=== PATIENT | female | born 1955 | race Caucasian/White ===

== ENCOUNTER 2020-11-24 08:33 | Outpatient (REF) | payer OTHER, SELFPAY ==
[2020-11-24 10:14] LABS: Hematocrit 37.9 % (37-47); Hemoglobin 12.4 g/dl (12.0-16.0); Mean Corpuscular HGB Conc 32.7 g/dl (31.0-35.0); Mean Corpuscular Hemoglobin 32.5 pg (27.0-33.0); Mean Corpuscular Volume 99.5 fL (80-98); Mean Platelet Volume 10.8 fL (9.4-12.3); Platelet Count 215 X10*3/uL (160-400); Red Blood Count 3.81 X10*6/uL (4.20-5.50); Red Cell Distribution Width 11.4 % (11.0-16.0); White Blood Count 8.4 X10*3/uL (4.8-10.8)
[2020-11-24 10:51] LABS: Alanine Aminotransferase 26 U/L (0-31); Albumin Level 4.2 g/dL (3.5-5.0); Alkaline Phosphatase 76 U/L (39-117); Anion Gap 13 (12-20); Aspartate Amino Transferase 40 U/L (5-31); Bilirubin Direct 0.3 mg/dL (0.0-0.5); Bilirubin Total 0.5 mg/dL (0.0-1.0); Blood Urea Nitrogen 14 mg/dL (9-16); Carbon Dioxide 30 mmol/L (22-29); Chloride 102 mmol/L (96-108); Cholesterol 145 mg/dL; Estimated Glomerular Filt Rate > 60; Glucose Fasting 96 mg/dL (60-99); HDL Cholesterol 59 mg/dL; LDL Cholesterol Calculated 66 mg/dl; Potassium 3.9 mmol/L (3.3-5.1); Sodium 141 mmol/L (135-145); Total Protein 6.6 g/dL (6.5-8.0); Triglycerides 100 mg/dL
[2020-11-24 11:16] LABS: TSH reflex Free T4 3.27 uIU/mL (0.32-4.0)
== END 2020-11-24 08:34 | disposition home or self-care (01) ==
LOC: HO.10HDL 08:33
PROVIDERS: Visit Provider Hospitalist
DX: Z00.01 Encounter for general adult medical examination with abnormal findings (principal)
CPT/HCPCS: 36415; 80048; 80061; 80076; 84443; 85027

== ENCOUNTER 2021-04-06 15:58 | Outpatient (REF) | payer OTHER, SELFPAY ==
--- NOTE | ~2021-04-06 | MM_ITS ---
EXAMINATION: MM SCREENING DIGITAL BREAST TOMOSYNTHESIS, BILATERAL CLINICAL INFORMATION: Screening. Asymptomatic. Prior mammography over 20 years ago and purged. Family history breast cancer, maternal aunt. The lifetime risk of breast cancer based on the Tyrer-Cuzick Model is 4%. COMPARISON: None (current study represents new baseline exam). TECHNIQUE: Digital breast tomosynthesis is performed in both the craniocaudal and mediolateral oblique views along with computer-aided detection (CAD). Synthesized 2D images are generated from the tomosynthesis. Additional exaggerated right CC view is provided. FINDINGS: There are scattered areas of fibroglandular density (ACR BI-RADS breast composition Category b). There are no significant masses, abnormal calcifications, or other abnormalities. The skin contours are smooth. MM/MM tomosynthesis screening BI IMPRESSION: No mammographic evidence of malignancy. ASSESSMENT: BI-RADS 1: Negative RECOMMENDATION: Routine annual mammography screening. This patient's information was entered into a reminder system with a target due date for their next mammogram.
== END 2021-04-06 15:59 | disposition home or self-care (01) ==
LOC: HO.MAMMO 15:58
PROVIDERS: PCP Internal Medicine; Visit Provider Internal Medicine
DX: Z12.31 Encounter for screening mammogram for malignant neoplasm of breast (principal)
CPT/HCPCS: 77063; 77067

== ENCOUNTER 2021-07-02 13:11 | Inpatient (IN) | payer OTHER, SELFPAY ==
[2021-07-02] VITALS (12 sets, daily range): BP systolic 162–216; BP diastolic 78–113; PULSE 80–91; RESP 14–18; TEMP 36.4–37.1; O2SAT 97–99; BMI 16.5; BMI 20.1
--- NOTE | ~2021-07-02 | CT_ITS ---
EXAMINATION: CT HEAD WITHOUT CONTRAST CLINICAL INFORMATION: Fall, trauma COMPARISON: None TECHNIQUE: Contiguous axial imaging was performed from the skull base to vertex without intravenous administration of contrast. Additional 2-D coronal and sagittal reformatted images are generated on the CT workstation and uploaded to PACS. This CT examination was performed using dose optimization techniques as appropriate, variously including the following: *Automated exposure control *Adjustment of mA and/or kV according to patient size (this includes techniques or standardized protocols for targeted exams where dose is matched to indication/reason for exam; i.e. extremities or head) *Use of iterative reconstruction technique DLP: 760 mGy-cm FINDINGS: There is no intracranial hemorrhage, hematoma, or extra-axial fluid collection. The ventricles are normal in size. There is no hydrocephalus, edema, or mass effect. There is moderate periventricular white matter gliosis consistent with small vessel ischemic changes. Punctate lacunar infarct is seen right anterior basal ganglia and caudate head. There is no mass effect or edema. Visualized orbits are unremarkable. There is no visible acute territorial infarct or mass lesion. The calvarium appears intact. There is no pneumocephalus or orbital emphysema. The visualized sinuses and middle ears and mastoid air cells show no significant mucosal thickening. There are no air-fluid levels. CT/CT head/brain wo con IMPRESSION: 1. No intracranial hemorrhage, hydrocephalus, or edema. 2. Bilateral moderate periventricular white matter gliosis consistent with chronic small vessel ischemic changes. Punctate lacunar infarct right inferior basal ganglia and caudate head.
--- NOTE | ~2021-07-02 | XR_ITS ---
EXAMINATION: XR HIP, LEFT CLINICAL INFORMATION: Fall with pain COMPARISON: 12/05/2017 TECHNIQUE: Two views of the left hip. Frontal view of the pelvis. FINDINGS: There is a left femoral neck transcervical fracture. Varus angulation at the fracture site. The femoral head remains seated within its acetabulum. Partially visualized fixation hardware of the right femur. Appropriate alignment of the right hip. The pelvic rim is intact. Sacroiliac joints and pubic symphysis are intact. XR/XR hip LT w PEL1V IMPRESSION: Transcervical left femoral neck fracture with varus angulation.
--- NOTE | ~2021-07-02 | XR_ITS ---
EXAMINATION: XR KNEE, LEFT CLINICAL INFORMATION: Fall with pain COMPARISON: None TECHNIQUE: Three views of the left knee. FINDINGS: Osteopenia. No fracture or subluxation. Mild medial compartment joint space narrowing. No joint effusion. The soft tissues are unremarkable. XR/XR knee LT 3V IMPRESSION: No fracture or malalignment. Mild medial compartment joint space narrowing.
--- NOTE | ~2021-07-02 | XR_ITS ---
EXAMINATION: XR CHEST CLINICAL INFORMATION: Syncope COMPARISON: 07/20/2017 TECHNIQUE: Frontal view of the chest was obtained. FINDINGS: Hyperexpanded lungs. No consolidation, edema, or effusion. No pneumothorax. The cardiomediastinal silhouette is within normal limits. No acute osseous abnormality. XR/XR chest 1V IMPRESSION: Hyperexpanded, clear lungs. No displaced fractures are seen.
--- NOTE | ~2021-07-02 | CT_ITS ---
EXAMINATION: CT CERVICAL SPINE WITHOUT CONTRAST CLINICAL INFORMATION: Fall, trauma, neck pain. COMPARISON: CT head 07/02/2021, CT chest 07/20/2017. TECHNIQUE: Multidetector volumetric CT imaging of the cervical spine is performed without contrast in the axial plane. Additional 2D reformatted coronal and sagittal images are generated on the CT workstation and uploaded to PACS. This CT examination was performed using dose optimization techniques as appropriate, variously including the following: *Automated exposure control *Adjustment of mA and/or kV according to patient size (this includes techniques or standardized protocols for targeted exams where dose is matched to indication/reason for exam; i.e. extremities or head) *Use of iterative reconstruction technique DLP: 286 mGy-cm FINDINGS: There is no vertebral compression fracture, fracture line, spondylolisthesis, or prevertebral soft tissue swelling. The craniocervical junction appears normal. The odontoid appears intact. There is normal cervical lordosis. There are mild degenerative changes with disc narrowing C4-C5 and C5-C6. No perched facet. No apical pneumothorax. There is some mild pleural-parenchymal scarring right apex again seen. No paraspinal soft tissue swelling. CT/CT cervical spine wo con IMPRESSION: No acute bony abnormality or prevertebral soft tissue swelling.
--- NOTE | 2021-07-02 13:45 | ECG_ITS ---
Test Reason : FALL Blood Pressure : / mmHG Vent. Rate : 080 BPM Atrial Rate : 080 BPM P-R Int : 096 ms QRS Dur : 082 ms QT Int : 416 ms P-R-T Axes : 067 055 066 degrees QTc Int : 479 ms Sinus rhythm with short MT Nonspecific T wave abnormality Possible Left ventricular hypertrophy Abnormal ECG T wave amplitude has increased in Lateral leads Referred By: Laure Tony Electronically Signed By:KRAIG ESPINO MD
--- NOTE | 2021-07-02 13:47 | ED.FALL ---
HPI - Fall General Chief Complaint: Fall Stated Complaint: Knee pain/fall Time Seen by Provider: 07/02/21 13:43 Source: patient and EMS Mode of arrival: EMS Limitations: no limitations History of Present Illness HPI Narrative: 65-year-old female came in by ambulance for evaluation for syncopal episode. Patient walked to the bathroom at 03:00 and felt dizzy and fainted on the floor, patient been complaining of headache, neck pain, left knee pain, left hip pain, patient was not able to bear weight since she fell. Related Data Home Medications Medication Instructions Recorded Confirmed aspirin 81 mg tablet,delayed 81 mg PO DAILY 11/02/20 07/02/21 release (Adult Aspirin Regimen) latanoprost 0.005 % eye drops 1 drp OPHTHALMIC (EYE) DAILY 11/02/20 07/02/21 timolol maleate 0.5 % eye drops 1 drp OPHTHALMIC (EYE) QAM 07/02/21 07/02/21 tramadol 50 mg tablet 25 mg PO BEDTIME PRN 07/02/21 07/02/21 tramadol 50 mg tablet 50 mg PO DAILY PRN 07/02/21 07/02/21 Previous Rx's Medication Instructions Recorded lisinopril 40 mg tablet 40 mg PO DAILY #90 tab 12/27/20 metoprolol succinate 50 mg 50 mg PO DAILY #90 tab 05/03/21 tablet,extended release 24 hr rosuvastatin 10 mg tablet 10 mg PO DAILY #90 tab 05/10/21 gabapentin 300 mg capsule 300 mg PO TID #90 cap 06/05/21 Allergies Allergy/AdvReac Type Severity Reaction Status Date / Time Sulfa (Sulfonamide Allergy Intermediate RASH/HIVES Verified 06/28/21 08:54 Antibiotics) [SULFA(SULFONAMIDE ANTIBIOTICS)] Review of Systems Review of Systems: All other systems are reviewed and are negative Constitutional: Reports as per HPI and Reports no additional constitutional complaints Eyes: Reports as per HPI and Reports no additional eye complaints Reports system reviewed and no additional complaints, except as documented Cardiovascular: Reports as per HPI and Reports no additional cardiovascular complaints Respiratory: Reports as per HPI and Reports no additional respiratory complaints Gastrointestinal: Reports as per HPI and Reports no additional gastrointestinal complaints Genitourinary: Reports no additional female genitourinary complaints Musculoskeletal: Reports no additional musculoskeletal complaints Skin/Breast: Reports system reviewed and no additional complaints, except as docu Psychiatric: Reports no additional psychiatric complaints Endocrine: Reports no additional endocrine complaints Hematologic/Lymphatic: Reports no additional hematologic/lymphatic complaints Allergic/Immunologic: Reports no additional allergic/immunologic complaints Reports system reviewed and no additional complaints, except as documented and Reports Abnormal speech present [facility] Past Medical History Medical History Cataract fragments in both eyes following surgery Essential hypertension Femur fracture High blood pressure High cholesterol Hip fracture Hypercholesterolemia Neuropathy Surgical History History of ankle surgery History of cataract surgery History of endoscopy History of surgery Family History Family History Mother No problems noted. Father No problems noted. Social History Social History Housing: House Alcohol intake: current Alcohol intake frequency: holidays/special occasions only Alcohol type: beer Patient Tobacco Use Status: Current everyday Tobacco user Tobacco use type: Cigarette Cigarettes Per Day: 6 Years Smoked: 42 on and off e-Cigarette/Vaping Use: Never Used Second Hand Smoke Exposure: Yes Advance Directives: No Advance Directives Information Provided: No service: No Current occupational status: employed Physical Exam Vital Signs: Vital Signs: Last Vital Signs Temp 97.6 F 07/02/21 15:11 Pulse 84 07/02/21 15:50 Resp 16 07/02/21 15:50 BP 192/83 H 07/02/21 15:50 Pulse Ox 99 07/02/21 15:11 Body Mass Index 16.5 vital signs have been reviewed as appeared to be correct. Blood pressure Elevated. Heart rate normal. Respiration rate normal. Temperature normal. Oxygen saturation normal. Appearance: Alert. Oriented X3. No acute distress. Head: Normal external exam. Normocephalic. Atraumatic. No Judd signs noted. No raccoon eyes noted Eyes: PERRLA. EOMI. Conjunctiva and sclera normal. Eyelids normal. ENT: TM's Normal. Pharynx normal. Uvula midline. Moist mucous membranes. No trismus noted. No drooling noted. No muffled voice noted. Neck: Normal inspection. Neck supple. FROM. No adenopathy. Thyroid Normal. No meningeal signs. No neck mass noted. CVS: Normal heart rate and rhythm. Heart sound normal. No murmurs noted. Pulses normal throughout. Respiratory: No respiratory distress. Painless inspiration. Breath sounds normal. No wheezes/rales/rhonchi noted. Chest nontender. No accessory muscle usage noted or decreased air movement noted. Abdomen: Soft and nontender. Bowel sounds normal in all 4 quadrants. No distention noted. No organomegaly noted. No visible injury noted. Back: No CVA tenderness. Full range of motion noted. Skin: Skin warm and dry. Normal skin color. Normal skin turgor. No rashes/lesions/lacerations noted. Extremities: left knee tenderness, no deformity, no step-off, no hematoma, limited range of motion due to pain. Left hip tenderness, there is slight shortening and internal rotation to the left lower extremities deformity unable to mobilize the hip. Neuro: Oriented X 3. Cranial nerve exam: II-XII are grossly intact No motor deficit. No sensory deficit. Reflexes normal. Course Course Course Narrative: assessment and plan. 65-year-old female after syncopal episode sustained left hip fracture. Admit, p.o. blood pressure medication, orthopedic consultation. MDM - Fall Medical Records Attestation: I reviewed the patient's medical records. Lab Data Attestation: I reviewed the patient's lab results. Result diagrams: 07/02/21 14:44 07/02/21 14:44 Labs: Lab Results 07/02/21 07/02/21 07/02/21 Range/Units 14:44 14:44 14:44 WBC 12.7 H (4.8-10.8) X10*3/uL RBC 4.21 (4.20-5.50) X10*6/uL Hgb 14.2 (12.0-16.0) g/dl Hct 38.5 (37.0-47.0) % MCV 91.4 (80.0-98.0) fL MCH 33.7 H (27.0-33.0) pg MCHC 36.9 H (31.0-35.0) g/dl RDW 11.1 (11.0-16.0) % Plt Count 224 (160-400) X10*3/uL MPV 9.3 L (9.4-12.3) fL Immature Gran % (Auto) 0.3 (0.0-0.4) % Neut % (Auto) 80.7 H (45-73) % Lymph % (Auto) 9.9 L (20-40) % [place] % (Auto) 9.0 (2-11) % Eos % (Auto) 0.0 (0-4) % Baso % (Auto) 0.1 (0-2) % Lymph # (Auto) 1.3 (1.2-4.9) X10*3/uL [place] # (Auto) 1.1 (0.1-1.2) X10*3/uL Eos # (Auto) 0.0 (0.0-0.4) X10*3/uL Baso # (Auto) 0.0 (0.0-0.2) X10*3/uL Abs Immat Gran (auto) 0.04 H (0.00-0.03) X10*3/uL Absolute Neuts (auto) 10.22 H (2.0-8.3) x10*3/uL Absolute Nucleated RBC 0.000 (0.0-0.012) X10*3/uL Nucleated RBC % (auto) 0.0 (0.0-0.2) /100WBC Sodium 134 L (135-145) mmol/L Potassium 4.4 (3.3-5.1) mmol/L Chloride 94 L (96-108) mmol/L Carbon Dioxide 26 (22-29) mmol/L Anion Gap 18 (12-20) BUN 6 L D (9-16) mg/dL Creatinine 0.65 (0.5-1.4) mg/dL Estim Creat Clear Calc 56.3 Estimated GFR > 60 Random Glucose 103 (60-115) mg/dL Calcium 9.3 (8.4-10.2) mg/dL Total Bilirubin 1.2 H (0.0-1.0) mg/dL Direct Bilirubin 0.5 (0.0-0.5) mg/dL AST 48 H (5-31) U/L ALT 32 H (0-31) U/L Alkaline Phosphatase 111 D (39-117) U/L Total Creatine Kinase 274 H (26-140) U/L Troponin I High Sens 3.9 (<3.5-17.0) ng/L B-Natriuretic Peptide (<100) pg/mL Total Protein 7.9 (6.5-8.0) g/dL Albumin 4.8 (3.5-5.0) g/dL Lipase 21 (8-78) U/L Urine Color Urine Appearance Urine pH (5.0-8.0) Ur Specific [place] (1.005-1.025) Urine Protein (NEG-TRACE) MG/DL Urine Glucose (UA) (NEG) MG/DL Urine Ketones (NEG) MG/DL Urine Blood (NEG) Urine Nitrite (NEG) Ur Leukocyte Esterase (NEG) Urine RBC (0) /HPF Urine WBC (0-4) /HPF Ur Squamous Epith Cells /LPF Urine Bacteria /LPF COVID-19 (VEE) (Negative) COVID-19 Clin Com 07/02/21 07/02/21 07/02/21 Range/Units 14:44 14:45 15:07 WBC (4.8-10.8) X10*3/uL RBC (4.20-5.50) X10*6/uL Hgb (12.0-16.0) g/dl Hct (37.0-47.0) % MCV (80.0-98.0) fL MCH (27.0-33.0) pg MCHC (31.0-35.0) g/dl RDW (11.0-16.0) % Plt Count (160-400) X10*3/uL MPV (9.4-12.3) fL Immature Gran % (Auto) (0.0-0.4) % Neut % (Auto) (45-73) % Lymph % (Auto) (20-40) % [place] % (Auto) (2-11) % Eos % (Auto) (0-4) % Baso % (Auto) (0-2) % Lymph # (Auto) (1.2-4.9) X10*3/uL [place] # (Auto) (0.1-1.2) X10*3/uL Eos # (Auto) (0.0-0.4) X10*3/uL Baso # (Auto) (0.0-0.2) X10*3/uL Abs Immat Gran (auto) (0.00-0.03) X10*3/uL Absolute Neuts (auto) (2.0-8.3) x10*3/uL Absolute Nucleated RBC (0.0-0.012) X10*3/uL Nucleated RBC % (auto) (0.0-0.2) /100WBC Sodium (135-145) mmol/L Potassium (3.3-5.1) mmol/L Chloride (96-108) mmol/L Carbon Dioxide (22-29) mmol/L Anion Gap (12-20) BUN (9-16) mg/dL Creatinine (0.5-1.4) mg/dL Estim Creat Clear Calc Estimated GFR Random Glucose (60-115) mg/dL Calcium (8.4-10.2) mg/dL Total Bilirubin (0.0-1.0) mg/dL Direct Bilirubin (0.0-0.5) mg/dL AST (5-31) U/L ALT (0-31) U/L Alkaline Phosphatase (39-117) U/L Total Creatine Kinase (26-140) U/L Troponin I High Sens (<3.5-17.0) ng/L B-Natriuretic Peptide 286 H (<100) pg/mL Total Protein (6.5-8.0) g/dL Albumin (3.5-5.0) g/dL Lipase (8-78) U/L Urine Color YELLOW Urine Appearance CLEAR Urine pH 6.5 (5.0-8.0) Ur Specific [place] 1.010 (1.005-1.025) Urine Protein 2+ H (NEG-TRACE) MG/DL Urine Glucose (UA) NEG (NEG) MG/DL Urine Ketones 15 (NEG) MG/DL Urine Blood 3+ H (NEG) Urine Nitrite NEG (NEG) Ur Leukocyte Esterase NEG (NEG) Urine RBC 76-150 H (0) /HPF Urine WBC 0-2 (0-4) /HPF Ur Squamous Epith Cells 1+ /LPF Urine Bacteria NONE /LPF COVID-19 (VEE) Negative (Negative) COVID-19 Clin Com See Note Imaging Data Chest x-ray: Radiologist's impression: Hyper extended Hyperexpanded, clear lungs no displaced fracture are seen. Left knee x-ray: Radiologist's impression: No fracture or malalignment. Mild medial compartment joint space narrowing. ? left hip x-ray: Radiologist's impression: Transcervical left femoral neck fracture with varus angulation. ? head/cervical spine CT: Radiologist's impression: Transcervical left femoral neck fracture with varus angulation. ? ECG Data Attestation: I personally reviewed and interpreted this ECG as follows: Interpretation: normal sinus rhythm at 80 beats per minute, normal axis deviation, normal intervals, no ST-T changes. Discharge Plan Discharge Clinical Impression: Left displaced femoral neck fracture, Syncope Patient Disposition: Admitted As Inpatient Prescriptions: No Action lisinopril 40 mg tablet 40 mg PO DAILY Qty: 90 RF: 0 metoprolol succinate 50 mg tablet extended release 24 hr 50 mg PO DAILY Qty: 90 RF: 0 rosuvastatin 10 mg tablet 10 mg PO DAILY Qty: 90 RF: 1 gabapentin 300 mg capsule 300 mg PO TID Qty: 90 RF: 2 timolol maleate 0.5 % drops 1 drp ophthalmic (eye) QAM RF: 0 tramadol 50 mg tablet 25 mg PO BEDTIME PRN (Reason: Pain, Severe) RF: 0 tramadol 50 mg tablet 50 mg PO DAILY PRN (Reason: Pain, Moderate) RF: 0 aspirin [Adult Aspirin Regimen] 81 mg tablet,delayed release (DR/EC) 81 mg PO DAILY RF: 0 latanoprost 0.005 % drops 1 drp ophthalmic (eye) DAILY RF: 0
--- NOTE | 2021-07-02 14:42 | PHA.MEDREC ---
Pharmacy Consult ? Medication Reconciliation Pharmacy has completed the medication reconciliation.
[2021-07-02] MEDS: Morphine Sulfate 2 MG/ML CARTRIDGE IVPUSH ×2 (14:46→18:18)
[2021-07-02 14:53] LABS: MANUAL DIFF FLAG NO
[2021-07-02 14:54] LABS: Basophils Percent Auto 0.1 % (0-2); Hematocrit 38.5 % (37.0-47.0); Hemoglobin 14.2 g/dl (12.0-16.0); Imm Gran Abs Auto 0.04 X10*3/uL (0.00-0.03); Imm Gran Pct Auto 0.3 % (0.0-0.4); Lymphocytes Absolute Auto 1.3 X10*3/uL (1.2-4.9); Lymphocytes Percent Auto 9.9 % (20-40); Mean Corpuscular HGB Conc 36.9 g/dl (31.0-35.0); Mean Corpuscular Hemoglobin 33.7 pg (27.0-33.0); Mean Corpuscular Volume 91.4 fL (80.0-98.0); Mean Platelet Volume 9.3 fL (9.4-12.3); Monocytes Absolute Auto 1.1 X10*3/uL (0.1-1.2); Neutrophils Absolute Auto 10.22 x10*3/uL (2.0-8.3); Neutrophils Percent Auto 80.7 % (45-73); Platelet Count 224 X10*3/uL (160-400); Red Blood Count 4.21 X10*6/uL (4.20-5.50); Red Cell Distribution Width 11.1 % (11.0-16.0); White Blood Count 12.7 X10*3/uL (4.8-10.8)
[2021-07-02] MEDS: 0.9 % Sodium Chloride 1,000 ML 999 ML IVCONT (14:54)
[2021-07-02 15:10] LABS: Alanine Aminotransferase 32 U/L (0-31); Albumin Level 4.8 g/dL (3.5-5.0); Alkaline Phosphatase 111 U/L (39-117); Anion Gap 18 (12-20); Aspartate Amino Transferase 48 U/L (5-31); Bilirubin Direct 0.5 mg/dL (0.0-0.5); Bilirubin Total 1.2 mg/dL (0.0-1.0); Blood Urea Nitrogen 6 mg/dL (9-16); Calcium 9.3 mg/dL (8.4-10.2); Carbon Dioxide 26 mmol/L (22-29); Chloride 94 mmol/L (96-108); Creatinine Clr Calc Pharmacy 56.3; Estimated Glomerular Filt Rate > 60; Glucose Random 103 mg/dL (60-115); Lipase 21 U/L (8-78); Potassium 4.4 mmol/L (3.3-5.1); Sodium 134 mmol/L (135-145); Total Protein 7.9 g/dL (6.5-8.0)
[2021-07-02 15:16] LABS: B Type Natriuretic Peptide 286 pg/mL (<100); Troponin-I High Sensitivity 3.9 ng/L (<3.5-17.0)
[2021-07-02 15:17] LABS: COVID-19 Test Negative (Negative); IDNOW Serial# 9DD0AD1C
[2021-07-02 15:19] LABS: Appearance Urine CLEAR; Color Urine YELLOW; Glucose Urine UA NEG (NEG); Leukocyte Esterase Urine NEG (NEG); Nitrite Urine NEG (NEG); PH 6.5 (5.0-8.0); UACC Culture Trigger NO; Urine Blood 3+ (NEG); Urine Ketones 15 MG/DL (NEG); Urine Protein 2+ MG/DL (NEG-TRACE)
[2021-07-02] MEDS: lisinopriL 40 MG TABLET PO (15:26)
[2021-07-02] MEDS: Metoprolol Succinate ER 50 MG TAB.ER.24H PO (15:27)
[2021-07-02 15:33] LABS: Squamous Epithelial Cell Urine 1+ /LPF; WBC Urine 0-2 /HPF (0-4)
--- NOTE | 2021-07-02 16:12 | P.CONOP_ITS ---
History of Present Illness HPI Consult date: 07/02/21 Chief complaint: Knee pain/fall Narrative: Ms. Andino is a 65 yo female who presented to the ED earlier this morning after sustaining a fall at home and injuring her left hip . She states at about 3am this morning she got up to use the bathroom when she felt dizzy and fell. She denies hitting her head. She states she was unable to get up and ambulate. EMS was called and she was transported to the ED. On exam and xrays showed a femoral neck fracture of the left femur. She was admitted to the medicine service for further workup and orthopedics was consulted for further recommendations. She is known to our practice for a Right hip IMN with Dr March. Review of Systems Review of Systems: Yes all other systems are reviewed and are negative PMFSH Past Medical History Medical History Cataract fragments in both eyes following surgery Essential hypertension Femur fracture High blood pressure High cholesterol Hip fracture Hypercholesterolemia Neuropathy Family History Family History Mother No problems noted. Father No problems noted. Surgical History Surgical History History of ankle surgery History of cataract surgery History of endoscopy History of surgery Social History Social History Housing: House Alcohol intake: current Alcohol intake frequency: holidays/special occasions only Alcohol type: beer Patient Tobacco Use Status: Current everyday Tobacco user Tobacco use type: Cigarette Cigarettes Per Day: 6 Years Smoked: 42 on and off e-Cigarette/Vaping Use: Never Used Second Hand Smoke Exposure: Yes Advance Directives: No Advance Directives Information Provided: No service: No Current occupational status: employed Meds Allergies Allergy/AdvReac Type Severity Reaction Status Date / Time Sulfa (Sulfonamide Allergy Intermediate RASH/HIVES Verified 06/28/21 08:54 Antibiotics) [SULFA(SULFONAMIDE ANTIBIOTICS)] Active Medications: Current Medications Pharmacy Consult (Consult Rx Perform Med Rec) 1 each MISCELLANE ONCE PRN PRN Reason: Consult order Home Medications Medication Instructions Recorded Confirmed Last Taken Type aspirin 81 mg tablet,delayed 81 mg PO DAILY 11/02/20 07/02/21 1 Day Ago History release (Adult Aspirin Regimen) ~07/01/21 latanoprost 0.005 % eye drops 1 drp OPHTHALMIC (EYE) DAILY 11/02/20 07/02/21 1 Day Ago History ~07/01/21 timolol maleate 0.5 % eye drops 1 drp OPHTHALMIC (EYE) QAM 07/02/21 07/02/21 1 Day Ago History ~07/01/21 tramadol 50 mg tablet 25 mg PO BEDTIME PRN 07/02/21 07/02/21 07/02/21 History tramadol 50 mg tablet 50 mg PO DAILY PRN 07/02/21 07/02/21 1 Day Ago History ~07/01/21 Physical Exam Vital Signs: Vital Signs: Last Vital Signs Temp 97.6 F 07/02/21 15:11 Pulse 84 07/02/21 15:50 Resp 16 07/02/21 15:50 BP 192/83 H 07/02/21 15:50 Pulse Ox 99 07/02/21 15:11 Body Mass Index 16.5 Const: General: cooperative and no acute distress Orientation/con sciousness: patient oriented x3 Resp: Effort & Inspection: normal respiratory effort and able to speak in complete sentences Cardio: Peripheral pulses: Peripheral pulses 2+ throughout Neuro: General: patient oriented x3 Extrem: Other: Left hip skin intact, pain with log roll,unable to SLR. Peripheral pulses present. Results Labs Result Diagrams: 07/02/21 14:44 07/02/21 14:44 Labs: Abnormal lab results 07/02/21 07/02/21 07/02/21 Range/Units 14:44 14:44 14:44 WBC 12.7 H (4.8-10.8) X10*3/uL MCH 33.7 H (27.0-33.0) pg MCHC 36.9 H (31.0-35.0) g/dl MPV 9.3 L (9.4-12.3) fL Neut % (Auto) 80.7 H (45-73) % Lymph % (Auto) 9.9 L (20-40) % Abs Immat Gran (auto) 0.04 H (0.00-0.03) X10*3/uL Absolute Neuts (auto) 10.22 H (2.0-8.3) x10*3/uL Sodium 134 L (135-145) mmol/L Chloride 94 L (96-108) mmol/L BUN 6 L D (9-16) mg/dL Total Bilirubin 1.2 H (0.0-1.0) mg/dL AST 48 H (5-31) U/L ALT 32 H (0-31) U/L Total Creatine Kinase 274 H (26-140) U/L B-Natriuretic Peptide 286 H (<100) pg/mL Urine Protein (NEG-TRACE) MG/DL Urine Blood (NEG) Urine RBC (0) /HPF 07/02/21 Range/Units 15:07 WBC (4.8-10.8) X10*3/uL MCH (27.0-33.0) pg MCHC (31.0-35.0) g/dl MPV (9.4-12.3) fL Neut % (Auto) (45-73) % Lymph % (Auto) (20-40) % Abs Immat Gran (auto) (0.00-0.03) X10*3/uL Absolute Neuts (auto) (2.0-8.3) x10*3/uL Sodium (135-145) mmol/L Chloride (96-108) mmol/L BUN (9-16) mg/dL Total Bilirubin (0.0-1.0) mg/dL AST (5-31) U/L ALT (0-31) U/L Total Creatine Kinase (26-140) U/L B-Natriuretic Peptide (<100) pg/mL Urine Protein 2+ H (NEG-TRACE) MG/DL Urine Blood 3+ H (NEG) Urine RBC 76-150 H (0) /HPF H & H 07/02/21 Range/Units 14:44 Hgb 14.2 (12.0-16.0) g/dl Hct 38.5 (37.0-47.0) % All other labs normal. Diagnostic results Hip x-ray: image reviewed (left hip femoral neck fracture) Assessment and Plan (1) Left displaced femoral neck fracture: Status: Acute I discussed the case with Dr Katz and explained the extent of the injury to the patient and options available which include surgical intervention. I explained the procedure in detail along with the length of recovery and rehab course. I explained the risk, benefits and alternatives. Risk including, but not limited to infection, blood clots, bleeding, non union or malunion and nerve/tissue damage to surrounding areas. I answered all their questions and with their understanding they have consented to move forward with Operative Fixation of the left hip . The patient will be T&S, med clearance obtained and NPO after midnight. Procedures Date of Service Date of Service: 07/02/21
--- NOTE | 2021-07-02 16:43 | PM.IMHP ---
History of Present Illness Date of Service: 07/02/21 Chief Complaint: Fall 65 year old women presenting after a fall. Apparently she got up at 0300 and became dizzy and fell to the floor on to her knees. She denied LOC or trauma to her head. She was able to crawl to the bed and ghet herself up and she couldnt sleep all night. Her sister lives downstairs and noted in the morning that her car was there she she checked on the patient and noted she was in pain and unable to move and she called the patients son. Her son ended up calling EMS. Hip ct showed Transcervical left femoral fracture. CXR and UA negative for acute infection. She was noted to have an elevated blood pressure otherwise no fever, mild leukocytosis. She was given pain medication and she will be admitted for further management and treatment of hip fracture. Review of Systems Review of Systems: Denies any recent fever chills or decrease in appetite respiratory denies any shortness of breath coverage production cardiovascular denies chest pain gastrointestinal denies any dysphagia abdominal pain nausea vomiting or diarrhea genitourinary denies any dysuria frequency or hematuria musculoskeletal see HPI neuropsych denies any weakness or seizures all other systems reviewed are negative [facility] Medical History Cataract fragments in both eyes following surgery Essential hypertension Femur fracture High blood pressure High cholesterol Hip fracture Hypercholesterolemia Neuropathy Family History Mother No problems noted. Father No problems noted. Pertinent family history: heart disease breast cancer Surgical History History of ankle surgery History of cataract surgery History of endoscopy History of surgery Social History Housing: House Alcohol intake: current Alcohol intake frequency: holidays/special occasions only Alcohol type: beer Patient Tobacco Use Status: Current everyday Tobacco user Tobacco use type: Cigarette Cigarettes Per Day: 6 Years Smoked: 42 on and off e-Cigarette/Vaping Use: Never Used Second Hand Smoke Exposure: Yes Advance Directives: No Advance Directives Information Provided: No service: No Current occupational status: employed Meds Allergies Allergy/AdvReac Type Severity Reaction Status Date / Time Sulfa (Sulfonamide Allergy Intermediate RASH/HIVES Verified 06/28/21 08:54 Antibiotics) [SULFA(SULFONAMIDE ANTIBIOTICS)] Active Medications: Current Medications Aspirin (Aspirin Enteric Coated 81 Mg Tablet.Dr) 81 mg PO DAILY [facility] Atorvastatin Calcium (Atorvastatin Calcium 40 Mg Tablet) 40 mg PO DAILY [facility] Gabapentin (Gabapentin 300 Mg Capsule) 300 mg PO TID [facility] Cefazolin Sodium/Dextrose (Ancef) 2 gm in 50 mls @ 100 mls/hr IV PREOP ONE Stop: 07/03/21 10:46 Latanoprost (Latanoprost 0.005 % Ophth [place]th 2.5 Ml Drops) 1 drop EYE-BOTH DAILY [facility] Lisinopril (Lisinopril 40 Mg Tablet) 40 mg PO DAILY [facility]; Protocol Metoprolol Succinate (Metoprolol Succinate Er 50 Mg Tab.Er.24h) 50 mg PO DAILY [facility]; Protocol Pharmacy Consult (Consult Rx Perform Med Rec) 1 each MISCELLANE ONCE PRN PRN Reason: Consult order Timolol Maleate (Timolol Maleate 0.5 % Oph Yamileth 5 Ml Drbtl) 1 drop EYE-BOTH DAILY [facility] Tramadol HCl (Tramadol Hcl 50 Mg Tablet) 25 mg PO BEDTIME PRN PRN Reason: Pain, Severe Tramadol HCl (Tramadol Hcl 50 Mg Tablet) 50 mg PO DAILY PRN PRN Reason: Pain, Moderate Home Medications Medication Instructions Recorded Confirmed Last Taken Type aspirin 81 mg tablet,delayed 81 mg PO DAILY 11/02/20 07/02/21 1 Day Ago History release (Adult Aspirin Regimen) ~07/01/21 latanoprost 0.005 % eye drops 1 drp OPHTHALMIC (EYE) DAILY 11/02/20 07/02/21 1 Day Ago History ~07/01/21 timolol maleate 0.5 % eye drops 1 drp OPHTHALMIC (EYE) QAM 07/02/21 07/02/21 1 Day Ago History ~07/01/21 tramadol 50 mg tablet 25 mg PO BEDTIME PRN 07/02/21 07/02/21 07/02/21 History tramadol 50 mg tablet 50 mg PO DAILY PRN 07/02/21 07/02/21 1 Day Ago History ~07/01/21 Physical Exam Vital Signs and Narrative: Vital Signs: Last Vital Signs Temp 98.6 F 07/02/21 16:40 Pulse 80 11/01/21 16:40 Resp 14 07/02/21 16:40 BP 169/91 H 07/02/21 16:40 Pulse Ox 97 07/02/21 16:40 Body Mass Index 16.5 Appearing in no acute distress head is normocephalic atraumatic eyes pupils are PERRLA sclera is anicteric mouth throat mucous membranes are intact and moist neck is supple no lymphadenopathy, no JVD noted lung sounds are clear to auscultation heart regular rate rhythm, clear S1, S2 positive bowel sounds, abdomen is soft, nontender neuro patient is alert x3, no focal deficits Results Labs CBC and Chem 7: 07/02/21 14:44 07/02/21 14:44 Labs: Laboratory Results - last 24 hr 07/02/21 07/02/21 07/02/21 14:44 14:44 14:44 MCV 91.4 MCH 33.7 H MCHC 36.9 H RDW 11.1 Plt Count 224 MPV 9.3 L Immature Gran % (Auto) 0.3 Neut % (Auto) 80.7 H Lymph % (Auto) 9.9 L [place] % (Auto) 9.0 Eos % (Auto) 0.0 Baso % (Auto) 0.1 Lymph # (Auto) 1.3 [place] # (Auto) 1.1 Eos # (Auto) 0.0 Baso # (Auto) 0.0 Abs Immat Gran (auto) 0.04 H Absolute Neuts (auto) 10.22 H Absolute Nucleated RBC 0.000 Nucleated RBC % (auto) 0.0 Anion Gap 18 Estim Creat Clear Calc 56.3 Estimated GFR > 60 Random Glucose 103 Calcium 9.3 Total Bilirubin 1.2 H Direct Bilirubin 0.5 AST 48 H ALT 32 H Alkaline Phosphatase 111 D Total Creatine Kinase 274 H Troponin I High Sens 3.9 B-Natriuretic Peptide Total Protein 7.9 Albumin 4.8 Lipase 21 Urine Color Urine Appearance Urine pH Ur Specific [place] Urine Protein Urine Glucose (UA) Urine Ketones Urine Blood Urine Nitrite Ur Leukocyte Esterase Urine RBC Urine WBC Ur Squamous Epith Cells Urine Bacteria COVID-19 (VEE) COVID-19 Clin Com 07/02/21 07/02/21 07/02/21 14:44 14:45 15:07 MCV MCH MCHC RDW Plt Count MPV Immature Gran % (Auto) Neut % (Auto) Lymph % (Auto) [place] % (Auto) Eos % (Auto) Baso % (Auto) Lymph # (Auto) [place] # (Auto) Eos # (Auto) Baso # (Auto) Abs Immat Gran (auto) Absolute Neuts (auto) Absolute Nucleated RBC Nucleated RBC % (auto) Anion Gap Estim Creat Clear Calc Estimated GFR Random Glucose Calcium Total Bilirubin Direct Bilirubin AST ALT Alkaline Phosphatase Total Creatine Kinase Troponin I High Sens B-Natriuretic Peptide 286 H Total Protein Albumin Lipase Urine Color YELLOW Urine Appearance CLEAR Urine pH 6.5 Ur Specific [place] 1.010 Urine Protein 2+ H Urine Glucose (UA) NEG Urine Ketones 15 Urine Blood 3+ H Urine Nitrite NEG Ur Leukocyte Esterase NEG Urine RBC 76-150 H Urine WBC 0-2 Ur Squamous Epith Cells 1+ Urine Bacteria NONE COVID-19 (VEE) Negative COVID-19 Clin Com See Note Imaging Radiologist's Impressions: Impressions Cervical Spine CT 07/02/21 13:43 IMPRESSION: No acute bony abnormality or prevertebral soft tissue swelling. Head CT 07/02/21 13:43 IMPRESSION: 1. No intracranial hemorrhage, hydrocephalus, or edema. 2. Bilateral moderate periventricular white matter gliosis consistent with chronic small vessel ischemic changes. Punctate lacunar infarct right inferior basal ganglia and caudate head. Hip/Pelvis X-Ray 07/02/21 13:43 IMPRESSION: Transcervical left femoral neck fracture with varus angulation. Knee X-Ray 07/02/21 13:43 IMPRESSION: No fracture or malalignment. Mild medial compartment joint space narrowing. Chest X-Ray 07/02/21 13:45 IMPRESSION: Hyperexpanded, clear lungs. No displaced fractures are seen. Assessment and Plan (1) Left displaced femoral neck fracture: Status: Acute (2) Essential hypertension: Status: Acute (3) Protein calorie malnutrition: Status: Acute 65 year old women admitted after experiencing a syncopal episode and subsequently sustaining a hip fracture Transcervical left femoral fracture Orthopedic surgery following NPO after midnight pain management Syncope Orthostatic BP OOB with assist HTN continue lisinopril Transaminitis. chronic Mildly elevated trend protein calorie malnutrition. BMI 16.5 nutrition consult after surgery DVT prophylaxis with SCD boots Attending Dr. Barber Full code Quality Stroke Does the patient have a stroke diagnosis?: No VTE Prior VTE?: No VTE Risk Level:: Medical - moderate - high VTE Device Contraindication: N/A - Device Ordered VTE Drug Contraindication: Treatment Not Indicated
[2021-07-02] MEDS: Gabapentin 300 MG CAPSULE PO (20:42)
[2021-07-02] MEDS: Acetaminophen 325 MG TABLET 650 MG PO (22:30)
[2021-07-02] MEDS: 0.9 % Sodium Chloride Flush 3 ML SYRINGE IVFLUSH (22:30)
[2021-07-02] MEDS: traMADoL HCL 50 MG TABLET PO (22:30)
[2021-07-03] VITALS (16 sets, daily range): BP systolic 119–196; BP diastolic 58–94; PULSE 63–88; RESP 12–19; TEMP 36.1–37; O2SAT 95–100
[2021-07-03 05:55] LABS: MANUAL DIFF FLAG NO
[2021-07-03 06:15] LABS: Basophils Percent Auto 0.3 % (0-2); Eosinophils Percent Auto 0.3 % (0-4); Hematocrit 35.4 % (37.0-47.0); Hemoglobin 12.4 g/dl (12.0-16.0); Imm Gran Abs Auto 0.04 X10*3/uL (0.00-0.03); Imm Gran Pct Auto 0.5 % (0.0-0.4); Lymphocytes Absolute Auto 1.7 X10*3/uL (1.2-4.9); Lymphocytes Percent Auto 19.4 % (20-40); Mean Corpuscular Hemoglobin 32.5 pg (27.0-33.0); Mean Corpuscular Volume 92.9 fL (80.0-98.0); Mean Platelet Volume 9.9 fL (9.4-12.3); Monocytes Absolute Auto 1.1 X10*3/uL (0.1-1.2); Neutrophils Absolute Auto 5.83 x10*3/uL (2.0-8.3); Neutrophils Percent Auto 66.5 % (45-73); Platelet Count 182 X10*3/uL (160-400); Red Blood Count 3.81 X10*6/uL (4.20-5.50); Red Cell Distribution Width 11.2 % (11.0-16.0); White Blood Count 8.8 X10*3/uL (4.8-10.8)
[2021-07-03 06:24] LABS: Anion Gap 15 (12-20); Blood Urea Nitrogen 10 mg/dL (9-16); Calcium 8.4 mg/dL (8.4-10.2); Carbon Dioxide 24 mmol/L (22-29); Chloride 102 mmol/L (96-108); Creatinine Clr Calc Pharmacy 72.3; Estimated Glomerular Filt Rate > 60; Glucose Random 83 mg/dL (60-115); Potassium 3.4 mmol/L (3.3-5.1); Sodium 138 mmol/L (135-145)
[2021-07-03] MEDS: Metoprolol Succinate ER 50 MG TAB.ER.24H PO (07:48)
[2021-07-03] MEDS: lisinopriL 40 MG TABLET PO (07:49)
--- NOTE | 2021-07-03 09:06 | PC.NURSE ---
Skin Assessment completed. Patient has Stage 1 pressure injury to left heel, skin prep applied to heel and floated on pillow. Bruising to right hip from fall. No other skin issues noted at this time.
--- NOTE | 2021-07-03 09:28 | PM.IMPN ---
Progress Note: A&P (1) Protein calorie malnutrition: Status: Acute (2) Syncope: Status: Acute (3) Left displaced femoral neck fracture: Status: Acute (4) Essential hypertension: Status: Acute Assessment and Plan: 65 year old women admitted after experiencing a syncopal episode and subsequently sustaining a hip fracture Transcervical left femoral fracture Orthopedic surgery following OR today pain management Syncope Orthostatic BP OOB with assist HTN. Elevated continue lisinopril and metoprolol Hydralazine prn Transaminitis. chronic Mildly elevated trend protein calorie malnutrition. BMI 16.5 nutrition consult after surgery DVT prophylaxis with SCD boots Attending Dr. Barber Full code Subjective Subjective Date of Service: 07/03/21 Review of Systems Follow up fall, hip fx pain is better managed denies chest pain, sob Physical Exam Vital Signs: Vital Signs: Last Vital Signs Temp 98.1 F 07/03/21 07:34 Pulse 88 07/03/21 07:49 Resp 17 07/03/21 07:34 BP 196/91 H 07/03/21 07:49 Pulse Ox 97 07/03/21 07:34 Body Mass Index 20.1 Appearing in no acute distress lung sounds are clear to auscultation heart regular rate rhythm, clear S1, S2 positive bowel sounds, abdomen is soft, nontender neuro patient is alert x3, no focal deficits MSK right hip pain Objective Data Current Medications Acetaminophen (Acetaminophen 325 Mg Tablet) 650 mg PO Q6H PRN PRN Reason: Pain, Mild (Pain Scale 1-3) Last Admin: 07/02/21 22:30 Dose: 650 mg Documented by: Aspirin (Aspirin Enteric Coated 81 Mg Tablet.) 81 mg PO DAILY [facility] Atorvastatin Calcium (Atorvastatin Calcium 40 Mg Tablet) 40 mg PO DAILY [facility] Gabapentin (Gabapentin 300 Mg Capsule) 300 mg PO TID [facility] Last Admin: 07/02/21 20:42 Dose: 300 mg Documented by: Hydralazine HCl (Hydralazine Hcl 20 Mg/Ml Vial) 5 mg IVPUSH Q6H PRN; Protocol PRN Reason: SBP >190 Cefazolin Sodium/Dextrose (Ancef) 2 gm in 50 mls @ 100 mls/hr IV PREOP ONE Stop: 07/03/21 10:46 Latanoprost (Latanoprost 0.005 % Ophth Yamileth 2.5 Ml Drops) 1 drop EYE-BOTH DAILY [facility] Lisinopril (Lisinopril 40 Mg Tablet) 40 mg PO DAILY [facility]; Protocol Last Admin: 07/03/21 07:49 Dose: 40 mg Documented by: Metoprolol Succinate (Metoprolol Succinate Er 50 Mg Tab.Er.24h) 50 mg PO DAILY [facility]; Protocol Last Admin: 07/03/21 07:48 Dose: 50 mg Documented by: Morphine Sulfate (Morphine Sulfate 2 Mg/Ml Cartridge) 2 mg IVPUSH Q4H PRN; Protocol PRN Reason: pain Ondansetron HCl (Ondansetron Hcl 4 Mg/2 Ml Vial) 4 mg IVPUSH Q8H PRN PRN Reason: Nausea and Vomiting Oxycodone HCl (Oxycodone Hcl Immed Release 5 Mg Tablet) 5 mg PO Q4H PRN PRN Reason: pain Pharmacy Consult (Consult Rx Perform Med Rec) 1 each MISCELLANE ONCE PRN PRN Reason: Consult order Sodium Chloride (0.9 % Sodium Chloride Flush 3 Ml Syringe) [facility] Last Admin: 07/02/21 22:30 Dose: 3 ml Documented by: Timolol Maleate (Timolol Maleate 0.5 % Oph Yamileth 5 Ml Drbtl) 1 drop EYE-BOTH DAILY [facility] Tramadol HCl (Tramadol Hcl 50 Mg Tablet) 25 mg PO BEDTIME PRN PRN Reason: Pain, Severe Tramadol HCl (Tramadol Hcl 50 Mg Tablet) 50 mg PO DAILY PRN PRN Reason: Pain, Moderate Last Admin: 07/02/21 22:30 Dose: 50 mg Documented by: Labs CBC & Chem 7: 07/03/21 05:40 07/03/21 05:40 Labs: Laboratory Results - last 24 hr 07/02/21 07/02/21 07/02/21 14:44 14:44 14:44 MCV 91.4 MCH 33.7 H MCHC 36.9 H RDW 11.1 Plt Count 224 MPV 9.3 L Immature Gran % (Auto) 0.3 Neut % (Auto) 80.7 H Lymph % (Auto) 9.9 L [place] % (Auto) 9.0 Eos % (Auto) 0.0 Baso % (Auto) 0.1 Lymph # (Auto) 1.3 [place] # (Auto) 1.1 Eos # (Auto) 0.0 Baso # (Auto) 0.0 Abs Immat Gran (auto) 0.04 H Absolute Neuts (auto) 10.22 H Absolute Nucleated RBC 0.000 Nucleated RBC % (auto) 0.0 Anion Gap 18 Estim Creat Clear Calc 56.3 Estimated GFR > 60 Random Glucose 103 Calcium 9.3 Total Bilirubin 1.2 H Direct Bilirubin 0.5 AST 48 H ALT 32 H Alkaline Phosphatase 111 D Total Creatine Kinase 274 H Troponin I High Sens 3.9 B-Natriuretic Peptide Total Protein 7.9 Albumin 4.8 Lipase 21 Urine Color Urine Appearance Urine pH Ur Specific [place] Urine Protein Urine Glucose (UA) Urine Ketones Urine Blood Urine Nitrite Ur Leukocyte Esterase Urine RBC Urine WBC Ur Squamous Epith Cells Urine Bacteria COVID-19 (VEE) COVID-19 Clin Com Blood Type Antibody Screen 07/02/21 07/02/21 07/02/21 14:44 14:45 15:07 MCV MCH MCHC RDW Plt Count MPV Immature Gran % (Auto) Neut % (Auto) Lymph % (Auto) [place] % (Auto) Eos % (Auto) Baso % (Auto) Lymph # (Auto) [place] # (Auto) Eos # (Auto) Baso # (Auto) Abs Immat Gran (auto) Absolute Neuts (auto) Absolute Nucleated RBC Nucleated RBC % (auto) Anion Gap Estim Creat Clear Calc Estimated GFR Random Glucose Calcium Total Bilirubin Direct Bilirubin AST ALT Alkaline Phosphatase Total Creatine Kinase Troponin I High Sens B-Natriuretic Peptide 286 H Total Protein Albumin Lipase Urine Color YELLOW Urine Appearance CLEAR Urine pH 6.5 Ur Specific [place] 1.010 Urine Protein 2+ H Urine Glucose (UA) NEG Urine Ketones 15 Urine Blood 3+ H Urine Nitrite NEG Ur Leukocyte Esterase NEG Urine RBC 76-150 H Urine WBC 0-2 Ur Squamous Epith Cells 1+ Urine Bacteria NONE COVID-19 (VEE) Negative COVID-19 Clin Com See Note Blood Type Antibody Screen 07/02/21 07/03/21 07/03/21 16:38 05:40 05:40 MCV 92.9 MCH 32.5 MCHC 35.0 RDW 11.2 Plt Count 182 MPV 9.9 Immature Gran % (Auto) 0.5 H Neut % (Auto) 66.5 Lymph % (Auto) 19.4 L [place] % (Auto) 13.0 H Eos % (Auto) 0.3 Baso % (Auto) 0.3 Lymph # (Auto) 1.7 [place] # (Auto) 1.1 Eos # (Auto) 0.0 Baso # (Auto) 0.0 Abs Immat Gran (auto) 0.04 H Absolute Neuts (auto) 5.83 Absolute Nucleated RBC 0.000 Nucleated RBC % (auto) 0.0 Anion Gap 15 Estim Creat Clear Calc 72.3 Estimated GFR > 60 Random Glucose 83 Calcium 8.4 D Total Bilirubin Direct Bilirubin AST ALT Alkaline Phosphatase Total Creatine Kinase Troponin I High Sens B-Natriuretic Peptide Total Protein Albumin Lipase Urine Color Urine Appearance Urine pH Ur Specific [place] Urine Protein Urine Glucose (UA) Urine Ketones Urine Blood Urine Nitrite Ur Leukocyte Esterase Urine RBC Urine WBC Ur Squamous Epith Cells Urine Bacteria COVID-19 (VEE) COVID-19 Clin Com Blood Type A Positive Antibody Screen NEGATIVE Quality Stroke Does the patient have a stroke diagnosis?: No VTE Prior VTE?: No VTE Risk Level:: Medical - moderate - high VTE Device Contraindication: N/A - Device Ordered VTE Drug Contraindication: Treatment Not Indicated
[2021-07-03] MEDS: Acetaminophen 325 MG TABLET 650 MG PO (09:43)
[2021-07-03] MEDS: traMADoL HCL 50 MG TABLET 25 MG PO (09:44)
[2021-07-03] MEDS: 0.9 % Sodium Chloride Flush 3 ML SYRINGE IVFLUSH ×3 (10:25→20:25)
[2021-07-03] MEDS: hydrALAZINE HCl 20 MG/ML VIAL 5 MG IVPUSH (12:18)
[2021-07-03] MEDS: Latanoprost 0.005 % Ophth Sol 2.5 ML DROPS 1 DROP EYE-BOTH (12:29)
[2021-07-03] MEDS: timoloL maleate 0.5 % Oph Sol 5 ML DRBTL 1 DROP EYE-BOTH (12:29)
--- NOTE | 2021-07-03 15:16 | P.OP_ITS ---
Operative Note Operative Note Date of Service: 07/03/21 Narrative: Pre-op diagnosis: left femoral neck fracture Post-op diagnosis: same Procedure: Left hip THUAN Implants: Gayathri accolade 2 #3 127 deg with + 4/41 bipolar Surgeon: Tono Katz MD Anesthesia: GETA and local Was an Crystal Machining Coordinator used for this Procedure?: Yes Crystal Machining Coordinator: Flower Mckinney Estimated blood loss (mL): 150 IV fluids (mL): 800 Pathology: other Condition: stable Disposition: PACU Procedure in detail: Patient was brought to the operative room placed in the right lateral decubitus position. All bony prominences were well padded she was prepped and draped in standard sterile fashion. IV antibiotics per weight were administered and a time-out was called to identify proper site, proper procedure, proper surgeon. Radiographs were available and confirmed. I began by making a curvilinear incision over the posterolateral aspect of the greater trochanter. Dissection was taken down to the tensor fascia which was incised in line with the incision and a Charnley retractor was placed. The hip was internally rotated and the external rotators were identified. All vessels in the area were cauterized and a full-thickness capsular/external rotator layer was developed in a hockey-stick fashion starting just proximal to the piriformis. This layer was tagged and the displaced femoral neck fracture was identified. Clean-up cut was performed and the head was removed and measured as a 41/42 on the back table. I then copiously irrigated the acetabulum and removed all bony fragments. Once this was done I used a cookie cutter to lateralize and a Charnley awl to identify the canal and then sequentially broached up to a #3. I then trialed with a standard head and a bipolar component matching the femoral head size. I was satisfied with the range of motion and stability and length. Therefore I removed all instrumentation and copiously irrigated. I then placed my final femoral implant and re-trialed. The + 4/41 was the most stable implant. The final head and bipolar componenets were imponated. Once this was done I irrigated copiously and did a 3 minute iodine soak with local TXA. I closed the capsular layer with FiberWire and then performed a layered closure with ameena on skin. Patient was placed in sterile dressing extubated brought to recovery room in stable condition there were no known complications.
[2021-07-03] MEDS: Gabapentin 300 MG CAPSULE PO ×2 (17:21→20:25)
[2021-07-03] MEDS: ceFAZolin Sodium/Dextrose,Iso 2 GM/50 ML PIGGYBACK IV (20:25)
[2021-07-04] VITALS (8 sets, daily range): BP systolic 117–175; BP diastolic 67–97; PULSE 80–95; RESP 15–18; TEMP 36.3–37.1; O2SAT 97–99
[2021-07-04] MEDS: Acetaminophen 325 MG TABLET 650 MG PO ×2 (07:07→21:51)
[2021-07-04] MEDS: traMADoL HCL 50 MG TABLET 25 MG PO (07:07)
[2021-07-04] MEDS: Gabapentin 300 MG CAPSULE PO ×3 (07:56→21:48)
[2021-07-04] MEDS: Atorvastatin Calcium 40 MG TABLET PO (07:56)
[2021-07-04] MEDS: lisinopriL 40 MG TABLET PO (07:57)
[2021-07-04] MEDS: Metoprolol Succinate ER 50 MG TAB.ER.24H PO (07:57)
[2021-07-04] MEDS: timoloL maleate 0.5 % Oph Sol 5 ML DRBTL 1 DROP EYE-BOTH (07:57)
[2021-07-04] MEDS: 0.9 % Sodium Chloride Flush 3 ML SYRINGE IVFLUSH ×3 (07:58→23:57)
--- NOTE | 2021-07-04 08:10 | PM.PNORT ---
Subjective Subjective Date of Service: 07/04/21 Interval history: POD1 s/p LT hip malina. Resting in bed. No overnight events. Physical Exam Vital Signs: Vital Signs: Last Vital Signs Temp 98.7 F 07/04/21 07:47 Pulse 95 07/04/21 07:57 Resp 15 07/04/21 07:47 BP 175/97 H 07/04/21 07:57 Pulse Ox 97 07/04/21 07:47 Body Mass Index 20.1 Const: General: cooperative, healthy appearing and no acute distress Resp: Effort & Inspection: normal respiratory effort and able to speak in complete sentences Cardio: Rate: regular rate Peripheral pulses: Peripheral pulses 2+ throughout GI: Palpation (GI): Soft to palpation Skin: Lesions: no lesions Rashes: no rashes Extrem: Other: Left hip aquacel is clean, dry, and intact. NVI. Procedures Date of Service Date of Service: 07/04/21 Progress Note: A&P Assessment and plan (1) Left displaced femoral neck fracture: Status: Acute Assessment and Plan: Continue pain mgmnt Begin Lovenox for dvt ppx begin PT for LT hip malina Dispo planning-Pending PT eval, pain mgmnt Fall Risk Details Current Medications: Current Medications Acetaminophen (Acetaminophen 325 Mg Tablet) 650 mg PO Q6H PRN PRN Reason: Pain, Mild (Pain Scale 1-3) Last Admin: 07/04/21 07:07 Dose: 650 mg Documented by: Aspirin (Aspirin Enteric Coated 81 Mg Tablet.) 81 mg PO DAILY [facility] Last Admin: 07/03/21 12:22 Dose: Not Given Documented by: Atorvastatin Calcium (Atorvastatin Calcium 40 Mg Tablet) 40 mg PO DAILY [facility] Last Admin: 07/04/21 07:56 Dose: 40 mg Documented by: Enoxaparin Sodium (Enoxaparin Sodium 40 Mg/0.4 Ml Syringe) 40 mg SUBCUT Q24H [facility] Gabapentin (Gabapentin 300 Mg Capsule) 300 mg PO TID [facility] Last Admin: 07/04/21 07:56 Dose: 300 mg Documented by: Hydralazine HCl (Hydralazine Hcl 20 Mg/Ml Vial) 5 mg IVPUSH Q6H PRN; Protocol PRN Reason: SBP >190 Last Admin: 07/03/21 12:18 Dose: 5 mg Documented by: Latanoprost (Latanoprost 0.005 % Oph Yamileth 2.5 Ml Drops) 1 drop EYE-BOTH DAILY [facility] Last Admin: 07/04/21 08:01 Dose: Not Given Documented by: Lisinopril (Lisinopril 40 Mg Tablet) 40 mg PO DAILY [facility]; Protocol Last Admin: 07/04/21 07:57 Dose: 40 mg Documented by: Metoprolol Succinate (Metoprolol Succinate Er 50 Mg Tab.Er.24h) 50 mg PO DAILY [facility]; Protocol Last Admin: 07/04/21 07:57 Dose: 50 mg Documented by: Morphine Sulfate (Morphine Sulfate 2 Mg/Ml Cartridge) 2 mg IVPUSH Q4H PRN; Protocol PRN Reason: pain Ondansetron HCl (Ondansetron Hcl 4 Mg/2 Ml Vial) 4 mg IVPUSH Q8H PRN PRN Reason: Nausea and Vomiting Oxycodone HCl (Oxycodone Hcl Immed Release 5 Mg Tablet) 5 mg PO Q4H PRN PRN Reason: pain Pharmacy Consult (Consult Rx Perform Med Rec) 1 each MISCELLANE ONCE PRN PRN Reason: Consult order Sodium Chloride (0.9 % Sodium Chloride Flush 3 Ml Syringe) 3 ml IVFLUSH QSHIFT [facility] Last Admin: 07/04/21 07:58 Dose: 3 ml Documented by: Timolol Maleate (Timolol Maleate 0.5 % Oph Yamileth 5 Ml Drbtl) 1 drop EYE-BOTH DAILY [facility] Last Admin: 07/04/21 07:57 Dose: 1 drop Documented by: Tramadol HCl (Tramadol Hcl 50 Mg Tablet) 25 mg PO BEDTIME PRN PRN Reason: Pain, Severe Last Admin: 07/04/21 07:07 Dose: 25 mg Documented by: Tramadol HCl (Tramadol Hcl 50 Mg Tablet) 50 mg PO DAILY PRN PRN Reason: Pain, Moderate Last Admin: 07/02/21 22:30 Dose: 50 mg Documented by: Time Spent With Patient Time: Total time spent is greater than 50% in coordination of care (as documented) at patient's floor/unit and/or counseling patient: Time with patient: less than 15 minutes Quality Stroke Does the patient have a stroke diagnosis?: No VTE Prior VTE?: No VTE Risk Level:: Medical - moderate - high VTE Device Contraindication: N/A - Device Ordered VTE Drug Contraindication: Treatment Not Indicated
--- NOTE | 2021-07-04 12:59 | HO.POSTANES ---
Post Anesthesia Evaluation Post Anesthesia Evaluation Vital Signs: Vital Signs Temp Pulse Resp BP Pulse Ox 07/04/21 12:00 97.9 F 85 18 121/84 97 07/04/21 09:37 95 175/97 H 07/04/21 07:57 95 175/97 H 07/04/21 07:47 98.7 F 95 15 175/97 H 97 07/04/21 03:42 97.3 F 92 18 143/83 H 99 Anesthesia: General Mental Status: Awake Pain Control: Satisfactory Nausea/Vomiting: None Hydration: Adequate Anesthesia-Related Issues: No Anes. Related Issues
[2021-07-04] MEDS: Enoxaparin Sodium 40 MG/0.4 ML SYRINGE SUBCUT (14:33)
--- NOTE | 2021-07-04 15:13 | MHC.CM.PN ---
Addendum entered by Edith Ortega RN 07/04/21 15:24: [facility] NOT CONTRACTED W/PT'S INSURANCE, BLANKET REFERRAL SENT PT HAS UNCOMMON COMMERCIAL PLAN. Original Note: EMR REVIEWED, PER PHYSICAL THERAPY PT IS BEING RECOMMENDED HOME W/SISTER VS STR, PT DOES NOT FEEL PT SHOULD GO HOME ALONE. CM ATTEMPTED TO MEET W/PT HOWEVER PT IS CURRENTLY ON BUSINESS CALL AND REQUESTED CM RETURN, CM TO REVIST IN AM.
--- NOTE | 2021-07-04 15:33 | MHC.CM.PN ---
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 PT VERIFIES PCP ON FILE AND DECLINES TO COMPLETE A HCP AT THIS TIME. D/C PLAN; HOME W/SISTER AND HOME PT, ACTION FOR BLS LILIAM
[2021-07-04] MEDS: oxyCODONE HCl Immed Release 5 MG TABLET PO (21:48)
--- NOTE | 2021-07-04 23:54 | PC.NURSE ---
Rosenbaum catheter removed at 2144, rosenbaum was emptied for 400ml yellow urine. Educated patient on ringing for assistance for urinating, first void due at 0345.
[2021-07-05] VITALS (7 sets, daily range): BP systolic 103–160; BP diastolic 57–78; PULSE 71–88; RESP 16–17; TEMP 36.1–36.7; O2SAT 96–99
[2021-07-05] MEDS: Acetaminophen 325 MG TABLET 650 MG PO ×2 (05:42→20:11)
[2021-07-05] MEDS: oxyCODONE HCl Immed Release 5 MG TABLET PO ×2 (05:54→20:12)
[2021-07-05 08:47] LABS: Hematocrit 30.1 % (37.0-47.0); Hemoglobin 10.6 g/dl (12.0-16.0)
[2021-07-05] MEDS: Metoprolol Succinate ER 50 MG TAB.ER.24H PO (08:58)
[2021-07-05] MEDS: Gabapentin 300 MG CAPSULE PO ×3 (08:58→20:12)
[2021-07-05] MEDS: 0.9 % Sodium Chloride Flush 3 ML SYRINGE IVFLUSH ×3 (08:58→20:15)
[2021-07-05] MEDS: Atorvastatin Calcium 40 MG TABLET PO (08:58)
[2021-07-05] MEDS: lisinopriL 40 MG TABLET PO (08:59)
[2021-07-05] MEDS: timoloL maleate 0.5 % Oph Sol 5 ML DRBTL 1 DROP EYE-BOTH (09:49)
--- NOTE | 2021-07-05 10:14 | HO.PM.IMPN ---
Subjective Subjective Date of Service: 07/05/21 Interval History: f/u on hip surgery, doing well, pain is controlled. Review of Systems no fever no pain Physical Exam Vital Signs: Vital Signs: Last Vital Signs Temp 98.0 F 07/05/21 07:50 Pulse 77 07/05/21 10:00 Resp 17 07/05/21 07:50 BP 127/78 07/05/21 10:00 Pulse Ox 99 07/05/21 10:00 Body Mass Index 20.1 Const: Other: General: AO X 3, no acute distress Resp: CTA bilateral CVS: S1,S2,RRR GI: +BS, NT, no distention Skin: No rash, surgery site d/c/i Neuro: motor grossly intact Psych: appropriate affect Objective Data Active Medications Acetaminophen (Acetaminophen 325 Mg Tablet) 650 mg PO Q6H PRN PRN Reason: Pain, Mild (Pain Scale 1-3) Last Admin: 07/05/21 05:42 Dose: 650 mg Documented by: OLIVIA Aspirin (Aspirin Enteric Coated 81 Mg Tablet.) 81 mg PO DAILY [facility] Last Admin: 07/03/21 12:22 Dose: Not Given Documented by: EVANGELINA Non-Admin Reason: NPO Atorvastatin Calcium (Atorvastatin Calcium 40 Mg Tablet) 40 mg PO DAILY [facility] Last Admin: 07/05/21 08:58 Dose: 40 mg Documented by: EMANI Enoxaparin Sodium (Enoxaparin Sodium 40 Mg/0.4 Ml Syringe) 40 mg SUBCUT Q24H [facility] Last Admin: 07/04/21 14:33 Dose: 40 mg Documented by: EVANGELINA Gabapentin (Gabapentin 300 Mg Capsule) 300 mg PO TID [facility] Last Admin: 07/05/21 08:58 Dose: 300 mg Documented by: EMANI Hydralazine HCl (Hydralazine Hcl 20 Mg/Ml Vial) 5 mg IVPUSH Q6H PRN; Protocol PRN Reason: SBP >190 Last Admin: 07/03/21 12:18 Dose: 5 mg Documented by: EVANGELINA Latanoprost (Latanoprost 0.005 % Ophth Yamileth 2.5 Ml Drops) 1 drop EYE-BOTH BEDTIME [facility] Lisinopril (Lisinopril 40 Mg Tablet) 40 mg PO DAILY [facility]; Protocol Last Admin: 07/05/21 08:59 Dose: 40 mg Documented by: EMANI Metoprolol Succinate (Metoprolol Succinate Er 50 Mg Tab.Er.24h) 50 mg PO DAILY [facility]; Protocol Last Admin: 07/05/21 08:58 Dose: 50 mg Documented by: EMANI Morphine Sulfate (Morphine Sulfate 2 Mg/Ml Cartridge) 2 mg IVPUSH Q4H PRN; Protocol PRN Reason: pain Ondansetron HCl (Ondansetron Hcl 4 Mg/2 Ml Vial) 4 mg IVPUSH Q8H PRN PRN Reason: Nausea and Vomiting Oxycodone HCl (Oxycodone Hcl Immed Release 5 Mg Tablet) 5 mg PO Q4H PRN PRN Reason: pain Last Admin: 07/05/21 05:54 Dose: 5 mg Documented by: OLIVIA Pharmacy Consult (Consult Rx Perform Med Rec) 1 each MISCELLANE ONCE PRN PRN Reason: Consult order Sodium Chloride (0.9 % Sodium Chloride Flush 3 Ml Syringe) 3 ml IVFLUSH QSHIFT [facility] Last Admin: 07/05/21 08:58 Dose: 3 ml Documented by: EMANI Timolol Maleate (Timolol Maleate 0.5 % Oph Yamileth 5 Ml Drbtl) 1 drop EYE-BOTH DAILY [facility] Last Admin: 07/05/21 09:49 Dose: 1 drop Documented by: EMANI Tramadol HCl (Tramadol Hcl 50 Mg Tablet) 25 mg PO BEDTIME PRN PRN Reason: Pain, Severe Last Admin: 07/04/21 07:07 Dose: 25 mg Documented by: TANK Tramadol HCl (Tramadol Hcl 50 Mg Tablet) 50 mg PO DAILY PRN PRN Reason: Pain, Moderate Last Admin: 07/02/21 22:30 Dose: 50 mg Documented by: TANK Labs CBC & Chem 7: 07/05/21 08:37 07/03/21 05:40 Assessment and Plan (1) Left displaced femoral neck fracture: Status: Acute Assessment and Plan: 65 year old women admitted after experiencing a syncopal episode and subsequently sustaining a hip fracture Transcervical left femoral fracture, s/p operative fixed, doing well post op, well with PT and desires to go home with sister, no rehab pain managment Syncope possibly orthostatic, upon standing, no furthe epidose and no arrtythmia noted HTN. Elevated continue lisinopril and metoprolol BPs were very high initially but better now, Transaminitis. chronic Mildly elevated trend protein calorie malnutrition. BMI 20 nutrition consult after surgery medically seems ready for discharge, continue prior meds Quality Stroke Does the patient have a stroke diagnosis?: No VTE Prior VTE?: No VTE Risk Level:: Medical - moderate - high VTE Device Contraindication: N/A - Device Ordered VTE Drug Contraindication: Treatment Not Indicated
--- NOTE | 2021-07-05 11:18 | MHC.CM.PN ---
CM CONTACTED PT'S INSURANCE TO DETERMINE VNA/PT BENEFIT AND PER LIAISON [facility] PT HAS INSURANCE ADVOCATES THAT CAN SET PT UP W/HOME PT, CM REQUESTED ADVOCATES CALL CM TO VERIFY SERVICES ONCE ARRANGED, LIACAROLINA ALSO REPORTED PT IS 100% COVERED FOR SERVICES AFTER HER $2000 DEDUCTABLE. CM WILL UPDATE PT.
[2021-07-05] MEDS: Enoxaparin Sodium 40 MG/0.4 ML SYRINGE SUBCUT (13:39)
[2021-07-05] MEDS: Latanoprost 0.005 % Ophth Sol 2.5 ML DROPS 1 DROP EYE-BOTH (20:12)
[2021-07-06] VITALS: BP 145/69; BP 154/74; PULSE 64; PULSE 83; RESP 18; TEMP 36.5; O2SAT 98
[2021-07-06] MEDS: Acetaminophen 325 MG TABLET 650 MG PO ×3 (02:59→14:09)
[2021-07-06] MEDS: oxyCODONE HCl Immed Release 5 MG TABLET PO ×3 (03:05→14:09)
[2021-07-06 03:18] VITALS: BP 140/76; PULSE 81; RESP 18; TEMP 36.6; O2SAT 98
[2021-07-06 08:00] VITALS: BP 130/74; BP 132/76; PULSE 83; PULSE 91; RESP 18; TEMP 37; O2SAT 97
[2021-07-06 08:16] VITALS: BP 124/77; PULSE 89; RESP 18; O2SAT 93
[2021-07-06] MEDS: Gabapentin 300 MG CAPSULE PO ×2 (08:32→13:36)
[2021-07-06] MEDS: lisinopriL 40 MG TABLET PO (08:32)
[2021-07-06] MEDS: timoloL maleate 0.5 % Oph Sol 5 ML DRBTL 1 DROP EYE-BOTH (08:32)
[2021-07-06] MEDS: Atorvastatin Calcium 40 MG TABLET PO (08:32)
[2021-07-06] MEDS: 0.9 % Sodium Chloride Flush 3 ML SYRINGE IVFLUSH (08:32)
[2021-07-06] MEDS: Metoprolol Succinate ER 50 MG TAB.ER.24H PO (08:32)
--- NOTE | 2021-07-06 08:47 | MHC.CM.PN ---
CM CONTACTED PT INSURANCE ADVOCATE KASSI TO FOLLOW-UP W/YESTERDAYS REQUEST TO SECURE HOME SERVICES FOR PT AT 8:35AM [phone], KASSI REPORTED THERE WAS NO NOTATION FROM YESTERDAY AND SHE WILL GIVE INFORMATION TO ANOTHER ADVOCATE FOR PROVIDER OUTREACHE, KASSI REPORTS AN ADVOCATE SHOULD CALL CM BACK ONCE SERVICES ARE SECURED FOR PT, CM WILL FOLLOW-UP W/ADVOCATE IF CM DOES NOT HERE BACK W/IN A FEW HRS.
--- NOTE | 2021-07-06 09:29 | MHC.CM.PN ---
Addendum entered by Edith Ortega RN 07/06/21 10:16: IF [facility] IS ABLE TO PROVIDE SERVICES START OF CARE WOULD BE Friday07/08/21, THIS IS OKAY W/ORTHO. Addendum entered by Edith Ortega RN 07/06/21 10:10: CM RECEIVED MESSAGE FROM [facility] WHO REPORTED THEY CAN NOT SERVICE [place], CM CONTACTED NA LIAISON AND REQUESTED THEY CONTACT PT'S INSURANCE ADVOCATE WHO REPORTED THEY WOULD COVER ANY VNA. Original Note: CM RECEIVED CALL FROM [facility] [employer] [phone] [id number] REGARDING PT'S HOME SERVICES, JIM REPORTED [facility] CAN SEE PT AND THERE NUMBER IS [phone] AND FAX [phone] HOWEVER THEY ARE ALSO IN [employer] AND REFERRAL WILL BE PLACED.
[2021-07-06 09:46] VITALS: BP 124/77; PULSE 89; O2SAT 93
--- NOTE | 2021-07-06 09:55 | PM.DS ---
DS: Providers Provider Date of Service: 07/06/21 Date of admission: 07/02/21 16:30 Primary care physician: Mohinder Solis MD DS: Diagnosis Discharge Diagnosis (1) Left displaced femoral neck fracture: Status: Acute DS: Summary Hospital Course Hospital Course: Chief Complaint: Fall 65 year old women presenting after a fall. Apparently she got up at 0300 and became dizzy and fell to the floor on to her knees. She denied LOC or trauma to her head. She was able to crawl to the bed and ghet herself up and she couldnt sleep all night. Her sister lives downstairs and noted in the morning that her car was there she she checked on the patient and noted she was in pain and unable to move and she called the patients son. Her son ended up calling EMS. Hip ct showed Transcervical left femoral fracture. CXR and UA negative for acute infection. She was noted to have an elevated blood pressure otherwise no fever, mild leukocytosis. She was given pain medication and she will be admitted for further management and treatment of hip fracture. Hospital course: Patient had an episode of dizziness in the middle of the night and fell without LOC yet injured left hip and susptained a fracture. She underwent operative repair by Dr. Katz and is doing well post operatively with good pain control and good movment and prefer going home rather than rehab. As episode of dizziness, etiology was not clear, no evidence of arrythmia, I suspect probable orthostatic episodes, Blood pressure has been well controlled here. She will go home with home PT and VNS. Oxycodone for pain control and Lovenox for DVT prophylaxis for 4 weeks and follow up with ortho Time Spent with Patient Time attestation: Total time spent providing and/or coordinating discharge services: Discharge coordination time: Greater than 30 minutes Quality: Stroke Does the patient have a stroke diagnosis?: No Physical Exam Vital Signs: Vital Signs: Last Vital Signs Temp 98.6 F 07/06/21 08:00 Pulse 89 07/06/21 09:46 Resp 18 07/06/21 08:16 BP 124/77 07/06/21 09:46 Pulse Ox 93 07/06/21 09:46 Body Mass Index 20.1 DS: Data Data Completed and Pending Pending studies at discharge: Pending at discharge 07/03/21 15:16 Surgical [PTH] Routine Discharge Plan Discharge Anticipated Discharge Date/Time: 07/06/21 09:51 Patient Disposition: Home Health Service Discharge Diagnosis: s/p RT hip hemiarthroplasty Referrals: [facility] [Outside] - 3-5 Days (HOME PHYSICAL THERAPY WILL START SUNDAY 07/08, PLEASE CALL IF YOU DO NOT HEAR FROM PT/NURSE BY NOON ON 01/05. ) Heavenly Kathleen PA-C [Physician Senior Marketing Specialist] - 2 Weeks (07/16/21 at 2:30) Mohinder Solis MD [Primary Care Provider] - 1 Week Discharge Medications: New enoxaparin 40 mg/0.4 mL Syringe 40 mg subcut Q24H Qty: 28 RF: 0 Continued lisinopril 40 mg tablet 40 mg PO DAILY Qty: 90 RF: 0 metoprolol succinate 50 mg tablet extended release 24 hr 50 mg PO DAILY Qty: 90 RF: 0 rosuvastatin 10 mg tablet 10 mg PO DAILY Qty: 90 RF: 1 gabapentin 300 mg capsule 300 mg PO TID Qty: 90 RF: 2 timolol maleate 0.5 % drops 1 drp ophthalmic (eye) QAM RF: 0 tramadol 50 mg tablet 25 mg PO BEDTIME PRN (Reason: Pain, Severe) RF: 0 tramadol 50 mg tablet 50 mg PO DAILY PRN (Reason: Pain, Moderate) RF: 0 aspirin [Adult Aspirin Regimen] 81 mg tablet,delayed release (DR/EC) 81 mg PO DAILY RF: 0 latanoprost 0.005 % drops 1 drp ophthalmic (eye) DAILY RF: 0 No Action oxycodone 5 mg tablet 5 mg PO Q12H PRN (Reason: pain (scale score 4-6)) 7 Days Qty: 14 RF: 0 Discharge Orders: Discharge Order (Routine); Ordered 07/06/21 Ordered By: Bert Mlapah Diet: advance to usual diet and regular diet Activity on Discharge: Use cane or walker Stand Alone Forms: Patient Portal Discharge page Care Plan Goals: Restore function of joint Health Concerns: None Plan of Treatment: Physical Therapy Pain management DVT prophylaxis Assessment: Gait training, strengthening, ADLs Continue Lovenox for dvt ppx x4 weeks Keep dressing clean,dry and intact-no showering or tub baths Follow up with Orthopedics in 2 weeks Patient Instructions: Enoxaparin (By injection), How to Give a Subcutaneous Injection (DC) Discharge Date/Time: 07/06/21 15:16
--- NOTE | 2021-07-06 09:59 | W.MHC.F2F ---
Service Date Service Date: 07/06/21 Reasons for Services Reason for fdc: CV/CP assess and/or care Reason for physical therapy: home safety and mobility, therapeutic exercises and gait/transfer training Reason for occupational therapy: home safety and mobility, therapeutic exercises, gait/transfer training and ADL training Homebound: Leaving the home is medically contraindicated at this time without the asist of a device and/or another person due th the listed conditions above and below. Homebound supporting statement: homebound due to hip fracture that required surgery with pain and limitted mobility and therefore needs the assitance of another person Certification: Based on the above findings, I certify that this patient is confined to the home and needs intermittent fdc care, physical therapy and/or speech therapy, or continues to need occupational therapy. The patient is under my care, and I have initiated the establishment of the plan of care. The patient will be followed by a physician who will periodically review the plan of care.
[2021-07-06 11:50] VITALS: BP 139/77; PULSE 101; RESP 18; TEMP 36.3; O2SAT 98
[2021-07-06] MEDS: Enoxaparin Sodium 40 MG/0.4 ML SYRINGE SUBCUT (14:46)
== END 2021-07-06 15:16 | disposition home health service (06) | DRG 522 ==
LOC: HO.ED 16:26 → HO.EDOVER 16:34 → HO.S3 19:35
PROVIDERS: Orthopaedic Surgery; Physician Assistant; Admitting Provider Nurse Practitioner Acute Care; Emergency Provider Emergency Medicine; PCP Internal Medicine; Visit Provider Internal Medicine
PROC: 0SRS0J9 Replacement of Left Hip Joint, Femoral Surface with Synthetic Substitute, Cemented, Open Approach (ICD-10-PCS; CPT 27125; principal; 2021-07-03 15:00)
DX: S72.032A Displaced midcervical fracture of left femur, initial encounter for closed fracture (principal); W18.30XA Fall on same level, unspecified, initial encounter; Y92.009 Unspecified place in unspecified non-institutional (private) residence as the place of occurrence of the external cause; I10 Essential (primary) hypertension; R74.01 Elevation of levels of liver transaminase levels; Z20.822 Contact with and (suspected) exposure to COVID-19; I95.1 Orthostatic hypotension; F17.210 Nicotine dependence, cigarettes, uncomplicated; E46 Unspecified protein-calorie malnutrition; Z68.20 Body mass index [BMI] 20.0-20.9, adult; Z71.6 Tobacco abuse counseling; Z88.2 Allergy status to sulfonamides; Z79.82 Long term (current) use of aspirin; Z79.891 Long term (current) use of opiate analgesic; Z79.899 Other long term (current) drug therapy
CPT/HCPCS: 36415; 70450; 71045; 72125; 73502; 73562; 80048; 80076; 81001; 82550; 83690; 83880; 84484; 85014; 85018; 85025; 86850; 86900; 86901; 87635; 88305; 88311; 93005; 96361; 96374; 97110; 97116; 97161; 97166; 97530; 97535; 99285; C1776; J0690; J1100; J1170; J1650; J2270; J2370; J2405; J3010

== ENCOUNTER → 2021-07-16 14:21 | Outpatient (BNVA) | payer OTHER, SELFPAY | PROVIDERS: Visit Provider Physician Assistant ==

== ENCOUNTER 2021-08-13 07:18 | Outpatient (REF) | payer OTHER, SELFPAY ==
--- NOTE | ~2021-08-13 | XR_ITS ---
EXAMINATION: XR HIP, RIGHT CLINICAL INFORMATION: Pain in the right hip. COMPARISON: 10/17/2017 TECHNIQUE: AP view of the pelvis and AP and frog-leg lateral views of the right hip. FINDINGS: Femoral neck screw and a short intramedullary nail are again seen at the right intertrochanteric femoral fracture with a single distal interlocking screw. Hardware remains intact. There is osseous bridging at the femoral neck medially, though a portion of the fracture line remains apparent. Additionally, there is increased periosteal bone formation around the distal portion of the stem adjacent to the interlocking screw. Lucency around the intramedullary nail measures up to 3 mm proximally. No significant surrounding distal lucency. Imaged portion of the right innominate bone is normal. Mild osteoarthritis is noted at the right hip with small marginal osteophytes. Calcific atherosclerosis is present in the iliac and femoral arteries. No acute soft tissue findings. XR/XR hip RT w PEL1V IMPRESSION: Partially healed right proximal femoral intertrochanteric fracture status post fixation with a femoral neck screw and short intramedullary piper. Of note, there is osseous lucency surrounding the proximal portion of the piper measuring up to 4 mm in thickness. Although not specific, this does raise the possibility of persistent motion in this region. Consider correlation with CT. Mild osteoarthritis in the right hip.
== END 2021-08-13 07:19 | disposition home or self-care (01) ==
LOC: HO.HOSX 07:18
PROVIDERS: Visit Provider Physician Assistant
DX: Z47.1 Aftercare following joint replacement surgery (principal); Z96.641 Presence of right artificial hip joint
CPT/HCPCS: 73502

== ENCOUNTER 2021-09-04 11:22 | Outpatient (REF) | payer OTHER, SELFPAY ==
[2021-09-04 13:23] LABS: Hematocrit 39.4 % (37.0-47.0); Hemoglobin 13.1 g/dl (12.0-16.0); Mean Corpuscular HGB Conc 33.2 g/dl (31.0-35.0); Mean Corpuscular Hemoglobin 33.1 pg (27.0-33.0); Mean Corpuscular Volume 99.5 fL (80.0-98.0); Mean Platelet Volume 9.5 fL (9.4-12.3); Platelet Count 336 X10*3/uL (160-400); Red Blood Count 3.96 X10*6/uL (4.20-5.50); Red Cell Distribution Width 12.1 % (11.0-16.0); White Blood Count 8.6 X10*3/uL (4.8-10.8)
[2021-09-04 13:43] LABS: Appearance Urine HAZY; Color Urine YELLOW; Glucose Urine UA NEG (NEG); Leukocyte Esterase Urine NEG (NEG); Nitrite Urine NEG (NEG); Urine Blood 2+ (NEG); Urine Ketones NEG (NEG); Urine Protein NEG (NEG-TRACE)
[2021-09-04 13:51] LABS: Alanine Aminotransferase 17 U/L (0-31); Alkaline Phosphatase 87 U/L (39-117); Anion Gap 14 (12-20); Aspartate Amino Transferase 37 U/L (5-31); Bilirubin Direct 0.2 mg/dL (0.0-0.5); Bilirubin Total 0.5 mg/dL (0.0-1.0); Blood Urea Nitrogen 7 mg/dL (9-16); Calcium 9.3 mg/dL (8.4-10.2); Carbon Dioxide 27 mmol/L (22-29); Chloride 102 mmol/L (96-108); Cholesterol 164 mg/dL; Estimated Glomerular Filt Rate > 60; Glucose Random 108 mg/dL (60-115); HDL Cholesterol 74 mg/dL; LDL Cholesterol Calculated 71 mg/dl; Potassium 4.8 mmol/L (3.3-5.1); Sodium 138 mmol/L (135-145); Total Protein 6.8 g/dL (6.5-8.0); Triglycerides 99 mg/dL
[2021-09-04 13:59] LABS: Bacteria Urine TRACE /LPF; Squamous Epithelial Cell Urine 2+ /LPF
[2021-09-04 14:12] LABS: Thyroid Stimulating Hormone 2.71 uIU/mL (0.32-4.0)
== END 2021-09-04 11:23 | disposition home or self-care (01) ==
LOC: HO.10HDL 11:22
PROVIDERS: Visit Provider Internal Medicine
DX: E78.00 Pure hypercholesterolemia, unspecified (principal); I10 Essential (primary) hypertension
CPT/HCPCS: 36415; 80048; 80061; 80076; 81001; 84443; 85027

== ENCOUNTER 2022-06-21 10:59 | Day surgery (SDC) | payer OTHER, SELFPAY ==
[2022-06-21 11:19] VITALS: BMI 14.7
[2022-06-21 11:25] VITALS: BP 165/82; PULSE 77; RESP 16; TEMP 36.6; O2SAT 100
--- NOTE | 2022-06-21 12:01 | HO.ANESPROP2 ---
Documented by User: Vanessa Atkins MD 06/21/22 12:14 [facility] Past Medical History Medical History Cataract fragments in both eyes following surgery Essential hypertension Femur fracture High blood pressure High cholesterol Hip fracture Hypercholesterolemia Neuropathy Protein calorie malnutrition Syncope Family History Family History Mother No problems noted. Father No problems noted. Surgical History Surgical History History of ankle surgery History of cataract surgery History of endoscopy History of hip surgery History of surgery History of Problems with Anesthesia: No Social History Social History Household Members: Family Housing: House Do you presently have visiting nurse or other home services: No Alcohol intake: current Alcohol intake frequency: holidays/special occasions only Alcohol type: beer Patient Tobacco Use Status: Current everyday Tobacco user Tobacco use type: Cigarette Cigarettes Per Day: 6 Years Smoked: 42 on and off e-Cigarette/Vaping Use: Never Used Second Hand Smoke Exposure: Yes Use of substances other than those prescribed or required for medical reasons: No Advance Directives: No Advance Directives Information Provided: Yes service: No Current occupational status: employed Current occupation: rt handed Cognitive needs: Yes (cane/walker) Hearing needs: No Vision needs: Yes (glasses) Meds Allergies Allergy/AdvReac Type Severity Reaction Status Date / Time Sulfa (Sulfonamide Allergy Intermediate RASH/HIVES Verified 03/07/22 09:11 Antibiotics) [SULFA(SULFONAMIDE ANTIBIOTICS)] Home Medications Medication Instructions Recorded Confirmed Last Taken Type aspirin 81 mg tablet,delayed 81 mg PO DAILY 11/02/20 07/02/21 1 Day Ago History release (Adult Aspirin Regimen) ~07/01/21 latanoprost 0.005 % eye drops 1 drp ophthalmic (eye) DAILY 11/02/20 07/02/21 1 Day Ago History ~07/01/21 timolol maleate 0.5 % eye drops 1 drp ophthalmic (eye) QAM 07/02/21 07/02/21 1 Day Ago History ~07/01/21 Exam Airway Mallampati Class: II TM Dist: >3cm Neck ROM: Full Partial: Upper Loose/Missing/Broken Teeth: Yes and Upper Heart: RRR Lungs: CTA Assessment and Plan Assessment Anesthesia Assessment: Anesthesia Plan Discussed and Chart Reviewed Final Anesthetic Review History of Problems with Anesthesia: No NPO: Yes ASA Class: II Final Preanesthetic Review: Meds/Allgs Chart Reviewed, Consent Obtained/Reviewed and Anes Risks/Benef Reviewed Patient Risk: Low Procedure Risk: Low Anesthetic Plan Anesthetic Plan: MAC: Disposition: Standard PACU Documented by User: Olivia Allen MD [facility] Active Problems Active Problems: All Active Problems (Updated 07/06/21 @ 00:03 by Lien Gonzalez) Status post hip hemiarthroplasty (Acute) Left displaced femoral neck fracture (Acute) Hip fracture (Acute) Femur fracture (Acute) Neuropathy (Acute) Hypercholesterolemia (Acute) Screening for colon cancer (Acute) Chronic pain after traumatic injury (Acute) Underweight (Acute) Encounter for well adult exam with abnormal findings (Acute) Past Medical History Medical History Cataract fragments in both eyes following surgery Essential hypertension Femur fracture High blood pressure High cholesterol Hip fracture Hypercholesterolemia Neuropathy Protein calorie malnutrition Syncope Family History Family History Mother No problems noted. Father No problems noted. Surgical History Surgical History History of ankle surgery History of cataract surgery History of endoscopy History of hip surgery History of surgery Social History Social History Household Members: Family Housing: House Do you presently have visiting nurse or other home services: No Alcohol intake: current Alcohol intake frequency: holidays/special occasions only Alcohol type: beer Patient Tobacco Use Status: Current everyday Tobacco user Tobacco use type: Cigarette Cigarettes Per Day: 6 Years Smoked: 42 on and off e-Cigarette/Vaping Use: Never Used Second Hand Smoke Exposure: Yes Use of substances other than those prescribed or required for medical reasons: No Advance Directives: No Advance Directives Information Provided: Yes service: No Current occupational status: employed Current occupation: rt handed Cognitive needs: Yes (cane/walker) Hearing needs: No Vision needs: Yes (glasses) Meds Allergies Allergy/AdvReac Type Severity Reaction Status Date / Time Sulfa (Sulfonamide Allergy Intermediate RASH/HIVES Verified 03/07/22 09:11 Antibiotics) [SULFA(SULFONAMIDE ANTIBIOTICS)] Active Medications: Current Medications Albuterol Sulfate (Albuterol Sulfate (0.083%) 2.5 Mg/3 Ml Vial.Neb) 2.5 mg INHALE ONCE PRN PRN Reason: Shortness of Breath/Wheezing Lactated Ringer's (Lr) 1,000 mls @ 100 mls/hr IVCONT .Q10H CAILIN Sodium Biphosphate/Sodium Phosphate (Sodium Phosphate,Evangeline-Dibasic 133 Ml Enema) 133 ml [place] ONCE PRN PRN Reason: Poor Colonoscopy Prep Results Home Medications Medication Instructions Recorded Confirmed Last Taken Type aspirin 81 mg tablet,delayed 81 mg PO DAILY 11/02/20 07/02/21 1 Day Ago History release (Adult Aspirin Regimen) ~07/01/21 latanoprost 0.005 % eye drops 1 drp ophthalmic (eye) DAILY 11/02/20 07/02/21 1 Day Ago History ~07/01/21 timolol maleate 0.5 % eye drops 1 drp ophthalmic (eye) QAM 07/02/21 07/02/21 1 Day Ago History ~07/01/21 Exam Exam Date and Time: June 21, 2022 1201 Height,Weight and Vital Signs: Height 5 ft 1 in Weight 35.38 kg Last Vital Signs Temp 97.9 F 06/21/22 11:25 Pulse 77 06/21/22 11:25 Resp 16 06/21/22 11:25 BP 165/82 H 06/21/22 11:25 Pulse Ox 100 06/21/22 11:25 O2 Del Method 06/21/22 11:25
[2022-06-21 13:05] VITALS: BP 160/76; PULSE 72; RESP 20; TEMP 36.9; O2SAT 100
--- NOTE | 2022-06-21 13:06 | P.BOP_ITS ---
Brief Operative Note Date of Service: 06/21/22 Pre-op diagnosis: Screening Post-op diagnosis: other (Colon polyp) Procedure: Colonoscopy to the cecum with hot snare polypectomy x 1 Surgeon: Rojas Plata Anesthesia: MAC Was an [employer] Fusion Middleware Developer used for this Procedure?: No Estimated blood loss (mL): 0 Pathology: other (A. Ascending colon polyp) Condition: stable Disposition: PACU
[2022-06-21 13:20] VITALS: BP 169/80; PULSE 74; RESP 16; O2SAT 99
[2022-06-21 13:35] VITALS: BP 157/81; PULSE 72; RESP 16; TEMP 36.9; O2SAT 99
--- NOTE | 2022-06-22 00:45 | OP_ITS ---
SURGEON: Rojas Plata MD INDICATIONS: The patient presents for followup of colorectal cancer screening and personal history of tubular adenoma of the colon. Full consent obtained from her for this, including risks of bleeding and perforation. PREOPERATIVE DIAGNOSIS: POSTOPERATIVE DIAGNOSIS: PROCEDURE PERFORMED: ESTIMATED BLOOD LOSS: COMPLICATIONS: ANESTHESIA: Monitored anesthesia care. ASSISTANTS: SPECIMENS: PROCEDURE: Colonoscopy to cecum with hot snare polypectomy. PREOPERATIVE DIAGNOSES: Colorectal cancer screening and personal history of tubular adenoma of the colon. POSTOPERATIVE DIAGNOSES: Colorectal cancer screening and personal history of tubular adenoma of the colon, colon polyp, diverticulosis and internal hemorrhoids. DESCRIPTION OF PROCEDURE: The patient was placed in left decubitus position. The digital rectal exam revealed no abnormalities. The Olympus video pediatric colonoscope was entered into the rectum and advanced easily to the cecum. Once in the cecum, I did identify normal-appearing cecal pouch with appendiceal orifice and a normal-appearing ileocecal valve. The entire cecum and ileocecal valve appeared normal. There was transillumination of light deep in the right lower quadrant. The scope was slowly withdrawn assessing all mucosal surfaces carefully. Preparation was excellent. In the ascending colon was an approximately 10-12 mm adenomatous appearing polyp which was removed by hot snare polypectomy and recovered by suction. The polypectomy site appeared clean, without any sign of residual polyp nor bleeding. I did not visualize any other polyps, colitis, nor angiodysplasia. There was a mild amount of sigmoid diverticulosis. In the rectum, scope was retroflexed visualizing internal hemorrhoids, but no other pathology. The rectal mucosa appeared normal. Scope was straightened and withdrawn the from the patient. She tolerated the procedure well and was returned to recovery area in stable condition. IMPRESSION: 1. Colon polyp. 2. Diverticulosis. 3. Internal hemorrhoids. PLAN: The results of the pathology will be checked. I would recommend a repeat colonoscopy in 5 years for further surveillance. She was advised not to use any aspirin and NSAIDs for 1 week. She will otherwise see me on a p.r.n. basis. MD DAINA Arzola/AILYN / [id number] MTD[place]land[place]
== END 2022-06-21 13:52 | disposition home or self-care (01) ==
PROVIDERS: PCP Internal Medicine; Visit Provider Internal Medicine
PROC: 0DJD8ZZ Inspection of Lower Intestinal Tract, Via Natural or Artificial Opening Endoscopic (ICD-10-PCS; CPT 45378; principal; 2022-06-21 12:20)
DX: Z12.11 Encounter for screening for malignant neoplasm of colon (principal); Z86.010 Personal history of colon polyps; D12.2 Benign neoplasm of ascending colon; K57.30 Diverticulosis of large intestine without perforation or abscess without bleeding; K64.8 Other hemorrhoids; I10 Essential (primary) hypertension; M79.7 Fibromyalgia; M81.0 Age-related osteoporosis without current pathological fracture; G62.9 Polyneuropathy, unspecified; E78.5 Hyperlipidemia, unspecified; H40.9 Unspecified glaucoma; Z79.82 Long term (current) use of aspirin; Z79.899 Other long term (current) drug therapy; F17.210 Nicotine dependence, cigarettes, uncomplicated
CPT/HCPCS: 45385; 88305

== ENCOUNTER 2022-06-26 12:31 | Outpatient (REF) | payer OTHER, SELFPAY ==
[2022-06-26 14:04] LABS: Hematocrit 38.8 % (37.0-47.0); Hemoglobin 13.1 g/dl (12.0-16.0); Mean Corpuscular HGB Conc 33.8 g/dl (31.0-35.0); Mean Corpuscular Hemoglobin 33.6 pg (27.0-33.0); Mean Corpuscular Volume 99.5 fL (80.0-98.0); Mean Platelet Volume 9.9 fL (9.4-12.3); Platelet Count 263 X10*3/uL (160-400); Red Cell Distribution Width 10.9 % (11.0-16.0); White Blood Count 8.4 X10*3/uL (4.8-10.8)
[2022-06-26 14:19] LABS: Appearance Urine Clear; Color Urine Yellow; Glucose Urine UA Negative (Negative); Leukocyte Esterase Urine Negative (Negative); Nitrite Urine Negative (Negative); UMIC TRIGGER UA YES; Urine Blood Small (1+) (Negative); Urine Ketones Negative (Negative); Urine Protein Negative (Neg-Trace)
[2022-06-26 14:20] LABS: Alanine Aminotransferase 26 U/L (0-31); Albumin Level 4.3 g/dL (3.5-5.0); Alkaline Phosphatase 108 U/L (39-117); Anion Gap 15 (12-20); Aspartate Amino Transferase 41 U/L (5-31); Bilirubin Direct 0.3 mg/dL (0.0-0.5); Bilirubin Total 0.4 mg/dL (0.0-1.0); Blood Urea Nitrogen 6 mg/dL (9-16); Calcium 9.6 mg/dL (8.4-10.2); Carbon Dioxide 29 mmol/L (22-29); Chloride 101 mmol/L (96-108); Cholesterol 157 mg/dL; Estimated Glomerular Filt Rate > 60; Glucose Random 90 mg/dL (60-115); HDL Cholesterol 61 mg/dL; LDL Cholesterol Calculated 77 mg/dl; Sodium 140 mmol/L (135-145); Total Protein 7.1 g/dL (6.5-8.0); Triglycerides 98 mg/dL
[2022-06-26 14:47] LABS: Bacteria Urine None Seen (None Seen); Hyaline Casts Urine 0-2 /LPF (0-2); RBC Urine 0-2 /HPF (0-2); Squamous Epithelial Cell Urine 0-2 /HPF (0-2); WBC Urine 0-5 /HPF (0-5)
== END 2022-06-26 12:32 | disposition home or self-care (01) ==
LOC: HO.10HDL 12:31
PROVIDERS: Visit Provider Internal Medicine
DX: E78.00 Pure hypercholesterolemia, unspecified (principal)
CPT/HCPCS: 36415; 80048; 80061; 80076; 81001; 81003; 84443; 85027

== ENCOUNTER 2022-08-01 15:19 | Outpatient (REF) | payer OTHER, SELFPAY ==
--- NOTE | ~2022-08-01 | MM_ITS ---
EXAMINATION: MM SCREENING DIGITAL BREAST TOMOSYNTHESIS, BILATERAL CLINICAL INFORMATION: Screening. Asymptomatic. The lifetime risk of breast cancer based on the Tyrer-Cuzick Model is 6.0%. COMPARISON: Mammography: April 06, 2021 TECHNIQUE: Digital breast tomosynthesis is performed in both the craniocaudal and mediolateral oblique views along with computer-aided detection (CAD). Synthesized 2D images are generated from the tomosynthesis. FINDINGS: The breasts are heterogeneously dense, which may obscure small masses (ACR BI-RADS breast composition Category c). There are no significant masses, abnormal calcifications, or other abnormalities. MM/MM tomosynthesis screening BI IMPRESSION: No significant changes from prior exam. ASSESSMENT: BI-RADS 1: Negative RECOMMENDATION: Routine annual mammography screening. This patient's information was entered into a reminder system with a target due date for their next mammogram.
== END 2022-08-01 15:20 | disposition home or self-care (01) ==
LOC: HO.MAMMO 15:19
PROVIDERS: PCP Internal Medicine; Visit Provider Internal Medicine
DX: Z12.31 Encounter for screening mammogram for malignant neoplasm of breast (principal)
CPT/HCPCS: 77063; 77067

== ENCOUNTER 2022-09-26 10:16 | Outpatient (REF) | payer OTHER, SELFPAY ==
--- NOTE | ~2022-09-26 | XR_ITS ---
EXAMINATION: XR chest 2V CLINICAL INFORMATION: Reason for Exam R06.02 - Shortness of breath COMPARISON: Chest radiograph 07/02/2021 TECHNIQUE: 2 views of the chest FINDINGS: Hyperinflated lungs with flattening of the hemidiaphragms which can be seen in the setting of COPD. No focal consolidation. No pneumothorax or pleural effusion. Normal cardiomediastinal silhouette. XR/XR chest 2V IMPRESSION: Hyperinflated lungs with flattening of the hemidiaphragms which can be seen in the setting of COPD.
[2022-09-26 10:59] LABS: Hematocrit 39.1 % (37.0-47.0); Hemoglobin 13.5 g/dl (12.0-16.0); Mean Corpuscular HGB Conc 34.5 g/dl (31.0-35.0); Mean Corpuscular Hemoglobin 33.6 pg (27.0-33.0); Mean Corpuscular Volume 97.3 fL (80.0-98.0); Mean Platelet Volume 9.6 fL (9.4-12.3); Platelet Count 267 X10*3/uL (160-400); Red Blood Count 4.02 X10*6/uL (4.20-5.50); Red Cell Distribution Width 11.3 % (11.0-16.0); White Blood Count 8.6 X10*3/uL (4.8-10.8)
[2022-09-26 11:44] LABS: Alanine Aminotransferase 44 U/L (0-31); Albumin Level 4.5 g/dL (3.5-5.0); Alkaline Phosphatase 109 U/L (39-117); Anion Gap 12 (12-20); Aspartate Amino Transferase 81 U/L (5-31); Bilirubin Direct 0.2 mg/dL (0.0-0.5); Bilirubin Total 0.6 mg/dL (0.0-1.0); Blood Urea Nitrogen 7 mg/dL (9-16); Calcium 9.8 mg/dL (8.4-10.2); Carbon Dioxide 30 mmol/L (22-29); Chloride 101 mmol/L (96-108); Cholesterol 177 mg/dL; Estimated Glomerular Filt Rate > 60; Glucose Random 76 mg/dL (60-115); HDL Cholesterol 63 mg/dL; LDL Cholesterol Calculated 80 mg/dl; Potassium 4.5 mmol/L (3.3-5.1); Sodium 138 mmol/L (135-145); Total Protein 7.5 g/dL (6.5-8.0); Triglycerides 173 mg/dL
[2022-09-26 11:50] LABS: Appearance Urine Clear; Color Urine Yellow; Glucose Urine UA Negative (Negative); Leukocyte Esterase Urine Negative (Negative); Nitrite Urine Negative (Negative); Specific Gravity - Urine <= 1.005 (1.005-1.025); UMIC TRIGGER UA YES; Urine Blood Trace (Negative); Urine Ketones Negative (Negative); Urine Protein Negative (Neg-Trace)
[2022-09-26 11:53] LABS: Bacteria Urine None Seen (None Seen); Hyaline Casts Urine 0-2 /LPF (0-2); RBC Urine 0-2 /HPF (0-2); Squamous Epithelial Cell Urine 0-2 /HPF (0-2); WBC Urine 0-5 /HPF (0-5)
[2022-09-26 11:58] LABS: Thyroid Stimulating Hormone 3.29 uIU/mL (0.32-4.0)
[2022-09-26 12:13] LABS: Folate 11.1 ng/mL (> or = 4.0); Vitamin B12 243 pg/mL (200-900)
== END 2022-09-26 10:17 | disposition home or self-care (01) ==
LOC: HO.XRAY 10:16
PROVIDERS: PCP Internal Medicine; Visit Provider Internal Medicine
DX: R06.02 Shortness of breath (principal); E78.00 Pure hypercholesterolemia, unspecified
CPT/HCPCS: 36415; 71046; 80048; 80061; 80076; 81001; 82607; 82746; 84443; 85027

== ENCOUNTER → 2022-10-03 09:19 | Outpatient (REF) | payer OTHER, SELFPAY ==
--- NOTE | ~2022-10-03 | NM_ITS ---
EXERCISE MYOCARDIAL PERFUSION STUDY INDICATION: Chest pain, assess for coronary disease and ischemia TECHNIQUE: The patient was brought in for an exercise perfusion study on 10/03/2022. Patient performed exercise as per Ilir protocol and was injected 20 mCi of sestamibi once target heart rate was achieved. Images were obtained using the SPECT gamma camera interlaced with the gating device. Images were obtained in supine position. Resting perfusion study was performed on 10/07/2022. Patient was administered 20 mCi of sestamibi intravenously at rest. Images were then obtained in supine position. Total DLP 68mGy-cm. Images were processed with the software and compared side to side in short axis, horizontal long axis and vertical long axis views. FINDINGS: Raw images were reviewed. The stress perfusion study showed diminished tracer uptake along the lateral wall. This persists even after CT attenuation correction suggestive of true defect. The gated study shows normal LV systolic function with calculated LVEF of 53%. LV cavity is normal in size. The gated study shows diminished lateral contractility. Resting study shows minimal perfusion defect in the mid lateral wall. Much improved from stress acquisition. Gating at rest reveals normal wall motion with ejection fraction at > 70%. The findings are consistent with reversible lateral perfusion defect. NM/NM cardiolite stress test IMPRESSION: 1. Myocardial perfusion imaging study shows severe ischemia of the lateral wall. 2. Gated LVEF is 53% during stress; > 70% during rest. 3. Transient ischemic dilatation ratio 1.3. EKG component of the test reported separately. EKG positive for ischemia.
--- NOTE | 2022-10-03 09:50 | CA_ITS ---
Acquisition Time: 2022-10-03 09:57:24 Total Exercise Time: 00:05:00 Test Indications: Dyspnea CHEST PAIN Medications: ASA GABAPENTIN LISINOPRIL METOPROLOL ROSUVASTATIN TRAMADOL Protocol: LEA Max HR: 134 BPM 87% of Pred: 154 BPM Max BP: 180/088 mmHG Max Work Load: 7.0 METS Exercise stress test with exercise 5 min of Lea protocol, achieving 87% MPHR, with moderate sob, no chest discomfort, without arrythmia, with normotensive response to exercise, with EKG changes meeting crtieria for ischemia: up to [address] depression inferiorly and V3-V6 with 1mm ST elevation in leads aVR, aVL and slight in V1-V2 with slow gradual improvement in recovery. She was recovered for 14 min and denied any chest discomfort. Nuclear images pending. Test reviewed with Dr Veras Referred By: Mohinder Solis Overread By: KIM BYNUM
== END ==
LOC: HO.CARD 09:19
PROVIDERS: PCP Internal Medicine; Visit Provider Internal Medicine
DX: R07.9 Chest pain, unspecified (principal); I10 Essential (primary) hypertension
CPT/HCPCS: 78452; 93017; A9500; J0280; J2785

== ENCOUNTER 2022-10-08 10:38 | Outpatient (REF) | payer OTHER, SELFPAY ==
[2022-10-08 12:17] LABS: INTERNATIONAL NORM RATIO 0.9 (0.9-1.1); Prothrombin Time 10.6 SEC (10.0-13.1)
== END 2022-10-08 10:39 | disposition home or self-care (01) ==
LOC: HO.LAB 10:38
PROVIDERS: PCP Internal Medicine; Visit Provider Internal Medicine
DX: I25.10 Atherosclerotic heart disease of native coronary artery without angina pectoris (principal); I10 Essential (primary) hypertension; F17.200 Nicotine dependence, unspecified, uncomplicated
CPT/HCPCS: 36415; 85610; 93005

== ENCOUNTER → 2022-10-09 08:07 | Outpatient (REF) | payer OTHER, SELFPAY ==
--- NOTE | 2022-10-09 08:11 | CA_ITS ---
Transthoracic Echocardiogram Patient (Last, First, Middle): Ana Rosa Andino J Gender: Female Date of : 1955 Age: 67 Procedure Date: 10/09/2022 Procedure Type: Transthoracic Echocardiogram Location: OP Height: 154.94 cm Weight: 35.83 kg BSA: 1.27 m2 Heart Rate: 76 bpm BP: 145 / 55 mmHg Smoking Pipe Mounter: BENITA Molina MD: Lizandro Feldman MD Ssis Etl Developer: Jorge Luis Delacruz MD Symptoms: I25.10 - Atherosclerotic heart disease of [place] coronary artery without... Study Quality: Adequate/Contrast ECG Rhythm: Sinus Conclusions: - 1. Normal LV systolic function with impaired relaxation filling pattern 2. Normal cardiac valvular Doppler 3. Normal RV systolic pressure 4. No gross pericardial effusion Findings Procedure Information Contrast agent, definity, is being given per protocol without apparent complications. Left Ventricle Normal left ventricular size, thickness, and systolic function. The visually estimated ejection fraction is between 65-70%. Spectral Doppler is indicative of an impaired relaxation filling pattern. E/E prime ratio is between 8 and 15 consistent with indeterminate filling pressures. Right Ventricle The right ventricle was not well visualized. There is normal right ventricular systolic function. Atria The left atrium was not well visualized. Interatrial shunt cannot be excluded. The right atrium was not well visualized. Aortic Valve There is no aortic valve stenosis. There is no aortic valve regurgitation. Mitral Valve There is mild anterior and posterior mitral leaflet thickening. There is trace mitral valve regurgitation. There is no mitral valve stenosis. Pulmonic Valve The pulmonic valve was not well visualized. There is trace to mild pulmonic valve regurgitation. Tricuspid Valve The tricuspid valve was not well visualized. The right ventricular systolic pressure is normal. Normal right atrial pressure. There is no evidence of pulmonary hypertension. Great Vessels All visible segments of the aorta are normal in size. The pulmonary artery was not well visualized. Venous The inferior vena cava is normal in size and collapses greater than 50% with inspiration. Pericardium/Pleural There is no evidence of pericardial effusion. Prior Study Comparison No significant change compared to prior study dated: 09/27/2015. Measurements 2D Linear Measurements IVSd: 1.15 0.6-0.9/0.6-1.0 cm LVIDd: 3.24 3.9-5.3/4.2-5.9 cm LVIDd Index: 2.55 2.4-3.2/2.2-3.1 cm/m2 LVIDs: 2.31 2.0-3.6 cm LVPWd: 1.12 0.7-1.1 cm LA Diam: 2.20 2.7-3.8/3.0-4.0 cm LAIDs Index: 1.73 1.5-2.3 cm/m2 LV Mass: 138.60 67-162/88-224 g LV Mass Index: 109.14 43-95/49-115 g/m2 LVOT Diam: 1.70 3.0+(-)1.3 cm 2D Systolic Function EF 4C: 61.80 >55% EF 2C: 75.70 >55% EF BiP: 69.50 >55% Mitral Valve MV Pk E: 0.57 MV PK A: 0.69 MV Decel Time: 294.00 E/A: 0.80 E'Lateral: 5.77 E'Medial: 4.35 E/E' Med: 13.10 E/E' Lat: 9.90 PHT: 86.00 MVA PHT: 2.56 Decel [place]: 1.94 Aortic Valve AoV Pk Karson: 1.02 AoV Mn Karson: 0.64 AoV VTI: 0.19 AoV Pk Grad: 4.00 Aov Mn Grad: 2.00 ANDRY Cont.VTI: 2.00 LVOT LVOT Pk Karson: 0.80 LVOT Mn Karson: 0.53 LVOT VTI: 0.17 LVOT Pk Grad: 3.00 LVOT Mn Grad: 1.00 LVOT Diam: 1.70 LVOT Area: 2.27 Diastolic Function MV Pk E: 0.57 MV Pk A: 0.69 E/A: 0.80 E'Medial: 4.35 E/E' Med: 13.10 E' Laterial: 5.77 E/E' Lat: 9.90 Right Ventricle TAPSE (mm): 18.30 TVS' Karson: 8.16 Tricuspid Valve TR Pk Karson: 1.91 TR Pk Grad: 15.00 RA Press: 3.00 RVSP: 18.00 Great Vessels Aorta Sinus of Valsalva: 2.40 2.0-3.5 cm Ao Asc: 2.20 2.1-3.4 cm Pulmonary Valve PV Pk Karson: 0.79 Peak PV Grad: 3.00 Updated in Other Vendor System with Status of Final Jorge Luis Delacruz MD electronically signed on 10/11/2022 3:07:53 PM with status of Final
== END ==
LOC: HO.CARD 08:07
PROVIDERS: Absent Provider Thoracic Surgery (Cardiothoracic Vascular Surgery); PCP Internal Medicine; Visit Provider Internal Medicine
DX: I25.10 Atherosclerotic heart disease of native coronary artery without angina pectoris (principal)
CPT/HCPCS: 93306; Q9957

== ENCOUNTER 2022-10-18 09:57 | Outpatient (REF) | payer OTHER, SELFPAY ==
--- NOTE | ~2022-10-18 | US_ITS ---
EXAMINATION: US ABDOMEN COMPLETE CLINICAL INFORMATION: Abnormal levels of other serum enzymes. COMPARISON: No similar priors. TECHNIQUE: Real-time imaging of the abdominal viscera. FINDINGS: PANCREAS: Normal. ABDOMINAL AORTA: Atherosclerotic disease measuring 2.6 cm in diameter. INFERIOR VENA CAVA: Visualized portions are normal. LIVER: Normal. The liver is normal in size. The liver contour is normal. Parenchymal echogenicity is normal. No focal hepatic lesion. There is no intrahepatic biliary duct dilatation seen. GALLBLADDER: Normal. The gallbladder is physiologically distended without evidence of stones, sludge, polyps, wall thickening or pericholecystic fluid. COMMON BILE DUCT: Normal in caliber measuring 0.3 cm in diameter. RIGHT KIDNEY: Nonobstructive 0.5 cm calculus in the lateral interpolar region. No hydronephrosis or focal parenchymal lesions. The kidney measures 9.2 cm in maximum dimension. LEFT KIDNEY: Normal. No hydronephrosis. No renal calculi or focal parenchymal lesions. The kidney measures 9.0 cm in maximum dimension. SPLEEN: Normal. The spleen measures 8.5 cm in maximum dimension. FREE FLUID: None. US/US abdomen complete IMPRESSION: 1. Nonobstructive 0.5 cm calculus in the lateral interpolar region of the right kidney. 2. Atherosclerotic disease of the abdominal aorta which measures 2.6 m in diameter. A 5 year interval follow-up AAA ultrasound is recommended in an asymptomatic patient.
== END 2022-10-18 09:58 | disposition home or self-care (01) ==
LOC: HO.US 09:57
PROVIDERS: Visit Provider Internal Medicine
DX: R74.8 Abnormal levels of other serum enzymes (principal)
CPT/HCPCS: 76700

== ENCOUNTER → 2022-10-24 12:33 | Outpatient (BNVA) | payer OTHER, SELFPAY | PROVIDERS: PCP Internal Medicine; Visit Provider Internal Medicine | DX: Z13.89 Encounter for screening for other disorder (principal) ==

== ENCOUNTER 2022-10-28 08:56 | Outpatient (REF) | payer OTHER, SELFPAY ==
--- NOTE | ~2022-10-28 | US_ITS ---
EXAMINATION: US EXTRACRANIAL CAROTID DUPLEX, BILATERAL CLINICAL INFORMATION: Carotid bruit. COMPARISON: None TECHNIQUE: Real-time ultrasound and Doppler techniques (integrating B-mode 2-D vascular images, Doppler spectral analysis and color-flow Doppler imaging) were utilized to interrogate the extracranial carotid arteries, the vertebral arteries and proximal subclavian arteries bilaterally. The degree of stenosis is determined by criteria similar to NASCET. FINDINGS: RIGHT SIDE: 1. There is minimal atherosclerotic plaque seen in the bifurcation/proximal ICA region. 2. The common carotid artery PSV proximally is 89 cm/s and distally 70 cm/s. 3. The proximal internal carotid artery velocities are 71 cm/s systolic and 20 cm/s diastolic. 4. The proximal external carotid artery PSV is 83 cm/s. 5. The vertebral artery shows antegrade flow. 6. The subclavian artery waveforms are normal. LEFT SIDE: 1. There is minimal atherosclerotic plaque seen in the bifurcation/proximal ICA region. 2. The common carotid artery PSV proximally is 79 cm/s and distally 68 cm/s. 3. The proximal internal carotid artery velocities are 103 cm/s systolic and 25 cm/s diastolic. 4. The proximal external carotid artery PSV is 113 cm/s. 5. The vertebral artery shows antegrade flow. 6. The subclavian artery waveforms are normal. US/US carotid duplex BI IMPRESSION: 1. RIGHT: Minimal, non-hemodynamically significant stenosis of the proximal right internal carotid artery corresponding to a 0-49% stenosis by velocity criteria. 2. LEFT: Minimal, non-hemodynamically significant stenosis of the proximal left internal carotid artery corresponding to a 0-49% stenosis by velocity criteria.
--- NOTE | ~2022-10-28 | US_ITS ---
EXAMINATION: US VENOUS REFLUX/INSUFFICIENCY CLINICAL INFORMATION: The patient is a 67 year-old woman with venous insufficiency. COMPARISON: None. TECHNIQUE: Bilateral lower extremity and venous insufficiency ultrasound was performed with velocity measurements. Color flow Doppler imaging was performed. FINDINGS: RIGHT SIDE: GREATER SAPHENOUS VEIN: The right saphenofemoral junction diameter is 0.4 cm. There is no reflux. The right proximal thigh diameter is 0.3 cm. There is no reflux. The right mid thigh diameter is 0.2 cm. There is no reflux. The right above-knee diameter is 0.2 cm. There is no reflux. The right at-knee diameter is 0.2 cm. There is no reflux. The right below-knee diameter is 0.2 cm. There is no reflux. The right mid calf diameter is 0.2 cm. There is no reflux. The right ankle diameter is 0.2 cm. There is no reflux. LESSER SAPHENOUS VEIN: The right saphenofemoral junction is not visualized. The right mid thigh segment is not visualized. The right distal calf segment is not visualized. LEFT SIDE: GREATER SAPHENOUS VEIN: The left saphenofemoral junction diameter is 0.5 cm. There is no reflux. The left proximal thigh diameter is 0.3 cm. There is no reflux. The left mid thigh diameter is 0.1 cm. There is no reflux. The left above-knee diameter is 0.1 cm. There is no reflux. The left at-knee diameter is 0.1 cm. There is no reflux. The left below-knee diameter is 0.1 cm. There is no reflux. The left mid calf diameter is 0.1 cm. There is no reflux. The left ankle diameter is 0.1 cm. There is no reflux. LATERAL ACCESSORY GREATER SAPHENOUS VEIN: The left saphenofemoral junction diameter is 0.2 cm. There is no reflux The left mid thigh segment is not visualized. LESSER SAPHENOUS VEIN: The left saphenopopliteal junction segment is not visualized. The left mid calf diameter is 0.2 cm. There is no reflux. The left distal calf diameter is 0.2 cm. There is no reflux. BILATERAL DEEP VENOUS SYSTEMS: There is no deep venous thrombosis or reflux on the right. There is no deep venous thrombosis or reflux on the left. OTHER: A 1.7 x 2.0 x 0.5 cm right popliteal fossa Rodriguez's cyst is seen. US/US venous duplex LE BI IMPRESSION: No hemodynamically significant reflux is seen of the bilateral greater or lesser saphenous veins.
--- NOTE | ~2022-10-28 | CT_ITS ---
EXAMINATION: CT CHEST WITHOUT CONTRAST CLINICAL INFORMATION: Carotid bruit aortic atherosclerosis COMPARISON: None TECHNIQUE: Multidetector volumetric CT imaging of the chest was done. Axial MIP volume rendering provided. Sagittal and coronal reformatted images were obtained. This CT examination was performed using dose optimization techniques as appropriate, variously including the following: *Automated exposure control *Adjustment of mA and/or kV according to patient size (this includes techniques or standardized protocols for targeted exams where dose is matched to indication/reason for exam; i.e. extremities or head) *Use of iterative reconstruction technique DLP: 63 mGy-cm FINDINGS: LUNGS/PLEURA: Emphysematous changes. Biapical pleural parenchymal scarring. Peripheral reticular nodular opacities. Calcified granuloma in the right lung apex (series 4, image 106). 2 mm nodule in the midportion of the right lower lobe (series 4, image 272). Additional calcified granuloma in the anterior aspect of the left upper lobe (series 4, image 244). Central airways are patent. No pneumothorax. No large pleural effusion. MEDIASTINUM: Heart is not enlarged. No pericardial effusion. Coronary artery calcifications and stents are noted aorta is nonaneurysmal with slight atherosclerotic calcifications. Main pulmonary artery is not enlarged. No enlarged lymph nodes per size criteria. Atherosclerotic calcifications at the takeoff of the right brachiocephalic artery. AXILLA: No lymphadenopathy. UPPER ABDOMEN: Nonobstructive calculi in the right kidney the largest measuring up to 4 mm. OSSEOUS STRUCTURES: Multilevel degenerative changes of the thoracolumbar spine. CT/CT chest wo IV con IMPRESSION: 1. No acute process of the chest identified. 2. Atherosclerotic calcifications at the takeoff of the right brachiocephalic artery. 3. Emphysematous changes. 4. 2 mm nodule in the midportion of the right lower lobe. Follow-up as per Fleischner criteria. 5. Nonobstructive calculi in the right kidney the largest measuring up to 4 mm. Various management parameters for solitary pulmonary nodules are in the literature. According to the Fleischner Society, recommendations for pulmonary nodules are as follows: According to the UPDATED 2017 Fleischner Society recommendations, the advised follow-up imaging for solid nodules < 6 mm is: LOW RISK PATIENT: No routine follow-up. HIGH RISK PATIENT: Optional CT at 12 months.
== END 2022-10-28 08:57 | disposition home or self-care (01) ==
LOC: HO.CT 08:56
PROVIDERS: PCP Internal Medicine; Visit Provider Thoracic Surgery (Cardiothoracic Vascular Surgery)
DX: I87.2 Venous insufficiency (chronic) (peripheral) (principal); I33.9 Acute and subacute endocarditis, unspecified; I70.0 Atherosclerosis of aorta; R09.89 Other specified symptoms and signs involving the circulatory and respiratory systems
CPT/HCPCS: 71250; 93880; 93970

== ENCOUNTER 2023-04-02 12:37 | Outpatient (AMB) | payer OTHER, SELFPAY ==
--- NOTE | 2023-04-02 13:12 | MHC.OFFVIS ---
Intake Vital Signs 04/02/23 13:13 Height 5 ft 1 in Weight 81 lb 9.137 oz BMI 15.4 BP 118/80 Blood Pressure Location Lt brachial Position Sitting Pulse 91 Intake Visit Reasons: follow up Intake Note: follow up Bilingual Trainer Required: No Accompanied by: Sister Allergies Sulfa (Sulfonamide Antibiotics) [SULFA(SULFONAMIDE ANTIBIOTICS)] Allergy (Intermediate, Verified 04/02/23 13:16) RASH/HIVES Medication List - Last Reconciled 04/02/23 by Lizandro Feldman MD aspirin (Adult Aspirin Regimen) 81 mg PO DAILY folic acid 1 mg PO DAILY gabapentin 400 mg PO TID latanoprost 0.005% 1 drp ophthalmic (eye) DAILY lisinopril 40 mg PO DAILY megestrol 400 mg (10 mL) PO DAILY metoprolol succinate ER 75 mg PO BID nitroglycerin 0.4 mg sublingual Q5M PRN rosuvastatin 20 mg PO DAILY ticagrelor (Brilinta) 90 mg PO BID timolol maleate 0.5% 1 drp ophthalmic (eye) QAM tramadol 50 mg PO BID HPI HPI Comments History of Present Illness Details Ana Rosa returns for follow-up. She was initially seen for chest pain of exertion nature. That led to a stress test. Eventually, had cardiac catheterization showing complex multivessel disease. Then underwent coronary artery bypass surgery. This is our 1st appointment after the surgery. It seems that she had a complicated course as there were several issues postoperatively. After the CABG, she apparently had inferolateral STEMI and went for a successful PCI of the anastomosis of MORELOS to LAD with drug-eluting stent. Following that, she had her vascular surgery her lower extremities including bilateral femoral thromboendarterectomy with angioplasty and IV extending. Following that, partial colectomy for colonic ischemia, bubble anastomosis, abdominal closure among others. It seems that she was in hospital for several weeks and then went to rehab for several more weeks. Now she is back home with her sister. No clear-cut angina but apparently generally weak and tired. Lots of deconditioning. No clear-cut angina. Shortness of breath with activity. She is also having some memory issues and not clear if that is from any cerebral ischemia. Sister is also here for the appointment. [facility] Medical History (Updated 02/27/23 @ 10:37 by Mohinder Solis MD) Cataract fragments in both eyes following surgery Essential hypertension Femur fracture High blood pressure High cholesterol Hip fracture Hypercholesterolemia Neuropathy Protein calorie malnutrition Syncope Surgical History History of ankle surgery History of cataract surgery History of colonoscopy History of endoscopy History of hip surgery History of quadruple bypass History of surgery Family History Mother Heart attack Father Heart attack Social History Household Members: Family Housing: House Do you presently have visiting nurse or other home services: No Alcohol intake: current Alcohol intake frequency: holidays/special occasions only Alcohol type: beer Patient Tobacco Use Status: Former Tobacco user Tobacco use type: Cigarette Cigarettes Per Day: 3 Years Smoked: 42 on and off e-Cigarette/Vaping Use: Never Used Second Hand Smoke Exposure: Yes service: No Current occupational status: employed Current occupation: rt handed Cognitive needs: Yes (cane/walker) Hearing needs: No Vision needs: Yes (glasses) Review of Systems Const Denies weakness ENT Denies dizziness Card Denies chest pain, Denies chest pain with activity, Denies syncope, Denies rapid heart rate, Denies pedal edema, Denies edema, Denies leg edema, Denies lightheadedness, Denies palpitations, Denies dyspnea, Denies dyspnea on exertion and Denies orthopnea Resp Denies cough, Denies dyspnea and Denies dyspnea on exertion GI Denies hematochezia and Denies change in stool character Musc Denies abnormal gait, Denies muscle cramps, Denies muscle weakness, Denies numbness, Denies radiating pain into limb and Denies tingling Neuro Denies abnormal gait, Denies dizziness, Denies syncope, Denies numbness, Denies tingling and Denies weakness Endo Denies palpitations Physical Exam Vital Signs: Last Vital Signs Pulse 91 04/02/23 13:13 BP 118/80 04/02/23 13:13 BMI result Body Mass Index 15.4 Const General: comfortable and no acute distress Orientation/consciousness: patient oriented x3 HEENT Other: Unremarkable Head: Yes normal to inspection Neck Neck: Yes normal visual inspection Chest Chest palpation & inspection: normal inspection of the chest Resp Auscultation: clear to auscultation bilaterally Cardio Palpation: normal PMI Heart sounds: S1 normal heart sound present, S2 normal heart sound present, no gallops, no murmurs and no rubs GI Palpation (GI): Soft to palpation Back/Spine/Pelvis Other: unremarkable Skin General skin exam: no rashes or lesions noted Neuro General: patient oriented x3 Extrem General: Yes normal to inspection Psych Mental Status: mental status grossly normal Office Procedures EKG Details: EKG with sinus rhythm at 80/Min; biatrial enlargement; incomplete right bundle-branch block; cannot exclude old anterior infarct; [place] [id number], Complete Assessment & Plan Assessment & Plan (1) Atherosclerotic cardiovascular disease: Code(s): I25.10 - Atherosclerotic heart disease of [place] coronary artery without angina pectoris (2) Status post aorto-coronary artery bypass graft: Code(s): Z95.1 - Presence of aortocoronary bypass graft (3) Stented coronary artery: Code(s): Z95.5 - Presence of coronary angioplasty implant and graft (4) Essential hypertension: Code(s): I10 - Essential (primary) hypertension (5) Smoker: Code(s): F17.200 - Nicotine dependence, unspecified, uncomplicated Plan [facility] records reviewed. Complicated postoperative course including inferolateral STEMI status post PCI of MORELOS to LAD anastomosis; lower extremity vascular surgery; partial colectomy, bowel anastomosis and abdominal closure. Postop echocardiogram with LVEF of 30-40% as per discharge summary. Overall, extremely weak and deconditioned, underweight. Continue medical therapy for vascular disease. As she also had recent STEMI perioperatively, she will need the dual antiplatelet therapy for an year. Aspirin indefinitely. Continue her statins. Will need to check lipids in due course. Otherwise, remains on blood pressure medications including beta-blockers as well as lisinopril. That may be continued. We will check an echocardiogram for cardiac function. As she is mention some palpitations as well, we will get a Holter for atrial arrhythmias. Smoking cessation. Follow-up in a few weeks time. Discussed with sister who came for appointment. They are asking about FMLA and if they bring the forms, we can look at it. She does not appear to be suitable for any form of work at this time. Total time spent including review of [facility] records of long hospitalization, counseling, discussion with family, documentation, coordination of care-50 minutes. Orders: Orders CA echo transthoracic complete Today I25.10 - Atherosclerotic heart disease of [place] coronary artery without angina pectoris, Z95.1 - Presence of aortocoronary bypass graft ECG 7 day holter monitor Today R00.2 - Palpitations, Z95.1 - Presence of aortocoronary bypass graft Coding Level of Care Code Est Pt Level 5 (92442) Diagnoses Atherosclerotic cardiovascular disease I25.10 Status post aorto-coronary artery bypass graft Z95.1 Stented coronary artery Z95.5 Essential hypertension I10 Smoker F17.200 CPT Codes EKG - CPT: 43482-[id number], Complete ([id number])
[2023-04-02 13:13] VITALS: BP 118/80; PULSE 91; BMI 15.4
== END 2023-04-02 13:54 | disposition home or self-care (01) ==
PROVIDERS: PCP Internal Medicine; Referring Provider Internal Medicine; Visit Provider Internal Medicine
DX: I25.10 Atherosclerotic heart disease of native coronary artery without angina pectoris (principal); Z95.1 Presence of aortocoronary bypass graft; Z95.5 Presence of coronary angioplasty implant and graft; I10 Essential (primary) hypertension; F17.210 Nicotine dependence, cigarettes, uncomplicated
CPT/HCPCS: 93010; 99215

== ENCOUNTER → 2023-04-02 12:37 | Outpatient (BNVA) | payer OTHER, SELFPAY | PROVIDERS: PCP Internal Medicine; Referring Provider Internal Medicine; Visit Provider Internal Medicine | DX: I45.19 Other right bundle-branch block (principal); I25.10 Atherosclerotic heart disease of native coronary artery without angina pectoris; I21.19 ST elevation (STEMI) myocardial infarction involving other coronary artery of inferior wall; I10 Essential (primary) hypertension; R00.2 Palpitations; Z87.891 Personal history of nicotine dependence; Z95.1 Presence of aortocoronary bypass graft; Z95.5 Presence of coronary angioplasty implant and graft; Z79.82 Long term (current) use of aspirin; Z79.899 Other long term (current) drug therapy | CPT/HCPCS: 93005 ==

== ENCOUNTER 2023-04-10 16:28 | Inpatient (IN) | payer OTHER, MEDICARE, SELFPAY ==
--- NOTE | ~2023-04-10 | CT_ITS ---
EXAMINATION: CT ABDOMEN AND PELVIS WITHOUT CONTRAST CLINICAL INFORMATION: Abdominal pain. Diarrhea. COMPARISON: None available. TECHNIQUE: Multidetector volumetric imaging was performed from the superior aspect of the liver through the pubic symphysis. No intravenous contrast. Oral contrast was given. Sagittal and coronal reformatted images were obtained on the technologist's workstation. This CT examination was performed using dose optimization techniques as appropriate, variously including the following: *Automated exposure control *Adjustment of mA and/or kV according to patient size (this includes techniques or standardized protocols for targeted exams where dose is matched to indication/reason for exam; i.e. extremities or head) *Use of iterative reconstruction technique DLP: 249 mGy-cm FINDINGS: LUNG BASES: The visualized lung bases are unremarkable. LIVER, GALLBLADDER, AND BILIARY TREE: The liver is normal in size, shape, and attenuation. No focal hepatic lesion or biliary ductal dilatation is present. The gallbladder is unremarkable with no evidence of radiopaque gallstones, gallbladder wall thickening, or obvious pericholecystic inflammatory changes. PANCREAS: Unremarkable. SPLEEN: Unremarkable. ADRENAL GLANDS: Unremarkable. KIDNEYS AND URETERS: Bilateral nonobstructive renal calculi. Right kidney: The right kidney there is at least 3-4 stones measuring between 1 and 3 mm. There is a 4 mm stone at the midpole. There is also a 3 mm calcification involving the anterior midpole cortex. There is no ureteral stone. There is no hydronephrosis. Left kidney: There is a 3 mm nonobstructive stone mid pole. There is no ureteral calculus and no hydronephrosis. BLADDER: Unremarkable. GASTROINTESTINAL TRACT: No acute abnormality. There is no bowel wall thickening /edema. There is no bowel obstruction. There is a small to moderate volume of stool in the colon. The appendix is nonvisualized . The small bowel loops are unremarkable. The stomach is normal. There is no hiatal hernia. ABDOMINAL WALL: No significant hernia is appreciated. LYMPH NODES: Normal. VASCULAR: Vascular stents partially visualized in the right and left groin. Vascular calcifications throughout the abdomen and pelvis. There is no aneurysm. PELVIC VISCERA: Uterus is absent or atrophic. No pelvic mass. OSSEOUS STRUCTURES: Status post left hip replacement. Compression screw in right hip. This causes streak artifact through the pelvis. CT/CT abdomen pelvis wo IV con IMPRESSION: 1. No acute abnormality CT scan abdomen pelvis. 2. Bilateral nonobstructive renal calculi. No ureteral calculi or hydronephrosis. Fleischner guidelines were followed.
--- NOTE | ~2023-04-10 | XR_ITS ---
EXAMINATION: XR CHEST CLINICAL INFORMATION: Chest pain. COMPARISON: CT chest 10/28/2022. Chest radiograph 09/26/2022. TECHNIQUE: 2 views of the chest were obtained. FINDINGS: Midline sternotomy wires, atrial appendage clip and mediastinal surgical clips are noted. No significant cardiomediastinal contour abnormality. Similar degree of central pulmonary vasculature engorgement. Extensive coronary artery vascular calcifications with coronary stents. Emphysematous changes. No new focal airspace opacity. No pleural effusion or pneumothorax. Thoracic spondylosis. No acute osseous abnormalities. The visualized upper abdomen is within normal limits. XR/XR chest 2V IMPRESSION: No acute cardiopulmonary findings.
--- NOTE | 2023-04-10 16:44 | ED_ITS ---
HPI - General Adult General Chief complaint: General Medical Stated complaint: dehydration,diarrhea x5 days Time Seen by Provider: 04/10/23 17:01 History of Present Illness HPI narrative: Patient is a 67-year-old female with a history coronary artery disease. History of peripheral vascular disease. Status post bypass status post stents status stents in the lower extremity presented today with having diarrhea that has been ongoing decreasing p.o. intake symptom has been ongoing for months. Getting worse in last week to 2 weeks. Patient extremely cachectic. Positive history of being a smoker. Chronically underweight normally weighs about 80 lb. Patient from home. Related Data Home Medications Medication Instructions Recorded Confirmed aspirin 81 mg tablet,delayed 81 mg PO DAILY 11/02/20 04/02/23 release (Adult Aspirin Regimen) latanoprost 0.005 % eye drops 1 drp ophthalmic (eye) DAILY 11/02/20 04/02/23 timolol maleate 0.5 % eye drops 1 drp ophthalmic (eye) QAM 07/02/21 04/02/23 folic acid 1 mg tablet 1 mg PO DAILY 01/30/23 04/02/23 gabapentin 400 mg capsule 400 mg PO TID 01/30/23 04/02/23 metoprolol succinate 50 mg 75 mg PO BID 01/30/23 04/02/23 tablet,extended release 24 hr rosuvastatin 10 mg tablet 20 mg PO DAILY 01/30/23 04/02/23 Previous Rx's Medication Instructions Recorded nitroglycerin 0.4 mg sublingual 0.4 mg sublingual Q5M PRN chest 10/08/22 tablet pain #30 tabs tramadol 50 mg tablet 50 mg PO BID Pain, Moderate #60 02/03/23 tabs ticagrelor 90 mg tablet (Brilinta) 90 mg PO BID #180 tabs 02/04/23 lisinopril 40 mg tablet 40 mg PO DAILY #90 tabs 03/17/23 megestrol 400 mg/10 mL (10 mL) 400 mg (10 mL) PO DAILY #500 mL 03/17/23 oral suspension Allergies Allergy/AdvReac Type Severity Reaction Status Date / Time Sulfa (Sulfonamide Allergy Intermediate RASH/HIVES Verified 04/02/23 13:16 Antibiotics) [SULFA(SULFONAMIDE ANTIBIOTICS)] Review of Systems Review of Systems: No fever no chills no chest pain Yes all other systems are reviewed and are negative PMFSH Past Medical History Attestation statement: The following information was validated with the patient. Medical History Cataract fragments in both eyes following surgery Essential hypertension Femur fracture High blood pressure High cholesterol Hip fracture Hypercholesterolemia Neuropathy Protein calorie malnutrition Syncope Surgical History History of ankle surgery History of cataract surgery History of colonoscopy History of endoscopy History of hip surgery History of quadruple bypass History of surgery Family History Family History Mother Heart attack Father Heart attack Social History Social History Household Members: Family Housing: House Do you presently have visiting nurse or other home services: No Alcohol intake: current Alcohol intake frequency: holidays/special occasions only Alcohol type: beer Patient Tobacco Use Status: Former Tobacco user Tobacco use type: Cigarette Cigarettes Per Day: 3 Years Smoked: 42 on and off Smoked in Last 30 Days: No e-Cigarette/Vaping Use: Never Used Second Hand Smoke Exposure: Yes Use of substances other than those prescribed or required for medical reasons: No Advance Directives: No Advance Directives Information Provided: No service: No Current occupational status: employed Current occupation: rt handed Cognitive needs: Yes (cane/walker) Hearing needs: No Vision needs: Yes (glasses) Physical Exam ED Vital Signs: Vital Signs - 24 hr 04/10/23 16:45 04/10/23 18:27 04/10/23 20:16 Temperature 97.7 F 93.0 F L 97.1 F Pulse Rate 77 68 Respiratory Rate 20 16 Blood Pressure 88/41 L 124/68 Pulse Oximetry 100 Oxygen Delivery Method Room Air Room Air BMI result Body Mass Index 15.1 Appearance: Alert. Oriented X3. No acute distress. Eyes: Pupils equal, round and reactive to light. ENT: Pharynx normal. Neck: Normal inspection. Neck supple. No lymph nodes noted. No crepitus CVS: Normal heart rate and rhythm. Pulses normal. Normal S1 and S2 Respiratory: No respiratory distress. Breath sounds normal. No Wheezing. No rales Abdomen: Soft and nontender. No rigidity. No distention. good BS x4 Skin: Skin warm and dry. Normal skin color. Normal skin turgor. Extremities: No lower extremity edema. Neurovascular intact to all extremities. No Lacerations. No Rash Neuro: Oriented X 3. No motor deficit. No sensory deficit. Moving all extermities. No slurred speech Course Course Course Narrative: This is an RME: Additional HPI, ROS, PE not included below will be deferred to primary provider. This is a [id number]-female, hx of quadruple bypass on Brillinta, HTN, HLD presenting to the Er complaints of chest pain, abdominal pain diarrhea ascites patient extremely cachectic and has not been eating. Unable to get oral temperature, blood pressure 88/41. Patient appears to be extremely weak. Plan labs, EKG, chest x-ray, patient was brought back to the emergency department for further evaluation. Medications Administered Discontinued Medications Generic Name Dose Route Start Last Admin Trade Name Freq PRN Reason Stop Dose Admin Dextrose 25 gm 04/10/23 20:19 04/10/23 20:41 Dextrose 50 % 25 Gm/50 Ml Syringe IVPUSH 04/10/23 20:20 25 gm ONCE ONE Administration Sodium Chloride 1,000 mls @ 999 mls/hr 04/10/23 17:45 04/10/23 19:41 Ns IV 04/10/23 18:45 999 mls/hr .Q1H1M CAILIN Administration Insulin Human Regular 4 unit 04/10/23 20:19 04/10/23 20:41 Insulin Regular, Human 100 Unit/Ml 3 Ml Vial 0.1 unit/kg (4 unit) 04/10/23 20:20 4 unit IVPUSH Administration ONCE ONE Sodium Bicarbonate 50 meq 04/10/23 20:17 04/10/23 20:41 Sodium Bicarbonate 8.4% 50 Meq/50 Ml Syringe IVPUSH 04/10/23 20:18 50 meq ONCE ONE Administration Sodium Polystyrene Sulfonate 30 gm 04/10/23 20:19 04/10/23 20:41 Sodium Polystyrene Sulfon/Sorb 15 Gm/60 Ml Oral.Susp PO 04/10/23 20:20 30 gm ONCE ONE Administration Procedures Central Line Placement Right Femoral: Time Out Performed: Yes Patient Placed on Monitor/Pulse Ox: Yes MD Prep: mask, gown and gloves Central Line Prep: Chlorhexidine scrub Local Anesthetic: lidocaine 1% Amount of anesthesia used (mL): 3 Ultrasound Used for Placement: No Central Line Lumen Inserted: triple Post Procedure: sutured in place Patient Tolerated Procedure: well Complications: none Medical Decision Making Medical Decision Making [facility] Narrative: Patient's electrolytes came back BUN was 76 creatinine was 5.81. Patient's bladder scan was 0. No evidence for post renal obstruction. CT scan of the abdomen pelvis was done. It showed no gross evidence of obstruction. Most likely this is related to prerenal renal failure. Patient given IV fluids. A central line was placed. Patient's electrolytes also showed a potassium of 6.0. My interpretation of patient's EKG showed a sinus pattern heart rate is 70 PA QRS QTC within normal limits there is no acute ST segment elevation noted. Patient baseline creatinine is normal. Patient was started on a dose of insulin, glucose, bicarb. Kayexalate was given. Patient's case will be discussed with the hospitalist team for admission. Differential Diagnosis Differential Diagnoses: The differential diagnosis associated with the presentation includes Dehydration, acute renal insufficiency, electrolyte disturbance, Admission/Observation Consideration of admission/observation: Escalation of care including admission/observation considered Consult Healthcare Provider Management of the patient was discussed with: Hospitalist Lab Data [facility] Lab Attestation statement: I reviewed the patient's lab results. 04/10/23 19:27 04/10/23 19:27 Labs: Lab Results 04/10/23 04/10/23 04/10/23 Range/Units 19:27 19:27 19:27 WBC 10.4 (4.8-10.8) X10*3/uL RBC 4.12 L (4.20-5.50) X10*6/uL Hgb 11.9 L (12.0-16.0) g/dl Hct 36.1 L (37.0-47.0) % MCV 87.6 (80.0-98.0) fL MCH 28.9 (27.0-33.0) pg MCHC 33.0 (31.0-35.0) g/dl RDW 16.0 (11.0-16.0) % Plt Count 372 D (160-400) X10*3/uL MPV 9.1 L (9.4-12.3) fL Immature Gran % (Auto) 1.2 H (0.0-0.4) % Neut % (Auto) 69.9 (45-73) % Lymph % (Auto) 18.6 L (20-40) % [place] % (Auto) 9.1 (2-11) % Eos % (Auto) 0.8 (0-4) % Baso % (Auto) 0.4 (0-2) % Lymph # (Auto) 1.9 (1.2-4.9) X10*3/uL [place] # (Auto) 0.9 (0.1-1.2) X10*3/uL Eos # (Auto) 0.1 (0.0-0.4) X10*3/uL Baso # (Auto) 0.0 (0.0-0.2) X10*3/uL Abs Immat Gran (auto) 0.12 H (0.00-0.03) X10*3/uL Absolute Neuts (auto) 7.3 (2.0-8.3) x10*3/uL Absolute Nucleated RBC 0.000 (0.0-0.012) X10*3/uL Nucleated RBC % (auto) 0.0 (0.0-0.2) /100WBC Sodium 129 L (135-145) mmol/L Potassium 6.0 H* D (3.3-5.1) mmol/L Chloride 106 (96-108) mmol/L Carbon Dioxide 7 L* D (22-29) mmol/L Anion Gap 22 H (12-20) BUN 76 H (9-16) mg/dL Creatinine 5.81 H* (0.5-1.4) mg/dL Estim Creat Clear Calc 5.4 Estimated GFR 7 Random Glucose 80 (60-115) mg/dL Lactic Acid (0.5-2.0) mmol/L Calcium 10.1 (8.4-10.2) mg/dL Magnesium 2.4 (1.6-2.6) mg/dL Total Bilirubin 0.5 (0.0-1.0) mg/dL Direct Bilirubin 0.2 (0.0-0.5) mg/dL AST 42 H (5-31) U/L ALT 61 H (0-31) U/L Alkaline Phosphatase 106 (39-117) U/L Troponin I High Sens 42.2 H (<3.5-17.0) ng/L B-Natriuretic Peptide (<100) pg/mL Total Protein 8.2 H (6.5-8.0) g/dL Albumin 4.0 (3.5-5.0) g/dL Lipase 380 H (8-78) U/L 04/10/23 04/10/23 Range/Units 19:27 19:27 WBC (4.8-10.8) X10*3/uL RBC (4.20-5.50) X10*6/uL Hgb (12.0-16.0) g/dl Hct (37.0-47.0) % MCV (80.0-98.0) fL MCH (27.0-33.0) pg MCHC (31.0-35.0) g/dl RDW (11.0-16.0) % Plt Count (160-400) X10*3/uL MPV (9.4-12.3) fL Immature Gran % (Auto) (0.0-0.4) % Neut % (Auto) (45-73) % Lymph % (Auto) (20-40) % [place] % (Auto) (2-11) % Eos % (Auto) (0-4) % Baso % (Auto) (0-2) % Lymph # (Auto) (1.2-4.9) X10*3/uL [place] # (Auto) (0.1-1.2) X10*3/uL Eos # (Auto) (0.0-0.4) X10*3/uL Baso # (Auto) (0.0-0.2) X10*3/uL Abs Immat Gran (auto) (0.00-0.03) X10*3/uL Absolute Neuts (auto) (2.0-8.3) x10*3/uL Absolute Nucleated RBC (0.0-0.012) X10*3/uL Nucleated RBC % (auto) (0.0-0.2) /100WBC Sodium (135-145) mmol/L Potassium (3.3-5.1) mmol/L Chloride (96-108) mmol/L Carbon Dioxide (22-29) mmol/L Anion Gap (12-20) BUN (9-16) mg/dL Creatinine (0.5-1.4) mg/dL Estim Creat Clear Calc Estimated GFR Random Glucose (60-115) mg/dL Lactic Acid 1.6 (0.5-2.0) mmol/L Calcium (8.4-10.2) mg/dL Magnesium (1.6-2.6) mg/dL Total Bilirubin (0.0-1.0) mg/dL Direct Bilirubin (0.0-0.5) mg/dL AST (5-31) U/L ALT (0-31) U/L Alkaline Phosphatase (39-117) U/L Troponin I High Sens (<3.5-17.0) ng/L B-Natriuretic Peptide 72 (<100) pg/mL Total Protein (6.5-8.0) g/dL Albumin (3.5-5.0) g/dL Lipase (8-78) U/L Independent Interpretation I performed an independent interpretation of an: EKG (My interpretation of patient's EKG showed a sinus rhythm heart rate is 70 PA QRS QTC within normal limits there is no acute ST segment elevation. There is a partial right bundle branch block noted.), Plain X-Ray (My interpretation of patient's chest x-ray was grossly negative for any acute evidence of pneumonia pneumothorax) and CT Scan Interpretation: No gross obstruction no hydro no perforation Radiology Impression Discussion of test interpretation with radiology: I have reviewed the radiologist's reading. Independent Historian Patient's son External Record Review External record reviewed: Inpatient record Limited inpatient record as patient normally goes to [facility] records were from 2 years ago Chronic Conditions History of coronary artery disease status post bypass status post stent Critical Care Time Critical Care Time Critical Care Time: Yes Total Critical Care Time: 40 Attestation: I have personally provided 40 minutes of critical care time exclusive of time spent on separately billable procedures. Time includes review of lab data, radiology results, discussion with consultants, and monitoring for potential decompensation. Interventions were performed as documented above Discharge Plan Discharge Clinical Impression: Acute renal failure, Acute hyperkalemia Patient Disposition: Admitted As Inpatient
[2023-04-10 16:45] VITALS: BP 88/41; PULSE 77; RESP 20; TEMP 36.5; BMI 15.1
--- NOTE | 2023-04-10 16:49 | ECG_ITS ---
Test Reason : CHEST PAIN Blood Pressure : / mmHG Vent. Rate : 073 BPM Atrial Rate : 073 BPM P-R Int : 152 ms QRS Dur : 082 ms QT Int : 406 ms P-R-T Axes : 085 014 043 degrees QTc Int : 447 ms Normal sinus rhythm Biatrial enlargement Anterior infarct , age undetermined Abnormal ECG When compared with ECG of 02-JUL-2021 14:39, ID interval has increased QRS voltage has decreased Anterior infarct is now Present T wave amplitude has decreased in Inferior leads T wave amplitude has decreased in Anterior leads Referred By: Sia Peña Electronically Signed By:Juan David Veras
[2023-04-10 18:27] VITALS: BP 124/68; PULSE 68; RESP 16; TEMP 33.9; O2SAT 100
[2023-04-10] MEDS: 0.9 % Sodium Chloride 1,000 ML 999 ML IV ×3 (19:41→21:51)
[2023-04-10 19:42] LABS: MANUAL DIFF FLAG NO
[2023-04-10 19:54] LABS: Lactic Acid 1.6 mmol/L (0.5-2.0)
[2023-04-10 20:06] LABS: Alanine Aminotransferase 61 U/L (0-31); Alkaline Phosphatase 106 U/L (39-117); Anion Gap 22 (12-20); Aspartate Amino Transferase 42 U/L (5-31); Bilirubin Direct 0.2 mg/dL (0.0-0.5); Bilirubin Total 0.5 mg/dL (0.0-1.0); Blood Urea Nitrogen 76 mg/dL (9-16); Calcium 10.1 mg/dL (8.4-10.2); Carbon Dioxide 7 mmol/L (22-29); Chloride 106 mmol/L (96-108); Creatinine Clr Calc Pharmacy 5.4; Estimated Glomerular Filt Rate 7; Glucose Random 80 mg/dL (60-115); Magnesium 2.4 mg/dL (1.6-2.6); Sodium 129 mmol/L (135-145); Total Protein 8.2 g/dL (6.5-8.0)
[2023-04-10 20:07] LABS: Troponin-I High Sensitivity 42.2 ng/L (<3.5-17.0)
[2023-04-10 20:10] LABS: Basophils Percent Auto 0.4 % (0-2); Eosinophils Absolute Auto 0.1 X10*3/uL (0.0-0.4); Eosinophils Percent Auto 0.8 % (0-4); Hematocrit 36.1 % (37.0-47.0); Hemoglobin 11.9 g/dl (12.0-16.0); Imm Gran Abs Auto 0.12 X10*3/uL (0.00-0.03); Imm Gran Pct Auto 1.2 % (0.0-0.4); Lipase 380 U/L (8-78); Lymphocytes Absolute Auto 1.9 X10*3/uL (1.2-4.9); Lymphocytes Percent Auto 18.6 % (20-40); Mean Corpuscular Hemoglobin 28.9 pg (27.0-33.0); Mean Corpuscular Volume 87.6 fL (80.0-98.0); Mean Platelet Volume 9.1 fL (9.4-12.3); Monocytes Absolute Auto 0.9 X10*3/uL (0.1-1.2); Monocytes Percent Auto 9.1 % (2-11); Neutrophils Absolute Auto 7.3 x10*3/uL (2.0-8.3); Neutrophils Percent Auto 69.9 % (45-73); Platelet Count 372 X10*3/uL (160-400); Red Blood Count 4.12 X10*6/uL (4.20-5.50); White Blood Count 10.4 X10*3/uL (4.8-10.8)
[2023-04-10 20:16] VITALS: TEMP 36.2
[2023-04-10] MEDS: Sodium Polystyrene Sulfon/Sorb 15 GM/60 ML ORAL.SUSP 30 GM PO (20:41)
[2023-04-10] MEDS: Dextrose 50 % 25 GM/50 ML SYRINGE IVPUSH (20:41)
[2023-04-10] MEDS: Sodium Bicarbonate 8.4% 50 MEQ/50 ML SYRINGE IVPUSH ×2 (20:41→22:55)
[2023-04-10] MEDS: Insulin Regular, Human 100 UNIT/ML 3 ML VIAL IVPUSH (20:41)
[2023-04-10 20:59] LABS: B Type Natriuretic Peptide 72 pg/mL (<100)
--- NOTE | 2023-04-10 21:36 | P.HPHOSP_ITS ---
I agree with BHARATH note assessment and plan. Patient comes in with diarrhea likely secondary to viral gastritis, found to have AMIE secondary to above. Will treat with IV fluids, supportive measures. For full H&P please see below History of Present Illness Date of Service: 04/10/23 Attending physician on admission: Krys Gibson Chief Complaint: Dirreah, weakness Pt is a 67-year-old female with a PMH significant for?HTN, HLD, CAD s/p CABG, STEMI s/p stenting, PAD s/p bilateral femoral thromboendarterectomy with stenting, partial colectomy, and neuropathy who presents to the ED with?diarrhea and generalized weakness for the past 5 days. Patient states her symptoms began last Friday when she started experiencing nonbloody diarrhea and moderate diffuse abdominal pain. She reports abdominal pain was located in her ?whole stomach , nonradiating, rated a 6 to 7/10 in severity. Diarrhea was almost constant, patient reports having ?35-40? episodes of diarrhea a day. Patient thought the best way to treat her diarrhea was to stop eating and drinking and us restricted her diet considerably throughout the week. Patient's sons are at bedside who state they visited their mother and attempted to get her to eat and drink during this time. Since noticed patient was unsteady on her feet and occasionally seemed confused. They said she seemed lethargic and at times had labored breathing and difficulty speaking. Patient states she has been lightheaded and dizzy. Reports producing very little urine in the past 3-4 days. Patient denies chest pain/pressure, palpitations. No shortness of breath. Denies nausea, vomiting. Of note, patient had a prolonged and compl icated hospital course at [facility] in October of this year. Patient had a CABG on 11/08/2022 that was almost immediatly followed by thrombosis of the MORELOS to LAD requiring stenting. Patient then developed bilateral leg ischemia requiring thromboendarterectomy and stenting which was then followed by colonic ischemia requiring colectomy In the ED labs were significant for H&H of 11.9/36.1, sodium of 129, potassium 6.0, bicarb of 7, anion gap of 22, BUN 76, creatinine 5.81, AST 42, ALT 61, initial troponin 42.2, lipase 380. Lactic acid WNL at 1.6. UA pending. CXR showed no acute cardiopulmonary findings. CT?of abdomen and pelvis showed no acute abnormality but did reveal bilateral nonobstructive renal calculi with no ureteral calculi or hydronephrosis. EKG demonstrated normal sinus rhythm with no evidence of ST elevations or depressions. Pt was treated with Kayexalate, sodium bicarb, insulin 4 units, dextrose, and IVF. Pt will be admitted to the hospital for treatment further evaluation of acute kidney failure and electrolyte imbalances. Review of Systems Review of Systems: Nonbloody diarrhea Diffuse abdominal pain Reduced p.o. intake of solids and liquids Generalized weakness Lightheadedness, dizziness Unsteadiness on feet Anuria Denies nausea, vomiting No chest pain/pressure, palpitations Denies shortness of breath Yes all other systems are reviewed and are negative [facility] Medical History Cataract fragments in both eyes following surgery Essential hypertension Femur fracture High blood pressure High cholesterol Hip fracture Hypercholesterolemia Neuropathy Protein calorie malnutrition Syncope Family History Mother Heart attack Father Heart attack Surgical History History of ankle surgery History of cataract surgery History of colonoscopy History of endoscopy History of hip surgery History of quadruple bypass History of surgery Social History Household Members: Family Housing: House Do you presently have visiting nurse or other home services: No Alcohol intake: current Alcohol intake frequency: holidays/special occasions only Alcohol type: beer Patient Tobacco Use Status: Former Tobacco user Tobacco use type: Cigarette Cigarettes Per Day: 3 Years Smoked: 42 on and off Smoked in Last 30 Days: No e-Cigarette/Vaping Use: Never Used Second Hand Smoke Exposure: Yes Use of substances other than those prescribed or required for medical reasons: No Advance Directives: No Advance Directives Information Provided: No service: No Current occupational status: employed Current occupation: rt handed Cognitive needs: Yes (cane/walker) Hearing needs: No Vision needs: Yes (glasses) Meds Allergies Allergy/AdvReac Type Severity Reaction Status Date / Time Sulfa (Sulfonamide Allergy Intermediate RASH/HIVES Verified 04/02/23 13:16 Antibiotics) [SULFA(SULFONAMIDE ANTIBIOTICS)] Active Medications: Current Medications Pharmacy Consult (Consult Rx Perform Med Rec) 1 each MISCELLANE ONCE PRN PRN Reason: Consult order Home Medications Medication Instructions Recorded Confirmed Last Taken Type aspirin 81 mg tablet,delayed 81 mg PO DAILY 11/02/20 04/10/23 1 Day Ago History release (Adult Aspirin Regimen) ~07/01/21 folic acid 1 mg tablet 1 mg PO DAILY 01/30/23 04/10/23 Unknown History metoprolol succinate 50 mg 75 mg PO BID 01/30/23 04/10/23 Unknown History tablet,extended release 24 hr rosuvastatin 10 mg tablet 10 mg PO DAILY 01/30/23 04/10/23 Unknown History Alpha Brain 2 cap PO DAILY 04/10/23 04/10/23 Unknown History gabapentin 300 mg capsule 300 mg PO TID 04/10/23 04/10/23 Unknown History tramadol 50 mg tablet 50 mg PO BID PRN Pain 04/10/23 04/10/23 Unknown History Physical Exam Vital Signs and Narrative: Vital Signs: Last Vital Signs Temp 97.1 F 04/10/23 20:16 Pulse 68 04/10/23 18:27 Resp 16 04/10/23 18:27 BP 124/68 04/10/23 18:27 Pulse Ox 100 04/10/23 18:27 O2 Del Method Room Air 04/10/23 18:27 BMI result Body Mass Index 15.1 Constitutional: Alert, cachectic, frail looking, in no acute distress. Mental Status: Oriented to person, place and time. Eyes: Pupils are equal, round, and reactive to light. Ear, Nose, and Throat: Oropharynx clear, mucous membranes dry. Ears and nose without deformities. Trachea midline. Respiratory: Clear to auscultation bilaterally. No wheezing, rales, or rhonchi. Cardiovascular: S1, S2 regular. No murmurs, rubs, or gallops. Gastrointestinal: Abdomen soft, non-tender, non-distended. Normal bowel sounds. Neurologic: Cranial nerves II-XII are grossly intact bilaterally. No focal neurological deficits. Moves all extremities spontaneously. Skin: No rashes or lesions noted. Musculoskeletal: No cyanosis or clubbing. Extremities: No edema. Psychiatric: Normal mood and affect. Results Labs 04/10/23 19:27 04/10/23 19:27 Labs: Laboratory Results - last 24 hr 04/10/23 04/10/23 04/10/23 19:27 19:27 19:27 MCV 87.6 MCH 28.9 MCHC 33.0 RDW 16.0 Plt Count 372 D MPV 9.1 L Immature Gran % (Auto) 1.2 H Neut % (Auto) 69.9 Lymph % (Auto) 18.6 L [place] % (Auto) 9.1 Eos % (Auto) 0.8 Baso % (Auto) 0.4 Lymph # (Auto) 1.9 [place] # (Auto) 0.9 Eos # (Auto) 0.1 Baso # (Auto) 0.0 Abs Immat Gran (auto) 0.12 H Absolute Neuts (auto) 7.3 Absolute Nucleated RBC 0.000 Nucleated RBC % (auto) 0.0 Anion Gap 22 H Estim Creat Clear Calc 5.4 Estimated GFR 7 Random Glucose 80 Lactic Acid Calcium 10.1 Magnesium 2.4 Total Bilirubin 0.5 Direct Bilirubin 0.2 AST 42 H ALT 61 H Alkaline Phosphatase 106 B-Natriuretic Peptide 72 Total Protein 8.2 H Albumin 4.0 Lipase 380 H 04/10/23 19:27 MCV MCH MCHC RDW Plt Count MPV Immature Gran % (Auto) Neut % (Auto) Lymph % (Auto) [place] % (Auto) Eos % (Auto) Baso % (Auto) Lymph # (Auto) [place] # (Auto) Eos # (Auto) Baso # (Auto) Abs Immat Gran (auto) Absolute Neuts (auto) Absolute Nucleated RBC Nucleated RBC % (auto) Anion Gap Estim Creat Clear Calc Estimated GFR Random Glucose Lactic Acid 1.6 Calcium Magnesium Total Bilirubin Direct Bilirubin AST ALT Alkaline Phosphatase B-Natriuretic Peptide Total Protein Albumin Lipase Imaging Radiologist's Impressions: Impressions Chest X-Ray 04/10/23 17:22 IMPRESSION: No acute cardiopulmonary findings. Abdomen/Pelvis CT 04/10/23 20:25 IMPRESSION: 1. No acute abnormality CT scan abdomen pelvis. 2. Bilateral nonobstructive renal calculi. No ureteral calculi or hydronephrosis. Fleischner guidelines were followed. Assessment and Plan (1) Acute renal failure: Status: Acute (2) Acute hyperkalemia: Status: Acute Plan Pt is a 67-year-old female with a PMH significant for?HTN, HLD, CAD s/p CABG, STEMI s/p stenting, PAD s/p bilateral femoral thromboendarterectomy with stenting, partial colectomy, and neuropathy who presents to the ED with?diarrhea and generalized weakness for the past 5 days. Pt will be admitted to the hospital for treatment further evaluation of acute kidney failure and electrolyte imbalances. Diarrhea Patient has been experiencing ?constant? nonbloody diarrhea for the past 5 days Etiology unclear: CT negative for inflammation, viral gastritis more likely Will check C diff, GI panel, lactate dehydrogenase Will be hydrating with IV fluids Clear liquid diet, advance as tolerated Acute renal failure Creatinine 5.81, elevated from 0.74 on 09/26/2022 Likely secondary to GI losses and reduced p.o. intake IVF: Normal saline Nephrology consult Follow BMP Hyperkalemia Potassium 6.0 at time of presentation Patient given Kayexalate in the ED Follow BMP Hyponatremia Sodium 129 at time of presentation Patient receiving IVF: Normal saline Follow BMP Metabolic acidosis Bicarb 7 at time of presentation Likely secondary to AMIE Patient received bicarb in ED, will give additional dosage Follow BMP closely Elevated troponin Initial troponin 42.2 at time of presentation Patient asymptomatic: Denies chest pain/pressure, palpitations, EKG negative for acute ischemia Will repeat troponin Elevated lipase Lipase 380 Unclear etiology: Abdominal exam benign, with diffuse abdominal pain not typical of acute pancreatitis presentation, CT of abdomen pelvis without evidence of pancreatitis Monitor for abdominal pain CAD Continue statin, aspirin, ticagrelor Hold nitroglycerin due to soft BP, resume as warranted HTN Hold lisinopril, metoprolol for now due to soft BP Resume as warranted Neuropathy Continue gabapentin Full Code Attending:?Dr. Claros DVT Prophylaxis: Heparin Pt will require a hospitalization of at least two nights for treatment of?acute kidney failure and electrolyte imbalances with IVF and close laboratory norm cook. Time Spent With Patient Time: Total time managing care of this patient today ____ minutes. Quality Stroke Does the patient have a stroke diagnosis?: No VTE Prior VTE?: No VTE Risk Level:: Medical - moderate - high VTE Device Contraindication: Treatment Not Indicated VTE Drug Contraindication: N/A - Med Ordered
--- NOTE | 2023-04-10 21:54 | PHA.MEDREC ---
Pharmacy Consult ? Medication Reconciliation Pharmacy has completed the medication reconciliation. Patient's family has list of the medications. Patient was recently prescribed megestrol. Patient has not been taking it but according to patient's sons but should be taking it therefore i left on medication list. Candace Navarro, PharmD
--- NOTE | 2023-04-10 21:58 | PC.NURSE ---
Assumed care of patient at 1850. Patient alert and oriented. sons at beside. PT reporting diarrhea, weakness, and anorexia. Pt jhad triple bypass in October 2022. Per day shift Rn report PT was a difficult stick and unable to get line or labs drawn. Charge nurse assisted in placement at 1940. Labs drawn, IVF administered as per oct. rectal temp 97.1, vss.
--- NOTE | 2023-04-10 22:00 | PC.NURSE ---
insert femoral central line. Administered IV fluids as per OCT. Lauren cath inserted at 2145.
[2023-04-10 23:02] VITALS: BP 123/58; PULSE 90; RESP 23; TEMP 36.4; O2SAT 99
[2023-04-10 23:14] LABS: Appearance Urine Cloudy; Color Urine Yellow; Glucose Urine UA 100 mg/dL (Negative); Leukocyte Esterase Urine Large (3+) (Negative); Nitrite Urine Negative (Negative); PH 5.5 (5.0-9.0); UMIC TRIGGER UACC YES; Urine Blood Large (3+) (Negative); Urine Ketones Negative (Negative); Urine Protein 100 (2+) mg/dL (Neg-Trace)
[2023-04-10] MEDS: Heparin Sodium,Porcine 5,000 UNIT/ML VIAL 5000 UNIT SUBCUT (23:28)
[2023-04-10] MEDS: 0.9 % Sodium Chloride 1,000 ML 100 ML IVCONT (23:29)
[2023-04-10 23:43] VITALS: BP 109/67; PULSE 91; RESP 16; TEMP 37.2; O2SAT 95
[2023-04-10 23:43] LABS: Bacteria Urine 4+ (None Seen); Squamous Epithelial Cell Urine 0-2 /HPF (0-2); UACC Culture Trigger YES; WBC Urine >50 /HPF (0-5)
[2023-04-10 23:55] LABS: Venous Blood Gas Refer to POC result
--- NOTE | 2023-04-10 23:55 | MHC.EDTECH ---
0000 rounding done ,vitals sign taken ,stool sample collected and sent to lab ,fresh ice water given and warm blanket ,pt is trying to rest .
[2023-04-10 23:56] LABS: VBG Base Excess -14.6 mmol/L; VBG HCO3 8 mmol/L (22-26); VBG pCO2 16 mmHg; VBG pH 7.33 (7.32-7.43); VBG pO2 56 mmHg
[2023-04-11] VITALS (9 sets, daily range): BP systolic 96–142; BP diastolic 52–68; PULSE 78–103; RESP 16–20; TEMP 36.4–37.9; O2SAT 97–99; BMI 15.1
[2023-04-11 00:07] LABS: Alanine Aminotransferase 47 U/L (0-31); Albumin Level 3.2 g/dL (3.5-5.0); Alkaline Phosphatase 88 U/L (39-117); Anion Gap 19 (12-20); Aspartate Amino Transferase 37 U/L (5-31); Bilirubin Total 0.4 mg/dL (0.0-1.0); Blood Urea Nitrogen 64 mg/dL (9-16); Calcium 8.1 mg/dL (8.4-10.2); Carbon Dioxide 11 mmol/L (22-29); Chloride 117 mmol/L (96-108); Creatinine Clr Calc Pharmacy 6.7; Estimated Glomerular Filt Rate 9; Glucose Random 112 mg/dL (60-115); Lactate Dehydrogenase 277 U/L (122-220); Potassium 4.2 mmol/L (3.3-5.1); Sodium 143 mmol/L (135-145); Total Protein 6.6 g/dL (6.5-8.0)
[2023-04-11 00:11] LABS: Troponin-I High Sensitivity 43.7 ng/L (<3.5-17.0)
[2023-04-11] MEDS: cefTRIAXone sodium 1 GM in 0.9 % Sodium Chloride 50 ML IV (00:18)
[2023-04-11 00:45] LABS: CDiff Gene PCR POSITIVE (Negative)
[2023-04-11] MEDS: 0.9 % Sodium Chloride Flush 3 ML SYRINGE IVFLUSH ×4 (01:08→21:59)
[2023-04-11 01:32] LABS: CDIFF Internal ctrl Dots and bkg OK (V); CDiff Toxin Negative (Negative)
[2023-04-11 06:23] LABS: Anion Gap 19 (12-20); Blood Urea Nitrogen 61 mg/dL (9-16); Carbon Dioxide 10 mmol/L (22-29); Chloride 118 mmol/L (96-108); Creatinine Clr Calc Pharmacy 7.3; Estimated Glomerular Filt Rate 10; Glucose Random 81 mg/dL (60-115); Potassium 3.8 mmol/L (3.3-5.1); Sodium 143 mmol/L (135-145)
--- NOTE | 2023-04-11 06:23 | PC.NURSE ---
This Rn received critical labs results- bicarb is 10. made aware. Orders to change fluids to add bicarb
[2023-04-11 06:25] LABS: Hematocrit 30.7 % (37.0-47.0); Hemoglobin 10.3 g/dl (12.0-16.0); Mean Corpuscular HGB Conc 33.6 g/dl (31.0-35.0); Mean Corpuscular Hemoglobin 29.3 pg (27.0-33.0); Mean Corpuscular Volume 87.5 fL (80.0-98.0); Mean Platelet Volume 9.3 fL (9.4-12.3); Platelet Count 283 X10*3/uL (160-400); Red Blood Count 3.51 X10*6/uL (4.20-5.50); Red Cell Distribution Width 15.9 % (11.0-16.0); White Blood Count 5.8 X10*3/uL (4.8-10.8)
--- NOTE | 2023-04-11 06:58 | PC.NURSE ---
This RN contacted pharmacy regarding recent med order. Pharmacy to mix and bring sodium bicarb in 5% dextrose. Pharmacy reported it to be delivered around 7:30
[2023-04-11] MEDS: Acetaminophen 325 MG TABLET 650 MG PO (07:53)
--- NOTE | 2023-04-11 08:03 | PC.NURSE ---
Addendum entered by Brittany Pierce 04/11/23 08:03: continuation of note: lungs - cta. heart sounds- regular. abd soft and non-tender. bx + x 4 quads. no edema noted. skin pink warm dry with multiple bruising to brittany arms. rosenbaum is patent and draining clear yellow urine. femoral cath in place and patent. pt ate 100% of breakfast (clear liquids) . c-diff precaution maintained. pt aware of plan of care. Original Note: pt is a/o x 4 no sob/jimmie noted speaks in full sentences. lungs -
--- NOTE | 2023-04-11 08:07 | MHC.EDTECH ---
pt had a bowel movement, soiling the bed. pt transferred to hospital bed, cleaned and bed linens changed. pt did not wish to be repositioned to her side, pt sat up in bed on her back. warm blankets given and call light placed within reach.
--- NOTE | 2023-04-11 08:15 | PC.NURSE ---
rn to rn report given to ramiro. pt's son letty was notified of pt's transfer to room 446.
[2023-04-11] MEDS: Sodium Bicarbonate 8.4% 50 MEQ in Dextrose 5 % 950 ML 125 MEQ IV ×3 (09:29→17:53)
[2023-04-11 09:32] LABS: Adenovirus F 40/41 Not Detected (Not Detect.); Astrovirus Not Detected (Not Detect.); Campylobacter Not Detected (Not Detect.); Cryptosporidium Not Detected (Not Detect.); Cyclospora cayetanensis Not Detected (Not Detect.); E. coli EAEC Not Detected (Not Detect.); E. coli EPEC Not Detected (Not Detect.); E. coli ETEC Not Detected (Not Detect.); E. coli STEC Not Detected (Not Detect.); Entamoeba histolytica Not Detected (Not Detect.); Giardia lamblia Not Detected (Not Detect.); Norovirus GI/GII Not Detected (Not Detect.); Plesiomonas shigelloides Not Detected (Not Detect.); Rotavirus A Not Detected (Not Detect.); Salmonella Not Detected (Not Detect.); Sapovirus Not Detected (Not Detect.); Shigella sp./EIEC Not Detected (Not Detect.); Vibrio Not Detected (Not Detect.); Vibrio Cholerae Not Detected (Not Detect.); Yersinia enterocolitica Not Detected (Not Detect.)
[2023-04-11] MEDS: vancomycin HCL 125 MG CAPSULE PO ×3 (10:54→21:58)
[2023-04-11] MEDS: Heparin Sodium,Porcine 5,000 UNIT/ML VIAL 5000 UNIT SUBCUT ×2 (10:54→21:58)
--- NOTE | 2023-04-11 13:18 | MHC.CLN ---
RE: CONSULT PT IS MODERATELY MALNOURISHED PT WITH CHRONIC POOR PO INTAKE X 7 DAYS WITH CHRONIC SEVERE DIARRHEA AND INCREASED NUTRITION NEEDS WITH PREVIOUS MULTIPLE SURGERIES AND PROLONGED HOSPITALIZATIONS PT IS CURRENTLY ON A C/L DIET PT WITH 2 VERY INVOLVED SONS WHO REPORT PT HAS PREVIOUSLY DX WITH MALNUTRITION AT [facility]. SONS REPORTS PT WITH CHRONIC POOR PO INTAKE BUT RECENTLY RESTRICTING INTAKE R/T DIARRHEA. SONS RECEPTIVE TO ALL NUTRITION SUPPLEMENTS AVAILABLE AND REQUESTING APPETITE STIMULANT TO RE-START. RECOMMEND ADDING ENSURE CLEAR TID AND GELATEIN WHEN DIET TO ADVANCE WILL SWITCH TO HIGH KCAL/HIGH PO PROTEIN SUPPS MONITOR PO INTAKE AND WEIGHT CLOSELY SEE ALSO FULL CLINICAL NUTRITION ASSESSMENT
--- NOTE | 2023-04-11 15:40 | P.CONNP_ITS ---
History of Present Illness Reason for Consult Consult date: 04/11/23 Reason for consult: Acute kidney injury and acidosis Chief Complaint Chief complaint: Acute renal failure History of Present Illness Narrative: Ana Rosa is a 67 yo woman whom we are asked to see for AMIE. 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 Her renal function was normal with only transient AMIE from which she recovered. She went to rehab until sometime in January and has been at home since. She has had chronic loose stools but developed more severe diarrhea on Friday associated with weakness, dizziness and fatigue. She denies significant abdominal or flank pain. She also denies dysuria. On admission she is found positive for Cdiff and had severe metabolic acidosis with hyperkalemia and AMIE. She has been nonoliguric. She tells me she developed new onset KITCHEN 2 weeks ago; she saw cardiology who did an ECG and was planning echocardiogram. Her K was 6 and has now normsalized; her sodium was 129 and has normalized with isotonic fluids and her creat has improved to 4.2 or so. She has pyuria and hematuria on UA. Culture is pending. Review of Systems Review of Systems Nonbloody diarrhea No abdominal pain, nausea or vomiting Reduced p.o. intake of solids and liquids Generalized weakness Lightheadedness, dizziness Unsteadiness on feet Reduced urine output but not anuric Denies nausea, vomiting No chest pain/pressure, palpitations Dyspnea with minimal exertion without chest pain Yes all other systems are reviewed and are negative FOR[facility]LY [facility], [facility] Past Medical History Medical History Cataract fragments in both eyes following surgery Essential hypertension Femur fracture High blood pressure High cholesterol Hip fracture Hypercholesterolemia Neuropathy Protein calorie malnutrition Syncope Family History Family History Mother Heart attack Father Heart attack Surgical History Surgical History History of ankle surgery History of cataract surgery History of colonoscopy History of endoscopy History of hip surgery History of quadruple bypass History of surgery Social History Social History Household Members: None Housing: House Do you presently have visiting nurse or other home services: No Alcohol intake: current Alcohol intake frequency: holidays/special occasions only Alcohol type: beer Patient Tobacco Use Status: Former Tobacco user Tobacco use type: Cigarette Cigarettes Per Day: 3 Years Smoked: 42 on and off Smoked in Last 30 Days: No e-Cigarette/Vaping Use: Never Used Second Hand Smoke Exposure: Yes Use of substances other than those prescribed or required for medical reasons: No Currently Displaying Signs/Symptoms of Drug Intoxication Withdrawal: No Have you been hit, kicked, punched, or otherwise hurt by someone within the past year? If so, by whom?: No Do you feel safe in your current relationship?: No Current Relationship Is there a partner from a previous relationship who is making you feel unsafe now?: No Are you made to feel afraid or neglected: No Advance Directives: No Advance Directives Information Provided: No Do you have thoughts of harming others: None Do you have a plan to hurt others: No Plan Recently lost weight without trying: No Eating poorly because of decreased appetite: Yes Nutrition Risks: No Nutritional Risk Patient : No service: No Current occupational status: employed Current occupation: rt handed Cognitive needs: Yes (cane/walker) Hearing needs: No Vision needs: Yes (glasses) Meds Allergies Allergy/AdvReac Type Severity Reaction Status Date / Time Sulfa (Sulfonamide Allergy Intermediate RASH/HIVES Verified 04/02/23 13:16 Antibiotics) [SULFA(SULFONAMIDE ANTIBIOTICS)] Active Medications: Current Medications Acetaminophen (Acetaminophen 325 Mg Tablet) 650 mg PO Q6H PRN PRN Reason: Pain, Mild (Pain Scale 1-3) Last Admin: 04/11/23 07:53 Dose: 650 mg Aspirin (Aspirin Enteric Coated 81 Mg Tablet.Dr) 81 mg PO DAILY [facility] Atorvastatin Calcium (Atorvastatin Calcium 40 Mg Tablet) 40 mg PO DAILY [facility] Folic Acid (Folic Acid 1 Mg Tablet) 1 mg PO DAILY [facility] Gabapentin (Gabapentin 300 Mg Capsule) 300 mg PO TID [facility] Heparin Sodium (Porcine) (Heparin Sodium,Porcine 5,000 Unit/Ml Vial) 5,000 unit SUBCUT Q12H [facility] Last Admin: 04/11/23 10:54 Dose: 5,000 unit Sodium Bicarbonate 50 meq/ (Dextrose) 1,000 mls @ 125 mls/hr IV .Q8H [facility] Last Admin: 04/11/23 10:18 Dose: 125 mls/hr Megestrol Acetate (Megestrol Acetate 400 Mg/10 Ml Oral.Susp) 400 mg PO DAILY [facility] Nitroglycerin (Nitroglycerin 0.4 Mg Tab.Subl) 0.4 mg SUBLINGUAL Q5M PRN PRN Reason: chest pain Ondansetron HCl (Ondansetron Hcl 4 Mg/2 Ml Vial) 4 mg IVPUSH Q8H PRN PRN Reason: Nausea and Vomiting Pharmacy Consult (Consult Rx Perform Med Rec) 1 each MISCELLANE ONCE PRN PRN Reason: Consult order Sodium Chloride (0.9 % Sodium Chloride Flush 3 Ml Syringe) 3 ml IVFLUSH QSHIFT [facility] Last Admin: 04/11/23 11:07 Dose: 3 ml Ticagrelor (Ticagrelor 90 Mg Tablet) 90 mg PO BID [facility] Vancomycin HCl (Vancomycin Hcl 125 Mg Capsule) 125 mg PO Q6H [facility] Last Admin: 04/11/23 10:54 Dose: 125 mg Home Medications Medication Instructions Recorded Confirmed Last Taken Type aspirin 81 mg tablet,delayed 81 mg PO DAILY 11/02/20 04/10/23 1 Day Ago History release (Adult Aspirin Regimen) ~07/01/21 folic acid 1 mg tablet 1 mg PO DAILY 01/30/23 04/10/23 Unknown History metoprolol succinate 50 mg 75 mg PO BID 01/30/23 04/10/23 Unknown History tablet,extended release 24 hr rosuvastatin 10 mg tablet 10 mg PO DAILY 01/30/23 04/10/23 Unknown History Alpha Brain 2 cap PO DAILY 04/10/23 04/10/23 Unknown History gabapentin 300 mg capsule 300 mg PO TID 04/10/23 04/10/23 Unknown History tramadol 50 mg tablet 50 mg PO BID PRN Pain 04/10/23 04/10/23 Unknown History Physical Exam Vital Signs: Last Vital Signs Temp 97.6 F 04/11/23 11:19 Pulse 79 04/11/23 13:44 Resp 20 04/11/23 11:19 BP 96/54 L 04/11/23 13:44 Pulse Ox 99 04/11/23 13:44 O2 Del Method Room Air 04/11/23 11:19 BMI result Body Mass Index 15.1 Const Other: Pale weak HEENT Other: dry mm Neck Other: no jvd Chest Other: clear without rales Cardio Other: RRR, no S3, no JVD and no edema Results Lab Results 04/11/23 05:25 04/11/23 05:25 Lab results: Chemistry 04/10/23 04/10/23 04/11/23 19:27 23:46 05:25 Sodium 129 L 143 143 Potassium 6.0 H* D 4.2 D 3.8 Carbon Dioxide 7 L* D 11 L 10 L* BUN 76 H 64 H 61 H Creatinine 5.81 H* 4.68 H* 4.31 H* Calcium 10.1 8.1 L D 8.0 L Hematology 04/10/23 04/11/23 19:27 05:25 WBC 10.4 5.8 Hgb 11.9 L 10.3 L Plt Count 372 D 283 Urinalysis 04/10/23 Unknown Urine Color Yellow Urine Appearance Cloudy Urine pH 5.5 Ur Specific [place] 1.010 Urine Protein 100 (2+) H Urine Glucose (UA) 100 H Urine Ketones Negative Urine Blood Large (3+) H Urine Nitrite Negative Ur Leukocyte Esterase Large (3+) H Urine RBC 11-20 H Urine WBC >50 H Ur Squamous Epith Cells 0-2 Hyaline Casts 6-10 Assessment and Plan (1) Acute renal failure: Status: Acute AMIE is most likely prerenal due to diarrhea, poor intake; however in her case, I would be worried about atheroembolism given extensive cardiovascular and PAD history and recent interventions in October and November. Doubt RA occlusion but also in ddx. Seems to be making urine and agree with increase in rate of bicarb drip to 125/hr. (2) Acute hyperkalemia: Status: Acute due to acidosis and now resolved. (3) Stented coronary artery: Status: Acute (4) Atherosclerotic cardiovascular disease: Status: Acute (5) Metabolic acidosis: Status: Acute Due to GI losses and AMIE-agree with bicarb drip (6) Peripheral vascular disease: Status: Acute Iliac stent in place, hx of recent le arterial thrombosis following cardiac surgery Plan Increase bicarb drip to 125 /hr Imperative that she get her brulinta today given recent coronary and iliac stents along with aspirin Hold all antihypertensives Echocardiogram given recent new KITCHEN and low BP Serial lytes and creat Time Spent With Patient Time: Total time managing care of this patient today ____ minutes. Procedures Date of Service Date of Service: 04/11/23
--- NOTE | 2023-04-11 16:47 | MHC.CM.PN ---
IMM 04/11/23, CM MET W/PT AND PT'S SISTER WHO WAS AT BEDSIDE, PT REPORTS SHE LIVES ALONE IN APT ABOVE HER SISTER/JOVAN'S APT IN A 2 FAMILY, PT IS MOSTLY INDEP W/CARE AT BASELINE HOWEVER USES A CANE/WALKER, PT' SISTER BHAVIN AND HER DO ASSIST PT W/NEEDS THAT COME UP AND PT REPORTS SHE PREFERS [facility] SHE JUST FINISHED SERVICE W/THEM AFTER BEING DISCHARGED FROM [facility] WHICH SHE WOULD NOT WANT TO RETURN TO. PT VERIFIES PCP IS DR COREAS, COVID VACC X3 AND HCP IS LORENA SANTOS [phone] AND COPY REQUESTED.
--- NOTE | 2023-04-11 16:58 | P.PNIM_ITS ---
Subjective Subjective Date of Service: 04/11/23 Interval History: Ill-appearing: No acute distress Review of Systems Admits exertional shortness of breath Denies chest pain Denies nausea vomiting; admits to copious diarrhea Denies fever chills Physical Exam Vital Signs: Vital Signs: Last Vital Signs Temp 98.1 F 04/11/23 15:53 Pulse 78 04/11/23 15:53 Resp 16 04/11/23 15:53 BP 107/59 L 04/11/23 15:53 Pulse Ox 98 04/11/23 15:53 O2 Del Method Room Air 04/11/23 15:53 BMI result Body Mass Index 15.1 Const: Other: Ill-appearing lying quietly in bed HEENT: Other: Membranes dry Resp: Other: Clear to auscultation bilaterally no rales rhonchi or wheezes Cardio: Other: No S4; positive S1-S2; no S3 murmurs rubs or gallops GI: Other: Soft positive bowel sounds (slightly increased). No peritoneal signs Extrem: Other: No edema bilaterally Objective Data Active Medications Acetaminophen (Acetaminophen 325 Mg Tablet) 650 mg PO Q6H PRN PRN Reason: Pain, Mild (Pain Scale 1-3) Last Admin: 04/11/23 07:53 Dose: 650 mg Documented By: KALEN Aspirin (Aspirin Enteric Coated 81 Mg Tablet.Dr) 81 mg PO DAILY [facility] Atorvastatin Calcium (Atorvastatin Calcium 40 Mg Tablet) 40 mg PO DAILY [facility] Folic Acid (Folic Acid 1 Mg Tablet) 1 mg PO DAILY [facility] Gabapentin (Gabapentin 300 Mg Capsule) 300 mg PO TID [facility] Heparin Sodium (Porcine) (Heparin Sodium,Porcine 5,000 Unit/Ml Vial) 5,000 unit SUBCUT Q12H [facility] Last Admin: 04/11/23 10:54 Dose: 5,000 unit Documented By: LORRAINE-RIVLA Sodium Bicarbonate 50 meq/ (Dextrose) 1,000 mls @ 125 mls/hr IV .Q8H [facility] Last Admin: 04/11/23 10:18 Dose: 125 mls/hr Documented By: SUMIT Megestrol Acetate (Megestrol Acetate 400 Mg/10 Ml Oral.Susp) 400 mg PO DAILY [facility] Nitroglycerin (Nitroglycerin 0.4 Mg Tab.Subl) 0.4 mg SUBLINGUAL Q5M PRN PRN Reason: chest pain Ondansetron HCl (Ondansetron Hcl 4 Mg/2 Ml Vial) 4 mg IVPUSH Q8H PRN PRN Reason: Nausea and Vomiting Pharmacy Consult (Consult Rx Perform Med Rec) 1 each MISCELLANE ONCE PRN PRN Reason: Consult order Sodium Chloride (0.9 % Sodium Chloride Flush 3 Ml Syringe) 3 ml IVFLUSH QSHIFT [facility] Last Admin: 04/11/23 11:07 Dose: 3 ml Documented By: KAREN Ticagrelor (Ticagrelor 90 Mg Tablet) 90 mg PO BID [facility] Ticagrelor (Ticagrelor 90 Mg Tablet) 90 mg PO ONCE ONE Stop: 04/11/23 22:01 Vancomycin HCl (Vancomycin Hcl 125 Mg Capsule) 125 mg PO Q6H [facility] Last Admin: 04/11/23 10:54 Dose: 125 mg Documented By: KAREN Labs 04/11/23 05:25 04/11/23 05:25 Labs: Laboratory Results - last 24 hr 04/10/23 04/10/23 04/10/23 19:27 19:27 19:27 MCV 87.6 MCH 28.9 MCHC 33.0 RDW 16.0 Plt Count 372 D MPV 9.1 L Immature Gran % (Auto) 1.2 H Neut % (Auto) 69.9 Lymph % (Auto) 18.6 L [place] % (Auto) 9.1 Eos % (Auto) 0.8 Baso % (Auto) 0.4 Lymph # (Auto) 1.9 [place] # (Auto) 0.9 Eos # (Auto) 0.1 Baso # (Auto) 0.0 Abs Immat Gran (auto) 0.12 H Absolute Neuts (auto) 7.3 Absolute Nucleated RBC 0.000 Nucleated RBC % (auto) 0.0 VBG pH VBG pCO2 VBG pO2 VBG HCO3 VBG O2 Saturation VBG Base Excess Anion Gap 22 H Estim Creat Clear Calc 5.4 Estimated GFR 7 Random Glucose 80 Lactic Acid Calcium 10.1 Magnesium 2.4 Total Bilirubin 0.5 Direct Bilirubin 0.2 AST 42 H ALT 61 H Alkaline Phosphatase 106 Lactate Dehydrogenase B-Natriuretic Peptide 72 Total Protein 8.2 H Albumin 4.0 Lipase 380 H Urine Color Urine Appearance Urine pH Ur Specific [place] Urine Protein Urine Glucose (UA) Urine Ketones Urine Blood Urine Nitrite Ur Leukocyte Esterase Urine RBC Urine WBC Ur Squamous Epith Cells Urine Bacteria Hyaline Casts Stl C. cayetanensis PCR Stool Rotavirus A PCR Stl Adenov F PCR Stool Astrovirus (PCR) Stool Campylobacter PCR Stool Cryptosporidium PCR Stl Sh Tox Pr E STEC PCR Stool E coli O157 PCR Stl Enterotoxigenic E PCR Stool EPEC (PCR) Stool EAEC (PCR) Stl E. histolytica PCR Stool Giardia Lamblia PCR Stl P. shigelloides PCR Stool Salmonella PCR Stool Sapovirus (PCR) Stl Shigella/EIEC PCR St Y.enterocolitica PCR Stool Vibrio (PCR) Stl Vibrio cholerae PCR Stl Norovirus GI/GII PCR C. difficile Tox B Gene C. difficile Toxin A&B C. difficile Interpret 04/10/23 04/10/23 04/10/23 19:27 23:46 23:46 MCV MCH MCHC RDW Plt Count MPV Immature Gran % (Auto) Neut % (Auto) Lymph % (Auto) [place] % (Auto) Eos % (Auto) Baso % (Auto) Lymph # (Auto) [place] # (Auto) Eos # (Auto) Baso # (Auto) Abs Immat Gran (auto) Absolute Neuts (auto) Absolute Nucleated RBC Nucleated RBC % (auto) VBG pH 7.33 VBG pCO2 16 VBG pO2 56 VBG HCO3 8 L VBG O2 Saturation 83.0 VBG Base Excess -14.6 Anion Gap 19 Estim Creat Clear Calc 6.7 Estimated GFR 9 Random Glucose 112 Lactic Acid 1.6 Calcium 8.1 L D Magnesium Total Bilirubin 0.4 Direct Bilirubin AST 37 H ALT 47 H Alkaline Phosphatase 88 Lactate Dehydrogenase 277 H B-Natriuretic Peptide Total Protein 6.6 Albumin 3.2 L Lipase Urine Color Urine Appearance Urine pH Ur Specific [place] Urine Protein Urine Glucose (UA) Urine Ketones Urine Blood Urine Nitrite Ur Leukocyte Esterase Urine RBC Urine WBC Ur Squamous Epith Cells Urine Bacteria Hyaline Casts Stl C. cayetanensis PCR Stool Rotavirus A PCR Stl Adenov PCR Stool Astrovirus (PCR) Stool Campylobacter PCR Stool Cryptosporidium PCR Stl Sh Tox Pr E STEC PCR Stool E coli O157 PCR Stl Enterotoxigenic E PCR Stool EPEC (PCR) Stool EAEC (PCR) Stl E. histolytica PCR Stool Giardia Lamblia PCR Stl P. shigelloides PCR Stool Salmonella PCR Stool Sapovirus (PCR) Stl Shigella/EIEC PCR St Y.enterocolitica PCR Stool Vibrio (PCR) Stl Vibrio cholerae PCR Stl Norovirus GI/GII PCR C. difficile Tox B Gene C. difficile Toxin A&B C. difficile Interpret 04/10/23 04/10/23 04/10/23 23:54 23:54 Unknown MCV MCH MCHC RDW Plt Count MPV Immature Gran % (Auto) Neut % (Auto) Lymph % (Auto) [place] % (Auto) Eos % (Auto) Baso % (Auto) Lymph # (Auto) [place] # (Auto) Eos # (Auto) Baso # (Auto) Abs Immat Gran (auto) Absolute Neuts (auto) Absolute Nucleated RBC Nucleated RBC % (auto) VBG pH VBG pCO2 VBG pO2 VBG HCO3 VBG O2 Saturation VBG Base Excess Anion Gap Estim Creat Clear Calc Estimated GFR Random Glucose Lactic Acid Calcium Magnesium Total Bilirubin Direct Bilirubin AST ALT Alkaline Phosphatase Lactate Dehydrogenase B-Natriuretic Peptide Total Protein Albumin Lipase Urine Color Yellow Urine Appearance Cloudy Urine pH 5.5 Ur Specific [place] 1.010 Urine Protein 100 (2+) H Urine Glucose (UA) 100 H Urine Ketones Negative Urine Blood Large (3+) H Urine Nitrite Negative Ur Leukocyte Esterase Large (3+) H Urine RBC 11-20 H Urine WBC >50 H Ur Squamous Epith Cells 0-2 Urine Bacteria 4+ Hyaline Casts 6-10 Stl C. cayetanensis PCR Not Detected Stool Rotavirus A PCR Not Detected Stl Adenov F 40/41 PCR Not Detected Stool Astrovirus (PCR) Not Detected Stool Campylobacter PCR Not Detected Stool Cryptosporidium PCR Not Detected Stl Sh Tox Pr E STEC PCR Not Detected Stool E coli O157 PCR Not applicable Stl Enterotoxigenic E PCR Not Detected Stool EPEC (PCR) Not Detected Stool EAEC (PCR) Not Detected Stl E. histolytica PCR Not Detected Stool Giardia Lamblia PCR Not Detected Stl P. shigelloides PCR Not Detected Stool Salmonella PCR Not Detected Stool Sapovirus (PCR) Not Detected Stl Shigella/EIEC PCR Not Detected St Y.enterocolitica PCR Not Detected Stool Vibrio (PCR) Not Detected Stl Vibrio cholerae PCR Not Detected Stl Norovirus GI/GII PCR Not Detected C. difficile Tox B Gene POSITIVE A* C. difficile Toxin A&B Negative C. difficile Interpret SEE NOTE 04/11/23 04/11/23 05:25 05:25 MCV 87.5 MCH 29.3 MCHC 33.6 RDW 15.9 Plt Count 283 MPV 9.3 L Immature Gran % (Auto) Neut % (Auto) Lymph % (Auto) [place] % (Auto) Eos % (Auto) Baso % (Auto) Lymph # (Auto) [place] # (Auto) Eos # (Auto) Baso # (Auto) Abs Immat Gran (auto) Absolute Neuts (auto) Absolute Nucleated RBC 0.000 Nucleated RBC % (auto) 0.0 VBG pH VBG pCO2 VBG pO2 VBG HCO3 VBG O2 Saturation VBG Base Excess Anion Gap 19 Estim Creat Clear Calc 7.3 Estimated GFR 10 Random Glucose 81 Lactic Acid Calcium 8.0 L Magnesium Total Bilirubin Direct Bilirubin AST ALT Alkaline Phosphatase Lactate Dehydrogenase B-Natriuretic Peptide Total Protein Albumin Lipase Urine Color Urine Appearance Urine pH Ur Specific [place] Urine Protein Urine Glucose (UA) Urine Ketones Urine Blood Urine Nitrite Ur Leukocyte Esterase Urine RBC Urine WBC Ur Squamous Epith Cells Urine Bacteria Hyaline Casts Stl C. cayetanensis PCR Stool Rotavirus A PCR Stl Adenov F 40/41 PCR Stool Astrovirus (PCR) Stool Campylobacter PCR Stool Cryptosporidium PCR Stl Sh Tox Pr E STEC PCR Stool E coli O157 PCR Stl Enterotoxigenic E PCR Stool EPEC (PCR) Stool EAEC (PCR) Stl E. histolytica PCR Stool Giardia Lamblia PCR Stl P. shigelloides PCR Stool Salmonella PCR Stool Sapovirus (PCR) Stl Shigella/EIEC PCR St Y.enterocolitica PCR Stool Vibrio (PCR) Stl Vibrio cholerae PCR Stl Norovirus GI/GII PCR C. difficile Tox B Gene C. difficile Toxin A&B C. difficile Interpret Assessment and Plan (1) Clostridium difficile diarrhea: Status: Acute (2) Acute renal failure: Status: Acute (3) Atherosclerotic cardiovascular disease: Status: Acute (4) Essential hypertension: Status: Acute Plan Pt is a 67-year-old female with a PMH significant for?HTN, HLD, CAD s/p CABG, S DEMI s/p stenting, PAD s/p bilateral femoral thromboendarterectomy with stenting, partial colectomy, and neuropathy who presents to the ED with?diarrhea and generalized weakness for the past 5 days. Pt will be admitted to the hospital for treatment further evaluation of acute kidney failure and elec trolyte imbalances. 1.Diarrhea (secondary to C diff) -oral vancomycin q.i.d. -continue IV fluids as ordered -clear liquid diet; advanced as tolerated 2.Acute renal failure/metabolic acidosis -bicarb 10 this a.m.; increased bicarb drip to 125 an hour -volume repletion -follow renals/divalents 3.Hyperkalemia -normalized with bicarb drip/Kayexalate -follow clinically with labs 4.Hyponatremia -normalized -follow daily while in-house 5.CAD -given exertional dyspnea will order 2D echo. . . Not urgent -given significant cardiac/thrombotic history Brilinta will be given twice this day and then ordered ongoing 6.HTN -acceptable control off lisinopril/metoprolol -add back when appropriate Full Code Heparin Patient will require ongoing hospitalization for volume repletion/bicarb drip to treat C diff colitis with subsequent acute renal failure Time Spent With Patient Time: Total time managing care of this patient today ____ minutes. Quality Stroke Does the patient have a stroke diagnosis?: No VTE Prior VTE?: No VTE Risk Level:: Medical - moderate - high VTE Device Contraindication: Treatment Not Indicated VTE Drug Contraindication: N/A - Med Ordered
[2023-04-11] MEDS: Ticagrelor 90 MG TABLET PO (21:58)
[2023-04-11] MEDS: Gabapentin 300 MG CAPSULE PO (21:58)
[2023-04-12] MEDS: Sodium Bicarbonate 8.4% 50 MEQ in Dextrose 5 % 950 ML 125 MEQ IV (01:01)
[2023-04-12 03:42] VITALS: BP 108/59; PULSE 93; RESP 18; TEMP 36.9; O2SAT 95
[2023-04-12] MEDS: vancomycin HCL 125 MG CAPSULE PO ×4 (03:47→20:59)
[2023-04-12 06:10] LABS: MANUAL DIFF FLAG NO
[2023-04-12 06:33] LABS: Basophils Percent Auto 0.2 % (0-2); Eosinophils Absolute Auto 0.1 X10*3/uL (0.0-0.4); Eosinophils Percent Auto 1.2 % (0-4); Hemoglobin 9.3 g/dl (12.0-16.0); Imm Gran Abs Auto 0.03 X10*3/uL (0.00-0.03); Imm Gran Pct Auto 0.6 % (0.0-0.4); Lymphocytes Absolute Auto 1.2 X10*3/uL (1.2-4.9); Lymphocytes Percent Auto 23.2 % (20-40); Mean Corpuscular HGB Conc 34.4 g/dl (31.0-35.0); Mean Corpuscular Hemoglobin 28.7 pg (27.0-33.0); Mean Corpuscular Volume 83.3 fL (80.0-98.0); Mean Platelet Volume 8.8 fL (9.4-12.3); Monocytes Absolute Auto 0.6 X10*3/uL (0.1-1.2); Monocytes Percent Auto 11.1 % (2-11); Neutrophils Absolute Auto 3.2 x10*3/uL (2.0-8.3); Neutrophils Percent Auto 63.7 % (45-73); Platelet Count 265 X10*3/uL (160-400); Red Blood Count 3.24 X10*6/uL (4.20-5.50); Red Cell Distribution Width 15.1 % (11.0-16.0)
[2023-04-12 06:38] LABS: Alanine Aminotransferase 32 U/L (0-31); Albumin Level 2.8 g/dL (3.5-5.0); Alkaline Phosphatase 66 U/L (39-117); Anion Gap 14 (12-20); Aspartate Amino Transferase 38 U/L (5-31); Bilirubin Total 0.4 mg/dL (0.0-1.0); Blood Urea Nitrogen 35 mg/dL (9-16); Calcium 7.4 mg/dL (8.4-10.2); Carbon Dioxide 20 mmol/L (22-29); Chloride 108 mmol/L (96-108); Creatinine Clr Calc Pharmacy 12.3; Estimated Glomerular Filt Rate 19; Glucose Fasting 108 mg/dL (60-99); Sodium 139 mmol/L (135-145); Total Protein 5.7 g/dL (6.5-8.0)
[2023-04-12 07:14] VITALS: BP 106/56; PULSE 87; RESP 18; TEMP 37.4; O2SAT 99
[2023-04-12] MEDS: Potassium Chloride Packet 20 MEQ PACKET 40 MEQ PO ×2 (09:41→21:00)
[2023-04-12] MEDS: Folic Acid 1 MG TABLET PO (09:41)
[2023-04-12] MEDS: Megestrol Acetate 400 MG/10 ML ORAL.SUSP PO (09:41)
[2023-04-12] MEDS: Atorvastatin Calcium 40 MG TABLET PO (09:41)
[2023-04-12] MEDS: Aspirin Enteric Coated 81 MG TABLET.DR PO (09:41)
[2023-04-12] MEDS: Sodium Bicarbonate 650 MG TABLET PO ×3 (09:41→21:00)
[2023-04-12] MEDS: Gabapentin 300 MG CAPSULE PO ×3 (09:41→21:00)
[2023-04-12] MEDS: Ticagrelor 90 MG TABLET PO ×2 (09:41→21:00)
[2023-04-12] MEDS: 0.9 % Sodium Chloride Flush 3 ML SYRINGE IVFLUSH ×3 (09:43→23:27)
[2023-04-12] MEDS: Lactated Ringers 1,000 ML 100 ML IVCONT ×3 (09:49→16:01)
[2023-04-12 10:48] LABS: Magnesium 1.2 mg/dL (1.6-2.6)
[2023-04-12 11:05] VITALS: BP 87/56; PULSE 96; RESP 20; TEMP 37.4; O2SAT 99
[2023-04-12] MEDS: Heparin Sodium,Porcine 5,000 UNIT/ML VIAL 5000 UNIT SUBCUT ×2 (11:18→23:26)
[2023-04-12] MEDS: Magnesium Sulfate/H2O 2 GM/50 ML PIGGYBACK IV (12:34)
[2023-04-12] MEDS: Albumin Human 25 % 100 ML IV ×3 (12:34→23:26)
--- NOTE | 2023-04-12 14:52 | HO.PM.IMPN ---
Subjective Subjective Date of Service: 04/12/23 Interval History: Slow to improve. Still with loose stools. Review of Systems Admits exertional shortness of breath Denies chest pain Denies nausea vomiting; admits to copious diarrhea Denies fever chills Physical Exam Vital Signs: Vital Signs: Last Vital Signs Temp 99.3 F 04/12/23 11:05 Pulse 96 04/12/23 11:05 Resp 20 04/12/23 11:05 BP 87/56 L 04/12/23 11:05 Pulse Ox 99 04/12/23 11:05 O2 Del Method Room Air 04/12/23 11:05 BMI result Body Mass Index 15.1 Const: Other: Ill-appearing lying quietly in bed HEENT: Other: Membranes dry Resp: Other: Clear to auscultation bilaterally no rales rhonchi or wheezes Cardio: Other: No S4; positive S1-S2; no S3 murmurs rubs or gallops GI: Other: Soft positive bowel sounds (slightly increased). No peritoneal signs Extrem: Other: No edema bilaterally Objective Data Active Medications Acetaminophen (Acetaminophen 325 Mg Tablet) 650 mg PO Q6H PRN PRN Reason: Pain, Mild (Pain Scale 1-3) Last Admin: 04/11/23 07:53 Dose: 650 mg Documented By: KALEN Aspirin (Aspirin Enteric Coated 81 Mg Tablet.) 81 mg PO DAILY [facility] Last Admin: 04/12/23 09:41 Dose: 81 mg Documented By: KARLA Atorvastatin Calcium (Atorvastatin Calcium 40 Mg Tablet) 40 mg PO DAILY [facility] Last Admin: 04/12/23 09:41 Dose: 40 mg Documented By: KARLA Folic Acid (Folic Acid 1 Mg Tablet) 1 mg PO DAILY [facility] Last Admin: 04/12/23 09:41 Dose: 1 mg Documented By: KARLA Gabapentin (Gabapentin 300 Mg Capsule) 300 mg PO TID [facility] Last Admin: 04/12/23 14:14 Dose: 300 mg Documented By: RANCHO Heparin Sodium (Porcine) (Heparin Sodium,Porcine 5,000 Unit/Ml Vial) 5,000 unit SUBCUT Q12H [facility] Last Admin: 04/12/23 11:18 Dose: 5,000 unit Documented By: KARLA Lactated Ringer's (Lr) 1,000 mls @ 100 mls/hr IVCONT .Q10H [facility] Last Infusion: 04/12/23 12:37 Dose: 0 mls/hr Documented By: KARLA Albumin Human (Kedbumin 25 %) 100 mls @ 100 mls/hr IV Q6H [facility] Stop: 04/13/23 06:14 Last Infusion: 04/12/23 13:47 Dose: 0 mls/hr Documented By: KARLA Lactated Ringer's (Lr) 1,000 mls @ 100 mls/hr IVCONT .Q10H [facility] Last Admin: 04/12/23 12:36 Dose: 100 mls/hr Documented By: KARLA Megestrol Acetate (Megestrol Acetate 400 Mg/10 Ml Oral.Susp) 400 mg PO DAILY [facility] Last Admin: 04/12/23 09:41 Dose: 400 mg Documented By: KARLA Nitroglycerin (Nitroglycerin 0.4 Mg Tab.Subl) 0.4 mg SUBLINGUAL Q5M PRN PRN Reason: chest pain Ondansetron HCl (Ondansetron Hcl 4 Mg/2 Ml Vial) 4 mg IVPUSH Q8H PRN PRN Reason: Nausea and Vomiting Pharmacy Consult (Consult Rx Perform Med Rec) 1 each MISCELLANE ONCE PRN PRN Reason: Consult order Potassium Chloride (Potassium Chloride Packet 20 Meq Packet) 40 meq PO BID [facility] Last Admin: 04/12/23 09:41 Dose: 40 meq Documented By: KARLA Sodium Bicarbonate (Sodium Bicarbonate 650 Mg Tablet) 650 mg PO TID [facility] Last Admin: 04/12/23 14:14 Dose: 650 mg Documented By: RANCHO Sodium Chloride (0.9 % Sodium Chloride Flush 3 Ml Syringe) 3 ml IVFLUSH QSHIFT [facility] Last Admin: 04/12/23 09:43 Dose: 3 ml Documented By: KARLA Ticagrelor (Ticagrelor 90 Mg Tablet) 90 mg PO BID [facility] Last Admin: 04/12/23 09:41 Dose: 90 mg Documented By: KARLA Vancomycin HCl (Vancomycin Hcl 125 Mg Capsule) 125 mg PO Q6H [facility] Last Admin: 04/12/23 09:41 Dose: 125 mg Documented By: KARLA Labs 04/12/23 05:44 04/12/23 05:44 Labs: Laboratory Results - last 24 hr 04/12/23 04/12/23 05:44 05:44 MCV 83.3 MCH 28.7 MCHC 34.4 RDW 15.1 Plt Count 265 MPV 8.8 L Immature Gran % (Auto) 0.6 H Neut % (Auto) 63.7 Lymph % (Auto) 23.2 [place] % (Auto) 11.1 H Eos % (Auto) 1.2 Baso % (Auto) 0.2 Lymph # (Auto) 1.2 [place] # (Auto) 0.6 Eos # (Auto) 0.1 Baso # (Auto) 0.0 Abs Immat Gran (auto) 0.03 Absolute Neuts (auto) 3.2 Absolute Nucleated RBC 0.000 Nucleated RBC % (auto) 0.0 Anion Gap 14 Estim Creat Clear Calc 12.3 Estimated GFR 19 Fasting Glucose 108 H Calcium 7.4 L D Magnesium 1.2 L* Total Bilirubin 0.4 AST 38 H ALT 32 H Alkaline Phosphatase 66 Total Protein 5.7 L Albumin 2.8 L Microbiology Microbiology Results: Microbiology 04/10/23 Unknown Urine Culture - Preliminary Urine Catheterized - Lauren Catheter Culture in progress. 04/10/23 19:27 Blood Culture - Preliminary Blood - Venous No growth after 24 hours. 04/10/23 19:27 Blood Culture - Preliminary Blood - Venous No growth after 24 hours. Assessment and Plan (1) Clostridium difficile diarrhea: Status: Acute (2) Acute renal failure: Status: Acute Plan Pt is a 67-year-old female with a PMH significant for?HTN, HLD, CAD s/p CABG, STEMI s/p stenting, PAD s/p bilateral femoral thromboendarterectomy with stenting, partial colectomy, and neuropathy who presents to the ED with?diarrhea and generalized weakness for the past 5 days. Pt will be admitted to the hospital for treatment further evaluation of acute kidney failure and electrolyte imbalances. 1.Diarrhea (secondary to C diff) -oral vancomycin q.i.d. (2) -continue IV fluids as ordered -clear liquid diet; advanced as tolerated 2.Acute renal failure/metabolic acidosis -bicarb 20 this a.m.; will DC bicarb drip and add oral bicarbonate -replete magnesium and potassium -volume repletion -follow renals/divalents 3.Hyperkalemia.. Now hypokalemic secondary to bicarb -replete potassium -volume repletion with lactated Ringer's -follow clinically with labs 4.Hyponatremia -normalized -follow daily while in-house 5.CAD -given exertional dyspnea will order 2D echo. . . Not urgent -given significant cardiac/thrombotic history Brilinta will be given twice this day and then ordered ongoing 6.HTN -acceptable control off lisinopril/metoprolol -add back when appropriate Full Code Heparin Patient will require ongoing hospitalization for volume repletion/bicarb drip to treat C diff colitis with subsequent acute renal failure Time Spent With Patient Time: Total time managing care of this patient today ____ minutes. Quality Stroke Does the patient have a stroke diagnosis?: No VTE Prior VTE?: No VTE Risk Level:: Medical - moderate - high VTE Device Contraindication: Treatment Not Indicated VTE Drug Contraindication: N/A - Med Ordered
--- NOTE | 2023-04-12 15:14 | PM.PNNEP ---
Subjective Subjective Date of Service: 04/12/23 Interval history: Slow to improve. Still with loose stools. Stable overnight hemodynamically Renal function improving Physical Exam Vital Signs: Vital Signs: Last Vital Signs Temp 99.3 F 04/12/23 11:05 Pulse 96 04/12/23 11:05 Resp 20 04/12/23 11:05 BP 87/56 L 04/12/23 11:05 Pulse Ox 99 04/12/23 11:05 O2 Del Method Room Air 04/12/23 11:05 BMI result Body Mass Index 15.1 Const: Other: Ill-appearing lying quietly in bed HEENT: Other: Membranes dry Neck: Other: no jvd Chest: Other: clear without rales Resp: Other: Clear to auscultation bilaterally no rales rhonchi or wheezes Cardio: Other: No S4; positive S1-S2; no S3 murmurs rubs or gallops GI: Other: Soft positive bowel sounds (slightly increased). No peritoneal signs Extrem: Other: No edema bilaterally Objective Data Labs 04/12/23 05:44 04/12/23 05:44 Labs: Laboratory Results - last 24 hr 04/12/23 04/12/23 05:44 05:44 WBC 5.0 RBC 3.24 L Hgb 9.3 L Hct 27.0 L MCV 83.3 MCH 28.7 MCHC 34.4 RDW 15.1 Plt Count 265 MPV 8.8 L Immature Gran % (Auto) 0.6 H Neut % (Auto) 63.7 Lymph % (Auto) 23.2 [place] % (Auto) 11.1 H Eos % (Auto) 1.2 Baso % (Auto) 0.2 Lymph # (Auto) 1.2 [place] # (Auto) 0.6 Eos # (Auto) 0.1 Baso # (Auto) 0.0 Abs Immat Gran (auto) 0.03 Absolute Neuts (auto) 3.2 Absolute Nucleated RBC 0.000 Nucleated RBC % (auto) 0.0 Sodium 139 Potassium 3.0 L D Chloride 108 Carbon Dioxide 20 L Anion Gap 14 BUN 35 H Creatinine 2.56 H Estim Creat Clear Calc 12.3 Estimated GFR 19 Fasting Glucose 108 H Calcium 7.4 L D Magnesium 1.2 L* Total Bilirubin 0.4 AST 38 H ALT 32 H Alkaline Phosphatase 66 Total Protein 5.7 L Albumin 2.8 L Microbiology Microbiology Results: Microbiology 04/10/23 Unknown Urine Catheterized - Lauren Catheter Urine Culture - Preliminary Culture in progress. 04/10/23 19:27 Blood - Venous Blood Culture - Preliminary No growth after 24 hours. 04/10/23 19:27 Blood - Venous Blood Culture - Preliminary No growth after 24 hours. Procedures Date of Service Date of Service: 04/12/23 Assessment & Plan Assessment and plan (1) Acute renal failure: Status: Acute Assessment and Plan: Prerenal due to cdiff colitis, diarrhea, vol depletion improving (2) Acute hyperkalemia: Status: Acute Assessment and Plan: due to transcell shift now resolved (3) Hypokalemia: Status: Acute Assessment and Plan: Due to total body K depletion due to diarrhea will need aggressive repletion now (4) Metabolic acidosis: Status: Acute Assessment and Plan: Predominantly due to GI losses of bicarb (5) Colitis due to Clostridium difficile: Status: Acute (6) Peripheral vascular disease: Status: Acute (7) Stented coronary artery: Status: Acute Plan Continue fluids now as LR rather than bicarb infusion Replete KCL aggressively continue brulinta no need for [employer] oral bicarb Time Spent With Patient Time: Total time managing care of this patient today ____ minutes. Progress Note: Quality Stroke Does the patient have a stroke diagnosis?: No
[2023-04-12 16:00] VITALS: BP 99/55; PULSE 78; RESP 16; TEMP 37.2; O2SAT 97
[2023-04-12 19:41] VITALS: BP 107/53; RESP 18; TEMP 37.2; O2SAT 100
[2023-04-13] VITALS (7 sets, daily range): BP systolic 117–156; BP diastolic 57–69; PULSE 77–102; RESP 18–20; TEMP 36.1–37.1; O2SAT 95–100
[2023-04-13] MEDS: Lactated Ringers 1,000 ML 100 ML IVCONT ×3 (02:38→21:36)
[2023-04-13] MEDS: vancomycin HCL 125 MG CAPSULE PO ×4 (04:17→21:36)
[2023-04-13] MEDS: Albumin Human 25 % 100 ML IV (04:21)
[2023-04-13 06:29] LABS: MANUAL DIFF FLAG NO
[2023-04-13 06:48] LABS: Basophils Percent Auto 0.2 % (0-2); Eosinophils Absolute Auto 0.1 X10*3/uL (0.0-0.4); Eosinophils Percent Auto 1.7 % (0-4); Hematocrit 22.2 % (37.0-47.0); Hemoglobin 7.5 g/dl (12.0-16.0); Imm Gran Abs Auto 0.02 X10*3/uL (0.00-0.03); Imm Gran Pct Auto 0.5 % (0.0-0.4); Lymphocytes Percent Auto 24.3 % (20-40); Mean Corpuscular HGB Conc 33.8 g/dl (31.0-35.0); Mean Corpuscular Volume 85.7 fL (80.0-98.0); Mean Platelet Volume 9.2 fL (9.4-12.3); Monocytes Absolute Auto 0.4 X10*3/uL (0.1-1.2); Monocytes Percent Auto 9.7 % (2-11); Neutrophils Absolute Auto 2.6 x10*3/uL (2.0-8.3); Neutrophils Percent Auto 63.6 % (45-73); Platelet Count 249 X10*3/uL (160-400); Red Blood Count 2.59 X10*6/uL (4.20-5.50); Red Cell Distribution Width 15.5 % (11.0-16.0)
[2023-04-13 07:14] LABS: Alanine Aminotransferase 22 U/L (0-31); Albumin Level 3.7 g/dL (3.5-5.0); Alkaline Phosphatase 45 U/L (39-117); Anion Gap 12 (12-20); Aspartate Amino Transferase 35 U/L (5-31); Bilirubin Total 0.6 mg/dL (0.0-1.0); Blood Urea Nitrogen 17 mg/dL (9-16); Calcium 7.9 mg/dL (8.4-10.2); Carbon Dioxide 21 mmol/L (22-29); Chloride 112 mmol/L (96-108); Creatinine Clr Calc Pharmacy 20.3; Estimated Glomerular Filt Rate 33; Glucose Fasting 91 mg/dL (60-99); Magnesium 1.4 mg/dL (1.6-2.6); Potassium 2.9 mmol/L (3.3-5.1); Sodium 142 mmol/L (135-145); Total Protein 5.8 g/dL (6.5-8.0)
[2023-04-13] MEDS: Ticagrelor 90 MG TABLET PO ×2 (07:37→21:36)
[2023-04-13] MEDS: Folic Acid 1 MG TABLET PO (07:37)
[2023-04-13] MEDS: Gabapentin 300 MG CAPSULE PO ×3 (07:37→21:36)
[2023-04-13] MEDS: Aspirin Enteric Coated 81 MG TABLET.DR PO (07:37)
[2023-04-13] MEDS: Atorvastatin Calcium 40 MG TABLET PO (07:37)
[2023-04-13] MEDS: Sodium Bicarbonate 650 MG TABLET PO (07:37)
[2023-04-13] MEDS: Megestrol Acetate 400 MG/10 ML ORAL.SUSP PO (07:38)
[2023-04-13] MEDS: 0.9 % Sodium Chloride Flush 3 ML SYRINGE IVFLUSH ×3 (07:38→21:36)
[2023-04-13] MEDS: Potassium Chloride Packet 20 MEQ PACKET 40 MEQ PO ×2 (07:38→21:36)
[2023-04-13] MEDS: Magnesium Sulfate/H2O 2 GM/50 ML PIGGYBACK IV (07:45)
[2023-04-13] MEDS: Heparin Sodium,Porcine 5,000 UNIT/ML VIAL 5000 UNIT SUBCUT ×2 (12:05→23:25)
--- NOTE | 2023-04-13 15:18 | P.PNIM_ITS ---
Subjective Subjective Date of Service: 04/13/23 Interval History: Subjectively feels better however still with loose stools. Review of Systems Admits exertional shortness of breath Denies chest pain Denies nausea vomiting; admits to copious diarrhea Denies fever chills Physical Exam Vital Signs: Vital Signs: Last Vital Signs Temp 97.7 F 04/13/23 14:56 Pulse 94 04/13/23 14:56 Resp 20 04/13/23 14:56 BP 129/62 04/13/23 14:56 Pulse Ox 100 04/13/23 14:56 O2 Del Method Room Air 04/13/23 14:56 BMI result Body Mass Index 15.1 Const: Other: Ill-appearing lying quietly in bed HEENT: Other: Membranes dry Resp: Other: Clear to auscultation bilaterally no rales rhonchi or wheezes Cardio: Other: No S4; positive S1-S2; no S3 murmurs rubs or gallops GI: Other: Soft positive bowel sounds (slightly increased). No peritoneal signs Extrem: Other: No edema bilaterally Objective Data Active Medications Acetaminophen (Acetaminophen 325 Mg Tablet) 650 mg PO Q6H PRN PRN Reason: Pain, Mild (Pain Scale 1-3) Last Admin: 04/11/23 07:53 Dose: 650 mg Documented By: KALEN Aspirin (Aspirin Enteric Coated 81 Mg Tablet.) 81 mg PO DAILY [facility] Last Admin: 04/13/23 07:37 Dose: 81 mg Documented By: RANCHO Atorvastatin Calcium (Atorvastatin Calcium 40 Mg Tablet) 40 mg PO DAILY [facility] Last Admin: 04/13/23 07:37 Dose: 40 mg Documented By: RANCHO Folic Acid (Folic Acid 1 Mg Tablet) 1 mg PO DAILY [facility] Last Admin: 04/13/23 07:37 Dose: 1 mg Documented By: RANCHO Gabapentin (Gabapentin 300 Mg Capsule) 300 mg PO TID [facility] Last Admin: 04/13/23 07:37 Dose: 300 mg Documented By: RANCHO Heparin Sodium (Porcine) (Heparin Sodium,Porcine 5,000 Unit/Ml Vial) 5,000 unit SUBCUT Q12H [facility] Last Admin: 04/13/23 12:05 Dose: 5,000 unit Documented By: RANCHO Lactated Ringer's (Lr) 1,000 mls @ 100 mls/hr IVCONT .Q10H [facility] Last Admin: 04/13/23 12:06 Dose: 100 mls/hr Documented By: RANCHO Megestrol Acetate (Megestrol Acetate 400 Mg/10 Ml Oral.Susp) 400 mg PO DAILY [facility] Last Admin: 04/13/23 07:38 Dose: 400 mg Documented By: RANCHO Nitroglycerin (Nitroglycerin 0.4 Mg Tab.Subl) 0.4 mg SUBLINGUAL Q5M PRN PRN Reason: chest pain Ondansetron HCl (Ondansetron Hcl 4 Mg/2 Ml Vial) 4 mg IVPUSH Q8H PRN PRN Reason: Nausea and Vomiting Pharmacy Consult (Consult Rx Perform Med Rec) 1 each MISCELLANE ONCE PRN PRN Reason: Consult order Potassium Chloride (Potassium Chloride Packet 20 Meq Packet) 40 meq PO BID [facility] Last Admin: 04/13/23 07:38 Dose: 40 meq Documented By: RANCHO Sodium Chloride (0.9 % Sodium Chloride Flush 3 Ml Syringe) 3 ml IVFLUSH QSHIFT [facility] Last Admin: 04/13/23 07:38 Dose: 3 ml Documented By: RANCHO Ticagrelor (Ticagrelor 90 Mg Tablet) 90 mg PO BID [facility] Last Admin: 04/13/23 07:37 Dose: 90 mg Documented By: RANCHO Vancomycin HCl (Vancomycin Hcl 125 Mg Capsule) 125 mg PO Q6H [facility] Last Admin: 04/13/23 07:45 Dose: 125 mg Documented By: RANCHO Labs 04/13/23 05:54 04/13/23 05:54 Labs: Laboratory Results - last 24 hr 04/13/23 04/13/23 05:54 05:54 MCV 85.7 MCH 29.0 MCHC 33.8 RDW 15.5 Plt Count 249 MPV 9.2 L Immature Gran % (Auto) 0.5 H Neut % (Auto) 63.6 Lymph % (Auto) 24.3 [place] % (Auto) 9.7 Eos % (Auto) 1.7 Baso % (Auto) 0.2 Lymph # (Auto) 1.0 L [place] # (Auto) 0.4 Eos # (Auto) 0.1 Baso # (Auto) 0.0 Abs Immat Gran (auto) 0.02 Absolute Neuts (auto) 2.6 Absolute Nucleated RBC 0.000 Nucleated RBC % (auto) 0.0 Anion Gap 12 Estim Creat Clear Calc 20.3 Estimated GFR 33 Fasting Glucose 91 Calcium 7.9 L D Magnesium 1.4 L* Total Bilirubin 0.6 AST 35 H ALT 22 Alkaline Phosphatase 45 Total Protein 5.8 L Albumin 3.7 Microbiology Microbiology Results: Microbiology 04/10/23 Unknown Urine Culture - Preliminary Urine Catheterized - Lauren Catheter Gram negative piper 04/10/23 19:27 Blood Culture - Preliminary Blood - Venous No growth after 48 hours. 04/10/23 19:27 Blood Culture - Preliminary Blood - Venous No growth after 48 hours. Assessment and Plan (1) Colitis due to Clostridium difficile: Status: Acute (2) Acute renal failure: Status: Acute Plan Pt is a 67-year-old female with a PMH significant for?HTN, HLD, CAD s/p CABG, STEMI s/p stenting, PAD s/p bilateral femoral thromboendarterectomy with stenting, partial colectomy, and neuropathy who presents to the ED with?diarrhea and generalized weakness for the past 5 days. Pt will be admitted to the hospital for treatment further evaluation of acute kidney failure and electrolyte imbalances. 1.Diarrhea (secondary to C diff) -oral vancomycin q.i.d. (3) -continue IV fluids as ordered (LR) -diet advanced to regular; tolerated well 2.Acute renal failure/metabolic acidosis -creatinine continues to respond to volume repletion -bicarb stable however potassium difficult to maintain -replete magnesium and potassium -will DC bicarb -follow renals/divalents 3.Hyperkalemia.. Now hypokalemic secondary to bicarb -replete potassium/magnesium. Oral bicarb DC'd -volume repletion with lactated Ringer's -follow clinically with labs 4.Hyponatremia -normalized -follow daily while in-house 5.CAD -2D echo in a.m. -continue Brilinta b.i.d. 6.HTN -acceptable control off lisinopril/metoprolol -add back when appropriate Full Code Heparin Patient will require ongoing hospitalization for volume repletion/bicarb drip to treat C diff colitis with subsequent acute renal failure Time Spent With Patient Time: Total time managing care of this patient today ____ minutes. Quality Stroke Does the patient have a stroke diagnosis?: No VTE Prior VTE?: No VTE Risk Level:: Medical - moderate - high VTE Device Contraindication: Treatment Not Indicated VTE Drug Contraindication: N/A - Med Ordered
[2023-04-14 03:54] VITALS: BP 129/61; PULSE 91; RESP 16; TEMP 36.8; O2SAT 97
[2023-04-14] MEDS: vancomycin HCL 125 MG CAPSULE PO ×4 (06:20→20:51)
[2023-04-14] MEDS: Lactated Ringers 1,000 ML 100 ML IVCONT (06:21)
[2023-04-14 07:21] LABS: MANUAL DIFF FLAG NO
[2023-04-14 07:27] LABS: Basophils Percent Auto 0.2 % (0-2); Eosinophils Absolute Auto 0.1 X10*3/uL (0.0-0.4); Eosinophils Percent Auto 2.5 % (0-4); Hematocrit 24.7 % (37.0-47.0); Hemoglobin 8.4 g/dl (12.0-16.0); Imm Gran Abs Auto 0.02 X10*3/uL (0.00-0.03); Imm Gran Pct Auto 0.5 % (0.0-0.4); Lymphocytes Absolute Auto 1.1 X10*3/uL (1.2-4.9); Lymphocytes Percent Auto 24.4 % (20-40); Mean Corpuscular Hemoglobin 29.2 pg (27.0-33.0); Mean Corpuscular Volume 85.8 fL (80.0-98.0); Mean Platelet Volume 8.8 fL (9.4-12.3); Monocytes Absolute Auto 0.4 X10*3/uL (0.1-1.2); Monocytes Percent Auto 9.7 % (2-11); Neutrophils Absolute Auto 2.8 x10*3/uL (2.0-8.3); Neutrophils Percent Auto 62.7 % (45-73); Platelet Count 254 X10*3/uL (160-400); Red Blood Count 2.88 X10*6/uL (4.20-5.50); Red Cell Distribution Width 15.7 % (11.0-16.0); White Blood Count 4.4 X10*3/uL (4.8-10.8)
[2023-04-14 07:42] VITALS: BP 147/72; PULSE 79; RESP 18; TEMP 36.7; O2SAT 97
[2023-04-14] MEDS: Atorvastatin Calcium 40 MG TABLET PO (08:48)
[2023-04-14] MEDS: Gabapentin 300 MG CAPSULE PO ×3 (08:48→20:51)
[2023-04-14] MEDS: Potassium Chloride Packet 20 MEQ PACKET 40 MEQ PO ×2 (08:48→20:45)
[2023-04-14] MEDS: Ticagrelor 90 MG TABLET PO ×2 (08:48→20:51)
[2023-04-14] MEDS: Folic Acid 1 MG TABLET PO (08:48)
[2023-04-14] MEDS: Aspirin Enteric Coated 81 MG TABLET.DR PO (08:48)
[2023-04-14] MEDS: Acetaminophen 325 MG TABLET 650 MG PO (08:48)
[2023-04-14] MEDS: Megestrol Acetate 400 MG/10 ML ORAL.SUSP PO (08:48)
[2023-04-14] MEDS: 0.9 % Sodium Chloride Flush 3 ML SYRINGE IVFLUSH ×3 (08:49→20:51)
--- NOTE | 2023-04-14 09:47 | PM.PNNEP ---
Subjective Subjective Date of Service: 04/14/23 Interval history: Events noted. All recent data reviewed. Blood work from AM pending. Physical Exam Vital Signs: Vital Signs: Last Vital Signs Temp 98.0 F 04/14/23 07:42 Pulse 79 04/14/23 07:42 Resp 18 04/14/23 07:42 BP 147/72 H 04/14/23 07:42 Pulse Ox 97 04/14/23 07:42 O2 Del Method Room Air 04/14/23 07:42 BMI result Body Mass Index 15.1 Const: General: no acute distress Eyes: EOM: EOMs intact bilaterally Neck: Neck: Yes supple Resp: Auscultation: diminished lung sounds Cardio: Rate: regular rate GI: Palpation (GI): Soft to palpation Neuro: General: moves all extremities Objective Data Labs 04/14/23 07:14 04/13/23 05:54 Labs: Laboratory Results - last 24 hr 04/14/23 07:14 WBC 4.4 L RBC 2.88 L Hgb 8.4 L Hct 24.7 L MCV 85.8 MCH 29.2 MCHC 34.0 RDW 15.7 Plt Count 254 MPV 8.8 L Immature Gran % (Auto) 0.5 H Neut % (Auto) 62.7 Lymph % (Auto) 24.4 [place] % (Auto) 9.7 Eos % (Auto) 2.5 Baso % (Auto) 0.2 Lymph # (Auto) 1.1 L [place] # (Auto) 0.4 Eos # (Auto) 0.1 Baso # (Auto) 0.0 Abs Immat Gran (auto) 0.02 Absolute Neuts (auto) 2.8 Absolute Nucleated RBC 0.000 Nucleated RBC % (auto) 0.0 Microbiology Microbiology Results: Microbiology 04/10/23 Unknown Urine Catheterized - Lauren Catheter Urine Culture - Final Klebsiella oxytoca Escherichia coli 04/10/23 19:27 Blood - Venous Blood Culture - Preliminary No growth after 48 hours. 04/10/23 19:27 Blood - Venous Blood Culture - Preliminary No growth after 48 hours. Procedures Date of Service Date of Service: 04/14/23 Assessment & Plan Assessment and plan (1) Acute renal failure: Status: Acute Assessment and Plan: AMIE due to compromise in renal perfusion Serum creatinine had been improving Blood work from AM pending- On K replacements Had been having hypokalemia due to diarrhea C/W rest of current supportive care for now Progress Note: Quality Stroke Does the patient have a stroke diagnosis?: No
[2023-04-14 09:49] LABS: Alanine Aminotransferase 22 U/L (0-31); Alkaline Phosphatase 52 U/L (39-117); Anion Gap 10 (12-20); Aspartate Amino Transferase 41 U/L (5-31); Bilirubin Total 0.7 mg/dL (0.0-1.0); Blood Urea Nitrogen 9 mg/dL (9-16); Calcium 8.1 mg/dL (8.4-10.2); Carbon Dioxide 21 mmol/L (22-29); Chloride 112 mmol/L (96-108); Creatinine Clr Calc Pharmacy 25.3; Estimated Glomerular Filt Rate 43; Glucose Fasting 93 mg/dL (60-99); Magnesium 1.3 mg/dL (1.6-2.6); Potassium 3.6 mmol/L (3.3-5.1); Sodium 139 mmol/L (135-145); Total Protein 5.4 g/dL (6.5-8.0)
[2023-04-14] MEDS: Heparin Sodium,Porcine 5,000 UNIT/ML VIAL 5000 UNIT SUBCUT ×2 (11:22→23:56)
[2023-04-14] MEDS: Magnesium Sulfate/H2O 2 GM/50 ML PIGGYBACK IV (11:22)
--- NOTE | 2023-04-14 11:24 | MHC.CLN ---
PT IS MODERATELY MALNOURISHED SEE FULL CLINICAL NUTRITION ASSESSMENT DATED 04/11/23 PO INTAKE 50-100% DIET ADVANCED TO REGULAR PT WITH 2 VERY INVOLVED SONS WHO REPORT PT HAS PREVIOUSLY DX WITH MALNUTRITION AT [facility]. SONS REPORTS PT WITH CHRONIC POOR PO INTAKE BUT RECENTLY RESTRICTING INTAKE R/T DIARRHEA. SONS RECEPTIVE TO ALL NUTRITION SUPPLEMENTS AVAILABLE AND REQUESTING APPETITE STIMULANT TO RE-START. RECOMMEND ADDING ENSURE BID AND GELATEIN TID MONITOR PO INTAKE AND WEIGHT CLOSELY
[2023-04-14 11:38] VITALS: BP 117/60; PULSE 88; RESP 18; TEMP 37.2; O2SAT 97
--- NOTE | 2023-04-14 12:30 | MHC.CM.PN ---
EMR reviewed and per MD rounds, pt is not medically cleared for D/C due to continued loose stools secondary to C.diff and the need for electrolyte monitoring. CM will continue to follow.
--- NOTE | 2023-04-14 14:09 | P.PNIM_ITS ---
Subjective Subjective Date of Service: 04/14/23 Interval History: Continues to improve however still with loose stools Review of Systems Admits exertional shortness of breath Denies chest pain Denies nausea vomiting; admits to copious diarrhea Denies fever chills Physical Exam Vital Signs: Vital Signs: Last Vital Signs Temp 98.9 F 04/14/23 11:38 Pulse 88 04/14/23 11:38 Resp 18 04/14/23 11:38 BP 117/60 04/14/23 11:38 Pulse Ox 97 04/14/23 11:38 O2 Del Method Room Air 04/14/23 11:38 BMI result Body Mass Index 15.1 Const: Other: Ill-appearing lying quietly in bed HEENT: Other: Membranes dry Resp: Other: Clear to auscultation bilaterally no rales rhonchi or wheezes Cardio: Other: No S4; positive S1-S2; no S3 murmurs rubs or gallops GI: Other: Soft positive bowel sounds (slightly increased). No peritoneal signs Extrem: Other: No edema bilaterally Objective Data Active Medications Acetaminophen (Acetaminophen 325 Mg Tablet) 650 mg PO Q6H PRN PRN Reason: Pain, Mild (Pain Scale 1-3) Last Admin: 04/14/23 08:48 Dose: 650 mg Documented By: RICKEY Aspirin (Aspirin Enteric Coated 81 Mg Tablet.) 81 mg PO DAILY [facility] Last Admin: 04/14/23 08:48 Dose: 81 mg Documented By: RICKEY Atorvastatin Calcium (Atorvastatin Calcium 40 Mg Tablet) 40 mg PO DAILY [facility] Last Admin: 04/14/23 08:48 Dose: 40 mg Documented By: RICKEY Folic Acid (Folic Acid 1 Mg Tablet) 1 mg PO DAILY [facility] Last Admin: 04/14/23 08:48 Dose: 1 mg Documented By: RICKEY Gabapentin (Gabapentin 300 Mg Capsule) 300 mg PO TID [facility] Last Admin: 04/14/23 08:48 Dose: 300 mg Documented By: RICKEY Heparin Sodium (Porcine) (Heparin Sodium,Porcine 5,000 Unit/Ml Vial) 5,000 unit SUBCUT Q12H [facility] Last Admin: 04/14/23 11:22 Dose: 5,000 unit Documented By: RICKEY Megestrol Acetate (Megestrol Acetate 400 Mg/10 Ml Oral.Susp) 400 mg PO DAILY [facility] Last Admin: 04/14/23 08:48 Dose: 400 mg Documented By: RICKEY Nitroglycerin (Nitroglycerin 0.4 Mg Tab.Subl) 0.4 mg SUBLINGUAL Q5M PRN PRN Reason: chest pain Ondansetron HCl (Ondansetron Hcl 4 Mg/2 Ml Vial) 4 mg IVPUSH Q8H PRN PRN Reason: Nausea and Vomiting Pharmacy Consult (Consult Rx Perform Med Rec) 1 each MISCELLANE ONCE PRN PRN Reason: Consult order Potassium Chloride (Potassium Chloride Packet 20 Meq Packet) 40 meq PO BID [facility] Last Admin: 04/14/23 08:48 Dose: 40 meq Documented By: RICKEY Sodium Chloride (0.9 % Sodium Chloride Flush 3 Ml Syringe) 3 ml IVFLUSH QSHIFT [facility] Last Admin: 04/14/23 08:49 Dose: 3 ml Documented By: RICKEY Ticagrelor (Ticagrelor 90 Mg Tablet) 90 mg PO BID [facility] Last Admin: 04/14/23 08:48 Dose: 90 mg Documented By: RICKEY Vancomycin HCl (Vancomycin Hcl 125 Mg Capsule) 125 mg PO Q6H [facility] Last Admin: 04/14/23 08:48 Dose: 125 mg Documented By: RICKEY Labs 04/14/23 07:14 04/14/23 07:14 Labs: Laboratory Results - last 24 hr 04/14/23 04/14/23 07:14 07:14 MCV 85.8 MCH 29.2 MCHC 34.0 RDW 15.7 Plt Count 254 MPV 8.8 L Immature Gran % (Auto) 0.5 H Neut % (Auto) 62.7 Lymph % (Auto) 24.4 [place] % (Auto) 9.7 Eos % (Auto) 2.5 Baso % (Auto) 0.2 Lymph # (Auto) 1.1 L [place] # (Auto) 0.4 Eos # (Auto) 0.1 Baso # (Auto) 0.0 Abs Immat Gran (auto) 0.02 Absolute Neuts (auto) 2.8 Absolute Nucleated RBC 0.000 Nucleated RBC % (auto) 0.0 Anion Gap 10 L Estim Creat Clear Calc 25.3 Estimated GFR 43 Fasting Glucose 93 Calcium 8.1 L Magnesium 1.3 L* Total Bilirubin 0.7 AST 41 H ALT 22 Alkaline Phosphatase 52 Total Protein 5.4 L Albumin 3.0 L Microbiology Microbiology Results: Microbiology 04/10/23 Unknown Urine Culture - Final Urine Catheterized - Lauren Catheter Klebsiella oxytoca Escherichia coli Assessment and Plan (1) Colitis due to Clostridium difficile: Status: Acute (2) Acute renal failure: Status: Acute Plan Pt is a 67-year-old female with a PMH significant for?HTN, HLD, CAD s/p CABG, STEMI s/p stenting, PAD s/p bilateral femoral thromboendarterectomy with stenting, partial colectomy, and neuropathy who presents to the ED with?diarrhea and generalized weakness for the past 5 days. Pt will be admitted to the hospital for treatment further evaluation of acute kidney failure and electrolyte imbalances. 1.Diarrhea (secondary to C diff) -oral vancomycin q.i.d. (4) -continue IV fluids as ordered (LR) -diet advanced to regular; tolerated well 2.Acute renal failure/metabolic acidosis -creatinine normalized -bicarb stable however potassium difficult to maintain -replete magnesium and potassium -follow renals/divalents 3.Hyperkalemia.. Now hypokalemic secondary to bicarb -replete potassium/magnesium. Oral bicarb DC'd -volume repletion with lactated Ringer's -follow clinically with labs 4.Hyponatremia -normalized -follow daily while in-house 5.CAD -2D echo in a.m. -continue Brilinta b.i.d. 6.HTN -acceptable control off lisinopril/metoprolol -add back when appropriate Full Code Heparin Patient will require ongoing hospitalization for volume repletion/bicarb drip to treat C diff colitis with subsequent acute renal failure Time Spent With Patient Time: Total time managing care of this patient today ____ minutes. Quality Stroke Does the patient have a stroke diagnosis?: No VTE Prior VTE?: No VTE Risk Level:: Medical - moderate - high VTE Device Contraindication: Treatment Not Indicated VTE Drug Contraindication: N/A - Med Ordered
[2023-04-14 15:12] VITALS: BP 119/57; PULSE 94; RESP 18; TEMP 36.3; O2SAT 97
[2023-04-14 19:54] VITALS: BP 142/67; PULSE 104; RESP 19; TEMP 36.9; O2SAT 99
[2023-04-14 23:59] VITALS: BP 155/80; PULSE 98; RESP 15; TEMP 36.6; O2SAT 97
[2023-04-15 04:00] VITALS: BP 120/70; PULSE 109; RESP 15; TEMP 36.3; O2SAT 95
[2023-04-15] MEDS: vancomycin HCL 125 MG CAPSULE PO ×2 (05:07→10:32)
[2023-04-15 06:20] LABS: Magnesium 1.4 mg/dL (1.6-2.6)
[2023-04-15] MEDS: Gabapentin 300 MG CAPSULE PO (06:23)
[2023-04-15 07:28] VITALS: BP 134/81; PULSE 103; RESP 20; TEMP 36.7; O2SAT 98
--- NOTE | 2023-04-15 09:59 | P.DS_ITS ---
DS: Providers Provider Date of Service: 04/15/23 Date of admission: 04/10/23 22:32 Primary care physician: Mohinder Solis MD Consults: 04/10/23 22:32 Consult to Nephrology Routine Consulting Provider: [facility] barbara Jimenez Reason for consultation: Acute kidney failure DS: Diagnosis Discharge Diagnosis (1) Colitis due to Clostridium difficile: Status: Acute (2) Acute renal failure: Status: Acute DS: Summary Hospital Course Hospital Course: Chief Complaint: Dirreah, weakness Pt is a 67-year-old female with a PMH significant for?HTN, HLD, CAD s/p CABG, STEMI s/p stenting, PAD s/p bilateral femoral thromboendarterectomy with stenting, partial colectomy, and neuropathy who presents to the ED with?diarrhea and generalized weakness for the past 5 days.? Patient states her symptoms began last Friday when she started experiencing nonbloody diarrhea and moderate diffuse abdominal pain.? She reports abdominal pain was located in her ?whole stomach , nonradiating, rated a 6 to 7/10 in severity.? Diarrhea was almost constant, patient reports having ?35-40? episodes of diarrhea a day.? Patient thought the best way to treat her diarrhea was to stop eating and drinking and us restricted her diet considerably throughout the week. ? Patient's sons are at bedside who state they visited their mother and attempted to get her to eat and drink during this time.? Since noticed patient was unsteady on her feet and occasionally seemed confused.? They said she seemed lethargic and at times had labored breathing and difficulty speaking.? Patient states she has been lightheaded and dizzy.? Reports producing very little urine in the past 3-4 days.? Patient denies chest pain/pressure, palpitations.? No shortness of breath.? Denies nausea, vomiting. Of note, patient had a prolonged and complicated hospital course at [facility] in October of this year.? Patient had a CABG on 11/08/2022 that was almost immediatly followed by thrombosis of the MORELOS to LAD requiring stenting.? Patient then developed bilateral leg ischemia requiring thromboendarterectomy and stenting which was then followed by colonic ischemia requiring colectomy In the ED labs were significant for H&H of 11.9/36.1, sodium of 129, potassium 6.0, bicarb of 7, anion gap of 22, BUN 76, creatinine 5.81, AST 42, ALT 61, initial troponin 42.2, lipase 380. Lactic acid WNL at 1.6.? UA pending.? CXR showed no acute cardiopulmonary findings. CT?of abdomen and pelvis showed no acute abnormality but did reveal bilateral nonobstructive renal calculi with no ureteral calculi or hydronephrosis. EKG demonstrated normal sinus rhythm with no evidence of ST elevations or depressions. Pt was treated with Kayexalate, sodium bicarb, insulin 4 units, dextrose, and IVF. Pt will be admitted to the hospital for treatment further evaluation of acute kidney failure and electrolyte imbalances. Hospital course: She presented with diarrhea, weakness and found to have c dif colitis, acute renal failure, metabolic acidosis, Hypomagnesemia, hyperkalemia, hyponatremia. Cdif colitis and diarrhea has been treated with Oral vancomycin and should be treated for 14 dasy, AMIE, hyponatremia, metabolic acidosis, hyperkalemia all related dehydration from diarrhea and following hydration all have corrected. She presently doesn't have diarrrhea, and tolerating regular diet without abdominal pain Time Spent with Patient Time attestation: Total time managing care of this patient today ____ minutes. Discharge coordination time: Greater than 30 minutes Quality: Safe Use of Opioids Does Pt have an Active Cancer Diagnosis on the Problem List?: No Quality: Stroke Does the patient have a stroke diagnosis?: No Physical Exam Vital Signs: Vital Signs: Last Vital Signs Temp 98.1 F 04/15/23 07:28 Pulse 103 H 04/15/23 07:28 Resp 20 04/15/23 07:28 BP 134/81 04/15/23 07:28 Pulse Ox 98 04/15/23 07:28 O2 Del Method Room Air 04/15/23 07:28 BMI result Body Mass Index 15.1 DS: Data Data Completed and Pending Completed studies during hospitalization [Text1]: Procedures Replacement of Left Hip Joint, Femoral Surface with Synthetic Substitute, Cemented, Open Approach (07/02/21) Labs on day of discharge: Laboratory Results - last 24 hr 04/15/23 05:25 Magnesium 1.4 L* Preliminary micro results at discharge 04/10/23 19:27 Blood Culture - Preliminary Blood - Venous No growth after 48 hours. 04/10/23 19:27 Blood Culture - Preliminary Blood - Venous No growth after 48 hours. Discharge Plan Discharge Anticipated Discharge Date/Time: 04/15/23 10:08 Patient Disposition: Home, Self-Care Discharge Diagnosis: C dif colitis and diarrhea, Acute kidney injury, metabolic acidosis, Referrals: Mohinder Solis MD [Primary Care Provider] - 1 Week Discharge Medications: Continued Brilinta 90 mg tablet 90 mg PO BID Qty: 180 0RF lisinopril 40 mg tablet 40 mg PO DAILY Qty: 90 2RF megestrol 400 mg/10 mL (10 mL) suspension 400 mg PO DAILY Qty: 500 0RF Alpha Brain 2 cap PO DAILY gabapentin 300 mg capsule 300 mg PO TID tramadol 50 mg tablet 50 mg PO BID PRN (Reason: Pain) Rx Instructions: MassPat verified. Partial refill upon request. Dr. Banegas refilling for Yocasta Juarez NP aspirin [Adult Aspirin Regimen] 81 mg tablet,delayed release (DR/EC) 81 mg PO DAILY metoprolol succinate 50 mg tablet extended release 24 hr 75 mg PO BID rosuvastatin 10 mg tablet 10 mg PO DAILY folic acid 1 mg tablet 1 mg PO DAILY nitroglycerin 0.4 mg tablet, sublingual 0.4 mg sublingual Q5M PRN (Reason: chest pain) Qty: 30 5RF Rx Instructions: do not exceed 3 doses per episode Diet: Advance to usual diet Activity on Discharge: As tolerated Stand Alone Forms: Patient Portal Discharge page Care Plan Goals: Full recovery from C diff colitis associated with a diarrhea and acute renal failure Health Concerns: reanal failure, diarrhea due to c diff Plan of Treatment: Take Vancomycin as directed and follow up with your Doctor in a week Assessment: see above
[2023-04-15] MEDS: Folic Acid 1 MG TABLET PO (10:32)
[2023-04-15] MEDS: 0.9 % Sodium Chloride Flush 3 ML SYRINGE IVFLUSH (10:32)
[2023-04-15] MEDS: Atorvastatin Calcium 40 MG TABLET PO (10:32)
[2023-04-15] MEDS: Aspirin Enteric Coated 81 MG TABLET.DR PO (10:32)
[2023-04-15] MEDS: Megestrol Acetate 400 MG/10 ML ORAL.SUSP PO (10:32)
[2023-04-15] MEDS: Potassium Chloride Packet 20 MEQ PACKET 40 MEQ PO (10:32)
[2023-04-15] MEDS: Heparin Sodium,Porcine 5,000 UNIT/ML VIAL 5000 UNIT SUBCUT (10:32)
[2023-04-15] MEDS: Ticagrelor 90 MG TABLET PO (10:32)
[2023-04-15] MEDS: Magnesium Sulfate/H2O 2 GM/50 ML PIGGYBACK IV (10:33)
[2023-04-15 11:00] LABS: Anion Gap 10 (12-20); Blood Urea Nitrogen 12 mg/dL (9-16); Calcium 8.1 mg/dL (8.4-10.2); Carbon Dioxide 19 mmol/L (22-29); Chloride 113 mmol/L (96-108); Creatinine Clr Calc Pharmacy 29.3; Estimated Glomerular Filt Rate 51; Glucose Random 99 mg/dL (60-115); Potassium 4.7 mmol/L (3.3-5.1); Sodium 137 mmol/L (135-145)
[2023-04-15 11:01] VITALS: BP 114/66; PULSE 109; RESP 20; TEMP 36.9; O2SAT 98
--- NOTE | 2023-04-15 12:12 | MHC.CM.PN ---
Patient has been medically cleared for dc to home self care(PT recommended STR). CM met with Patient at bedside and addressed IMM with her, providing Patient with the original and placing a copy on the chart. Patient states that she is getting up well on her own and is pleased to be going home. Patient is calling her Sister to provide transportation to home.
--- NOTE | 2023-04-24 12:07 | P.CDIM_ITS ---
PROVIDER RESPONSE TEXT: To clarify, the appropriate diagnosis supported by the clinical indicators: Acute QUERY TEXT: PHYSICIAN'S DOCUMENTATION REQUEST Date of Query: 04/11/2023 11:25 AM EDT Patient Name: Ana Rosa Andino Admit Date: 04/11/2023 Dear Darien Cortes, A review of the medical record indicates additional documentation may be needed. Please review below and update the documentation accordingly. Clinical Indicators: H&P: Metabolic acidosis Bicarb 7 at time of presentation Likely secondary to AMIE Follow BMP closely. Clarify which of the following accurately represents the acuity of the Metabolic acidosis: Possible options might include: Acute Acute on chronic Other please specify Other (explain)Clinically unable to determine (explain)Thank you, Tanja James, CCS, CDIS Use of terms such as suspected, likely, concern for, or probable (associated with a specific diagnosi s that is being evaluated, monitored, or treated as if it exists) are acceptable and can be coded in the inpatient se tting, when documented at the time of discharge. Please use your independent medical judgment in providing your response. THIS QUERY IS PART OF THE PERMANENT MEDICAL RECORD
== END 2023-04-15 14:30 | disposition home or self-care (01) | DRG 372 ==
LOC: HO.ED 21:13 → HO.EDOVER 22:52 → HO.IMC 04-11 07:42
PROVIDERS: Hospitalist; Internal Medicine; Physician Assistant Medical; Admitting Provider Student in an Organized Health Care Education/Training Program; Emergency Provider Emergency Medicine Emergency Medical Services; PCP Internal Medicine; Visit Provider Internal Medicine
DX: A04.72 Enterocolitis due to Clostridium difficile, not specified as recurrent (principal); E87.1 Hypo-osmolality and hyponatremia; N17.9 Acute kidney failure, unspecified; E87.21 Acute metabolic acidosis; E86.0 Dehydration; I10 Essential (primary) hypertension; G62.9 Polyneuropathy, unspecified; I73.9 Peripheral vascular disease, unspecified; E83.42 Hypomagnesemia; I25.10 Atherosclerotic heart disease of native coronary artery without angina pectoris; Z95.1 Presence of aortocoronary bypass graft; E87.5 Hyperkalemia; E78.00 Pure hypercholesterolemia, unspecified; Z87.891 Personal history of nicotine dependence; Z79.82 Long term (current) use of aspirin; Z79.899 Other long term (current) drug therapy
CPT/HCPCS: 36415; 71046; 74176; 80048; 80053; 80076; 81001; 82803; 83605; 83615; 83690; 83735; 83880; 84484; 85025; 85027; 87040; 87086; 87088; 87186; 87324; 87493; 87507; 93005; 97162; 99285; C1758; J0696; J1643; J3475; P9047

== ENCOUNTER → 2023-04-10 16:49 | Outpatient (BNV) | payer OTHER, SELFPAY | PROVIDERS: Admitting Provider Student in an Organized Health Care Education/Training Program; Emergency Provider Emergency Medicine Emergency Medical Services; PCP Internal Medicine; Visit Provider Internal Medicine Cardiovascular Disease | DX: R94.31 Abnormal electrocardiogram [ECG] [EKG] (principal); R07.9 Chest pain, unspecified | CPT/HCPCS: 93010 ==

== ENCOUNTER → 2023-04-10 22:32 | Outpatient (BNV) | payer OTHER, SELFPAY | PROVIDERS: Admitting Provider Student in an Organized Health Care Education/Training Program; Emergency Provider Emergency Medicine Emergency Medical Services; PCP Internal Medicine; Visit Provider Hospitalist | DX: A04.72 Enterocolitis due to Clostridium difficile, not specified as recurrent (principal); N17.9 Acute kidney failure, unspecified | CPT/HCPCS: 99223; 99233; 99239 ==

== ENCOUNTER 2023-04-25 08:56 | Outpatient (AMB) | payer OTHER, SELFPAY ==
--- NOTE | 2023-04-25 08:57 | MHC.PC.OV ---
Vital Signs 04/25/23 08:58 Height 5 ft Weight 88 lb 6 oz BMI 17.3 BP 108/56 L Blood Pressure Location Lt brachial Position Sitting Pulse 89 Pulse Source Pulse Oximeter Pulse Oximetry (%) 98 Oxygen Delivery Method Room Air Intake Visit Reasons: [facility], Diarrhea, 04/15-04/18 Intake Note: Patient is here to follow-up after a visit the emergency department at [facility] on 04/15/23 for diarrhea. Cascara Bark Cutter Required: No Accompanied by: Friend Allergies Sulfa (Sulfonamide Antibiotics) [SULFA(SULFONAMIDE ANTIBIOTICS)] Allergy (Intermediate, Verified 04/25/23 09:10) RASH/HIVES Medication List - Last Reconciled 04/25/23 by YAIR Castillo [Alpha Brain 2 caps PO DAILY] aspirin (Adult Aspirin Regimen) 81 mg PO DAILY folic acid 1 mg PO DAILY gabapentin 300 mg PO TID lisinopril 40 mg PO DAILY magnesium oxide 400 mg PO DAILY magnesium oxide 400 mg PO DAILY megestrol 400 mg (10 mL) PO DAILY metoprolol succinate ER 75 mg PO BID nitroglycerin 0.4 mg sublingual Q5M PRN rosuvastatin 10 mg PO DAILY ticagrelor (Brilinta) 90 mg PO BID tramadol 50 mg PO BID PRN vancomycin 125 mg PO Q6H Tobacco use date assessed: 09/26/22 Fall risk assessment: No Falls in past year Last assessed Fall Risk: 04/25/23 Dental Screening Dental Screen Date: 04/25/23 Did you have a dental visit in the last 12 months?: No Did you have a dental problem in the last 6 months where you did not have access to dental care?: No Was dental information given to patient?: Patient has dentist HPI [facility], Diarrhea, 04/15-04/18 HPI Details Patient is a 67-year-old female who presents today to follow-up after [facility] discharge. Admission date 04/10/2023, discharge date 04/15/2023. Patient of Dr. Solis. Discharge diagnosis acute renal failure and colitis due to C diff. Per discharge summary: Hospital Course: Chief Complaint: Dirreah, weakness Pt is a 67-year-old female with a PMH significant for?HTN, HLD, CAD s/p CABG, STEMI s/p stenting, PAD s/p bilateral femoral thromboendarterectomy with stenting, partial colectomy, and neuropathy who presents to the ED with?diarrhea and generalized weakness for the past 5 days.? Patient states her symptoms began last Friday when she started experiencing nonbloody diarrhea and moderate diffuse abdominal pain.? She reports abdominal pain was located in her ?whole stomach , nonradiating, rated a 6 to 7/10 in severity.? Diarrhea was almost constant, patient reports having ?35-40? episodes of diarrhea a day.? Patient thought the best way to treat her diarrhea was to stop eating and drinking and us restricted her diet considerably throughout the week. ? Patient's sons are at bedside who state they visited their mother and attempted to get her to eat and drink during this time.? Since noticed patient was unsteady on her feet and occasionally seemed confused.? They said she seemed lethargic and at times had labored breathing and difficulty speaking.? Patient states she has been lightheaded and dizzy.? Reports producing very little urine in the past 3-4 days.? Patient denies chest pain/pressure, palpitations.? No shortness of breath.? Denies nausea, vomiting. Of note, patient had a prolonged and complicated hospital course at [facility] in October of this year.? Patient had a CABG on 11/08/2022 that was almost immediatly followed by thrombosis of the MORELOS to LAD requiring stenting.? Patient then developed bilateral leg ischemia requiring thromboendarterectomy and stenting which was then followed by colonic ischemia requiring colectomy In the ED labs were significant for H&H of 11.9/36.1, sodium of 129, potassium 6.0, bicarb of 7, anion gap of 22, BUN 76, creatinine 5.81, AST 42, ALT 61, initial troponin 42.2, lipase 380. Lactic acid WNL at 1.6.? UA pending.? CXR showed no acute cardiopulmonary findings. CT?of abdomen and pelvis showed no acute abnormality but did reveal bilateral nonobstructive renal calculi with no ureteral calculi or hydronephrosis. EKG demonstrated normal sinus rhythm with no evidence of ST elevations or depressions. Pt was treated with Kayexalate, sodium bicarb, insulin 4 units, dextrose, and IVF. Pt will be admitted to the hospital for treatment further evaluation of acute kidney failure and electrolyte imbalances. Hospital course: She presented with diarrhea, weakness and found to have? c dif colitis, acute renal failure, metabolic acidosis, Hypomagnesemia, hyperkalemia, hyponatremia. Cdif colitis and diarrhea has been treated with Oral vancomycin and should be treated for 14 dasy, AMIE, hyponatremia, metabolic acidosis, hyperkalemia all related dehydration from diarrhea and following hydration all have corrected. She presently doesn't have diarrrhea, and tolerating regular diet without abdominal pain Today, patient reports that she has about 1-2 days left of vancomycin. She reports intermittent shortness of breath with activity. Denies diarrhea or abdominal pain, able to tolerate fluids and foods. Reports normal bowel movement yesterday. Magnesium 1.4 04/15/2023, patient has finished magnesium after being discharged from the hospital, will recheck level. In addition, patient reports being slightly depressed since multiple admissions to the hospital in the past about 6 months. Crying intermittently in the office. Denies SI. Patient is accompanied by her sister. Patient has good family support. Interested in antidepressant medication. Not interested in therapist referral. [facility] Medical History Atherosclerotic cardiovascular disease Cataract fragments in both eyes following surgery Essential hypertension Essential hypertension Femur fracture High blood pressure High cholesterol Hip fracture Hypercholesterolemia Neuropathy Peripheral vascular disease Protein calorie malnutrition Syncope Surgical History History of ankle surgery History of cataract surgery History of colonoscopy History of endoscopy History of hip surgery History of quadruple bypass History of surgery Stented coronary artery Family History Mother Heart attack Father Heart attack Social History Household Members: None Housing: House Do you presently have visiting nurse or other home services: No Alcohol intake: current Alcohol intake frequency: holidays/special occasions only Alcohol type: beer Patient Tobacco Use Status: Former Tobacco user Tobacco use type: Cigarette Cigarettes Per Day: 3 Years Smoked: 42 on and off Packs per year/per ci.00 e-Cigarette/Vaping Use: Never Used Second Hand Smoke Exposure: Yes service: No Current occupational status: employed Current occupation: rt handed Cognitive needs: Yes (cane/walker) Hearing needs: No Vision needs: Yes (glasses) Questionnaire Thrive Questionnaire Date Thrive assessed: 04/11/23 CECY-7 AMB Questionnaire CECY-7 Date CECY - 7 assessed: 09/26/22 Source: Developed by Drs. Rojas King, Marleen Morales, Travis Joyner and colleagues, with an educational kimi from [employer]. Review of Systems Const Denies body aches, Denies chills, Denies fever(s) and Denies headache(s) Eyes Denies change in vision ENT Denies dizziness, Denies otalgia, Denies headache(s), Denies nasal discharge, Denies sinus pain and Denies sore throat Card Denies chest pain, Denies edema, Denies lightheadedness, Denies dyspnea and Reports dyspnea on exertion Resp Denies dyspnea, Reports dyspnea on exertion and Denies wheezing GI Denies abdominal pain, Denies constipation, Denies diarrhea, Denies nausea and Denies vomiting Denies dysuria Musc Denies myalgias Skin/Breast Denies rash Neuro Denies dizziness and Denies headache(s) Psych Reports depression Aller/Immun Denies wheezing Physical exam (Primary Care) Vital Signs: Last Vital Signs Pulse 89 04/25/23 08:58 BP 108/56 L 04/25/23 08:58 Pulse Ox 98 04/25/23 08:58 Oxygen Delivery Method Room Air 04/25/23 08:58 BMI result Body Mass Index 17.3 Tobacco/Smoking Status: Tobacco use Status Tobacco use date assessed 09/26/22 04/25/23 08:58 Patient Tobacco Use Status Former Tobacco user 04/25/23 08:58 Tobacco use type Cigarette 04/25/23 08:58 e-Cigarette/Vaping Use Never Used 04/25/23 08:58 Thrive Assessment: Date of Thrive Assessment Date Thrive assessed 04/11/23 04/25/23 08:58 Const General: cooperative and no acute distress Orientation/consciousness: patient oriented x3 HENMT Head: Yes normocephalic and Yes atraumatic Mouth: oropharynx normal and moist mucous membranes Throat: Yes posterior oropharynx normal Eyes General: appearance normal, both eyes and all related structures Pupils: Equal, round and reactive pupils present EOM: EOMs intact bilaterally Neck Neck: Yes normal visual inspection, Yes full ROM and Yes no lymphadenopathy Resp Effort & Inspection: normal respiratory effort and able to speak in complete sentences Auscultation: clear to auscultation bilaterally, no crackles, no rales, no rhonchi and no wheezes Cardio Rate: regular rate Rhythm: regular rhythm Heart sounds: S1 normal heart sound present and S2 normal heart sound present GI Palpation (GI): Soft to palpation, not firm, nontender, no guarding, not rigid and no hepatosplenomegaly Auscultation: normal bowel sounds Skin General skin exam: no rashes or lesions noted Neuro General: patient oriented x3 Cranial nerves: Yes Equal, round and reactive pupils present Extrem General: Yes full ROM and No edema Assessment and Plan Assessment & Plan (1) Hospital discharge follow-up: Code(s): Z09 - Encounter for follow-up examination after completed treatment for conditions other than malignant neoplasm (2) Depression: Code(s): F32.A - Depression, unspecified Plan: Start sertraline 25 mg daily-reviewed adverse reactions and when to notify provider Patient denies SI Patient not interested therapist referral, she has good family supports Keep appointment with PCP next month as scheduled (3) Hypomagnesemia: Code(s): E83.42 - Hypomagnesemia Plan: Magnesium 1.4 04/15/2023 Patient has finished magnesium after being discharged from the hospital Will recheck magnesium level (4) Colitis due to Clostridium difficile: Code(s): A04.72 - Enterocolitis due to Clostridium difficile, not specified as recurrent Plan: Patient denies abdominal pain or diarrhea She is able to tolerate fluids and foods Reports normal bowel movement yesterday Finish full course of antibiotic as prescribed (5) Acute renal failure: Code(s): N17.9 - Acute kidney failure, unspecified Plan: Creatinine 1.08, GFR 51 04/15/2023 Continue to monitor Plan Keep appointment with PCP as scheduled or follow-up sooner as needed Patient and her sister agreed with the plan Orders: Orders Magnesium Today E83.42 - Hypomagnesemia Medications: New sertraline 25 mg PO DAILY 30 tabs 2RF F32.A - Depression, unspecified Discontinued tramadol [facility] verified. Partial refill upon request. Dr. Banegas refilling for Yocasta Juarez MANIPULATIVE THERAPY SPECIALIST 50 mg PO BID 60 tabs 0RF Pain, Moderate Coding Level of Care Code Est Pt Level 3 (51549) Diagnoses Hospital discharge follow-up Z09 Depression F32.A Hypomagnesemia E83.42 Colitis due to Clostridium difficile A04.72 Acute renal failure N17.9
[2023-04-25 08:58] VITALS: BP 108/56; PULSE 89; O2SAT 98; BMI 17.3
== END 2023-04-25 09:34 | disposition home or self-care (01) ==
PROVIDERS: PCP Internal Medicine; Visit Provider Nurse Practitioner Family
DX: E83.42 Hypomagnesemia (principal); N17.9 Acute kidney failure, unspecified; Z09 Encounter for follow-up examination after completed treatment for conditions other than malignant neoplasm; F32.A Depression, unspecified; A04.72 Enterocolitis due to Clostridium difficile, not specified as recurrent
CPT/HCPCS: 99213

== ENCOUNTER → 2023-04-30 14:03 | Outpatient (REF) | payer OTHER, SELFPAY ==
--- NOTE | 2023-04-30 14:07 | HM_ITS ---
* Total monitoring time 4 days and 14 hours. * Underlying rhythm is sinus. Average ventricular rate 68/Min. Range 54 to 102/Min. * Rare supraventricular ectopy. Minimal burden. * Rare ventricular ectopy. Minimal burden. One run of 7 beats, unifocal. * No significant pauses or AV blocks. * No patient markers or events in diary. MTDD
--- NOTE | 2023-04-30 14:07 | CA_ITS ---
Transthoracic Echocardiogram Patient (Last, First, Middle): Ana Rosa Andino J Gender: Female Date of : 1955 Age: 67 Procedure Date: 04/30/2023 Procedure Type: Transthoracic Echocardiogram Location: OP Height: 154.94 cm Weight: 39.92 kg BSA: 1.33 m2 Heart Rate: 69 bpm BP: 100 / 60 mmHg Fork Truck Operator: BENITA Molina MD: Lizandro Feldman MD Signal Fitter: Jorge Luis Delacruz MD Symptoms: I25.10 - Atherosclerotic heart disease of [place] coronary artery without... Study Quality: Technically Difficult ECG Rhythm: Sinus Conclusions: - 1. Technically limited study due to off axis views and somewhat limited endocardial definition 2. Normal LV systolic function with impaired relaxation filling pattern 3. Normal cardiac valvular Dopplers 4. Normal RV systolic pressure 5. No gross pericardial effusion Findings Left Ventricle Normal left ventricular size, thickness, and systolic function. The visually estimated ejection fraction is between 60-65%. Regional wall motion abnormalities can not be excluded due to suboptimal endocardial definition. Spectral Doppler is indicative of an impaired relaxation filling pattern. Right Ventricle The right ventricle was not well visualized. Atria The left atrium is normal in size. There is no evidence of interatrial shunt. The right atrium was not well visualized. Aortic Valve The aortic valve was not well visualized. There is no aortic valve stenosis. There is no aortic valve regurgitation. Mitral Valve There is mild anterior mitral leaflet thickening. There is trace mitral valve regurgitation. There is no mitral valve stenosis. Pulmonic Valve The pulmonic valve was not well visualized. Tricuspid Valve The tricuspid valve was not well visualized. There is trace tricuspid valve regurgitation. The right ventricular systolic pressure is normal. Normal right atrial pressure. There is no evidence of pulmonary hypertension. Great Vessels The pulmonary artery was not well visualized. There is no dilatation of the ascending aorta. Venous The inferior vena cava is normal in size and collapses greater than 50% with inspiration. Pericardium/Pleural The pericardium was not well visualized. Prior Study Comparison No change compared to prior study dated: 10/09/2022. Measurements 2D Linear Measurements IVSd: 0.83 0.6-0.9/0.6-1.0 cm LVIDd: 3.31 3.9-5.3/4.2-5.9 cm LVIDd Index: 2.49 2.4-3.2/2.2-3.1 cm/m2 LVIDs: 2.09 2.0-3.6 cm LVPWd: 1.01 0.7-1.1 cm LA Diam: 2.40 2.7-3.8/3.0-4.0 cm LAIDs Index: 1.80 1.5-2.3 cm/m2 LV Mass: 104.59 67-162/88-224 g LV Mass Index: 78.64 43-95/49-115 g/m2 LVOT Diam: 1.70 3.0+(-)1.3 cm 2D Systolic Function EF 4C: 69.00 >55% EF 2C: 66.40 >55% EF BiP: 67.70 >55% Mitral Valve MV Pk E: 0.71 MV PK A: 0.69 MV Decel Time: 181.00 E/A: 1.00 E'Lateral: 9.90 E'Medial: 6.31 E/E' Med: 11.20 E/E' Lat: 7.10 PHT: 53.00 MVA PHT: 4.15 Decel [place]: 3.90 Aortic Valve AoV Pk Karson: 1.28 AoV Mn Karson: 0.88 AoV VTI: 0.27 AoV Pk Grad: 7.00 Aov Mn Grad: 4.00 ANDRY Cont.VTI: 1.24 LVOT LVOT Pk Karson: 0.80 LVOT Mn Karson: 0.49 LVOT VTI: 0.15 LVOT Pk Grad: 3.00 LVOT Mn Grad: 1.00 LVOT Diam: 1.70 LVOT Area: 2.27 Diastolic Function MV Pk E: 0.71 MV Pk A: 0.69 E/A: 1.00 E'Medial: 6.31 E/E' Med: 11.20 E' Laterial: 9.90 E/E' Lat: 7.10 Tricuspid Valve TR Pk Karson: 2.17 TR Pk Grad: 19.00 RA Press: 3.00 RVSP: 22.00 Great Vessels Aorta Sinus of Valsalva: 2.90 2.0-3.5 cm Ao Asc: 2.90 2.1-3.4 cm Pulmonary Valve PV Pk Karson: 1.02 Peak PV Grad: 4.00 Updated in Other Vendor System with Status of Final Jorge Luis Delacruz MD electronically signed on 05/01/2023 12:07:12 PM with status of Final
== END ==
LOC: HO.CARD 14:03
PROVIDERS: Visit Provider Internal Medicine
DX: I25.10 Atherosclerotic heart disease of native coronary artery without angina pectoris (principal); R00.2 Palpitations; Z95.1 Presence of aortocoronary bypass graft
CPT/HCPCS: 93242; 93306

== ENCOUNTER → 2023-04-30 14:07 | Outpatient (BNV) | payer OTHER, SELFPAY | PROVIDERS: Visit Provider Internal Medicine Cardiovascular Disease | DX: I47.1 Supraventricular tachycardia (principal) | CPT/HCPCS: 93244; 93306 ==

== ENCOUNTER 2023-05-06 12:34 | Outpatient (AMB) | payer OTHER, SELFPAY ==
--- NOTE | 2023-05-06 12:35 | A.OFFVIS_ITS ---
Intake VS Expanded 05/06/23 12:40 Height 5 ft Weight 83 lb 15.938 oz BMI 16.4 Intake Visit Reasons: Cachexia Allergies Sulfa (Sulfonamide Antibiotics) [SULFA(SULFONAMIDE ANTIBIOTICS)] Allergy (Intermediate, Verified 04/25/23 09:10) RASH/HIVES HPI Nutrition Presentation Details Pt presents for MNT for Cachexia. Pt was referred by PCP, Dr. Solis Patient presents with her twin sister to this appointment. Patient reports she has a supportive family, her sister often provides meals for her and Pt's sons are often visiting and checking up on her. Patient reports having enough money for food, patient enjoys snacks, typically sweets Pt was at 77 lbs at time of initial referral in 01/2023. Pt reports she was on an appetite stimulant which worked well until she developed cdiff at the beginning of April 2023. Patient's sister is requesting a refill on appetite stimulant. The Pt was advised to discuss this further with primary care physician at the appointment coming up in May 22. Patient reports she has past med history of increased alcohol consumption and smoking, reports not drinking or smoking anymore, did not specify length time Pt reports hx of wt at 80-90 lbs typical meal 10: am B: Ensure original with donut o r cup cake or juice and cup cake or propel and cupcakes or donut 12: tuna sandwich on whole wheat, chips , propel water 6pm hamburger with spaghetti, propel russell er Snacks on chips, cookies, crackers, bread Support Current oral diet supplements Ensure (reports having one a day ) Focused findings Nutrition-focused findings muscle wasting and underweight Nutrition Needs Calculation Weight 84 lb Estimated kcal needs (kcal/day) 2,335 (35 kcal/kg bw + 1000) Estimated protein needs (gm/day) 84 (1-1.1 g /kg bw) Estimated fluid needs (mls/day) 1,140 (30 ml/kgbw) Diagnosis Nutrition problem #1 inadequate energy intake As related to (etiology) #1 diagnosis (Cachexia) As evidenced by (sign/symptom) #1 low BMI (16.4 ( Pt appearts to have gained 7 lbs since iniital referral in 01/2023 ) Monitoring/Goals Nutrition problem monitoring total PRO intake and weight Nutrition goal/outcome wt gain 5lbs in 2 months Outcome progress verbalized understanding Learning/Education Readiness to learn good Stages of change preparation Educational materials provided Yes (meal planning, increasing calories from prot and healthy fats ) Most Recent Diabetes Results: Creatinine 1.08 mg/dL (0.5-1.4) 04/15/23 Blood Urea Nitrogen 12 mg/dL (9-16) 04/15/23 Sodium 137 mmol/L (135-145) 04/15/23 Potassium 4.7 mmol/L (3.3-5.1) 04/15/23 Chloride 113 mmol/L (96-108) H 04/15/23 Carbon Dioxide 19 mmol/L (22-29) L 04/15/23 Calcium 8.1 mg/dL (8.4-10.2) L 04/15/23 AST 41 U/L (5-31) H 04/14/23 ALT 22 U/L (0-31) 04/14/23 Total Protein 5.4 g/dL (6.5-8.0) L 04/14/23 Albumin 3.0 g/dL (3.5-5.0) L 04/14/23 [facility] Medical History Atherosclerotic cardiovascular disease Cataract fragments in both eyes following surgery Essential hypertension Essential hypertension Femur fracture High blood pressure High cholesterol Hip fracture Hypercholesterolemia Neuropathy Peripheral vascular disease Protein calorie malnutrition Syncope Surgical History History of ankle surgery History of cataract surgery History of colonoscopy History of endoscopy History of hip surgery History of quadruple bypass History of surgery Stented coronary artery Family History Mother Heart attack Father Heart attack Social History Household Members: None Housing: House Do you presently have visiting nurse or other home services: No Alcohol intake: current Alcohol intake frequency: holidays/special occasions only Alcohol type: beer Patient Tobacco Use Status: Former Tobacco user Tobacco use type: Cigarette Cigarettes Per Day: 3 Years Smoked: 42 on and off e-Cigarette/Vaping Use: Never Used Second Hand Smoke Exposure: Yes service: No Current occupational status: employed Current occupation: rt handed Cognitive needs: Yes (cane/walker) Hearing needs: No Vision needs: Yes (glasses) Assessment & Plan Assessment & Plan (1) Cachexia: Comment: RECOMMEND for assessing for vitamin and mineral deficiencies: b vitamins, Zn, vitamin D, Fe Code(s): R64 - Cachexia Plan: Increase calorie from protein and fats by 500 Recommend fiber intake : 8-10 g per day and gradually increase to 25-28 g per day for women and 35-38 g for men or as tolerated Recommend sodium intake per day : less than 1500 mg less than 2000 mg Educated patient on: ( R = reviewed V = verbalizes understanding N/R = needs review N/A = not applicable * Food sources of carbohydrate, adequate serving sizes and its role in various health conditions: R * Differences between complex carbohydrates a simple carbohydrates, role of fiber in diet: R * protein sources of foods and recipes :R * Differences between types of fats and role in diet (mono on saturated fat fatty acids, saturated fatty acids, trans fats): NR * Food sources of sodium in salt and healthy modifications for heart health in kidney health: NR Patient Instructions: HAve 3 meals per day and include protein sources of foods in your meals and snacks Example: Switch to Ensure Enlive from Ensure orginal for increased calories and protein Include protein sources of foods with your snacks- see meal ideas Example have toast with cottage cheese instead of butter , have oatmeal with penaut ubtter added as snack- see list of snacks with protein choices , make jello with whey protein - see recipe Keep hydrated by having water, juice diluted with water , milk call for questions prior to next follow up Coding Level of Care Code Nutr Indiv Intake (50424) Diagnoses Cachexia R64 Time Spent (min) 30
[2023-05-06 12:40] VITALS: BMI 16.4
== END 2023-05-06 14:14 | disposition home or self-care (01) ==
PROVIDERS: PCP Internal Medicine; Visit Provider Dietitian, Registered
DX: R64 Cachexia (principal)

== ENCOUNTER → 2023-05-06 12:34 | Outpatient (BNVA) | payer OTHER, SELFPAY | PROVIDERS: PCP Internal Medicine; Visit Provider Dietitian, Registered | DX: R64 Cachexia (principal); Z71.3 Dietary counseling and surveillance | CPT/HCPCS: 97802 ==

== ENCOUNTER 2023-05-22 15:26 | Outpatient (AMB) | payer OTHER, SELFPAY ==
--- NOTE | 2023-05-22 15:28 | MHC.PC.OV ---
Vital Signs 05/22/23 15:31 Height 5 ft Weight 82 lb 6 oz BMI 16.1 BP 110/60 Blood Pressure Location Lt brachial Position Sitting Intake Visit Reasons: 3 month f/u Intake Note: Patient is here to follow up on .Cachexia, Under weight, Hypercholesterolemia. Requesting medication refill. Environmental Communications Specialist Required: No [place] Farmer: Present Accompanied by: Sister Allergies Sulfa (Sulfonamide Antibiotics) [SULFA(SULFONAMIDE ANTIBIOTICS)] Allergy (Intermediate, Verified 05/22/23 15:31) RASH/HIVES Tobacco use date assessed: 05/22/23 HPI 3 month f/u HPI Details 67-year-old female presents to the office for a sick visit. She is accompanied to the office along with her sister. Patient was admitted to [facility] with C diff colitis. She spent a few days in the hospital and was discharged home. Continues to have diarrhea and minimal abdominal discomfort. She is feeling much better than before but is afraid to eat. She stopped taking the megace and ensure. She is unsure of who her regular fundraising specialist is. Her routine colonoscopy was done at [facility] but due to insurance restrictions, she had to get care for C diff colitis at [facility] and was assigned a fundraising specialist there. [facility] Medical History Atherosclerotic cardiovascular disease Cataract fragments in both eyes following surgery Essential hypertension Essential hypertension Femur fracture High blood pressure High cholesterol Hip fracture Hypercholesterolemia Neuropathy Peripheral vascular disease Protein calorie malnutrition Syncope Surgical History Stented coronary artery History of quadruple bypass History of colonoscopy History of hip surgery History of cataract surgery History of surgery History of ankle surgery History of endoscopy Family History Mother Heart attack Father Heart attack Social History Household Members: None Housing: House Do you presently have visiting nurse or other home services: No Alcohol intake: current Alcohol intake frequency: holidays/special occasions only Alcohol type: beer Patient Tobacco Use Status: Former Tobacco user Tobacco use type: Cigarette Cigarettes Per Day: 3 Years Smoked: 42 on and off e-Cigarette/Vaping Use: Never Used Second Hand Smoke Exposure: Yes service: No Current occupational status: employed Current occupation: rt handed Cognitive needs: Yes (cane/walker) Hearing needs: No Vision needs: Yes (glasses) Questionnaire Thrive Questionnaire Date Thrive assessed: 04/11/23 CECY-7 AMB Questionnaire CECY-7 Date CECY - 7 assessed: 09/26/22 Source: Developed by Drs. Rojas King, Marleen Morales, Travis Joyner and colleagues, with an educational kimi from [employer]. Physical exam (Primary Care) Vital Signs: Last Vital Signs BP 110/60 05/22/23 15:31 BMI result Body Mass Index 16.1 Tobacco/Smoking Status: Tobacco use Status Tobacco use date assessed 05/22/23 05/22/23 15:51 Patient Tobacco Use Status Former Tobacco user 05/22/23 15:51 Tobacco use type Cigarette 05/22/23 15:51 e-Cigarette/Vaping Use Never Used 05/22/23 15:51 Thrive Assessment: Date of Thrive Assessment Date Thrive assessed 04/11/23 05/22/23 15:51 Const General: cooperative and healthy appearing Nutritional Appearance: well nourished Orientation/consciousness: patient oriented x3 Limitations: no limitations HENMT Head: Yes normal to inspection Eyes General: appearance normal, both eyes and all related structures Neck Neck: Yes normal visual inspection Chest Chest palpation & inspection: normal palpation of entire chest wall Resp Effort & Inspection: normal respiratory effort Neuro General: patient oriented x3 Assessment and Plan Assessment & Plan (1) Colitis due to Clostridium difficile: Code(s): A04.72 - Enterocolitis due to Clostridium difficile, not specified as recurrent Plan: I will get the records from [facility] regarding the admission involving C diff colitis. Appropriate referrals will then be made. Patient was encouraged to eat and restart the Megace. Medications: Refilled gabapentin 300 mg PO TID 90 caps 0RF tramadol [employer] verified. Partial refill upon request. Dr. Banegas refilling for Yocasta Juarez CABLE ASSEMBLER 50 mg PO BID PRN 60 tabs 0RF Pain Coding Level of Care Code Est Pt Level 4 (20831) Diagnoses Colitis due to Clostridium difficile A04.72
[2023-05-22 15:31] VITALS: BP 110/60; BMI 16.1
== END 2023-05-22 16:14 | disposition home or self-care (01) ==
PROVIDERS: PCP Internal Medicine; Visit Provider Internal Medicine
DX: A04.72 Enterocolitis due to Clostridium difficile, not specified as recurrent (principal)
CPT/HCPCS: 99214

== ENCOUNTER 2023-06-30 14:29 | Outpatient (AMB) | payer MEDICARE, SELFPAY ==
--- NOTE | 2023-06-30 14:34 | A.OFFVIS_ITS ---
Intake Vital Signs 06/30/23 14:37 Height 5 ft Weight 89 lb 15.178 oz BMI 17.6 BP 108/62 Blood Pressure Location Lt brachial Position Sitting Pulse 70 Intake Visit Reasons: f/up echo Intake Note: follow up Lead Qa Analyst Required: No Accompanied by: Sister Allergies Sulfa (Sulfonamide Antibiotics) [SULFA(SULFONAMIDE ANTIBIOTICS)] Allergy (Intermediate, Verified 06/30/23 14:37) RASH/HIVES Medication List - Last Reconciled 06/30/23 by Lizandro Feldman MD [Alpha Brain 2 caps PO DAILY] aspirin (Adult Aspirin Regimen) 81 mg PO DAILY folic acid 1 mg PO DAILY gabapentin 300 mg PO TID lisinopril 40 mg PO DAILY magnesium oxide 400 mg PO DAILY megestrol 400 mg (10 mL) PO DAILY metoprolol succinate ER 100 mg PO DAILY nitroglycerin 0.4 mg sublingual Q5M PRN rosuvastatin 10 mg PO DAILY sertraline 25 mg PO DAILY ticagrelor (Brilinta) 90 mg PO BID tramadol 50 mg PO BID PRN HPI HPI Comments History of Present Illness Details Ana Rosa returns for follow-up regarding coronary artery disease. She was initially seen for exertional chest pain. Eventually, had cardiac catheterization showing complex multivessel disease. Then underwent coronary artery bypass surgery. It seems that she had a complicated course as there were several issues postoperatively. After the CABG, she apparently had inferolateral STEMI and went for a successful PCI of the anastomosis of MORELOS to LAD with drug-eluting stent. Following that, she had vascular surgery in her lower extremities including bilateral femoral thromboendarterectomy with patch angioplasty. Following that, partial colectomy for colonic ischemia, bowel anastomosis, abdominal closure among others. It seems that she was in hospital for several weeks and then went to rehab for several more weeks. Overall, very frail and underweight but otherwise doing okay. No clear cardiac symptoms. [facility] Medical History Atherosclerotic cardiovascular disease Cataract fragments in both eyes following surgery Essential hypertension Essential hypertension Femur fracture High blood pressure High cholesterol Hip fracture Hypercholesterolemia Neuropathy Peripheral vascular disease Protein calorie malnutrition Syncope Surgical History Stented coronary artery History of quadruple bypass History of colonoscopy History of hip surgery History of cataract surgery History of surgery History of ankle surgery History of endoscopy Family History Mother Heart attack Father Heart attack Social History Household Members: None Housing: House Do you presently have visiting nurse or other home services: No Alcohol intake: current Alcohol intake frequency: holidays/special occasions only Alcohol type: beer Patient Tobacco Use Status: Former Tobacco user Tobacco use type: Cigarette Cigarettes Per Day: 3 Years Smoked: 42 on and off e-Cigarette/Vaping Use: Never Used Second Hand Smoke Exposure: Yes service: No Current occupational status: employed Current occupation: rt handed Cognitive needs: Yes (cane/walker) Hearing needs: No Vision needs: Yes (glasses) Review of Systems Const Denies weakness ENT Denies dizziness Card Denies chest pain, Denies chest pain with activity, Denies syncope, Denies rapid heart rate, Denies pedal edema, Denies edema, Denies leg edema, Denies ligh theadedness, Denies palpitations, Denies dyspnea, Denies dyspnea on exertion and Denies orthopnea Resp Denies cough, Denies dyspnea and Denies dyspnea on exertion GI Denies hematochezia and Denies change in stool character Musc Denies abnormal gait, Denies muscle cramps, Denies muscle weakness, Denies numbness, Denies radiating pain into limb and Denies tingling Neuro Denies abnormal gait, Denies dizziness, Denies syncope, Denies numbness, Denies tingling and Denies weakness Endo Denies palpitations Physical Exam Vital Signs: Last Vital Signs Pulse 70 06/30/23 14:37 BP 108/62 06/30/23 14:37 BMI result Body Mass Index 17.6 Const General: comfortable and no acute distress Nutritional Appearance: underweight Orientation/consciousness: patient oriented x3 HEENT Other: Unremarkable Head: Yes normal to inspection Neck Neck: Yes normal visual inspection Chest Chest palpation & inspection: normal inspection of the chest Resp Auscultation: clear to auscultation bilaterally Cardio Palpation: normal PMI Heart sounds: S1 normal heart sound present, S2 normal heart sound present, no gallops, no murmurs and no rubs GI Palpation (GI): Soft to palpation Back/Spine/Pelvis Other: unremarkable Skin General skin exam: no rashes or lesions noted Neuro General: patient oriented x3 Extrem General: Yes normal to inspection Psych Mental Status: mental status grossly normal Assessment & Plan Assessment & Plan (1) Atherosclerotic cardiovascular disease: Code(s): I25.10 - Atherosclerotic heart disease of [place] coronary artery without angina pectoris (2) Status post aorto-coronary artery bypass graft: Code(s): Z95.1 - Presence of aortocoronary bypass graft (3) Stented coronary artery: Code(s): Z95.5 - Presence of coronary angioplasty implant and graft (4) Essential hypertension: Code(s): I10 - Essential (primary) hypertension (5) Smoker: Code(s): F17.200 - Nicotine dependence, unspecified, uncomplicated Plan [facility] records reviewed. Complicated postoperative course including inferolateral STEMI status post PCI of MORELOS to LAD anastomosis; lower extremity vascular surgery; partial colectomy, bowel anastomosis and abdominal closure. Postop echocardiogram with LVEF of 30-40% as per discharge summary. In the more recent repeat echocardiogram, LVEF 60-65%. Seems improved. Overall, continue medications for stable vascular disease. As she also had STEMI perioperatively, she will need the dual antiplatelet therapy for an year. Aspirin indefinitely. Continue her statins. Request for lipids given. She is on a small dose of statins but she also has a low body weight. Otherwise, remains on blood pressure medications including beta-blockers as well as lisinopril. That may be continued. Smoking cessation, And she states that she has not done that in a while. Discussed with sister who came for appointment. Orders: Orders Liver Panel Today E78.00 - Pure hypercholesterolemia, unspecified, I25.10 - Atherosclerotic heart disease of [place] coronary artery without angina pectoris Lipid Panel Today E78.5 - Hyperlipidemia, unspecified Coding Level of Care Code Est Pt Level 4 (30247) Diagnoses Atherosclerotic cardiovascular disease I25.10 Status post aorto-coronary artery bypass graft Z95.1 Stented coronary artery Z95.5 Essential hypertension I10 Smoker F17.200
[2023-06-30 14:37] VITALS: BP 108/62; PULSE 70; BMI 17.6
== END 2023-06-30 14:54 | disposition home or self-care (01) ==
PROVIDERS: PCP Internal Medicine; Visit Provider Internal Medicine
DX: I25.10 Atherosclerotic heart disease of native coronary artery without angina pectoris (principal); Z95.1 Presence of aortocoronary bypass graft; Z95.5 Presence of coronary angioplasty implant and graft; I10 Essential (primary) hypertension; F17.200 Nicotine dependence, unspecified, uncomplicated
CPT/HCPCS: 99214

== ENCOUNTER → 2023-06-30 14:29 | Outpatient (BNVA) | payer OTHER, SELFPAY | PROVIDERS: PCP Internal Medicine; Visit Provider Internal Medicine | DX: I25.10 Atherosclerotic heart disease of native coronary artery without angina pectoris (principal); I10 Essential (primary) hypertension; F17.210 Nicotine dependence, cigarettes, uncomplicated; I25.2 Old myocardial infarction; Z95.1 Presence of aortocoronary bypass graft; Z95.5 Presence of coronary angioplasty implant and graft; Z79.82 Long term (current) use of aspirin; Z79.899 Other long term (current) drug therapy | CPT/HCPCS: 99212 ==

== ENCOUNTER 2023-08-07 15:01 | Outpatient (REF) | payer MEDICARE, SELFPAY ==
--- NOTE | ~2023-08-07 | MM_ITS ---
EXAMINATION: MM SCREENING DIGITAL BREAST TOMOSYNTHESIS, BILATERAL CLINICAL INFORMATION: Screening. Asymptomatic. COMPARISON: Mammography: 08/01/2022, 04/06/2021. TECHNIQUE: Digital breast tomosynthesis is performed in both the craniocaudal and mediolateral oblique views along with computer-aided detection (CAD). Synthesized 2D images are generated from the tomosynthesis. An extra right CC view with nipple in profile was provided. FINDINGS: The breasts are heterogeneously dense, which may obscure small masses (ACR BI-RADS breast composition Category c). There are no suspicious masses, suspicious grouped calcifications, or areas of architectural distortion in either breast. The parenchymal pattern is stable from prior exams. No skin or axillary abnormality. MM/MM tomosynthesis screening BI IMPRESSION: No mammographic evidence of malignancy. ASSESSMENT: BI-RADS BI-RADS 1 - Negative RECOMMENDATION: Routine annual mammography screening. 1 year F/U This examination should not preclude the clinical evaluation of a suspicious palpable abnormality. This patient's information was entered into a reminder system with a target due date for their next mammogram.
== END 2023-08-07 15:02 | disposition home or self-care (01) ==
LOC: HO.MAMMO 15:01
PROVIDERS: PCP Internal Medicine; Visit Provider Internal Medicine
DX: Z12.31 Encounter for screening mammogram for malignant neoplasm of breast (principal)
CPT/HCPCS: 77063; 77067

== ENCOUNTER → 2023-08-07 15:15 | Outpatient (BNV) | payer MEDICARE, SELFPAY | PROVIDERS: PCP Internal Medicine; Visit Provider Radiology Diagnostic Radiology | DX: Z12.31 Encounter for screening mammogram for malignant neoplasm of breast (principal) | CPT/HCPCS: 77063; 77067 ==

== ENCOUNTER 2023-08-18 14:55 | Outpatient (REF) | payer MEDICARE, SELFPAY ==
[2023-08-18 15:48] LABS: Magnesium 1.6 mg/dL (1.6-2.6)
== END 2023-08-18 14:56 | disposition home or self-care (01) ==
LOC: HO.LAB 14:55
PROVIDERS: PCP Internal Medicine; Referring Provider Internal Medicine; Visit Provider Nurse Practitioner Family
DX: E83.42 Hypomagnesemia (principal)
CPT/HCPCS: 36415; 83735

== ENCOUNTER 2023-08-19 15:18 | Outpatient (AMB) | payer MEDICARE, SELFPAY ==
[2023-08-19 15:21] VITALS: BP 110/68; PULSE 65; O2SAT 100; BMI 18.6
--- NOTE | 2023-08-19 15:21 | MHC.PC.OV ---
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 Required: No Allergies Sulfa (Sulfonamide Antibiotics) [SULFA(SULFONAMIDE ANTIBIOTICS)] Allergy (Intermediate, Verified 08/19/23 15:32) RASH/HIVES Medication List - Last Reconciled 08/19/23 by YAIR Castillo [Alpha Brain 2 caps PO DAILY] aspirin (Adult Aspirin Regimen) 81 mg PO DAILY folic acid 1 mg PO DAILY gabapentin 300 mg PO TID lisinopril 40 mg PO DAILY metoprolol succinate ER 100 mg PO DAILY nitroglycerin 0.4 mg sublingual Q5M PRN rosuvastatin 10 mg PO DAILY sertraline 25 mg PO DAILY ticagrelor (Brilinta) 90 mg PO BID tramadol 50 mg PO BID PRN Tobacco use date assessed: 08/19/23 Fall risk assessment: No Falls in past year Last assessed Fall Risk: 08/19/23 Dental Screening Dental Screen Date: 08/19/23 Did you have a dental visit in the last 12 months?: Yes Did you have a dental problem in the last 6 months where you did not have access to dental care?: No Was dental information given to patient?: Patient has dentist HPI 3 MONTH F/U HPI Details Patient is a 67-year-old female who presents today for a routine follow-up. Patient of Dr. Solis. Medical history significant for chronic pain after traumatic injury-right lower extremity-requesting refill on tramadol-reports taking tramadol p.r.n. usually at bedtime only, neuropathy, hypercholesterolemia, status post aorta-coronary artery bypass graft-followed by Cardiology Dr. Feldman, history of colitis due to C diff 04/2023-was treated with antibiotic-reports that she still waiting for GI referral. Patient reports intermittent diarrhea since 10/2022, reports some diarrhea yesterday, reports being on antibiotic last week for root canal, no nausea or vomiting. Patient is accompanied by her sister. Magnesium 1.6 08/18/2023. [facility] Medical History Peripheral vascular disease Atherosclerotic cardiovascular disease Essential hypertension Protein calorie malnutrition Syncope Essential hypertension Hypercholesterolemia Cataract fragments in both eyes following surgery Hip fracture Femur fracture High cholesterol Neuropathy High blood pressure Surgical History Stented coronary artery History of quadruple bypass History of colonoscopy History of hip surgery History of cataract surgery History of surgery History of ankle surgery History of endoscopy Family History Mother Heart attack Father Heart attack Social History Household Members: None Housing: House Do you presently have visiting nurse or other home services: No Alcohol intake: current Alcohol intake frequency: holidays/special occasions only Alcohol type: beer Patient Tobacco Use Status: Former Tobacco user Tobacco use type: Cigarette Cigarettes Per Day: 3 Years Smoked: 42 on and off e-Cigarette/Vaping Use: Never Used Second Hand Smoke Exposure: Yes service: No Current occupational status: employed Current occupation: rt handed Cognitive needs: Yes (cane/walker) Hearing needs: No Vision needs: Yes (glasses) Questionnaire Thrive Questionnaire Date Thrive assessed: 04/11/23 AUDIT C Alcohol Use Questionnaire (AUDIT-C) 1. How often do you have a drink containing alcohol?: Monthly or less 2. How many drinks containing alcohol do you have on a typical day when you are drinking?: 1 or 2 3. How often do you have six or more drinks on one occasion?: Never Total Score: 1 Score Reviewed/Action Taken: No CECY-7 AMB Questionnaire CECY-7 Date CECY - 7 assessed: 09/26/22 Source: Developed by Drs. Rojas King, Marleen Morales, Travis Joyner and colleagues, with an educational kimi from [employer]. Review of Systems Const Denies body aches, Denies chills, Denies fever(s) and Denies headache(s) ENT Denies dizziness, Denies otalgia, Denies headache(s), Denies nasal discharge, Denies sinus pain and Denies sore throat Card Denies chest pain, Denies edema, Denies lightheadedness, Denies dyspnea and Reports dyspnea on exertion Resp Denies dyspnea, Reports dyspnea on exertion and Denies wheezing GI Denies constipation, Reports diarrhea, Denies nausea and Denies vomiting Denies dysuria Musc Denies myalgias Skin/Breast Denies rash Neuro Denies dizziness and Denies headache(s) Aller/Immun Denies wheezing Physical exam (Primary Care) Vital Signs: Last Vital Signs Pulse 65 08/19/23 15:21 BP 110/68 08/19/23 15:21 Pulse Ox 100 08/19/23 15:21 Oxygen Delivery Method Room Air 08/19/23 15:21 BMI result Body Mass Index 18.6 Tobacco/Smoking Status: Tobacco use Status Tobacco use date assessed 08/19/23 08/19/23 15:22 Patient Tobacco Use Status Former Tobacco user 08/19/23 15:22 Tobacco use type Cigarette 08/19/23 15:22 e-Cigarette/Vaping Use Never Used 08/19/23 15:22 Thrive Assessment: Date of Thrive Assessment Date Thrive assessed 04/11/23 08/19/23 15:22 Const General: cooperative and no acute distress Orientation/consciousness: patient oriented x3 HENMT Head: Yes normocephalic and Yes atraumatic Mouth: oropharynx normal and moist mucous membranes Throat: Yes posterior oropharynx normal Eyes General: appearance normal, both eyes and all related structures Neck Neck: Yes normal visual inspection, Yes full ROM and Yes no lymphadenopathy Resp Effort & Inspection: normal respiratory effort and able to speak in complete sentences Auscultation: clear to auscultation bilaterally, no crackles, no rales, no rhonchi and no wheezes Cardio Rate: regular rate Rhythm: regular rhythm Heart sounds: S1 normal heart sound present and S2 normal heart sound present GI Palpation (GI): Soft to palpation, not firm, nontender, no guarding, not rigid and no hepatosplenomegaly Auscultation: normal bowel sounds Skin General skin exam: no rashes or lesions noted Neuro General: patient oriented x3 Extrem Other: Right lower extremity with trace edema General: Yes full ROM Assessment and Plan Assessment & Plan (1) Depression: Code(s): F32.A - Depression, unspecified Qualifiers: Depression Type: other depression Qualified Code(s): F32.89 - Other specified depressive episodes Plan: Stable with sertraline (2) Hypomagnesemia: Code(s): E83.42 - Hypomagnesemia Plan: Resolved (3) Colitis due to Clostridium difficile: Code(s): A04.72 - Enterocolitis due to Clostridium difficile, not specified as recurrent Plan: Patient reports intermittent diarrhea since 10/2022, was admitted to [facility] 04/2023 due to C diff colitis, finished antibiotics. Reports being on antibiotic last week for root canal. Blood work and C diff stool ordered. GI referral for an evaluation and treatment. (4) Chronic pain after traumatic injury: Code(s): G89.21 - Chronic pain due to trauma Plan: Continue tramadol 50 mg b.i.d. p.r.n.-educated about dependency Plan Follow-up with PCP in 3 months Orders: Orders CDiff Gene PCR Today A04.72 - Enterocolitis due to Clostridium difficile, not specified as recurrent Comprehensive Met. Panel Today A04.72 - Enterocolitis due to Clostridium difficile, not specified as recurrent Complete Blood Count Auto Diff Today A04.72 - Enterocolitis due to Clostridium difficile, not specified as recurrent Referrals Gastroenterology Referral A04.72 - Enterocolitis due to Clostridium difficile, not specified as recurrent Medications: Changed From tramadol [employer] verified. Partial refill upon request. Dr. Banegas refilling for Yocasta Juarez [employer] SOFTWARE DEVELOPER 50 mg PO BID PRN 60 tabs 0RF Pain G89.21 - Chronic pain due to trauma To tramadol 50 mg PO BID PRN 60 tabs 0RF Pain G89.21 - Chronic pain due to trauma Coding Level of Care Code Est Pt Level 4 (60604) Diagnoses Other depression F32.89 Depression Type: other depression Hypomagnesemia E83.42 Colitis due to Clostridium difficile A04.72 Chronic pain after traumatic injury G89.21
== END 2023-08-19 16:00 | disposition home or self-care (01) ==
PROVIDERS: PCP Internal Medicine; Visit Provider Nurse Practitioner Family
DX: F32.89 Other specified depressive episodes (principal); E83.42 Hypomagnesemia; A04.72 Enterocolitis due to Clostridium difficile, not specified as recurrent; G89.21 Chronic pain due to trauma
CPT/HCPCS: 99214

== ENCOUNTER 2023-10-16 13:22 | Outpatient (AMB) | payer MEDICARE, SELFPAY ==
--- NOTE | 2023-10-16 13:30 | A.OFFPC_ITS ---
Vital Signs 10/16/23 13:33 Height 5 ft Weight 100 lb 4 oz BMI 19.6 BP 112/70 Blood Pressure Location Lt brachial Position Sitting Pulse 75 Pulse Source Pulse Oximeter Pulse Oximetry (%) 98 Oxygen Delivery Method Room Air Intake Visit Reasons: [facility] 10/05/23 Intake Note: Patient is here for hospital discharge follow up. Patient was discharged from [facility] on 10/05/23. Materials Management Clerk Required: No Research Dairy Farm Supervisor: Present Accompanied by: Sister Allergies Sulfa (Sulfonamide Antibiotics) [SULFA(SULFONAMIDE ANTIBIOTICS)] Allergy (Intermediate, Verified 10/16/23 13:50) RASH/HIVES Medication List - Last Reconciled 10/16/23 by Mohinder Solis MD [Alpha Brain 2 caps PO DAILY] apixaban (Eliquis) 5 mg PO BID aspirin (Adult Aspirin Regimen) 81 mg PO DAILY folic acid 1 mg PO DAILY gabapentin 300 mg PO TID lisinopril 40 mg PO DAILY metoprolol succinate ER 100 mg PO DAILY nitroglycerin 0.4 mg sublingual Q5M PRN rosuvastatin 20 mg PO DAILY sertraline 25 mg PO DAILY tramadol 50 mg PO BID PRN Tobacco use date assessed: 10/16/23 Fall risk assessment: No Falls in past year Last assessed Fall Risk: 10/16/23 Dental Screening Dental Screen Date: 10/16/23 Did you have a dental visit in the last 12 months?: Yes Did you have a dental problem in the last 6 months where you did not have access to dental care?: No Was dental information given to patient?: Patient has dentist HPI [facility] 10/05/23 HPI Details 68-year-old female presents to the offic e to discuss her chronic medical conditions. She recently was in the hospital after a stent failed. Patient underwent embolectomy and several stents were placed. She is now on Eliquis. Patient is tolerating the medication well. Able to walk with no difficulty. Redness and swelling in the legs have reduced. Patient is requesting a handicap parking sticker. [facility] Medical History (Updated 10/16/23 @ 13:55 by Mohinder Solis MD) Peripheral vascular disease with claudication Peripheral vascular disease Atherosclerotic cardiovascular disease Essential hypertension Protein calorie malnutrition Syncope Essential hypertension Hypercholesterolemia Cataract fragments in both eyes following surgery Hip fracture Femur fracture High cholesterol Neuropathy High blood pressure Surgical History Stented coronary artery History of quadruple bypass History of colonoscopy History of hip surgery History of cataract surgery History of surgery History of ankle surgery History of endoscopy Family History Mother Heart attack Father Heart attack Social History Household Members: None Housing: House Do you presently have visiting nurse or other home services: No Alcohol intake: current Alcohol intake frequency: holidays/special occasions only Alcohol type: beer Patient Tobacco Use Status: Former Tobacco user Tobacco use type: Cigarette Cigarettes Per Day: 3 Years Smoked: 42 on and off Packs per year/per ci.00 e-Cigarette/Vaping Use: Never Used Second Hand Smoke Exposure: Yes service: No Current occupational status: employed Current occupation: rt handed Cognitive needs: Yes (cane/walker) Hearing needs: No Vision needs: Yes (glasses) Questionnaire PHQ-9 Over the last 2 weeks, how often have you been bothered by any of the following problems? 1. Little interest or pleasure in doing things: not at all 2. Feeling down, depressed, or hopeless: not at all 3. Trouble falling or staying asleep, or sleeping too much: not at all 4. Feeling tired or having little energy: not at all 5. Poor appetite or overeating: not at all 6. Feeling bad about yourself - or that you are a failure or have let yourself or your family down: not at all 7. Trouble concentrating on things, such as reading the newspaper or watching television: not at all 8. Moving or speaking so slowly that other people could have noticed. Or the opposite - being so fidgety or restless that you have been moving around a lot more than usual: not at all 9. Thoughts that you would be better off or of hurting yourself in some way: not at all Total score: 0 Depression Screening Interpretation: Negative Depression Screening Done: Yes Source: Developed by Drs. Rojas King, Marleen Morales, Travis Joyner and colleagues, with an educational kimi from [employer]. Thrive Questionnaire Date Thrive assessed: 10/16/23 I am a: Patient What is your living situation today?: I have a steady place to live Within the past 12 months, did the food you bought not last and you didn't have the money to get more?: Never true Within the past 12 months, did you worry whether your food would run out before you got money to buy more?: Never true Do you have trouble paying for medicines?: No Do you have trouble getting transportation to medical appointments?: No Do you have trouble paying your heating and electricity bill?: No Do you have trouble taking care of your child, family member or friend?: No Do you have trouble with day-to-day activities such as bathing, preparing meals, shopping, managing finances, etc.?: No Are you currently unemployed and looking for a job?: No Are you interested in more education?: No Currently or been in a relationship where the following occur: no concerns reported THRIVE Score: 0 AUDIT C Alcohol Use Questionnaire (AUDIT-C) 1. How often do you have a drink containing alcohol?: Monthly or less 2. How many drinks containing alcohol do you have on a typical day when you are drinking?: 1 or 2 Total Score: 1 CECY-7 AMB Questionnaire CECY-7 Date CECY - 7 assessed: 10/16/23 Feeling nervous, anxious, or on edge: 0 = Not at all Not being able to stop or control worryin = Not at all Worrying too much about different things: 0 = Not at all Trouble relaxin = Not at all Being so restless that it is hard to sit still: 0 = Not at all Becoming easily annoyed or irritable: 0 = Not at all Feeling afraid as if something awful might happen: 0 = Not at all Total CECY-7 score (0-4 normal; 5-9 mild; 10-14 moderate; 15-21 severe): 0 Source: Developed by Drs. Rojas King, Marleen Morales, Travis Joyner and colleagues, with an educational kimi from [employer]. Physical exam (Primary Care) Vital Signs: Last Vital Signs Pulse 75 10/16/23 13:33 BP 112/70 10/16/23 13:33 Pulse Ox 98 10/16/23 13:33 Oxygen Delivery Method Room Air 10/16/23 13:33 BMI result Body Mass Index 19.6 Tobacco/Smoking Status: Tobacco use Status Tobacco use date assessed 10/16/23 10/16/23 13:41 Patient Tobacco Use Status Former Tobacco user 10/16/23 13:41 Tobacco use type Cigarette 10/16/23 13:41 e-Cigarette/Vaping Use Never Used 10/16/23 13:41 PHQ-9: PHQ-9 Score PHQ-9: Total score 0 10/16/23 13:41 Depression Screening Interpretation: Negative Thrive Assessment: Date of Thrive Assessment Date Thrive assessed 10/16/23 10/16/23 13:41 Currently or been in a relationship where the following occur: no concerns reported Const General: cooperative and healthy appearing Nutritional Appearance: well nourished Orientation/consciousness: patient oriented x3 Limitations: no limitations HENMT Head: Yes normal to inspection Eyes General: appearance normal, both eyes and all related structures Neck Neck: Yes normal visual inspection Chest Chest palpation & inspection: normal palpation of entire chest wall Resp Effort & Inspection: normal respiratory effort Neuro General: patient oriented x3 Assessment and Plan Assessment & Plan (1) Peripheral vascular disease with claudication: Code(s): I73.9 - Peripheral vascular disease, unspecified Plan: 15 minutes spent in reviewing the discharge summary from [facility]. Patient is now on Eliquis and has enough medications. Form for the handicap sticker filled. (2) Hypercholesterolemia: Code(s): E78.00 - Pure hypercholesterolemia, unspecified Plan: Rosuvastatin prescription filled Medications: Changed From rosuvastatin 10 mg PO DAILY 90 tabs 0RF E78.00 - Pure hypercholesterolemia, unspecified To rosuvastatin 20 mg PO DAILY E78.00 - Pure hypercholesterolemia, unspecified Coding Level of Care Code Est Pt Level 4 (33954) Diagnoses Peripheral vascular disease with claudication I73.9 Hypercholesterolemia E78.00
[2023-10-16 13:33] VITALS: BP 112/70; PULSE 75; O2SAT 98; BMI 19.6
== END 2023-10-16 13:52 | disposition home or self-care (01) ==
PROVIDERS: PCP Internal Medicine; Visit Provider Internal Medicine
DX: I73.9 Peripheral vascular disease, unspecified (principal); E78.00 Pure hypercholesterolemia, unspecified
CPT/HCPCS: 99214

== ENCOUNTER 2023-12-25 14:32 | Outpatient (AMB) | payer MEDICARE, SELFPAY ==
[2023-12-25 14:40] VITALS: BP 124/60; PULSE 63; BMI 19.5
--- NOTE | 2023-12-25 14:40 | MHC.OFFVIS ---
Vital Signs 12/25/23 14:40 Height 5 ft Weight 99 lb 10.383 oz BMI 19.5 BP 124/60 Blood Pressure Location Lt brachial Position Sitting Pulse 63 Pulse Source Pulse Oximeter Intake Visit Reasons: 6 mth f/up Lunch Wagon Operator Required: No Accompanied by: Sister Allergies Sulfa (Sulfonamide Antibiotics) [SULFA(SULFONAMIDE ANTIBIOTICS)] Allergy (Intermediate, Verified 10/16/23 13:50) RASH/HIVES Medication List - Last Reconciled 12/25/23 by Lizandro Feldman MD [Alpha Brain 2 caps PO DAILY] apixaban (Eliquis) 5 mg PO BID aspirin (Adult Aspirin Regimen) 81 mg PO DAILY gabapentin 300 mg PO TID lisinopril 40 mg PO DAILY metoprolol succinate ER 100 mg PO DAILY nitroglycerin 0.4 mg sublingual Q5M PRN rosuvastatin 20 mg PO DAILY sertraline 25 mg PO DAILY tramadol 50 mg PO BID PRN HPI Comments Details: Ana Rosa returns for follow-up regarding coronary artery disease. To recall, she had chest pain leading to cardiac catheterization which showed complex multivessel disease and then leading to coronary artery bypass surgery. She had a complicated course as there were several issues postoperatively. After the CABG, she apparently had inferolateral STEMI and went for a successful PCI of the anastomosis of MORELOS to LAD with drug-eluting stent. Following that, she had vascular surgery in her lower extremities including bilateral femoral thromboendarterectomy with patch angioplasty. Following that, partial colectomy for colonic ischemia, bowel anastomosis, abdominal closure among others. More recently, she underwent some additional vascular procedures in her lower extremities. From cardiac standpoint, however, she has been mostly stable. No new concerns. No angina clearly. [facility] Medical History (Updated 10/16/23 @ 13:55 by Mohinder Solis MD) Peripheral vascular disease with claudication Peripheral vascular disease Atherosclerotic cardiovascular disease Essential hypertension Protein calorie malnutrition Syncope Essential hypertension Hypercholesterolemia Cataract fragments in both eyes following surgery Hip fracture Femur fracture High cholesterol Neuropathy High blood pressure Surgical History Stented coronary artery History of quadruple bypass History of colonoscopy History of hip surgery History of cataract surgery History of surgery History of ankle surgery History of endoscopy Family History Mother Heart attack Father Heart attack Social History Household Members: None Housing: House Do you presently have visiting nurse or other home services: No Alcohol intake: current Alcohol intake frequency: holidays/special occasions only Alcohol type: beer Patient Tobacco Use Status: Former Tobacco user Tobacco use type: Cigarette Cigarettes Per Day: 3 Years Smoked: 42 on and off e-Cigarette/Vaping Use: Never Used Second Hand Smoke Exposure: Yes service: No Current occupational status: employed Current occupation: rt handed Cognitive needs: Yes (cane/walker) Hearing needs: No Vision needs: Yes (glasses) Review of Systems Const Denies chills, Denies fatigue, Denies fever(s), Denies frequent falls, Denies weakness, Denies weight gain and Denies weight loss ENT Denies dizziness Card Denies chest pain, Denies leg edema, Denies lightheadedness, Denies palpitations, Denies dyspnea and Denies dyspnea on exertion Resp Denies cough, Denies dyspnea and Denies dyspnea on exertion GI Denies hematochezia Musc Denies abnormal gait, Denies muscle weakness, Denies numbness, Denies radiating pain into limb and Denies tingling Neuro Denies abnormal gait, Denies dizziness, Denies frequent falls, Denies numbness, Denies tingling and Denies weakness Endo Denies fatigue and Denies palpitations Physical Exam Vital Signs: Last Vital Signs Pulse 63 12/25/23 14:40 BP 124/60 12/25/23 14:40 BMI result Body Mass Index 19.5 Const General: comfortable and no acute distress Orientation/consciousness: patient oriented x3 HEENT Other: Unremarkable Head: Yes normal to inspection Neck Neck: Yes normal visual inspection Chest Chest palpation & inspection: normal inspection of the chest Resp Auscultation: clear to auscultation bilaterally Cardio Palpation: normal PMI Heart sounds: S1 normal heart sound present, S2 normal heart sound present, no gallops, no murmurs and no rubs GI Palpation (GI): Soft to palpation Back/Spine/Pelvis Other: unremarkable Skin General skin exam: no rashes or lesions noted Neuro General: patient oriented x3 Extrem General: Yes normal to inspection Psych Mental Status: mental status grossly normal Assessment & Plan Assessment & Plan (1) Atherosclerotic cardiovascular disease: Code(s): I25.10 - Atherosclerotic heart disease of [place] coronary artery without angina pectoris Category: Medical (2) Status post aorto-coronary artery bypass graft: Code(s): Z95.1 - Presence of aortocoronary bypass graft Category: Surgical (3) Stented coronary artery: Code(s): Z95.5 - Presence of coronary angioplasty implant and graft Category: Surgical (4) Essential hypertension: Code(s): I10 - Essential (primary) hypertension Category: Medical (5) Smoker: Code(s): F17.200 - Nicotine dependence, unspecified, uncomplicated Category: Social Hx Plan Overall, continue medications for stable vascular disease. Aspirin indefinitely. It seems she is on Eliquis through vascular surgery. Continue statins. LDL cholesterol levels have been in the 50s to 80 range. Also on blood pressure medications including beta-blockers as well as lisinopril. No changes with that. Smoking cessation. She states she has not smoked in a while. Discussed with sister who came for appointment. Total time spent including review of [facility] vascular records, counseling, documentation, coordination of care 30 minutes. Coding Level of Care Code Est Pt Level 4 (32582) Diagnoses Atherosclerotic cardiovascular disease I25.10 Status post aorto-coronary artery bypass graft Z95.1 Stented coronary artery Z95.5 Essential hypertension I10 Smoker F17.200
== END 2023-12-25 14:58 | disposition home or self-care (01) ==
PROVIDERS: PCP Internal Medicine; Visit Provider Internal Medicine
DX: I25.10 Atherosclerotic heart disease of native coronary artery without angina pectoris (principal); Z95.1 Presence of aortocoronary bypass graft; Z95.5 Presence of coronary angioplasty implant and graft; I10 Essential (primary) hypertension; F17.200 Nicotine dependence, unspecified, uncomplicated
CPT/HCPCS: 99214

== ENCOUNTER → 2023-12-25 14:32 | Outpatient (BNVA) | payer MEDICARE, SELFPAY | PROVIDERS: PCP Internal Medicine; Visit Provider Internal Medicine | DX: I25.10 Atherosclerotic heart disease of native coronary artery without angina pectoris (principal); I10 Essential (primary) hypertension; F17.210 Nicotine dependence, cigarettes, uncomplicated; Z95.1 Presence of aortocoronary bypass graft; Z95.5 Presence of coronary angioplasty implant and graft | CPT/HCPCS: 99212 ==

== ENCOUNTER 2024-01-15 14:58 | Outpatient (AMB) | payer MEDICARE, SELFPAY ==
--- NOTE | 2024-01-15 15:02 | MHC.PC.OV ---
Vital Signs 01/15/24 15:03 Height 5 ft Weight 97 lb 4 oz BMI 19.0 BP 130/70 Blood Pressure Location Rt brachial Position Sitting Pulse 71 Pulse Source Pulse Oximeter Pulse Oximetry (%) 99 Intake Visit Reasons: 3 month f/u Intake Note: Patient is here to follow up on Neuropathy, Cachexia, Hypercholesterolemia. Enrollment Counselor Required: No Manager Telemetry: Present Accompanied by: Sister Allergies Sulfa (Sulfonamide Antibiotics) [SULFA(SULFONAMIDE ANTIBIOTICS)] Allergy (Intermediate, Verified 01/16/24 13:43) RASH/HIVES Medication List - Last Reconciled 01/16/24 by Mohinder Solis MD [Alpha Brain 2 caps PO DAILY] apixaban (Eliquis) 5 mg PO BID aspirin (Adult Aspirin Regimen) 81 mg PO DAILY gabapentin 300 mg PO TID lisinopril 40 mg PO DAILY metoprolol succinate ER 100 mg PO DAILY nitroglycerin 0.4 mg sublingual Q5M PRN rosuvastatin 20 mg PO DAILY sertraline 25 mg PO DAILY tramadol 50 mg PO BID PRN Tobacco use date assessed: 01/15/24 Fall risk assessment: No Falls in past year Last assessed Fall Risk: 01/15/24 Dental Screening Dental Screen Date: 10/16/23 HPI 3 month f/u HPI Details 68-year-old female presents to the office to discuss her chronic medical conditions. Patient is accompanied by her sister. Patient is on newer anticoagulants for arterial blood clots. Due to the cost, she would like to switch to Coumadin. Patient is requesting that a form be signed requesting the pharmaceutical company to give the drug on a cheaper basis. Patient continues to abstain from smoking. She continues to have diarrhea which is worse after eating. Not able to gain weight. She has not crossed 100 lb body weight yet. Her appetite is also low. Able to function and do activities of daily living. [facility] Medical History Peripheral vascular disease with claudication Peripheral vascular disease Atherosclerotic cardiovascular disease Essential hypertension Protein calorie malnutrition Syncope Essential hypertension Hypercholesterolemia Cataract fragments in both eyes following surgery Hip fracture Femur fracture High cholesterol Neuropathy High blood pressure Surgical History Stented coronary artery History of quadruple bypass History of colonoscopy History of hip surgery History of cataract surgery History of surgery History of ankle surgery History of endoscopy Family History Mother Heart attack Father Heart attack Social History Household Members: None Housing: House Do you presently have visiting nurse or other home services: No Alcohol intake: current Alcohol intake frequency: holidays/special occasions only Alcohol type: beer Patient Tobacco Use Status: Former Tobacco user Tobacco use type: Cigarette Cigarettes Per Day: 3 Years Smoked: 42 on and off e-Cigarette/Vaping Use: Never Used Second Hand Smoke Exposure: Yes service: No Current occupational status: employed Current occupation: rt handed Cognitive needs: Yes (cane/walker) Hearing needs: No Vision needs: Yes (glasses) Questionnaire Thrive Questionnaire Date Thrive assessed: 10/16/23 CECY-7 AMB Questionnaire CECY-7 Date CECY - 7 assessed: 10/16/23 Source: Developed by Drs. Rojas King, Marleen Morales, Travis Joyner and colleagues, with an educational kimi from [employer]. Physical exam (Primary Care) Vital Signs: Last Vital Signs Pulse 71 01/15/24 15:03 BP 130/70 01/15/24 15:03 Pulse Ox 99 01/15/24 15:03 BMI result Body Mass Index 19.0 Tobacco/Smoking Status: Tobacco use Status Tobacco use date assessed 01/15/24 01/15/24 15:10 Patient Tobacco Use Status Former Tobacco user 01/15/24 15:10 Tobacco use type Cigarette 01/15/24 15:10 e-Cigarette/Vaping Use Never Used 01/15/24 15:10 Thrive Assessment: Date of Thrive Assessment Date Thrive assessed 10/16/23 01/15/24 15:10 Const General: cooperative and healthy appearing Nutritional Appearance: well nourished Orientation/consciousness: patient oriented x3 Limitations: no limitations HENMT Head: Yes normal to inspection Eyes General: appearance normal, both eyes and all related structures Neck Neck: Yes normal visual inspection Chest Chest palpation & inspection: normal palpation of entire chest wall Resp Effort & Inspection: normal respiratory effort Neuro General: patient oriented x3 Assessment and Plan Assessment & Plan (1) Peripheral vascular disease with claudication: Code(s): I73.9 - Peripheral vascular disease, unspecified Plan: Patient should finish the apixaban she has at home. A form for her insurance company has been filled. (2) Cachexia: Comment: RECOMMEND for assessing for vitamin and mineral deficiencies: b vitamins, Zn, vitamin D, Fe Code(s): R64 - Cachexia Plan: A GI appointment has been requested. Patient should continue taking her supplements. Orders: Referrals Gastroenterology Referral Z12.11 - Encounter for screening for malignant neoplasm of colon Coding Level of Care Code Est Pt Level 3 (03831) Diagnoses Peripheral vascular disease with claudication I73.9 Cachexia R64
[2024-01-15 15:03] VITALS: BP 130/70; PULSE 71; O2SAT 99; BMI 19.0
== END 2024-01-15 16:24 | disposition home or self-care (01) ==
PROVIDERS: PCP Internal Medicine; Visit Provider Internal Medicine
DX: I73.9 Peripheral vascular disease, unspecified (principal); R64 Cachexia
CPT/HCPCS: 99213

== ENCOUNTER 2024-04-26 15:46 | Outpatient (AMB) | payer MEDICARE, SELFPAY ==
[2024-04-26 15:47] VITALS: BP 112/78; PULSE 77; O2SAT 99; BMI 20.2
--- NOTE | 2024-04-26 15:47 | MHC.PC.OV ---
Vital Signs 04/26/24 15:47 Height 5 ft Weight 103 lb 8 oz BMI 20.2 BP 112/78 Blood Pressure Location Lt brachial Position Sitting Pulse 77 Pulse Source Pulse Oximeter Pulse Oximetry (%) 99 Oxygen Delivery Method Room Air Intake Visit Reasons: 3 month f/u Television Mechanic Required: No Accompanied by: Self / Same As Patient Allergies Sulfa (Sulfonamide Antibiotics) [SULFA(SULFONAMIDE ANTIBIOTICS)] Allergy (Intermediate, Verified 04/27/24 06:47) RASH/HIVES Medication List - Last Reconciled 04/27/24 by Mohinder Solis MD [Alpha Brain 2 caps PO DAILY] apixaban (Eliquis) 5 mg PO BID aspirin (Adult Aspirin Regimen) 81 mg PO DAILY gabapentin 300 mg PO TID lisinopril 40 mg PO DAILY metoprolol succinate ER 100 mg PO DAILY nitroglycerin 0.4 mg sublingual Q5M PRN rosuvastatin 20 mg PO DAILY sertraline 25 mg PO DAILY tramadol 50 mg PO BID PRN Tobacco use date assessed: 04/26/24 Fall risk assessment: 1 Fall in past year Last assessed Fall Risk: 04/26/24 Dental Screening Dental Screen Date: 04/26/24 Did you have a dental visit in the last 12 months?: Yes Did you have a dental problem in the last 6 months where you did not have access to dental care?: No Was dental information given to patient?: Patient has dentist HPI 3 month f/u HPI Details 68-year-old female presents to the office to discuss her chronic medical conditions. She is accompanied by her sister. Patient continues to do very well and is slowly improving in her overall health. Her weight has been increasing steadily and she is off the supplements. Continues to abstain from smoking. Her colitis symptoms have also been improving. She has a follow-up appointment with her survey research teacher in the coming month. Recently was evaluated by the vascular surgeon and an ultrasound of the legs did not show any further clots. Walking independently and able to do her activities of daily living. [facility] Medical History Peripheral vascular disease with claudication Peripheral vascular disease Atherosclerotic cardiovascular disease Essential hypertension Protein calorie malnutrition Syncope Essential hypertension Hypercholesterolemia Cataract fragments in both eyes following surgery Hip fracture Femur fracture High cholesterol Neuropathy High blood pressure Surgical History Stented coronary artery History of quadruple bypass History of colonoscopy History of hip surgery History of cataract surgery History of surgery History of ankle surgery History of endoscopy Family History Mother Heart attack Father Heart attack Social History Household Members: None Housing: House Do you presently have visiting nurse or other home services: No Alcohol intake: current Alcohol intake frequency: holidays/special occasions only Alcohol type: beer Patient Tobacco Use Status: Former Tobacco user Tobacco use type: Cigarette Cigarettes Per Day: 3 Years Smoked: 42 on and off Packs per year/per ci.00 e-Cigarette/Vaping Use: Never Used Second Hand Smoke Exposure: Yes service: No Current occupational status: employed Current occupation: rt handed Cognitive needs: Yes (cane/walker) Hearing needs: No Vision needs: Yes (glasses) Questionnaire PHQ-9 Over the last 2 weeks, how often have you been bothered by any of the following problems? 1. Little interest or pleasure in doing things: not at all 2. Feeling down, depressed, or hopeless: not at all 3. Trouble falling or staying asleep, or sleeping too much: not at all 4. Feeling tired or having little energy: not at all 5. Poor appetite or overeating: not at all 6. Feeling bad about yourself - or that you are a failure or have let yourself or your family down: not at all 7. Trouble concentrating on things, such as reading the newspaper or watching television: not at all 8. Moving or speaking so slowly that other people could have noticed. Or the opposite - being so fidgety or restless that you have been moving around a lot more than usual: not at all 9. Thoughts that you would be better off or of hurting yourself in some way: not at all Total score: 0 Depression Screening Interpretation: Negative Depression Screening Done: Yes Source: Developed by Drs. Rojas King, Marleen Morales, Travis Joyner and colleagues, with an educational kimi from [employer]. Thrive Questionnaire Date Thrive assessed: 04/26/24 I am a: Patient What is your living situation today?: I have a steady place to live Within the past 12 months, did the food you bought not last and you didn't have the money to get more?: Never true Within the past 12 months, did you worry whether your food would run out before you got money to buy more?: Never true Do you have trouble paying for medicines?: No Do you have trouble getting transportation to medical appointments?: No Do you have trouble paying your heating and electricity bill?: No Do you have trouble taking care of your child, family member or friend?: No Do you have trouble with day-to-day activities such as bathing, preparing meals, shopping, managing finances, etc.?: No Are you currently unemployed and looking for a job?: No Are you interested in more education?: No Please select the resources that you would like help with: None Currently or been in a relationship where the following occur: No concerns reported THRIVE Score: 0 AUDIT C Alcohol Use Questionnaire (AUDIT-C) 1. How often do you have a drink containing alcohol?: Monthly or less 2. How many drinks containing alcohol do you have on a typical day when you are drinking?: 1 or 2 Total Score: 1 CECY-7 AMB Questionnaire CECY-7 Date CECY - 7 assessed: 04/26/24 Feeling nervous, anxious, or on edge: 0 = Not at all Not being able to stop or control worryin = Not at all Worrying too much about different things: 0 = Not at all Trouble relaxin = Not at all Being so restless that it is hard to sit still: 0 = Not at all Becoming easily annoyed or irritable: 0 = Not at all Feeling afraid as if something awful might happen: 0 = Not at all Total CECY-7 score (0-4 normal; 5-9 mild; 10-14 moderate; 15-21 severe): 0 Source: Developed by Drs. Rojas King, Marleen Morales, Travis Joyner and colleagues, with an educational kimi from [employer]. Physical exam (Primary Care) Vital Signs: Last Vital Signs Pulse 77 04/26/24 15:47 BP 112/78 04/26/24 15:47 Pulse Ox 99 04/26/24 15:47 Oxygen Delivery Method Room Air 04/26/24 15:47 Care Plan Goal for BP management: Blood pressure is in range. BMI result Body Mass Index 20.2 Tobacco/Smoking Status: Tobacco use Status Tobacco use date assessed 04/26/24 04/26/24 15:48 Patient Tobacco Use Status Former Tobacco user 04/26/24 15:48 Tobacco use type Cigarette 04/26/24 15:48 e-Cigarette/Vaping Use Never Used 04/26/24 15:48 PHQ-9: PHQ-9 Score PHQ-9: Total score 0 04/26/24 16:02 Depression Screening Interpretation: Negative Thrive Assessment: Date of Thrive Assessment Date Thrive assessed 04/26/24 04/26/24 15:48 Currently or been in a relationship where the following occur: No concerns reported Advance Care Planning discussion: Exists, not on file Date of discussion: 04/27/24 Who was present: Patient and her sister. Forms completed: Health Care Proxy and MOLST Time spent: 1-15 minutes, not on file Actual minutes spent: 5 Const General: cooperative and healthy appearing Nutritional Appearance: well nourished Orientation/consciousness: patient oriented x3 Limitations: no limitations HENMT Head: Yes normal to inspection Eyes General: appearance normal, both eyes and all related structures Neck Neck: Yes normal visual inspection Chest Chest palpation & inspection: normal palpation of entire chest wall Resp Effort & Inspection: normal respiratory effort Neuro General: patient oriented x3 Assessment and Plan Assessment & Plan (1) Peripheral vascular disease with claudication: Code(s): I73.9 - Peripheral vascular disease, unspecified Plan: Condition is improving. Prescription for Eliquis sent. (2) Cachexia: Code(s): R64 - Cachexia Plan: She has stopped all supplementation. Patient is on a regular diet. Neurontin sent for symptomatic relief Medications: Refilled gabapentin 300 mg PO TID 90 caps 1RF apixaban (Eliquis) 5 mg PO BID 180 tabs 1RF Coding Level of Care Code Est Pt Level 4 (91860) Complex EM visit Add On G2211 Diagnoses Peripheral vascular disease with claudication I73.9 Cachexia R64 Additional Codes Vital Signs *Quality* - Advance Care Planning discussion: Exists, not on file ([id number]) Vital Signs *Quality* - Time spent: 1-15 minutes, not on file ([id number])
== END 2024-04-26 16:36 | disposition home or self-care (01) ==
PROVIDERS: PCP Internal Medicine; Visit Provider Internal Medicine
DX: I73.9 Peripheral vascular disease, unspecified (principal); R64 Cachexia; Z00.00 Encounter for general adult medical examination without abnormal findings
CPT/HCPCS: 1124F; 99214; G2211

== ENCOUNTER 2024-05-14 | Outpatient (REF) | payer MEDICARE, SELFPAY ==
[2024-05-24 17:24] LABS: Calprotectin, Fecal 17 mcg/g
== END 2024-05-14 00:01 | disposition home or self-care (01) ==
LOC: HO.LNP
PROVIDERS: Visit Provider Internal Medicine
DX: K52.9 Noninfective gastroenteritis and colitis, unspecified (principal); Z86.19 Personal history of other infectious and parasitic diseases
CPT/HCPCS: 83993

== ENCOUNTER 2024-06-01 14:27 | Outpatient (AMB) | payer MEDICARE, SELFPAY ==
[2024-06-01 14:28] VITALS: BP 130/64; PULSE 68; BMI 20.8
--- NOTE | 2024-06-01 14:28 | MHC.OFFVIS ---
Vital Signs 06/01/24 14:28 Height 5 ft Weight 106 lb 4.205 oz BMI 20.8 BP 130/64 Blood Pressure Location Lt brachial Position Sitting Pulse 68 Intake Visit Reasons: 6 mnth f/up Wool Presser Required: No Accompanied by: Self / Same As Patient Allergies Sulfa (Sulfonamide Antibiotics) [SULFA(SULFONAMIDE ANTIBIOTICS)] Allergy (Intermediate, Verified 04/27/24 06:47) RASH/HIVES Medication List - Last Reconciled 06/01/24 by Lizandro Feldman MD apixaban (Eliquis) 5 mg PO BID aspirin (Adult Aspirin Regimen) 81 mg PO DAILY gabapentin 300 mg PO TID lisinopril 40 mg PO DAILY metoprolol succinate ER 100 mg PO DAILY nitroglycerin 0.4 mg sublingual Q5M PRN rosuvastatin 20 mg PO DAILY sertraline 25 mg PO DAILY tramadol 50 mg PO BID PRN HPI Comments Details: Ana Rosa returns for follow-up regarding coronary artery disease. To recall, in the past, she had chest pain leading to cardiac catheterization which showed complex multivessel disease and then leading to coronary artery bypass surgery. She had a complicated course as there were several issues postoperatively. After the CABG, she apparently had inferolateral STEMI and went for a successful PCI of the anastomosis of MORELOS to LAD with drug-eluting stent. Following that, she had vascular surgery in her lower extremities including bilateral femoral thromboendarterectomy with patch angioplasty. Following that, partial colectomy for colonic ischemia, bowel anastomosis, abdominal closure among others. More recently, she underwent some additional vascular procedures in her lower extremities. Overall, she is frail but seems to be getting along okay. She walks with a cane. No clear-cut cardiac symptoms like angina. Breathing is stable. [facility] Medical History (Updated 04/27/24 @ 06:50 by Mohinder Solis MD) Peripheral vascular disease with claudication Peripheral vascular disease Atherosclerotic cardiovascular disease Essential hypertension Protein calorie malnutrition Syncope Essential hypertension Hypercholesterolemia Cataract fragments in both eyes following surgery Hip fracture Femur fracture High cholesterol Neuropathy High blood pressure Surgical History Stented coronary artery History of quadruple bypass History of colonoscopy (~06/21/22) History of hip surgery History of cataract surgery History of surgery History of ankle surgery History of endoscopy Family History Mother Heart attack Father Heart attack Social History Household Members: None Housing: House Do you presently have visiting nurse or other home services: No Alcohol intake: current Alcohol intake frequency: holidays/special occasions only Alcohol type: beer Patient Tobacco Use Status: Former Tobacco user Tobacco use type: Cigarette Cigarettes Per Day: 3 Years Smoked: 42 on and off e-Cigarette/Vaping Use: Never Used Second Hand Smoke Exposure: Yes service: No Current occupational status: employed Current occupation: rt handed Cognitive needs: Yes (cane/walker) Hearing needs: No Vision needs: Yes (glasses) Review of Systems Const Denies chills, Denies fatigue, Denies fever(s), Denies weight gain and Denies weight loss ENT Denies dizziness Card Denies chest pain, Denies leg edema, Denies lightheadedness, Denies palpitations, Reports dyspnea on exertion, Denies orthopnea and Denies other Resp Denies cough and Reports dyspnea on exertion GI Denies hematochezia and Denies change in stool character Musc Denies abnormal gait, Denies muscle weakness, Denies numbness, Denies radiating pain into limb and Denies tingling Neuro Denies abnormal gait, Denies dizziness, Denies numbness and Denies tingling Endo Denies fatigue and Denies palpitations Physical Exam Vital Signs: Last Vital Signs Pulse 68 06/01/24 14:28 BP 130/64 06/01/24 14:28 BMI result Body Mass Index 20.8 Const General: comfortable and no acute distress Orientation/consciousness: patient oriented x3 HEENT Other: Unremarkable Head: Yes normal to inspection Neck Neck: Yes normal visual inspection Chest Chest palpation & inspection: normal inspection of the chest Resp Auscultation: clear to auscultation bilaterally Cardio Palpation: normal PMI Heart sounds: S1 normal heart sound present, S2 normal heart sound present, no gallops, no murmurs and no rubs GI Palpation (GI): Soft to palpation Back/Spine/Pelvis Other: unremarkable Skin General skin exam: no rashes or lesions noted Neuro General: patient oriented x3 Extrem General: Yes normal to inspection Psych Mental Status: mental status grossly normal Office Procedures EKG Details: EKG with underlying sinus rhythm at 68/Min; biatrial enlargement; nonspecific ST-T changes; [place] [id number]-[id number], Complete Assessment & Plan Assessment & Plan (1) Atherosclerotic cardiovascular disease: Code(s): I25.10 - Atherosclerotic heart disease of [place] coronary artery without angina pectoris Category: Medical (2) Status post aorto-coronary artery bypass graft: Code(s): Z95.1 - Presence of aortocoronary bypass graft Category: Surgical (3) Stented coronary artery: Code(s): Z95.5 - Presence of coronary angioplasty implant and graft Category: Surgical (4) Essential hypertension: Code(s): I10 - Essential (primary) hypertension Category: Medical Plan Overall, coronary as well as vascular disease but generally stable from cardiac. Her vascular issues will need to be followed up at [facility]. With regard to medications, continue long-term aspirin. Remains on beta-blockers and statins. Lipids are acceptable. She states she has not smoked in a while. For blood pressure, she is on metoprolol and lisinopril. No changes with that either. Follow-up in 6 months. Coding Level of Care Code Est Pt Level 4 (31916) Diagnoses Atherosclerotic cardiovascular disease I25.10 Status post aorto-coronary artery bypass graft Z95.1 Stented coronary artery Z95.5 Essential hypertension I10 CPT Codes EKG - CPT: 63259-Uoqmrtgsludfrnjsp, Complete ([id number])
== END 2024-06-01 14:57 | disposition home or self-care (01) ==
PROVIDERS: PCP Internal Medicine; Visit Provider Internal Medicine
DX: I25.10 Atherosclerotic heart disease of native coronary artery without angina pectoris (principal); Z95.1 Presence of aortocoronary bypass graft; Z95.5 Presence of coronary angioplasty implant and graft; I10 Essential (primary) hypertension
CPT/HCPCS: 93010; 99214

== ENCOUNTER → 2024-06-01 14:27 | Outpatient (BNVA) | payer MEDICARE, SELFPAY | PROVIDERS: PCP Internal Medicine; Visit Provider Internal Medicine | DX: I25.10 Atherosclerotic heart disease of native coronary artery without angina pectoris (principal); I10 Essential (primary) hypertension; I25.2 Old myocardial infarction; Z95.1 Presence of aortocoronary bypass graft; Z95.5 Presence of coronary angioplasty implant and graft; Z87.891 Personal history of nicotine dependence | CPT/HCPCS: 93005; 99212 ==

== ENCOUNTER → 2024-12-02 14:49 | Outpatient (BNVA) | payer MEDICARE, SELFPAY | PROVIDERS: PCP Internal Medicine; Visit Provider Internal Medicine ==

== ENCOUNTER 2024-12-03 13:57 | Outpatient (AMB) | payer MEDICARE, SELFPAY ==
[2024-12-03 14:03] VITALS: BP 100/62; PULSE 74; BMI 20.5
--- NOTE | 2024-12-03 14:03 | MHC.OFFVIS ---
Vital Signs 12/03/24 14:03 Height 5 ft Weight 104 lb 15.04 oz BMI 20.5 BP 100/62 Blood Pressure Location Lt brachial Position Sitting Pulse 74 Pulse Source Monitor Intake Visit Reasons: fu Rn Labor Delivery Required: No Track Repairer Helper: Track Repairer Helper Present Allergies Sulfa (Sulfonamide Antibiotics) [SULFA(SULFONAMIDE ANTIBIOTICS)] Allergy (Intermediate, Verified 12/03/24 14:06) RASH/HIVES Medication List - Last Reconciled 12/03/24 by Delia Richards MANUFACTURING SYSTEMS ENGINEER-C apixaban (Eliquis) 5 mg PO BID aspirin (Adult Aspirin Regimen) 81 mg PO DAILY cholestyramine (with sugar) 4 gram ea PO gabapentin 300 mg PO TID lisinopril 40 mg PO DAILY metoprolol succinate ER 100 mg PO DAILY nitroglycerin 0.4 mg sublingual Q5M PRN rosuvastatin 20 mg PO DAILY sertraline 25 mg PO DAILY tramadol 50 mg PO BID PRN HPI HPI fu: Details: Ana Rosa is a 69-year-old female with past medical history of hypertension, hyperlipidemia, smoking, peripheral vascular disease, coronary artery disease status post coronary artery bypass grafting then inferior lateral STEMI with PCI of the anastomosis of the MORELOS to LAD with CLARISSA who presents for follow-up. Today she reports that she had been doing well since her last visit in June however in the last week she has notice some increased shortness of breath and 2 episodes of left chest pressure that occurred when laying in bed. She says she uses the stationary bike most days and cycles for 1 mi. she has not done this activity in the last week because she feels more short of breath. She has never had chest discomfort when cycling. She does not get chest discomfort with other physical activity. In the past when she had angina it was shortness of breath. She has no heart palpitations, presyncope, syncope. She has some lightheadedness at times without pattern. Take all meds as directed. No bleeding issues reported. Sister is present. [facility] Medical History (Updated 12/03/24 @ 15:00 by Delia Richards, MANUFACTURING SYSTEMS ENGINEER-C) Peripheral vascular disease with claudication Peripheral vascular disease Atherosclerotic cardiovascular disease Essential hypertension Protein calorie malnutrition Syncope Essential hypertension Hypercholesterolemia Cataract fragments in both eyes following surgery Hip fracture Femur fracture High cholesterol Neuropathy High blood pressure Surgical History (Updated 12/03/24 @ 16:04 by DeliaPJ MagallanesC) Stented coronary artery History of quadruple bypass History of colonoscopy (~06/21/22) History of hip surgery History of cataract surgery History of surgery History of ankle surgery History of endoscopy Family History Mother Heart attack Father Heart attack Social History Household Members: None Housing: House Do you presently have visiting nurse or other home services: No Alcohol intake: current Alcohol intake frequency: holidays/special occasions only Alcohol type: beer Patient Tobacco Use Status: Former Tobacco user Tobacco use type: Cigarette Cigarettes Per Day: 3 Years Smoked: 42 on and off e-Cigarette/Vaping Use: Never Used Second Hand Smoke Exposure: Yes service: No Current occupational status: employed Current occupation: rt handed Cognitive needs: Yes (cane/walker) Hearing needs: No Vision needs: Yes (glasses) Review of Systems Const All systems reviewed & are unremarkable except as noted in HPI and below ENT Denies dizziness Card Reports chest pain, Reports chest pain at rest, Denies chest pain with activity, Denies rapid heart rate, Denies pedal edema, Denies edema, Denies leg edema, Denies lightheadedness, Denies palpitations, Reports dyspnea, Reports dyspnea on exertion and Denies orthopnea Resp Denies cough, Reports dyspnea and Reports dyspnea on exertion GI Denies hematochezia and Denies change in stool character Musc Denies abnormal gait, Denies limited range of motion, Denies muscle cramps, Denies muscle weakness, Denies numbness, Denies radiating pain into limb, Denies stiffness and Denies tingling Neuro Denies abnormal gait, Denies dizziness, Denies numbness and Denies tingling Endo Denies palpitations Physical Exam Vital Signs: Last Vital Signs Pulse 74 12/03/24 14:03 BP 100/62 12/03/24 14:03 BMI result Body Mass Index 20.5 Const General: cooperative, healthy appearing, comfortable and no acute distress Orientation/consciousness: patient oriented x3 Neck Neck: Yes normal visual inspection and Yes no JVD Resp Effort & Inspection: normal respiratory effort Auscultation: clear to auscultation bilaterally, no crackles, no rales, no rhonchi and no wheezes Cardio Rate: regular rate Rhythm: regular rhythm Heart sounds: S1 normal heart sound present, S2 normal heart sound present, no gallops, no murmurs and no rubs Neuro General: patient oriented x3 Extrem General: Yes normal to inspection, No no pedal edema and No calf tenderness Psych Appearance: grossly normal Mental Status: mental status grossly normal Speech and movement: Normal speech and movement present Office Procedures EKG Details: Today, read by me SR, biatrial enlargement, anterior infarct, rate 74, Qtc 452ms [id number], Complete Assessment & Plan Assessment & Plan (1) CAD (coronary artery disease): Code(s): I25.10 - Atherosclerotic heart disease of [place] coronary artery without angina pectoris Category: Medical Plan: History of CAD, prior coronary artery bypass grafting, 2022 followed by inferior lateral STEMI and PCI to the MORELOS to LAD anastomosis. Last echocardiogram 04/30/2023 showed EF 60-65 %, can not exclude regional wall motion abnormality. EKG done today showing normal sinus rhythm, prior inferior infarct, rate 74. She is reporting recent increased shortness of breath and 2 episodes of left chest pressure at rest. Will check a pharmacological nuclear stress test to evaluate for ischemia. Will check an echocardiogram to evaluate EF, wall motion. Unable to further titrate meds, blood pressure 100/62. Continue metoprolol XL 100 mg daily. Continue aspirin, rosuvastatin. Signs and symptoms of angina reviewed. Emergency care if ever needed for symptoms. Cardiology follow-up 6 weeks, sooner if needed. (2) History of quadruple bypass: Comment: 11/08/2022 Code(s): Z95.1 - Presence of aortocoronary bypass graft Category: Surgical Plan: As above (3) Stented coronary artery: Comment: Stent to the MORELOS to LAD anastomosis Code(s): Z95.5 - Presence of coronary angioplasty implant and graft Category: Surgical Plan: As above (4) Left chest pressure: Code(s): R07.89 - Other chest pain Category: Medical Plan: As above (5) Shortness of breath: Code(s): R06.02 - Shortness of breath Category: Medical Plan: Chronic shortness of breath, recent increase in this symptom. She continues to smoke a few cigarettes daily. Underlying COPD likely contributes to this symptom. Checking for ischemia as above. (6) Smoker: Code(s): F17.200 - Nicotine dependence, unspecified, uncomplicated Category: Social Hx Plan: As above (7) Peripheral vascular disease with claudication: Code(s): I73.9 - Peripheral vascular disease, unspecified Category: Medical Plan: Follows with [facility] vascular Plan Time spent on chart review, documentation, interview and assessment Orders: Orders CA echo transthoracic complete Today I25.10 - Atherosclerotic heart disease of [place] coronary artery without angina pectoris, R06.02 - Shortness of breath, R07.89 - Other chest pain NM cardiolite stress test Today I25.10 - Atherosclerotic heart disease of [place] coronary artery without angina pectoris, R06.02 - Shortness of breath, R07.89 - Other chest pain, Z95.1 - Presence of aortocoronary bypass graft CA lexiscan stress w max Today I25.10 - Atherosclerotic heart disease of [place] coronary artery without angina pectoris, R06.02 - Shortness of breath, R07.89 - Other chest pain, Z95.1 - Presence of aortocoronary bypass graft Coding Level of Care Code Est Pt Level 4 (16060) Complex EM visit Add On G2211 Diagnoses CAD (coronary artery disease) I25.10 History of quadruple bypass Z95.1 Stented coronary artery Z95.5 Left chest pressure R07.89 Shortness of breath R06.02 Smoker F17.200 Peripheral vascular disease with claudication I73.9 CPT Codes EKG - CPT: 50775-[id number], Complete ([id number]) Time Spent (min) 36
--- OUTSIDE RECORDS SUMMARY | 2024-12-03 15:43 | XMS_ITS ---
Author Organization [facility] Address [address] [place] [address] Care Team Providers Care Linux Engineer Name Role Phone PARTH COREAS Primary Care Provider Rojas Iniguez [phone] REASON FOR VISIT stomach issues Encounters Encounter Location Date Provider Diagnosis [facility] [address] [place] [address] 09/15/2024 Rojas Plata Plan Of Treatment Next Appt Details Provider Name:Rojas Plata , 01/19/2025 02:40:00 PM, [address], [address], [place], [address], Progress Notes * CASSIDY SORENSENDOB: [birth year] (69 yo F)Acc No.[id number]:09/15/2024 Progress Notes Patient:?CASSIDY SORENSEN Provider:?Rojas Plata MD :1955???Age:68 Y???Sex:Female D ate:09/15/2024 Address:[address] [id number] Pcp:PARTH COREAS Subjective: * Chief Complaints: * ???1. Stomach issues. * Medical History:? Objective: * Vitals:? Assessment: Plan: * Treatment: * * The named appointment provid er may or may not be the originator of this progress note, and it is not deemed complete until electronically signed by the appointment provider. Sign off status: Pending * Provider:?Rojas Plata MD Date:? 025 Generated for Viola hung/Ju/Rani on:?12/03/2024 03:43 PM EDT
--- OUTSIDE RECORDS SUMMARY | 2024-12-03 15:44 | XMS_ITS ---
Author Organization [facility] Address [address] [place] [address] Care Team Providers Care Medical Laboratory Assistant Name Role Phone JOSS, KARTIK Primary Care Provider Rojas Iniguez [phone] REASON FOR VISIT R/S OV Encounters Encounter Location Date Provider Diagnosis [facility] [address] [place] [address] 09/15/2024 Rojas Plata Plan Of Treatment Next Appt Details Provider Name:oRjas Plata , 01/19/2025 02:40:00 PM, [address], [address], [place], [address], Progress Notes * CASSIDY SORENSENDOB: [birth year] (68 yo F)Acc No.[id number]:09/15/2024 Patient:?CASSIDY SORENSEN :1955???Age:68 Y???Sex:Female Address:[address] [place], [address] * true * Date:? Generated for Printi ng/Ju/eTransmitting on:?12/03/2024 03:43 PM EDT
--- OUTSIDE RECORDS SUMMARY | 2024-12-03 15:44 | XMS_ITS | Patient Health Record ---
Author Organization [facility] Address [address] [place] [address] Care Team Providers Care Electrotype Caster Name Role Phone [facility] Primary Care Provider Rojas Iniguez [phone] Allergies Allergen (clinical drug ingredient) Drug/Non Drug Allergy documented on EMR Reaction Allergy Type Onset Date Status Sulfa Unknown Drug Allergy Active Results Component Value Reference Range Notes Calprotectin, Fecal Reviewed date:05/24/2024 11:32:35 PM Interpretation: Performing Lab:[facility], [address] [place] [address] Notes/Report: Calprotectin, Fecal 17 Reference Range: <50 Normal 50-120 Borderline >120 Elevated Calprotectin in Crohn's disease and ulcerative colitis can be five to several thousand times above the reference population (50 mcg/g or less). Levels are usually 50 mcg/g or less in healthy patients and with irritable bowel syndrome. Repeat testing in 4-6 weeks is suggested for borderline values. THIS TEST WAS PERFORMED AT: [facility] [address] [place] [address] LAURA ROUSSEAU MD,PHD,NASH Reason For Referral No Information Medications Medication SIG (Take, Route, Frequency, Duration) Notes Start Date End Date Status Sertraline HCl 25 MG TAKE 1 TABLET BY MOUTH EVERY DAY Oral for 90 Active Aspirin 81 MG 1 tablet Orally Once a day for 30 day(s) Active Lisinopril 40 MG 1 tablet Orally Once a day Active Cholestyramine 4 GM/DOSE use from 09/04 to up to 1 full scoop once or twice a day mixed in 8 ounces of water or orange juice Orally Once or Twice a day for diarrhea for 30 day(s) Review patient's meds with her and have her adjust their timing in relation to the use of the cholestyramine. Tell her to submit the stool specimens to the hospital before she starts the cholestyramine. jen 05/07/2024 Active Vitamin D 400 UNIT Orally A ctive traMADol HCl 50 MG 1 tablet as needed Orally every 6 hrs Active Gabapentin 300 MG 1 capsule Orally Three times a day Active Metoprolol Succinate ER 50 MG TAKE 1 TABLET BY MOUTH EVERY DAY Oral for 90 Active Rosuvastatin Calcium 20 MG TAKE 1 TABLET BY MOUTH EVERY DAY Orally Once a day Active Eliquis 5 MG Oral for 90 Activ e Immunizations Vaccine Route Administration Date Status Comme nts Influenza Unknown 05/02/2021 Administered Social History Tobacco Use: Social History Observation Description Date Details (start date - stop date) Former Smoker NA - NA Tobacco Use/Smoking Question Answer Notes Patient is a former smoker How long has it been since you last smoked? 1-5 years Alcohol Screen Question Answer Notes Did you have a drink contain ing alcohol in the past year? Yes How often did you have a dri nk containing alcohol in the past year? Monthly or less (1 point) How many drinks did you have on a typical day when you were drinking in the past year? 1 or 2 drinks (0 point) Points 1 Interpretation Negative Section Notes: Smoker; 4-6 beers per week Smoker 6 cigs QD; no sig alc ohol Stopped smoking at the time of her CABG in 2022; no sig alcohol Problems Problem Type SNOMED Code ICD Code Onset Dates Problem Status W/U Status Risk Notes Problem Colon cancer screening (519618548) Colon cancer screening (Z12.11) Active confirmed Problem History of adenomatous polyp of colon (676476853) History of adenomatous polyp of colon (Z86.010) Active confirmed Problem Preprocedural examination (313314440353857) Preprocedural examination (Z01.818) Active confirmed Problem Chronic diarrhea (313313127) Chronic diarrhea (K52.9) Active confirmed Problem Diverticulosis of colon (430108542) Diverticulosis of colon (K57.30) Active confirmed Problem History of infectious disease (204551596) History of Clostridioides difficile infection (Z86.19) Active confirmed Vital Signs Blood pressure diastolic 00 mm Hg 05/07/2024 Height 61.5 in 05/07/2024 Blood pressure systolic 00 mm Hg 05/07/2024 Weight 103 lbs 05/07/2024 BMI 19.14 kg/m2 05/07/2024 Encounters Encounter Location Date Provider Diagnosis [facility] [address] [place] [address] 05/07/2024 Rojas Plata Chronic diarrhea K52 .9 and History of Clostridioides difficile infection Z86.19 [facility] [address] [place] [address] 09/15/2024 Rojas Plata Assessments Encounter Date Diagnosis (ICD Code) Assessment Notes Treatment Notes Treatment Clinical Notes Section Notes 05/07/2024 Chronic diarrhea (ICD-10 - K52.9) Need [facility] records from 10/2022 re: 2 or 3 abdominal surgeries and path reports I suspect that the main issue contributing to Ana Rosa's significant and persistent postoperative diarrhea is that of a bile-induced diarrhea due to her bowel surgery with removal of a significant amount of the colon and what I suspect involved resection of the ileocecal valve. The resection of the ileocecal valve would lead to increased bile in the colon causing a watery diarrhea and that, coupled with less colon to absorb the water, would lead to this ongoing problem with the persistent diarrhea. I shall attempt to obtain her surgical records, including the pathology reports, from [facility] to confirm her postoperative anatomy. In the meantime, I shall start her on a trial of cholestyramine powder to see if that can create some binding of the bile and hopefully alleviate at least some of the diarrhea. I did instruct her to start with a small dose once or twice a day and then increase that depending upon her clinical response. I did instruct her and the pharmacy to review all of her medications to be sure the timing of the cholestyramine will not interfere with those medications. I shall also check stool specimens including a C. difficile serology given her history of that infection last year. I don't think she needs any imaging studies nor laboratory testing on my part at the present time. I don't think a repeat colonoscopy is required at this time, but we reviewed that would be a possibility if the situation remains problematic and no other etiology or effective symptomatic treatment is found. She does describe that she has already tried Imodium without any relief, but we may want her to try that again or go on a trial of Lomotil if her diarrhea remains problematic. In the meantime, I did encourage her to maintain good nutritional intake which it does sound like she is presently doing based on her weight gain and clinical history. I have given her an appointment to see me in followup in several months but did advise her to keep me posted as to how she is doing on the cholestyramine. I did advise her to certainly call if things remain problematic or if she has any other questions I can be of assistance with in the meantime. Ana Rosa and her sister were comfortable with this plan. Thank you again for allowing me to participate in Ana Rosa's care. I shall continue to keep you advised of her progress. 05/07/2024 History of Clostridioides difficile infection (ICD-10 - Z86.19) I suspect that the main issue contributing to Ana Rosa's significant and persistent postoperative diarrhea is that of a bile-induced diarrhea due to her bowel surgery with removal of a significant amount of the colon and what I suspect involved resection of the ileocecal valve. The resection of the ileocecal valve would lead to increased bile in the colon causing a watery diarrhea and that, coupled with less colon to absorb the water, would lead to this ongoing problem with the persistent diarrhea. I shall attempt to obtain her surgical records, including the pathology reports, from [facility] to confirm her postoperative anatomy. In the meantime, I shall start her on a trial of cholestyramine powder to see if that can create some binding of the bile and hopefully alleviate at least some of the diarrhea. I did instruct her to start with a small dose once or twice a day and then increase that depending upon her clinical response. I did instruct her and the pharmacy to review all of her medications to be sure the timing of the cholestyramine will not interfere with those medications. I shall also check stool specimens including a C. difficile serology given her history of that infection last year. I don't think she needs any imaging studies nor laboratory testing on my part at the present time. I don't think a repeat colonoscopy is required at this time, but we reviewed that would be a possibility if the situation remains problematic and no other etiology or effective symptomatic treatment is found. She does describe that she has already tried Imodium without any relief, but we may want her to try that again or go on a trial of Lomotil if her diarrhea remains problematic. In the meantime, I did encourage her to maintain good nutritional intake which it does sound like she is presently doing based on her weight gain and clinical history. I have given her an appointment to see me in followup in several months but did advise her to keep me posted as to how she is doing on the cholestyramine. I did advise her to certainly call if things remain problematic or if she has any other questions I can be of assistance with in the meantime. Ana Rosa and her sister were comfortable with this plan. Thank you again for allowing me to participate in Ana Rosa's care. I shall continue to keep you advised of her progress. Plan Of Treatment Pending Test Test Name Order Date STOOL WBC 05/07/2024 C DIFFICILE RFLX PCR 05/07/2024 GI PANEL 05/07/2024 Future Test Test Name Order Date COLONOSCOPY 05/04/2014 COLONOSCOPY 04/18/2022 Next Appt Details Provider Name:Rojas Plata , 01/19/2025 02:40:00 PM, [address] [place] [address], [address], [place], [address], Insurance Providers Payer Name Payer Address Payer Phone Subscriber Number Group Number Insured Name Patient Relationship to Insured Coverage Start Date Coverage End Date MEDICARE OF [place] [address] [facility] [place] [address] [id number] HEATHER [place] Self - patient is the insured [employer] [address] [place] [address] [id number] ANA ROSA SORENSEN Self - patient is the insured Medical (General) History Medical History History ICD Code Hypertension Neuropathy/pain in left lower leg from a dog bite and surgery Denies DM,CVA,Lung disease,renal disease Arthritis Fibromyalgia Osteoporosis Hyperlipidemia Colonoscopy 2013 with 2 tubu lar adenomas--1 was relatively large and flat in the proximal ascending colon, and was removed Depression/Anxiety Glaucoma Kidney stones Colonocopy 06/2022 with a tubular adenom a removed Coronary artery disease--see s Dr. Feldman--surgery and stenting in 2022 as below Peripheral vascular disease with stenting and angioplasty of iliac stent and femoral arteries in 2022 Surgical History Surgery Date(Month/Year) Tonsillectomy Surgery on left leg from dog bite/pit bu ll Broken right foot broken Cataracts Broke femur in right leg and hip--hip re placemen 2016 Broken left hip and hip replacement 2020 [facility]V [facility] of [facility], ischemic bowel requiring partial colectomy of the ascending colon and proximal transverse colon, and lower extremity vascular disease requiring angioplasty and stenting of the iliacs and femoral arteries 10/2022 Angioplasty of RLE 01/2024
--- OUTSIDE RECORDS SUMMARY | 2024-12-03 15:44 | XMS_ITS | Clinical Summary ---
Author Organization [facility] Address [address] [place] [address] Care Team Providers Care Earth Science Faculty Member Name Role Phone Unavailable Primary Care Provider Unavailabl e Social History Tobacco Use Types Packs/Day Years Used Date Smoking Tobacco: Never Assessed Comments Unknown Sex and Gender Information Value Date Recorded Sex Assigned at Not on file Legal Sex Female 12:10 PM EDT Gender Identity Not on file Sexual Orientation Not on file Plan of Treatment Health Maintenance Due Date Last Done Comments Breast Cancer Screening 1955 Colorectal Cancer Screening: Annual FOBT 2005 Colorectal Cancer Screening: Sigmoidoscopy 2005 Pneumococcal Vaccine: 65+ Ye ars (1 of - PCV) 2021 Influenza Vaccine (Season Ended) 2025 Colorectal Cancer Screening: Colonoscopy 06/21/2032 06/21/2022 Hepatitis B Vaccine Aged Out No longe r eligible based on patient's age to complete this topic Insurance MEDICARE MEDICARE
--- OUTSIDE RECORDS SUMMARY | 2024-12-03 15:44 | XMS_ITS ---
Author Organization [facility] Address [address] [place] [address] Care Team Providers Care Nurse Charge Rn Name Role Phone PARTH COREAS Primary Care Provider Rojas Iniguez [phone] Allergies Allergen (clinical drug ingredient) Drug/Non Drug Allergy documented on EMR Reaction Allergy Type Onset Date Status Sulfa Unknown Drug Allergy Active Results Component Value Reference Range Notes Calprotectin, Fecal Reviewed date:05/24/2024 11:32:35 PM Interpretation: Performing Lab:[facility], [address] [place] [id number] Notes/Report: Calprotectin, Fecal 17 Reference Range: <50 [...] borderline values. THIS TEST WAS PERFORMED AT: [facility] [address] [place] [address] LAURA ROUSSEAU MD,PHD,NASH REASON FOR VISIT Patient presents today for stomach issues Medications Medication SIG (Take, Route, Frequency, Duration) Notes Start Date End Date Status Lisinopril 40 MG 1 tablet Orally Once a day Active Vitamin D 400 UNIT Orally A ctive traMADol HCl 50 MG 1 tablet as needed Orally every 6 hrs Active Gabapentin 300 MG 1 capsule Orally Three times a day Active Metoprolol Succinate ER 50 MG TAKE 1 TABLET BY MOUTH EVERY DAY Oral for 90 Active Sertraline HCl 25 MG TAKE 1 TABLET BY MOUTH EVERY DAY Oral for 90 Active Aspirin 81 MG 1 tablet Orally Once a day for 30 day(s) Active Cholestyramine 4 GM/DOSE use from 09/04 [...] she starts the cholestyramine. jen 05/07/2024 Active Rosuvastatin Calcium 20 MG TAKE 1 TABLET BY MOUTH EVERY DAY Orally Once a day Active Eliquis 5 MG Oral for 90 Activ e Social History Tobacco Use: Social History Observation [...] point) Points 1 Interpretation Negative Section Notes: Stopped smoking at the time of her CABG in 2022; no sig alcohol Problems Problem Type SNOMED Code ICD Code Onset Dates Problem Status W/U Status Risk Notes Problem Chronic diarrhea (238850949) Chronic diarrhea (K52.9) Active confirmed Problem History of infectious disease (048976680) History of Clostridioides difficile infection (Z86.19) Active confirmed Vital Signs Blood pressure systolic 00 mm Hg 05/07/20 24 Blood pressure diastolic 00 mm Hg 024 Height 61.5 in 05/07/2024 Weight 103 lbs 05/07/2024 BMI 19.14 kg/m2 05/07/2024 Encounters Encounter Location Date Provider Diagnosis [facility] [address] [place] [address] 05/07/2024 Rojas Plata Chronic diarrhea K52 .9 and History of Clostridioides difficile infection Z86.19 Assessments Encounter Date Diagnosis (ICD Code) Assessment Notes Treatment Notes Treatment Clinical Notes Section Notes 05/07/2024 Chronic diarrhea (ICD-10 - K52.9) Need [facility] records from 10/2022 re: 2 or 3 [...] surgical records, including the pathology reports, from [facility] to confirm her postoperative anatomy. In the [...] surgical records, including the pathology reports, from [facility] to confirm her postoperative anatomy. In the [...] advised of her progress. Plan Of Treatment Medication Medication Name Sig Start Date Stop Date Notes Cholestyramine 4 GM/DOSE use from 09/04 to up to 1 full scoop once or twice a day mixed in 8 ounces of water or orange juice Orally Once or Twice a day for diarrhea for 30 day(s) 05/07/2024 Review patient's meds with her and have her adjust their timing in relation to the use of the cholestyramine. Tell her to submit the stool specimens to the hospital before she starts the cholestyramine.Thank s Treatment Notes Assessment Notes Chronic diarrhea Need [facility] record s from 10/2022 re: 2 or 3 abdominal surgeries and path reports Pending Test Test Name Order Date STOOL WBC 05/07/2024 C DIFFICILE RFLX PCR 05/07/2024 GI PANEL 05/07/2024 Next Appt Details Follow Up: 4 Months, Reason: Provider Name:Rojas Plata , 01/19/2025 02:40:00 PM, [address] [place] [address], [address], [place], [address], Progress Notes * ABA SORENSENLYN JDOB: [birth year] (68 yo F)Acc No.[id number]:05/07/2024 Progress Notes Patient:?HEATHER SORENSENN Santiago Provider:?Rojas Plata MD :[id number]???Age:68 Y???Sex:Female D ate:05/07/2024 Address:[address] [place] [address] [place], [place] Pcp:PARTH COREAS Subjective: * Chief Complaints: * ???Patient presents today fo r stomach issues * HPI: ???incontinence:? I saw Ana Rosa in the office today for evaluation of persistent diarrhea subsequent to a CABG with associated multiple complications in 2022. She was accompanied by her twin sister, Bhavin, who helped to provide some history. Her son, Wilmer, was on the phone who also helped to provide some history. ?I last saw Ana Rosa in 2021, at which time she underwent a followup screening colonoscopy with removal of a tubular adenoma. At that time she was doing well from a GI standpoint. She was not having any issues with diarrhea or any other particular GI complaints. She had always been very thin but things were otherwise stable. ?As you know, she underwent a four-vessel CABG in October of 2022 with multiple postoperative complications including a NV that required a stent placement, ischemic bowel that required what appears to have been at least a right colectomy and partial resection of the transverse colon, and multiple issues with peripheral vascular disease requiring angioplasty and stent placements in her iliac and femoral arteries. She was in the hospital for approximately 6 weeks and then in subsequent rehabilitation for another 6 weeks before going home. She had an episode of C. difficile infection in April of 2023 and was admitted to [facility] at that time. ?Her main issue presently is that of persistent diarrhea ever since all of her surgeries last year. She describes that she presently has at least 3 to 5 loose bowel movements each day. These are primarily in the morning but can occur later in the day as well. She will have at least 2 or 3 days each month of greater than 6 loose bowel movements that cause her to be homebound as well. She denies any signs of hematochezia nor melena. She does have some abdominal cramps but denies any persistent abdominal pain. She has not noticed jaundice, fevers, nausea, vomiting, significant heartburn, dysphagia, nor anorexia. In fact, she has gained about 20 pounds since she was able to leave rehab last year. ?She does not use any significant dairy products. There is no known family history of colon cancer, inflammatory bowel disease, or celiac disease. ?She reports that she has not turned in any stool specimens this year nor has she had any recent imaging studies of her abdomen. She did have a CT scan of her abdomen in April of 2023 that did not show any acute abnormalities and specifically did not show any evidence of colitis. * ROS:?General/Constitutional:?Change in appetite?denies.?Chills?denies.?Fatigue?admits.?Ophthalmologic:?Comments?all negative.?ENT:?Comments?all negative.?Respiratory:?hemoptysis?denies.?Cough?denies.?Cardiovascular:?Chest pain?denies.?Orthopnea?denies.?Gastrointestinal:?Comments?See HPI for details.?Genitourinary:?Hematuria?denies.?Dysuria?denies.?Musculoskeletal:?Patient complaining of?Left lower leg pain.?Painful joints?denies.?Weakness?denies.?Skin:?Itching?denies.?Rash?denies.?Neurologic:?Headache?denies.?Seizures?denies.?Psychiatric:?Comments?Anxiety and depression.? * Medical History:? * Surgical History:?Tonsillect leodan Surgery on left leg from dog bite/pit bull Broken right foot broken Cataracts Broke femur in right leg and hip--hip replacemen 2016Broken left hip and hip replacement 2020 4V CABG complicated by NV with placement of stent, ischemic bowel requiring partial colectomy of the ascending colon and proximal transverse colon, and lower extremity vascular disease requiring angioplasty and stenting of the iliacs and femoral arteries ngioplasty of RLE 01/2024 * Hospitalization/Major Diagno stic Procedure:?No Hospitalization History. * Family History:?Father: dece ased, diagnosed with Heart disease.?Mother: , diagnosed with Heart disease.? No colorectal cancer, colitis, celiac disease. * Social History:?Tobacco Use:?Tobacco Use/Smoking?Patient is a?former smoker,?How long has it been since you last smoked??1-5 years.?Drugs/Alcohol:?Alcohol Screen?Did you have a drink containing alcohol in the past year??Yes,?How often did you have a drink containing alcohol in the past year??Monthly or less (1 point), How many drinks did you have on a typical day when you were drinking in the past year??1 or 2 drinks (0 point),?Points?1,?Interpretation?Negative.?Miscellaneous:?Marital status: . 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 ???Stopped smoking at the time of her CABG in 2022; no sig alcohol. * Medications:?TakingAspirin 8 1 MG Tablet Delayed Release 1 tablet Orally Once a dayLisinopril 40 MG Tablet 1 tablet Orally Once a dayVitamin D 400 UNIT Tablet Orally traMADol HCl 50 MG Tablet 1 tablet as needed Orally every 6 hrsGabapentin 300 MG Capsule 1 capsule Orally Three times a dayMetoprolol Succinate ER 50 MG Tablet Extended Release 24 Hour TAKE 1 TABLET BY MOUTH EVERY DAY Oral Rosuvastatin Calcium 20 MG Tablet TAKE 1 TABLET BY MOUTH EVERY DAY Orally Once a dayEliquis 5 MG Tablet Oral Sertraline HCl 25 MG Tablet TAKE 1 TABLET BY MOUTH EVERY DAY Oral Taking Aspirin 81 MG Tablet Delayed Release 1 tablet Orally Once a dayTaking Lisinopril 40 MG Tablet 1 tablet Orally Once a dayTaking Vitamin D 400 UNIT Tablet Orally Taking traMADol HCl 50 MG Tablet 1 tablet as needed Orally every 6 hrsTaking Gabapentin 300 MG Capsule 1 capsule Orally Three times a dayTaking Metoprolol Succinate ER 50 MG Tablet Extended Release 24 Hour TAKE 1 TABLET BY MOUTH EVERY DAY Oral Taking Rosuvastatin Calcium 20 MG Tablet TAKE 1 TABLET BY MOUTH EVERY DAY Orally Once a dayTaking Eliquis 5 MG Tablet Oral Taking Sertraline HCl 25 MG Tablet TAKE 1 TABLET BY MOUTH EVERY DAY Oral DiscontinuedLatanoprost 0.005 % Solution INSTILL 1 DROP IN BOTH EYES AT BEDTIME Ophthalmic Timolol Maleate 0.5 % Solution INSTILL 1 DROP IN BOTH EYES DAILY IN THE MORNING Ophthalmic Medication List reviewed and reconciled with the patientDiscontinued Latanoprost 0.005 % Solution INSTILL 1 DROP IN BOTH EYES AT BEDTIME Ophthalmic Discontinued Timolol Maleate 0.5 % Solution INSTILL 1 DROP IN BOTH EYES DAILY IN THE MORNING Ophthalmic Medication List reviewed and reconciled with the patient * Allergies:?Sulfa Objective: * Vitals:?Wt: 103 lbs, Ht: 61. 5 in, BMI:19.14 Index, BP: 00/00 mm Hg. * Examination: ???General Examination: ?GENERAL APPEARANCE:?pleasant, alert, and chronically ill-appearing female in?no acute distress.?EYES:?sclera non-icteric.?ORAL CAVITY:?mucosa moist.?NECK/THYROID:?no cervical lymphadenopathy, neck supple.?SKIN:?nonjaundiced, no spider angiomata.?HEART:?S1, S2 normal.?LUNGS:?clear to auscultation bilaterally.?ABDOMEN:?normal bowel sounds, no guarding or rigidity, no guarding or rigidity, no masses palpable, soft, nontender, nondistended. Multiple well-healed incision scars.?NEUROLOGIC:?alert and oriented.? Assessment: * Assessment: 1.?Chronic diarrhea - K52.9 (Primary)?2.?History of Clostridioides difficile infection - Z86.19? I suspect that the main issu e contributing to Ana Rosa's significant and persistent [...] surgical records, including the pathology reports, from [facility] to confirm her postoperative anatomy. In the [...] to keep you advised of her progress. Plan: * Treatment: 2.?History of Clostridioides difficile infection?LAB: STOOL WBC ?LAB: C DIFFICILE RFLX PCR ?LAB: Calprotectin, Fecal ?LAB: GI PANEL * Procedure Codes:?3017F COLOR ECTAL CA SCREEN DOC [id number] TOBACCO [id number] BP SCR NOT PRFRM REC REASON NOS * Preventive Medicine:? ??Urinary Incontinence:?Urinary Incontinence?Assessment:?Present,?Plan of care documented:?No, reason not specified.? ??Screenings:?Fall Risk Screening?Fall Risk Assessment:?No falls in the past year uses cane,?Assessment:?Not performed, no reason specified.? * Follow Up:?4 Months * * Sign off status: Completed true * Provider:?Rojas Plata MD Date:? 024 Generated for Viola hung/Ju/Rani on:?12/03/2024 03:43 PM EDT History and Physical Notes * HPI (History of Present Illness) Category Sub-Category Detail Notes Category Not es incontinence I saw Ana Rosa in the office today for evaluation of persistent diarrhea subsequent to a CABG with associated multiple complications in 2022. She was accompanied by her twin sister, Bhavin, who helped to provide some history. Her son, Wilmer, was on the phone who also helped to provide some history. I last saw Ana Rosa in 2021, at which time she underwent a followup screening colonoscopy with removal of a tubular adenoma. At that time she was doing well from a GI standpoint. She was not having any issues with diarrhea or any other particular GI complaints. She had always been very thin but things were otherwise stable. As you know, she underwent a four-vessel CABG in October of 2022 with multiple postoperative complications including a NV that required a stent placement, ischemic bowel that required what appears to have been at least a right colectomy and partial resection of the transverse colon, and multiple issues with peripheral vascular disease requiring angioplasty and stent placements in her iliac and femoral arteries. She was in the hospital for approximately 6 weeks and then in subsequent rehabilitation for another 6 weeks before going home. She had an episode of C. difficile infection in April of 2023 and was admitted to [facility] at that time. Her main issue presently is that of persistent diarrhea ever since all of her surgeries last year. She describes that she presently has at least 3 to 5 loose bowel movements each day. These are primarily in the morning but can occur later in the day as well. She will have at least 2 or 3 days each month of greater than 6 loose bowel movements that cause her to be homebound as well. She denies any signs of hematochezia nor melena. She does have some abdominal cramps but denies any persistent abdominal pain. She has not noticed jaundice, fevers, nausea, vomiting, significant heartburn, dysphagia, nor anorexia. In fact, she has gained about 20 pounds since she was able to leave rehab last year. She does not use any significant dairy products. There is no known family history of colon cancer, inflammatory bowel disease, or celiac disease. She reports that she has not turned in any stool specimens this year nor has she had any recent imaging studies of her abdomen. She did have a CT scan of her abdomen in April of 2023 that did not show any acute abnormalities and specifically did not show any evidence of colitis. Examination Category Sub-Category Detail Notes Category Not es General Examination GENERAL APPEARANCE: pleasant , alert, and chronically ill-appearing female in no acute distress HEAD: EYES: sclera non-icteric EARS: NOSE: THROAT: NECK/THYROID: no cervical lymphade nopathy, neck supple HEART: S1, S2 normal CHEST: LUNGS: clear to auscultatio n bilaterally ABDOMEN: normal bowel sounds, no guarding or rigidity, no guarding or rigidity, no masses palpable, soft, nontender, nondistended. Multiple well-healed incision scars NEUROLOGIC: alert and oriented SKIN: nonjaundiced, no spi sary angiomata EXTREMITIES: PERIPHERAL PULSES: BACK: BREASTS: MUSCULOSKELETAL: MALE GENITOURINARY: LYMPH NODES: RECTAL EXAM: FEMALE GENITOURINARY: ORAL CAVITY: mucosa moist
== END 2024-12-03 14:52 | disposition home or self-care (01) ==
PROVIDERS: PCP Internal Medicine; Visit Provider Nurse Practitioner Family
DX: I25.10 Atherosclerotic heart disease of native coronary artery without angina pectoris (principal); Z95.1 Presence of aortocoronary bypass graft; Z95.5 Presence of coronary angioplasty implant and graft; R07.89 Other chest pain; R06.02 Shortness of breath; F17.200 Nicotine dependence, unspecified, uncomplicated; I73.9 Peripheral vascular disease, unspecified
CPT/HCPCS: 93010; 99214; G2211

== ENCOUNTER → 2024-12-03 13:57 | Outpatient (BNVA) | payer MEDICARE, SELFPAY | PROVIDERS: PCP Internal Medicine; Visit Provider Nurse Practitioner Family | DX: I10 Essential (primary) hypertension (principal); I25.2 Old myocardial infarction; I25.10 Atherosclerotic heart disease of native coronary artery without angina pectoris; E78.5 Hyperlipidemia, unspecified; I73.9 Peripheral vascular disease, unspecified; R07.89 Other chest pain; R06.02 Shortness of breath; Z95.5 Presence of coronary angioplasty implant and graft; Z95.1 Presence of aortocoronary bypass graft; Z87.891 Personal history of nicotine dependence | CPT/HCPCS: 93005; 99212 ==

== ENCOUNTER 2024-12-23 11:12 | Outpatient (AMB) | payer MEDICARE, SELFPAY ==
--- NOTE | 2024-12-23 11:21 | A.OFFPC_ITS ---
Vital Signs 12/23/24 11:23 Height 5 ft Weight 104 lb BMI 20.3 BP 120/64 Blood Pressure Location Lt brachial Position Sitting Pulse 70 Pulse Source Pulse Oximeter Temp 97.1 F Temp Source Temporal Artery Scan Pulse Oximetry (%) 98 Oxygen Delivery Method Room Air Intake Visit Reasons: 3 month f/u Intake Note: Patient is here to follow up on CAD, PVD, Neuropathy, Hypercholesterolemia. Charter Driver Required: No Power Digger Operator: Present Accompanied by: Sister Allergies Sulfa (Sulfonamide Antibiotics) [SULFA(SULFONAMIDE ANTIBIOTICS)] Allergy (Intermediate, Verified 12/23/24 11:36) RASH/HIVES Medication List - Last Reconciled 12/23/24 by Ammy Odom PA-C apixaban (Eliquis) 5 mg PO BID aspirin (Adult Aspirin Regimen) 81 mg PO DAILY cholestyramine (with sugar) 4 gram ea PO gabapentin 300 mg PO TID lisinopril 40 mg PO DAILY metoprolol succinate ER 100 mg PO DAILY nitroglycerin 0.4 mg sublingual Q5M PRN rosuvastatin 20 mg PO DAILY sertraline 25 mg PO DAILY tramadol 50 mg PO BID PRN Tobacco use date assessed: 12/23/24 Fall risk assessment: No Falls in past year Last assessed Fall Risk: 12/23/24 Dental Screening Dental Screen Date: 12/23/24 Did you have a dental visit in the last 12 months?: Yes Did you have a dental problem in the last 6 months where you did not have access to dental care?: No Was dental information given to patient?: Patient has dentist HPI 3 month f/u HPI Details The patient is a 69-year-old female presenting with a follow-up for chronic cardiovascular conditions. She underwent CABG two years prior, facing postoperative issues that required prolonged hospitalization and rehabilitation. She reports ongoing periods of left-sided chest pressure and shortness of breath, consistent with angina, which are of particular concern given her cardiac history. Seen by Dr. Feldman who ordered an echocardiogram and a nuclear stress test and she also has follow-up with him next month as well. She wanted me to send him a message due to she is going to see Dr. Feldman on 01/07/2025 although her nuclear stress test and echocardiogram are scheduled until January 27 and patient is unsure if she should reschedule her community marketing manager's appointment until after her nuclear stress test and echocardiogram. A message was sent to the work group of Dr. Feldman the community marketing manager at this time. 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 Her leg injury from a pit bull attack years ago further complicated these mobility issues. The patient has undergone gastrointestinal surgery for a bowel condition that has led to dysmotility, currently under the care of a ornamental metal erector. Her family history indicates a genetic predisposition to cardiovascular disease, adding to her risk profile. Social History - Family Status: Has a twin sister who a ssists with medical appointments. - Exercise: Limited due to mobility issu es and neuropathy. - Transportation: Relies on her sister f or driving; resuming driving slowly since regaining some mobility. - Family History: Strong genetic predisp osition to cardiovascular diseases. [facility] Medical History (Updated 12/23/24 @ 14:22 by Ammy Odom PA-C) Follow-up exam, 3-6 months since previous exam Cervical cancer screening History of mammogram (~08/07/23) Peripheral vascular disease with claudication Peripheral vascular disease Atherosclerotic cardiovascular disease Essential hypertension Protein calorie malnutrition Syncope Essential hypertension Hypercholesterolemia Cataract fragments in both eyes following surgery Hip fracture Femur fracture High cholesterol Neuropathy High blood pressure Surgical History Stented coronary artery History of quadruple bypass History of colonoscopy (~06/21/22) History of hip surgery History of cataract surgery History of surgery History of ankle surgery History of endoscopy Family History Mother Heart attack Father Heart attack Social History Household Members: None Housing: House Do you presently have visiting nurse or other home services: No Alcohol intake: current Alcohol intake frequency: holidays/special occasions only Alcohol type: beer Patient Tobacco Use Status: Former Tobacco user Tobacco use type: Cigarette Cigarettes Per Day: 3 Years Smoked: 42 on and off e-Cigarette/Vaping Use: Never Used Second Hand Smoke Exposure: Yes service: No Current occupational status: employed Current occupation: rt handed Cognitive needs: Yes (cane/walker) Hearing needs: No Vision needs: Yes (glasses) Questionnaire PHQ-9 Over the last 2 weeks, how often have you been bothered by any of the following problems? 1. Little interest or pleasure in doing things: not at all 2. Feeling down, depressed, or hopeless: not at all 3. Trouble falling or staying asleep, or sleeping too much: not at all 4. Feeling tired or having little energy: not at all 5. Poor appetite or overeating: not at all 6. Feeling bad about yourself - or that you are a failure or have let yourself or your family down: not at all 7. Trouble concentrating on things, such as reading the newspaper or watching television: not at all 8. Moving or speaking so slowly that other people could have noticed. Or the opposite - being so fidgety or restless that you have been moving around a lot more than usual: not at all 9. Thoughts that you would be better off or of hurting yourself in some way: not at all Total score: 0 Depression Screening Interpretation: Negative Depression Screening Done: Yes 23879 - PHQ-9 Billing: Yes Source: Developed by Drs. Rojas King, Marleen Morales, Travis Joyner and colleagues, with an educational kimi from [employer]. Thrive Questionnaire Date Thrive assessed: 12/23/24 I am a: Patient What is your living situation today?: I have a steady place to live Within the past 12 months, did the food you bought not last and you didn't have the money to get more?: Never true Within the past 12 months, did you worry whether your food would run out before you got money to buy more?: Never true Do you have trouble paying for medicines?: No Do you have trouble getting transportation to medical appointments?: No Do you have trouble paying your heating and electricity bill?: No Do you have trouble taking care of your child, family member or friend?: No Do you have trouble with day-to-day activities such as bathing, preparing meals, shopping, managing finances, etc.?: No Are you currently unemployed and looking for a job?: No Are you interested in more education?: No Please select the resources that you would like help with: None Currently or been in a relationship where the following occur: No concerns reported THRIVE Score: 0 AUDIT C Alcohol Use Questionnaire (AUDIT-C) 2. How many drinks containing alcohol do you have on a typical day when you are drinking?: 1 or 2 3. How often do you have six or more drinks on one occasion?: Never Total Score: 0 Score Reviewed/Action Taken: No CECY-7 AMB Questionnaire CECY-7 Date CECY - 7 assessed: 12/23/24 Feeling nervous, anxious, or on edge: 0 = Not at all Not being able to stop or control worryin = Not at all Worrying too much about different things: 0 = Not at all Trouble relaxin = Not at all Being so restless that it is hard to sit still: 0 = Not at all Becoming easily annoyed or irritable: 0 = Not at all Feeling afraid as if something awful might happen: 0 = Not at all Total CECY-7 score (0-4 normal; 5-9 mild; 10-14 moderate; 15-21 severe): 0 Source: Developed by Drs. Rojas King, Marleen Morales, Travis Joyner and colleagues, with an educational kimi from [employer]. CECY-7 Assessment Billing CECY-7 Assessment Tool: CECY-7 Assessment 64965 Review of Systems Const Details: - Cardiovascular: Reports intermittent chest pressure; denies current severe pain. - Respiratory: Reports intermittent shortness of breath. - Neurological: Reports lower extremity neuropathy. - Gastrointestinal: Reports gastrointestinal dysmotility post-surgery. - Musculoskeletal: Reports limited mobility due to neuropathy and previous leg injury. Physical exam (Primary Care) Vital Signs: Last Vital Signs Temp 97.1 F 12/23/24 11:23 Pulse 70 12/23/24 11:23 BP 120/64 12/23/24 11:23 Pulse Ox 98 12/23/24 11:23 Oxygen Delivery Method Room Air 12/23/24 11:23 Care Plan Goal for BP management: <130/90 at Goal BMI result Body Mass Index 20.3 normal bmi Tobacco/Smoking Status: Tobacco use Status Tobacco use date assessed 12/23/24 12/23/24 11:28 Patient Tobacco Use Status Former Tobacco user 12/23/24 11:28 Tobacco use type Cigarette 12/23/24 11:28 e-Cigarette/Vaping Use Never Used 12/23/24 11:28 PHQ-9: PHQ-9 Score PHQ-9: Total score 0 12/23/24 11:38 Depression Screening Interpretation: Negative Thrive Assessment: Date of Thrive Assessment Date Thrive assessed 12/23/24 12/23/24 11:28 Currently or been in a relationship where the following occur: No concerns reported Const Other: Appearance: Alert. Oriented X3. No acute distress. Head: Normal external exam. Normocephalic. Atraumatic. Eyes: Pupils are equal, round, and reactive to light. Extraocular movements intact. Conjunctiva and sclera normal. Eyelids normal. Ears: External auditory canal normal. Tympanic membranes normal. Throat: Pharynx normal. Uvula midline. Moist mucous membranes. Neck: Normal inspection. Neck supple. Full range of motion. No adenopathy. Cardiovascular: Normal heart rate and rhythm. Heart sound normal. No murmurs noted. Pulses normal throughout. Respiratory: No respiratory distress. Painless inspiration. Breath sounds normal. No wheezes/rales/rhonchi noted. Chest nontender. No accessory muscle usage noted or decreased air movement noted. Abdomen: Soft and nontender. Back: Full range of motion noted. Skin: Skin warm and dry. Normal skin color. Normal skin turgor. No rashes/lesions/lacerations noted. Extremities: No lower extremity edema. Extremities exhibit normal range of motion. Neuro: Oriented X 3. No motor deficit. No sensory deficit. Reflexes normal. Results Reviewed Results Reviewed: - Labs: 2022 Hemoglobin A1c was 5.2%, normal kidney function, normal liver enzymes. - Tests: Scheduled nuclear med test and echocardiogram on January 27. Coding Level of Care Code Est Pt Level 4 (20064) Complex EM visit Add On G2211 Diagnoses Follow-up exam, 3-6 months since previous exam Z09 Cervical cancer screening Z12.4 Shortness of breath R06.02 Left chest pressure R07.89 Stented coronary artery Z95.5 History of quadruple bypass Z95.1 CAD (coronary artery disease) I25.10 Neuropathy G62.9 Hypercholesterolemia E78.00 Additional Codes CECY-7 Assessment Billing - CECY-7 Assessment Tool: CECY-7 Assessment 28215 ([id number]) PHQ-9 - 15397 - PHQ-9 Billing: Yes ([id number]) Assessment & Plan Assessment & Plan (1) Follow-up exam, 3-6 months since previous exam: Code(s): Z09 - Encounter for follow-up examination after completed treatment for conditions other than malignant neoplasm Category: Medical (2) Cervical cancer screening: Code(s): Z12.4 - Encounter for screening for malignant neoplasm of cervix Category: Medical Plan: Patient has not had any cervical cancer screening in over a year to. Will refer to corporate physical security supervisor for further evaluation and management. (3) Shortness of breath: Code(s): R06.02 - Shortness of breath Category: Medical Plan: Patient was seen by Dr. Feldman's physician reading assistant recently. Patient has follow-up with Dr. Feldman on 01/07/2025. Patient has echocardiogram and nuclear stress test ordered by Cardiology on January 27. Sent a message to Dr. Feldman's work group to find out if the patient should go to her appointment on January 07 or reschedule until after her nuclear stress test and echocardiogram. Condition is chronic and stable continue to monitor. (4) Left chest pressure: Code(s): R07.89 - Other chest pain Category: Medical Plan: Patient was seen by Dr. Feldman's physician reading assistant recently. Patient has follow-up with Dr. Feldman on 01/07/2025. Patient has echocardiogram and nuclear stress test ordered by Cardiology on January 27. Sent a message to Dr. Feldman's work group to find out if the patient should go to her appointment on January 07 or reschedule until after her nuclear stress test and echocardiogram. Condition is chronic and stable continue to monitor. (5) Stented coronary artery: Comment: Stent to the MORELOS to LAD anastomosis Code(s): Z95.5 - Presence of coronary angioplasty implant and graft Category: Surgical Plan: Patient to continue Eliquis, aspirin, metoprolol extended release, nitro as ne eded, rosuvastatin. Condition is chronic and stable continue to monitor. (6) History of quadruple bypass: Comment: 11/08/2022 Code(s): Z95.1 - Presence of aortocoronary bypass graft Category: Surgical Plan: Patient to continue Eliquis, aspirin, metoprolol extended release, nitro as needed, rosuvastatin. Condition is chronic and stable continue to monitor. (7) CAD (coronary artery disease): Code(s): I25.10 - Atherosclerotic heart disease of resighini coronary artery without angina pectoris Category: Medical Plan: Patient to continue Eliquis, aspirin, metoprolol extended release, nitro as needed, rosuvastatin. Condition is chronic and stable continue to monitor. (8) Neuropathy: Code(s): G62.9 - Polyneuropathy, unspecified Category: Medical Plan: Patient to continue gabapentin 300 mg p.o. t.i.d.. Condition is chronic and see will continue to monitor. (9) Hypercholesterolemia: Code(s): E78.00 - Pure hypercholesterolemia, unspecified Category: Medical Plan: Patient to continue rouvastatin 20 mg daily. Condition is chronic and stable continue to monitor. Plan Plan Patient was informed and verbally consented to the use of an ambient scribe for clinic note documentation during this visit. 1. Coronary Artery Disease The patient will undergo a nuclear medicine test and echocardiogram on January 27. Post-results, a cardiology follow-up will evaluate current angina management and treatment adjustment. 2. Peripheral Neuropathy Optimize symptom management with gabapentin. Encourage gradual and safe mobility enhancement exercises. Monitor condition during follow-ups for any need to modify therapy. 3. Hypertension Continue monitoring blood pressure; adjust lisinopril dosage as needed. Emphasize maintaining a record of blood pressure readings for regular review. 4. Hyperlipidemia Maintain current statin therapy and ensure annual lipid profile assessment to monitor and manage cholesterol levels. 5. Gastrointestinal Dysmotility Schedule continues follow-up with ornamental metal erector for symptom monitoring and dietary recommendations. I discussed the management of the patient's coronary artery disease, emphasizing the importance of the upcoming nuclear med test and echocardiogram scheduled for January 27, which will provide critical insights into her cardiac function and guide therapy adjustments. We discussed the need for regular cardiology follow-ups to ensure optimal angina control. Peripheral neuropathy management focused on symptom relief via gabapentin and encouraged gradual mobility improvement. Hypertension and hyperlipidemia will continue to be managed with current medication regimens, with adjustments made based on future readings. Gastrointestinal issues remain under the care of a ornamental metal erector, with dietary management playing an important role in symptom management. The importance of regular monitoring and follow-ups to manage these conditions effectively was stressed. Orders: Orders C Reactive Protein Today Z00.00 - Encounter for general adult medical examination without abnormal findings Complete Blood Count Auto Diff Today Z00.00 - Encounter for general adult medical examination without abnormal findings Magnesium Today Z00.00 - Encounter for general adult medical examination without abnormal findings Liver Panel Today Z00.00 - Encounter for general adult medical examination without abnormal findings Lipid Panel Today Z00.00 - Encounter for general adult medical examination without abnormal findings Hemoglobin A1c Today Z00.00 - Encounter for general adult medical examination without abnormal findings Vitamin B12 and Folate Today Z00.00 - Encounter for general adult medical examination without abnormal findings TSH reflex Free T4 Today Z00.00 - Encounter for general adult medical examination without abnormal findings Vitamin B1 Today Z00.00 - Encounter for general adult medical examination without abnormal findings XR DEXA axial skeleton Today M81.0 - Age-related osteoporosis without current pathological fracture Comprehensive [place]. Panel Fast Today Z00.00 - Encounter for general adult medical examination without abnormal findings Erythrocyte Sedimentation Rate Today Z00.00 - Encounter for general adult medical examination without abnormal findings Vitamin D 25-OH Total Today Z00.00 - Encounter for general adult medical examination without abnormal findings Vitamin A Today Z00.00 - Encounter for general adult medical examination without abnormal findings Zinc Today Z00.00 - Encounter for general adult medical examination without abnormal findings Referrals MANAGER OF CLINICAL Referral Z12.4 - Encounter for screening for malignant neoplasm of cervix Medications: Refilled tramadol 50 mg PO BID PRN 60 tabs 0RF Pain G89.21 - Chronic pain due to trauma Patient Instructions: - Continue taking your medications as prescribed, including gabapentin, lisinopril, and rosuvastatin. - Attend your nuclear medicine test and echocardiogram on January 27. - Follow up with your community marketing manager after these tests. - Monitor your blood pressure regularly and keep a record. - Maintain dietary measures to help manage gastrointestinal symptoms. - Stay active at a safe level to improve your mobility. - Look out for worsening symptoms, and contact me if chest pain or breathing difficulties occur. - Schedule follow-up appointments as discussed.
[2024-12-23 11:23] VITALS: BP 120/64; PULSE 70; TEMP 36.2; O2SAT 98; BMI 20.3
--- OUTSIDE RECORDS SUMMARY | 2024-12-23 13:22 | XMS_ITS | Continuity of Care Document ---
Author Organization [facility] Address [address] [place] [address]- Care Team Providers Care Hoop Maker Machine Name Role Phone Irma BALDERRAMA, Mohinder Garcia Primary Care Physic priyanka Encounter [facility] [place] R [id number] Date(s): 12/10/24 - 12/17/24 [facility] [address] [place] [address] Encounter Diagnosis PAD (peripheral artery disease)(Discharge Diagnosis) - 12/12/24 Attending Physician: Andrew BARBOUR, Samara Alfaro Admitting Physician: Andrew BARBOUR, Samara Alfaro Referring Physician: Irma BALDERRAMA, Mohinder Garcia Encounter Type: Office Visit Allergies, Adverse Reactions, Alerts Substance Criticality Severity Reaction Reaction Severity Status sulfa drugs Rash Active Immunizations Given and Recorded Vaccine Date Status Refusal Reason influenza virus vaccine, inactivated 06/27/22 Yusuf rded influenza virus vaccine, inactivated 06/28/21 Yusuf rded influenza virus vaccine, inactivated 06/02/20 Yusuf rded influenza virus vaccine, inactivated 06/23/19 Yusuf rded influenza virus vaccine, inactivated 07/03/18 Yusuf rded influenza virus vaccine, inactivated 06/19/16 Yusuf rded SARS-CoV-2 mRNA ([id number]) vax 09/21/21 Recorded SARS-CoV-2 (COVID-19) mRNA BNT-162b2 vac 12/29/20 Recorded SARS-CoV-2 (COVID-19) mRNA BNT-162b2 vac 12/08/20 Recorded pneumococcal 23-valent vaccine 04/10/17 Recorded Zoster Vaccine Live 03/14/17 Recorded Medications acetaminophen 325 mg oral tablet 650 mg, By Mouth, 4 times a day, Refills 0, Maintenance, 10/05/23 12:10:00 PM EST, Partial fill upon patient request if the prescription is for a schedule II opioid drug. Start Date: 10/05/23 Status: Ordered Repeat number: 1 apixaban Starter Pack 5 mg oral tablet See Instructions, Take 2 tablets By Mouth 2 times a day for 1 week, then on oct 12, take 1 tablet 2times a day thereafter, # 90 tablet, 0 Refills, Maintenance, 10/05/23 12:12:00 PM EST, Tablet, [facility], Partial fill upon patient request if the prescription is for a schedule II opioid drug., 155, cm, 10/05/23 11:25:00 EST, Height, 40.3, kg, 10/03/23 18:19:00 EST, Dry Weight Start Date: 10/05/23 Status: Ordered Quantity: 90.0 Unit: tablet Repeat number: 1 aspirin 81 mg oral tablet 1 tablet = 81 mg, By Mouth, Daily, 0 Refills, Maintenance, 02/03/19 3:06:44 PM EDT Start Date: 02/03/19 Status: Ordered Repeat number: 1 cholecalciferol 400 intl units oral capsule 1 capsule = 10 mcg, By Mouth, Daily, # 100 capsule, 0 Refills, Maintenance, 10/10/22 11:16:00 AM EST,Capsule, Partial fill upon patient request if the prescription is for a schedule II opioid drug. Start Date: 10/10/22 Status: Ordered Quantity: 100.0 Unit: capsule Repeat number: 1 cholestyramine 4 gm/9 gm oral powder for reconstitution 0 Refills, Maintenance, 07/27/24 1:25:00 PM EST, Partial fill upon patient request if the prescription is for a schedule II opioid drug. Start Date: 07/27/24 Status: Ordered Repeat number: 1 gabapentin 300 mg oral capsule 300 mg, 1, capsule, By Mouth, 3 times a day, Refills 0, Maintenance, 02/18/24 9:08:00 AM EDT, Partial fill upon patient request if the prescription is for a schedule II opioid drug. Start Date: 02/18/24 Status: Ordered Repeat number: 1 Lisinopril = 40 mg, By Mouth, Daily, 0 Refills, Maintenance, 10/05/23 1:57:00 PM EST, Partial fill upon patient request if the prescription is for a schedule II opioid drug. Start Date: 10/05/23 Status: Ordered Repeat number: 1 Metformin By Mouth, 0 Refills, Maintenance, 02/18/24 11:14:00 AM EDT, Partial fill upon patient request if theprescription is for a schedule II opioid drug. Start Date: 02/18/24 Status: Ordered Repeat number: 1 metoprolol 25 mg oral tablet 100 mg, 4, tablet, Daily, Refills 0, Maintenance, 12/20/22 9:07:00 AM EDT, Partial fill upon patientrequest if the prescription is for a schedule II opioid drug. Start Date: 12/20/22 Status: Ordered Repeat number: 1 rosuvastatin 20 mg oral tablet 1 tablet = 20 mg, By Mouth, Daily at bedtime, # 30 tablet, 0 Refills, Maintenance, 10/05/23 2:35:00 PM EST, Tablet, [facility] 3, Partial fill upon patient request if the prescription is for a schedule II opioid drug., 155, cm, 10/05/23 11:25:00 EST, Height, 40.3, kg, 10/03/23 18:19:00 EST, Dry Weight Start Date: 10/05/23 Stop Date: 11/04/23 Status: Ordered Quantity: 30.0 Unit: tablet Repeat number: 1 sertraline 25 mg oral tablet 1 tablet = 25 mg, By Mouth, Daily, # 30 tablet, 0 Refills, Maintenance, 10/05/23 2:07:00 PM EST, Tablet, Partial fill upon patient request if the prescription is for a schedule II opioid drug. Start Date: 10/05/23 Status: Ordered Quantity: 30.0 Unit: tablet Repeat number: 1 Problem List Diagnosis Diagnosis Type Effective Dates Health Status Cl inical Service Informant PAD (peripheral artery disease) Discharge Diagnosis 12/12/24 Vital Signs Most recent to oldest [Reference Range]: 1 Height 145 cm (12/10/24 1:50 PM) Weight 47.5 kg (12/10/24 1:50 PM) Oxygen Saturation [94-100 %] 98 % (12/10/24 1:50 PM) Pulse Rate [55-90 bpm] 69 bpm (12/10/24 1:50 PM) Body Mass Index [18.5-24.99 kg/m2] 22.59 kg/m2 (12/10/24 1:50 PM) Blood Pressure [90-138/55-84 mm Hg] 128/ 70mm Hg (12/10/24 1:50 PM) Blood pressure sites Arm, left (12/10/24 1:50 PM) Weight Obtained Via Patient/family state d (12/10/24 1:50 PM) Social History Social History Type Response Smoking Status Former smoker, quit more than 30 days ago entered on: 02/28/23 Sex Sex Representation Female (finding) Note * Demi Acosta: PERFORM Event Display: Patient Education/Instruction Authored Date: [id number] Ambulatory Adult Visit Summary [facility] [address] [facility] [address] [address] Name: CASSIDY SORENSEN : 1955?? Visit: 12/10/2024 13:25?? Ambulatory Visit Instructions ?? Your Care Team Primary Care Provider Irma BALDERRAMA, Mohinder Sharif? This Visit Provider Andrew BARBOUR, Samara Vitals Signs Pulse Rate: 69 bpm Height: 145 cm Systolic Blood Pressure: 128 mm Hg Weight: 47.5 kg Diastolic Blood Pressure: 70 mm Hg Body Mass Index: 22.59 kg/m2 Oxygen Saturation: 98 % Body surface area: 1.38 What to do next Future Orders Creatinine - Routine, Once, 07/02/24 14:46:00 EDT, Future Order, [facility], Blood?? Medications The list below reflects the information in our records and provided by you today along with any changes made during this visit. Please continue your medications until treatment is completed or stopped by your provider. If this is different from the information you have or there are other questions,please contact the prescribing provider. What How Much When Instructions Unchanged Acetaminophen (acetaminophen 325 mg oral tablet) 650 Milligram Oral 4 times a day Unchanged apixaban (apixaban Starter Pack 5 mg oral tablet) See instructions Take 2 tablets By Mouth 2 times a day for 1 week, then on oct 12, take 1 tablet 2 times a day thereafter ?? Unchanged Aspirin (aspirin 81 mg oral tablet) 1 tab(s) Oral Daily Unchanged Cholecalciferol (cholecalciferol 400 intl units oral capsule) 1 capsule Oral Daily Unchanged Cholestyramine (cholestyramine 4 gm/ 9 gm oral powder for reconstitution) Unchanged Gabapentin (gabapentin 300 mg oral capsule) 1 capsule Oral 3 times a day Unchanged Lisinopril 40 Milligram Oral Daily Unchanged Metformin Oral Unchanged Metoprolol (metoprolol 25 mg oral tablet) 4 tab(s) Daily Unchanged Rosuvastatin (rosuvastatin 20 mg oral tablet) 1 tab(s) Oral Daily at Bedtime Duration: 30 Days Unchanged Sertraline (sertraline 25 mg oral tablet) 1 tab(s) Oral Daily Medications and Immunizations Administered Medications Given During Visit No medications given during this visit.?? Allergies (NKA means No Known Allergies) sulfa drugs??(Rash) Common Emergency Awareness Tips IS IT A STROKE? Act FAST and Check for these signs: FACE Does the face look uneven? ARM Does one arm drift down? SPEECH Does their speech sound strange? TIME Call at any sign of stroke ?? Heart Attack Signs Chest discomfort: Most heart attacks involve discomfort in the center of the chest and lasts more than a few minutes, or goes away and comes back. It can feel like uncomfortable pressure, squeezing, fullness or pain. Discomfort in upper body: Symptoms can include pain or discomfort in one or both arms, back, neck, jaw or stomach. Shortness of breath: With or without discomfort. Other signs: Breaking out in a cold sweat, nausea, or lightheaded. Remember, MINUTES DO MATTER. If you experience any of these heart attack warning signs, call to get immediate medical attention! ?? Smoking can increase your chances of developing chronic health problems and can cause harmful effects to other family members in your house. If you smoke, you are strongly encouraged to quit. Please call [employer] at [phone] or [phone] (0744) or log in to [email or web address] for referrals to smoking cessation programs. ?? The National Suicide Prevention Hotline is available 24/03 if you or someone you know needs to find a reason to keep living. By calling 5-920-537-talk (7201) you'll be connected to a skilled, trained counselor at a crisis center in your area. [facility] You can view and manage your care through the patient portal or by using a health care anam of your choosing. [employer] is a website that allows you to securely view your medical information including your hospital discharge summary, office visit summaries, medications and follow-up visits. You can also request appointments, renew medications, and request access to your medical information using a health care anam of your choosing, or just ask a question. You can enroll at [email or web address] or register during your next office visit. [facility], in keeping with [facility] guidance, no longer requires face masks for staff, patientsor visitors in most situations. Similiar to time spent indoors at other locations, there is the chance that you were exposed to repiratory viruses during your time with us (such as flu or COVID-19). If you develop symptoms concerning for a viral respiratory infection, please seek testing (and treatment if indicated) from your medical provider or home test kit. ?? Disclaimer: The information provided is of a general nature and is intended to be used in conjunction with the recommendations and advice of your health care practitioner. Every effort has been made to ensure that the information provided is accurate and complete at the time it is provided to you however, as your needs change, or, as new information becomes available, different or additional instructions may be required. ?? If you have questions, please consult with your primary care provider or pharmacist, as appropriate. This information is not intended to serve as substitution for assessment and evaluation by a qualified health care provider. If you do not have a primary care provider, you may find a [facility] provider by calling [facility] [employer] Link at [phone]. Patient Care team information Care Team Personnel Name: Christian Turner MD Position: [facility] Renal MD Member Role: Lifetime Consulting Physician Address: [address] [place] [address] [address] [facility] [place] [address]- Telecom: Name: Michelle Bragg RN Position: S RN Member Role: Primary Care Nurse Name: Lesley Luis RN Position: S RN Member Role: Primary Care Nurse Name: Abdiel Patten RN Position: S RN Member Role: Primary Care Nurse Name: Irma Adame RN Position: S RN Member Role: Primary Care Nurse Name: Genesis Dean RN Position: [facility] RN Member Role: Primary Care Nurse Name: Liliya Ferrell RN Position: S RN Member Role: Primary Care Nurse Name: Kelle Jackson RN Position: [facility] ED RN W/OE and Tasks Member Role: Primary Care Nurse Name: Clive Young MD Position: [facility] Outreach Member Role: Lifetime Consulting Physician Address: [address] [facility] [place] [address]- Telecom: Name: Linda Carvajal RN Position: [facility] RN Member Role: Primary Care Nurse Name: Jacinda Tran RN Position: [facility] RN Member Role: Primary Care Nurse Name: Mireille Kahn RN Position: [facility] RN Member Role: Primary Care Nurse Name: Shante Solorzano RN Position: [facility] RN Member Role: Primary Care Nurse Name: Irma BALDERRAMA, Mohinder Garcia Position: Reference Physician Member Role: PCP Address: [address] [place] [address] [address] [place] [address]- Telecom: Care Team Related Persons Name: DANILO SORENSEN Name: KOBE SORENSEN Name: BHAVIN PERALTA Insurance Providers Guarantor name: CASSIDY SORENSEN Health Plan Information #: 1 Payer: MEDICARE PART B OUTPT Member Number: [id number] Policy Number: NA Group Number: NA Health Plan Information #: 3 Payer: [employer] MED[employer] SUPPL 2NDRY Member Number: [id number] Policy Number: NA Group Number: NA Health Plan Information #: 2 Payer: [facility] SUP Member Number: [id number] Policy Number: NA Group Number: NA
--- OUTSIDE RECORDS SUMMARY | 2024-12-23 13:22 | XMS_ITS ---
Author Organization [facility] Address [address] [place] [address] Care Team Providers Care Tire Rebuilder Name Role Phone PARTH COREAS Primary Care Provider Rojas Iniguez [phone] REASON FOR VISIT stomach issues Encounters Encounter Location Date Provider Diagnosis [facility] [address] [place] [address] 09/15/2024 Rojas Plata Plan Of Treatment Next Appt Details Provider Name:Rojas Plata , 01/19/2025 02:40:00 PM, [address], [address], [place], [address], Progress Notes * CASSIDY SORENSENDOB: [birth year] (69 yo F)Acc No.[id number]:09/15/2024 Progress Notes Patient:?CASSIDY SORENSEN Provider:?Rojas Plata MD :1955???Age:68 Y???Sex:Female D ate:09/15/2024 Address:[address] [place] Pcp:PARTH COREAS Subjective: * Chief Complaints: * [...] MD Date:? 025 Generated for Viola hung/Ju/Rani on:?12/23/2024 01:22 PM EDT
--- OUTSIDE RECORDS SUMMARY | 2024-12-23 13:23 | XMS_ITS ---
Author Organization [facility] Address [address] [place] [address] Care Team Providers Care Compounder Flavorings Name Role Phone PARTH COREAS Primary Care Provider Rojas Iniguez [phone] Allergies Allergen (clinical drug ingredient) Drug/Non Drug Allergy documented on EMR Reaction Allergy Type Onset Date Status Sulfa Unknown Drug Allergy Active Results Component Value Reference Range Notes Calprotectin, Fecal Reviewed date:05/24/2024 11:32:35 PM Interpretation: Performing Lab:[facility], [address] [place] [id number] Notes/Report: Calprotectin, Fecal 17 Reference Range: <50 [...] borderline values. THIS TEST WAS PERFORMED AT: [facility] [address] [place] [address] LAURA ROUSSEAU MD,PHD,NASH REASON FOR VISIT Patient [...] W/U Status Risk Notes Problem Chronic diarrhea (529937173) Chronic diarrhea (K52.9) Active confirmed Problem History of infectious disease (722890653) History of Clostridioides difficile infection (Z86.19) Active confirmed Vital Signs Blood pressure systolic 00 mm Hg 05/07/20 24 Blood pressure diastolic 00 mm Hg 024 Height 61.5 in 05/07/2024 Weight 103 lbs 05/07/2024 BMI 19.14 kg/m2 05/07/2024 Encounters Encounter Location Date Provider Diagnosis [facility] [address] [facility] [address] [place] [address] 05/07/2024 Rojas Plata Chronic diarrhea K52 .9 and History of Clostridioides difficile infection Z86.19 Assessments Encounter Date Diagnosis (ICD Code) Assessment Notes Treatment Notes Treatment Clinical Notes Section Notes 05/07/2024 Chronic diarrhea (ICD-10 - K52.9) Need [facility] records from 10/2022 re: 2 or 3 [...] surgical records, including the pathology reports, from [facility] to confirm her postoperative anatomy. In the [...] surgical records, including the pathology reports, from [facility] to confirm her postoperative anatomy. In the [...] Treatment Notes Assessment Notes Chronic diarrhea Need [facility] record s from 10/2022 re: 2 or 3 abdominal surgeries and path reports Pending Test Test Name Order Date STOOL WBC 05/07/2024 C DIFFICILE RFLX PCR 05/07/2024 GI PANEL 05/07/2024 Next Appt Details Follow Up: 4 Months, Reason: Provider Name:Rojas Plata , 01/19/2025 02:40:00 PM, [address] [place] [address], [address], [place], [address], Progress Notes * ABA SORENSENLYN JDOB: [birth year] (68 yo F)Acc No.[id number]:05/07/2024 Progress Notes Patient:?HEATHER SORENSENN Santiago Provider:?Rojas Plata MD :1955???Age:68 Y???Sex:Female D ate:05/07/2024 Address:[address] [place] [address] [address] [place], [place] Pcp:PARTH COREAS Subjective: * Chief Complaints: * [...] 2022 with multiple postoperative complications including a AK that required a stent placement, ischemic bowel [...] April of 2023 and was admitted to [facility] at that time. 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 In the [...] Procedure Codes:?3017F COLOR ECTAL CA SCREEN DOC [id number] TOBACCO [id number] BP SCR NOT PRFRM REC REASON NOS * Preventive Medicine:? ??Urinary Incontinence:?Urinary Incontinence?Assessment:?Present,?Plan of care documented:?No, reason not specified.? ??Screenings:?Fall Risk Screening?Fall Risk Assessment:?No falls in the past year uses cane,?Assessment:?Not performed, no reason specified.? * Follow Up:?4 Months * * Sign off status: Completed true * Provider:?Rojas Plata MD Date:? 024 Generated for Viola hung/Ju/Rani on:?12/23/2024 01:22 PM EDT History and Physical Notes * HPI (History of Present Illness) Category Sub-Category Detail Notes Category Not es incontinence I saw Ana Rosa in the office today for evaluation of persistent diarrhea subsequent to a CABG with associated multiple complications in 2022. She was accompanied by her twin sister, Bhavin, who helped to provide some history. Her son, iWlmer, was on the phone who also helped [...] 2022 with multiple postoperative complications including a AK that required a stent placement, ischemic bowel [...] April of 2023 and was admitted to [facility] at that time. Her main issue [...]
--- OUTSIDE RECORDS SUMMARY | 2024-12-23 13:23 | XMS_ITS ---
Author Organization [facility] Address [address] [place] [address] Care Team Providers Care Call Center Recruiter Name Role Phone JOSS, KARTIK Primary Care Provider Rojas Iniguez [phone] REASON FOR VISIT R/S OV Encounters Encounter Location Date Provider Diagnosis [facility] [address] [place] [address] 09/15/2024 Rojas Plata Plan Of Treatment Next Appt Details Provider Name:Rojas Plata , 01/19/2025 02:40:00 PM, [address], [address], [place], [address], Progress Notes * CASSIDY SORENSENDOB: [birth year] (68 yo F)Acc No.[id number]:09/15/2024 Patient:?CASSIDY SORENSEN :1955???Age:68 Y???Sex:Female Address:[address] [place], [address] * true * Date:? Generated for Printi ng/Ju/eTransmitting on:?12/23/2024 01:22 PM EDT
--- OUTSIDE RECORDS SUMMARY | 2024-12-23 13:23 | XMS_ITS | Patient Health Record ---
Author Organization [facility] Address [address] [place] [address] Care Team Providers Care Insole Presser Name Role Phone PARTH COREAS Primary Care Provider Rojas Iniguez [phone] Allergies Allergen (clinical drug ingredient) Drug/Non Drug Allergy documented on EMR Reaction Allergy Type Onset Date Status Sulfa Unknown Drug Allergy Active Results Component Value Reference Range Notes Calprotectin, Fecal Reviewed date:05/24/2024 11:32:35 PM Interpretation: Performing Lab:[facility], [address] [place] [address] Notes/Report: Calprotectin, Fecal 17 Reference Range: <50 [...] borderline values. THIS TEST WAS PERFORMED AT: [facility] [address] [place] [address] LAURA ROUSSEAU MD,PHD,NASH Reason For Referral No [...] Status Risk Notes Problem Colon cancer screening (558038282) Colon cancer screening (Z12.11) Active confirmed Problem History of adenomatous polyp of colon (866951750) History of adenomatous polyp of colon (Z86.010) Active confirmed Problem Preprocedural examination (070921482486519) Preprocedural examination (Z01.818) Active confirmed Problem Chronic diarrhea (677280114) Chronic diarrhea (K52.9) Active confirmed Problem Diverticulosis of colon (094947505) Diverticulosis of colon (K57.30) Active confirmed Problem History of infectious disease (825999877) History of Clostridioides difficile infection (Z86.19) Active confirmed Vital Signs Blood pressure diastolic 00 mm Hg 05/07/2024 Height 61.5 in 05/07/2024 Blood pressure systolic 00 mm Hg 05/07/2024 Weight 103 lbs 05/07/2024 BMI 19.14 kg/m2 05/07/2024 Encounters Encounter Location Date Provider Diagnosis [facility] [address] [place] [address] 05/07/2024 Rojas Plata Chronic diarrhea K52 .9 and History of Clostridioides difficile infection Z86.19 [facility] [address] [place] [address] 09/15/2024 Rojas Plata Assessments Encounter Date Diagnosis (ICD Code) Assessment Notes Treatment Notes Treatment Clinical Notes Section Notes 05/07/2024 Chronic diarrhea (ICD-10 - K52.9) Need [facility] records from 10/2022 re: 2 or [...] surgical records, including the pathology reports, from [facility] to confirm her postoperative anatomy. In [...] surgical records, including the pathology reports, from [facility] to confirm her postoperative anatomy. In [...] Provider Name:Rojas Plata , 01/19/2025 02:40:00 PM, [address] [place] [address], [address], [place], [address], Insurance Providers Payer Name Payer Address Payer Phone Subscriber Number Group Number Insured Name Patient Relationship to Insured Coverage Start Date Coverage End Date MEDICARE OF [place] [address] [place] [address] [id number] HEATHER SORENSENN Self - patient is the insured [facility] SUPPLEMENTAL PLAN [address] [place] [address] [id number] ANA ROSA SORENSEN Self - patient is [...] hip replacement 2020 4V CABG complicated by ID wi th placement of stent, ischemic bowel requiring partial colectomy of the ascending colon and proximal transverse colon, and lower extremity vascular disease requiring angioplasty and stenting of the iliacs and femoral arteries 10/2022 Angioplasty of RLE 01/2024
--- OUTSIDE RECORDS SUMMARY | 2024-12-23 13:23 | XMS_ITS | Clinical Summary ---
Author Organization [facility] Facility Address [address] [place] [address] Care Team Providers Care Humanities And Languages Professor Name Role Phone Unavailable Primary Care Provider [...] Colorectal Cancer Screening: Sigmoidoscopy 2005 Pneumococcal Vaccine: 50+ Ye ars (1 of - PCV) 2006 Influenza Vaccine (Season Ended) 2025 Colorectal Cancer Screening: Colonoscopy 06/21/2032 06/21/2022 Hepatitis B Vaccine Aged Out No longe r eligible based on patient's age to complete this topic Insurance Medicare Medicare
== END 2024-12-23 12:08 | disposition home or self-care (01) ==
LOC: HO.HMCH 11:12
PROVIDERS: PCP Internal Medicine; Visit Provider Physician Assistant Medical
DX: Z09 Encounter for follow-up examination after completed treatment for conditions other than malignant neoplasm (principal); Z12.4 Encounter for screening for malignant neoplasm of cervix; R06.02 Shortness of breath; R07.89 Other chest pain; Z95.5 Presence of coronary angioplasty implant and graft; Z95.1 Presence of aortocoronary bypass graft; I25.10 Atherosclerotic heart disease of native coronary artery without angina pectoris; G62.9 Polyneuropathy, unspecified; E78.00 Pure hypercholesterolemia, unspecified

== ENCOUNTER → 2024-12-23 11:12 | Outpatient (BNVA) | payer MEDICARE, SELFPAY | PROVIDERS: PCP Internal Medicine; Visit Provider Physician Assistant Medical | DX: Z09 Encounter for follow-up examination after completed treatment for conditions other than malignant neoplasm (principal); R06.02 Shortness of breath; R07.89 Other chest pain; I25.10 Atherosclerotic heart disease of native coronary artery without angina pectoris; E78.00 Pure hypercholesterolemia, unspecified; G62.9 Polyneuropathy, unspecified; Z95.1 Presence of aortocoronary bypass graft; Z95.5 Presence of coronary angioplasty implant and graft | CPT/HCPCS: 96127; 99212 ==

== ENCOUNTER → 2025-01-26 08:46 | Outpatient (REF) | payer MEDICARE, SELFPAY ==
--- NOTE | 2025-01-26 08:50 | CA_ITS ---
Transthoracic Echocardiogram Patient (Last, First, Middle): Ana Rosa Andino J Gender: Female Date of : 1955 Age: 69 Procedure Date: 01/26/2025 Procedure Type: Transthoracic Echocardiogram Location: OP Height: 157.48 cm Weight: 47.17 kg BSA: 1.45 m2 Heart Rate: bpm BP: 140 / 62 mmHg Graphics Artist: TO/RC Referring MD: Delia Richards SURGICAL ASSIST-C Pet Adoption Counselor: Jorge Luis Delacruz MD Symptoms: R06.02 - Shortness of breath Study Quality: Technically Difficult, contrast ECG Rhythm: Sinus Conclusions: - 1. Normal LV ejection fraction of 60 65% with impaired relaxation filling pattern 2. Normal cardiac valvular Doppler 3. Normal RV systolic pressure 4. No gross pericardial effusion Findings Procedure Information Contrast agent, definity, is being given per protocol without apparent complications. Left Ventricle Normal left ventricular size, thickness, and systolic function. The visually estimated ejection fraction is between 60-65%. Spectral Doppler is indicative of an impaired relaxation filling pattern. E/E prime ratio is between 8 and 15 consistent with indeterminate filling pressures. Right Ventricle The right ventricle was not well visualized. There is mild to moderately decreased right ventricular systolic function. Atria The left atrium is normal in size. Interatrial shunt cannot be excluded. The right atrium was not well visualized. Aortic Valve The aortic valve structure and function is likely normal. There is no aortic valve stenosis. There is no aortic valve regurgitation. Mitral Valve There is mild anterior mitral leaflet thickening. There is trace mitral valve regurgitation. There is no mitral valve stenosis. Pulmonic Valve The pulmonic valve is likely normal. There is trace pulmonic valve regurgitation. Tricuspid Valve Normal tricuspid valve structure. There is mild tricuspid valve regurgitation. The right ventricular systolic pressure is normal. The right ventricular systolic pressure is 25 mmHg. Normal right atrial pressure. There is no evidence of pulmonary hypertension. Great Vessels All visible segments of the aorta are normal in size. The pulmonary artery was not well visualized. There is no dilatation of the ascending aorta measuring 2.70 cm. Venous The inferior vena cava is normal in size and collapses greater than 50% with inspiration. Pericardium/Pleural There is no evidence of pericardial effusion. Measurements 2D Linear Measurements IVSd: 0.71 0.6-0.9/0.6-1.0 cm LVIDd: 3.86 3.9-5.3/4.2-5.9 cm LVIDd Index: 2.66 2.4-3.2/2.2-3.1 cm/m2 LVIDs: 2.78 2.0-3.6 cm LVPWd: 0.70 0.7-1.1 cm LA Diam: 2.90 2.7-3.8/3.0-4.0 cm LAIDs Index: 2.00 1.5-2.3 cm/m2 LV Mass: 91.89 67-162/88-224 g LV Mass Index: 63.37 43-95/49-115 g/m2 LVOT Diam: 1.90 3.0+(-)1.3 cm 2D Systolic Function EF 4C: 60.80 >55% Mitral Valve MV Pk E: 0.76 MV PK A: 0.72 MV Decel Time: 125.00 E/A: 1.10 E'Lateral: 7.18 E'Medial: 5.87 E/E' Med: 12.90 E/E' Lat: 10.60 PHT: 37.00 MVA PHT: 5.95 Decel [place]: 6.05 Aortic Valve AoV Pk Karson: 1.10 AoV Mn Karson: 0.69 AoV VTI: 0.26 AoV Pk Grad: 5.00 Aov Mn Grad: 2.00 ANDRY Cont.VTI: 1.82 LVOT LVOT Pk Karson: 0.71 LVOT Mn Karson: 0.43 LVOT VTI: 0.16 LVOT Pk Grad: 2.00 LVOT Mn Grad: 1.00 LVOT Diam: 1.90 LVOT Area: 2.84 Diastolic Function MV Pk E: 0.76 MV Pk A: 0.72 E/A: 1.10 E'Medial: 5.87 E/E' Med: 12.90 E' Laterial: 7.18 E/E' Lat: 10.60 Right Ventricle TAPSE (mm): 13.60 TVS' Karson: 7.83 Tricuspid Valve TR Pk Karson: 2.36 TR Pk Grad: 22.00 RA Press: 3.00 RVSP: 25.00 Great Vessels Aorta Sinus of Valsalva: 2.55 2.0-3.5 cm Ao Asc: 2.70 2.1-3.4 cm Updated in Other Vendor System with Status of Final Jorge Luis Delacruz MD electronically signed on 01/26/2025 4:42:14 PM with status of Final
--- NOTE | 2025-01-26 08:50 | CA_ITS ---
Acquisition Time: 2025-01-26 10:18:34 Total Exercise Time: 00:02:00 Test Indications: Dyspnea CP Medications: SEE H&P Protocol: LEXISCAN Max HR: 80 BPM 52% of Pred: 152 BPM Max BP: 118/74 mmHG Max Work Load: 1.0 METS Pharmacological stress test with Lexiscan while pt swings her legs in chair, with reports of SOB and lightheadedness, without any arrythmias, with normotensive response to injection. Nondiagnostic EKG for ischemia. In recovery, pt treated with IVP Aminophylline 75 mg to reverse the Lexiscan after which pt feeling back to baseline. Nuclear images pending. Test reviewed with Dr. Delacruz. Referred By: Delia Richards Electronically Signed By: Chu Terrell
--- OUTSIDE RECORDS SUMMARY | 2025-01-26 09:08 | XMS_ITS ---
Author Organization [facility] Address [address] [facility] [place] [address] Care Team Providers Care Cantilever Crane Operator Name Role Phone PARTH COREAS Primary Care Provider Rojas Iniguez [phone] JAVIER DENSON Unavailable Unavailable REASON FOR VISIT stomach issues Encounters Encounter Location Date Provider Diagnosis [facility] [address] [facility] [place] [address] 09/15/2024 Rojas Plata Plan Of Treatment No Information Progress Notes * ABA SORENSENZIYAD HendersonDOB: [birth year] (69 yo F)Acc No.[id number]:09/15/2024 Progress Notes Patient:?ABA SORENSENZIYAD Henderson Provider:?Rojas Plata MD :1955???Age:68 Y???Sex:Female D ate:09/15/2024 Address: [address] [id number] Pcp:PARTH COREAS Subjective: * Chief Complaints: * [...] Plata MD Date:? 025 Generated for Viola hung/Ju/eTransmitting on:?01/26/2025 09:08 AM EDT
[2025-01-26 11:42] LABS: MANUAL DIFF FLAG NO
[2025-01-26 12:09] LABS: Basophils Percent Auto 0.4 % (0-2); Eosinophils Absolute Auto 0.1 X10*3/uL (0.0-0.4); Eosinophils Percent Auto 2.2 % (0-4); Hematocrit 33.5 % (37.0-47.0); Imm Gran Abs Auto 0.04 X10*3/uL (0.00-0.03); Imm Gran Pct Auto 0.7 % (0.0-0.4); Lymphocytes Absolute Auto 1.8 X10*3/uL (1.2-4.9); Lymphocytes Percent Auto 33.2 % (20-40); Mean Corpuscular HGB Conc 32.8 g/dl (31.0-35.0); Mean Corpuscular Hemoglobin 32.1 pg (27.0-33.0); Mean Corpuscular Volume 97.7 fL (80.0-98.0); Mean Platelet Volume 9.9 fL (9.4-12.3); Monocytes Absolute Auto 0.7 X10*3/uL (0.1-1.2); Monocytes Percent Auto 12.2 % (2-11); Neutrophils Absolute Auto 2.8 x10*3/uL (2.0-8.3); Neutrophils Percent Auto 51.3 % (45-73); Platelet Count 246 X10*3/uL (160-400); Red Blood Count 3.43 X10*6/uL (4.20-5.50); Red Cell Distribution Width 12.6 % (11.0-16.0); White Blood Count 5.4 X10*3/uL (4.8-10.8)
[2025-01-26 12:26] LABS: Estimated Average Glucose 103 mg/dL; Hemoglobin A1C 98.0234 umol/L; Hemoglobin A1c % 5.2 % (<6.0); Total Hemoglobin (HGBA1C) 2913.3795 umol/L
[2025-01-26 12:56] LABS: Alanine Aminotransferase 45 U/L (0-31); Albumin Level 4.4 g/dL (3.5-5.0); Alkaline Phosphatase 94 U/L (39-117); Anion Gap 12 (12-20); Aspartate Amino Transferase 72 U/L (5-31); Bilirubin Direct 0.2 mg/dL (0.0-0.5); Bilirubin Total 0.6 mg/dL (0.0-1.0); Blood Urea Nitrogen 6 mg/dL (9-16); C Reactive Protein 0.57 mg/dL (< or = 0.50); Calcium 9.5 mg/dL (8.4-10.2); Carbon Dioxide 25 mmol/L (22-29); Chloride 105 mmol/L (96-108); Cholesterol 146 mg/dL (<200); Estimated Glomerular Filt Rate > 60; Glucose Fasting 85 mg/dL (60-99); HDL Cholesterol 64 mg/dL (>40); LDL Cholesterol Calculated 54 mg/dL (<100); Magnesium 1.6 mg/dL (1.6-2.6); Potassium 3.9 mmol/L (3.3-5.1); Sodium 138 mmol/L (135-145); Total Protein 7.7 g/dL (6.5-8.0); Triglycerides 142 mg/dL (<150)
[2025-01-26 13:13] LABS: Erythrocyte Sedimentation Rate 34 MM/HR (0-20)
[2025-01-26 13:15] LABS: Vitamin D 25-OH Total > 154.2 ng/mL (>30)
[2025-01-26 13:28] LABS: Folate 11.3 ng/mL (> or = 4.0); Vitamin B12 261 pg/mL (200-900)
[2025-01-26 13:50] LABS: TSH reflex Free T4 3.92 uIU/mL (0.32-4.0)
[2025-01-29 17:32] LABS: Zinc 66 mcg/dL (60-130)
== END ==
LOC: HO.CARD 08:46
PROVIDERS: Physician Assistant Medical; PCP Internal Medicine; Visit Provider Nurse Practitioner Family
DX: R07.89 Other chest pain (principal); R06.02 Shortness of breath; I25.10 Atherosclerotic heart disease of native coronary artery without angina pectoris; Z95.1 Presence of aortocoronary bypass graft; Z13.1 Encounter for screening for diabetes mellitus; Z00.00 Encounter for general adult medical examination without abnormal findings
CPT/HCPCS: 36415; 78452; 80053; 80061; 80076; 82248; 82306; 82607; 82746; 83036; 83735; 84425; 84443; 84590; 84630; 85025; 85652; 86140; 93017; 93306; A9500; J0280; J2785; Q9957

== ENCOUNTER → 2025-01-26 08:50 | Outpatient (BNV) | payer MEDICARE, SELFPAY | PROVIDERS: PCP Internal Medicine | DX: R06.02 Shortness of breath (principal); I51.89 Other ill-defined heart diseases; I36.1 Nonrheumatic tricuspid (valve) insufficiency | CPT/HCPCS: 78452; 93016; 93018; 93320; 93325; 93350; 93352 ==

== ENCOUNTER 2025-02-07 15:08 | Outpatient (AMB) | payer MEDICARE, SELFPAY ==
[2025-02-07 15:20] VITALS: BP 110/60; PULSE 68; BMI 20.1
--- NOTE | 2025-02-07 15:20 | A.OFFVIS_ITS ---
Vital Signs 02/07/25 15:20 Height 5 ft Weight 103 lb BMI 20.1 BP 110/60 Blood Pressure Location Lt brachial Position Sitting Pulse 68 Pulse Source Pulse Oximeter Intake Visit Reasons: follow up stress and echo Allergies Sulfa (Sulfonamide Antibiotics) [SULFA(SULFONAMIDE ANTIBIOTICS)] Allergy (Intermediate, Verified 12/23/24 11:36) RASH/HIVES Medication List - Last Reconciled 02/07/25 by Delia Richards PERINATAL BREASTFEEDING ASSISTANT-C apixaban (Eliquis) 5 mg PO BID aspirin (Adult Aspirin Regimen) 81 mg PO DAILY cholestyramine (with sugar) 4 gram ea PO gabapentin 300 mg PO TID lisinopril 40 mg PO DAILY metoprolol succinate ER 100 mg PO DAILY nitroglycerin 0.4 mg sublingual Q5M PRN rosuvastatin 20 mg PO DAILY sertraline 25 mg PO DAILY tramadol 50 mg PO BID PRN HPI HPI follow up stress and echo: Details: Ana Rosa is a 69-year-old female with past medical history of hypertension, hyperlipidemia, smoking, peripheral vascular disease, coronary artery disease status post coronary artery bypass grafting then inferior lateral STEMI with PCI of the anastomosis of the MORELOS to LAD with CLARISSA who presents for follow-up after recent echocardiogram and nuclear stress test. Today she reports that she had been doing well since her last visit in November. She will get some mild chest pressure without pattern and shortness of breath with activity which is not new. She has been using the stationary bike at home for 1 mi which she says she tolerates it well. She has never had chest discomfort with walking or using the bike. Overall she is pleased with how she is feeling. She has chronic leg issues and follows with Dr. Henry for vascular. Her activity is limited by shortness of breath and leg pain. She has no heart palpitations, presyncope, syncope. Take all meds as directed. No bleeding issues reported. Sister is present. [facility] Medical History Thiamin deficiency Follow-up exam, 3-6 months since previous exam Cervical cancer screening History of mammogram (~08/07/23) Peripheral vascular disease with claudication Peripheral vascular disease Atherosclerotic cardiovascular disease Essential hypertension Protein calorie malnutrition Syncope Essential hypertension Hypercholesterolemia Cataract fragments in both eyes following surgery Hip fracture Femur fracture High cholesterol Neuropathy High blood pressure Surgical History Stented coronary artery History of quadruple bypass History of colonoscopy (~06/21/22) History of hip surgery History of cataract surgery History of surgery History of ankle surgery History of endoscopy Family History Mother Heart attack Father Heart attack Social History Household Members: None Housing: House Do you presently have visiting nurse or other home services: No Alcohol intake: current Alcohol intake frequency: holidays/special occasions only Alcohol type: beer Patient Tobacco Use Status: Former Tobacco user Tobacco use type: Cigarette Cigarettes Per Day: 3 Years Smoked: 42 on and off e-Cigarette/Vaping Use: Never Used Second Hand Smoke Exposure: Yes service: No Current occupational status: employed Current occupation: rt handed Cognitive needs: Yes (cane/walker) Hearing needs: No Vision needs: Yes (glasses) Review of Systems Const All systems reviewed & are unremarkable except as noted in HPI and below Denies weakness ENT Denies dizziness Card Denies chest pain, Reports chest pain at rest (vague, mild), Denies chest pain with activity, Denies syncope, Denies rapid heart rate, Denies pedal edema, Denies edema, Denies leg edema, Denies lightheadedness, Denies palpitations, Denies dyspnea, Reports dyspnea on exertion and Denies orthopnea Resp Denies cough, Denies dyspnea and Reports dyspnea on exertion GI Denies hematochezia and Denies change in stool character Musc Reports abnormal gait (uses cane - reports leg discomfort), Denies muscle cramps, Denies muscle weakness, Denies numbness, Denies radiating pain into limb and Denies tingling Neuro Reports abnormal gait (uses cane - reports leg discomfort), Denies dizziness, Denies syncope, Denies numbness, Denies tingling and Denies weakness Endo Denies palpitations Physical Exam Vital Signs: Last Vital Signs Pulse 68 02/07/25 15:20 BP 110/60 02/07/25 15:20 BMI result Body Mass Index 20.1 Const General: cooperative, healthy appearing, comfortable and no acute distress Orientation/consciousness: patient oriented x3 Neck Neck: Yes normal visual inspection and Yes no JVD Resp Effort & Inspection: normal respiratory effort Auscultation: clear to auscultation bilaterally, no crackles, no rales, no rhon chi and no wheezes Cardio Rate: regular rate Rhythm: regular rhythm Heart sounds: S1 normal heart sound present, S2 normal heart sound present, no gallops, no murmurs and no rubs Neuro General: patient oriented x3 Extrem General: Yes normal to inspection, No no pedal edema and No calf tenderness Psych Appearance: grossly normal Mental Status: mental status grossly normal Speech and movement: Normal speech and movement present Assessment & Plan Assessment & Plan (1) CAD (coronary artery disease): Code(s): I25.10 - Atherosclerotic heart disease of [place] coronary artery without angina pectoris Category: Medical Plan: History of CAD, prior coronary artery bypass grafting, 2022 followed by post op inferior lateral STEMI and PCI to the MORELOS to LAD anastomosis. On last visit she reported increased shortness of breath and 2 episodes of left chest pressure at rest. Echocardiogram 01/26/2025 showed EF 60-65%, no reported regional wall motion abnormalities. A nuclear stress test was done 01/26/2025 which showed distal lateral ischemia of mild intensity, EF 61%. Results reviewed with her. At this time she tells me she is feeling good and that her shortness of breath with exertion has been chronic and episodes of chest discomfort are mild and nonexertional. She is able to use the stationary bike for 1 mi without chest symptoms. Spent time reviewing signs and symptoms of angina. At this time will continue with medical management. Continue aspirin. Continue rosuvastatin with ideal LDL goal less than 70. Continue metoprolol XL 100 mg daily. Emergency care if ever needed for symptoms. Cardiology follow-up 3-4 months to reassess symptoms, sooner if needed. (2) History of quadruple bypass: Comment: 11/08/2022 Code(s): Z95.1 - Presence of aortocoronary bypass graft Category: Surgical Plan: As above (3) Stented coronary artery: Comment: Stent to the MORELOS to LAD anastomosis Code(s): Z95.5 - Presence of coronary angioplasty implant and graft Category: Surgical Plan: As above (4) Left chest pressure: Code(s): R07.89 - Other chest pain Category: Medical Plan: As above (5) Shortness of breath: Code(s): R06.02 - Shortness of breath Category: Medical Plan: Chronic shortness of breath with exertional activities. She continues to smoke a few cigarettes daily. Underlying COPD likely contributes to this symptom. (6) Smoker: Code(s): F17.200 - Nicotine dependence, unspecified, uncomplicated Category: Social Hx Plan: As above (7) Peripheral vascular disease with claudication: Code(s): I73.9 - Peripheral vascular disease, unspecified Category: Medical Plan: [place] [facility] [place]. She is on Eliquis for history of lower extremity clots/DVT. Plan During the consultation, we discussed the ongoing management of Coronary Artery Disease and the current management plan, emphasizing the importance of medication adherence and symptom monitoring. I explained that the current treatment approach is appropriate considering her stable echocardiogram and the mild perfusion issue noted in the stress test. We reviewed the necessity for ongoing use of medical management and when to seek medical care should acute symptoms indicative of myocardial infarction occur. We discussed potential need for future interventions should symptoms change, including considerations for additional angiogram/PCI if warranted. Focusing on maintaining mobility and assessing any change in leg pain or neuropathy, the plan will be coordinated with her other providers. I recommended follow-up assessments every three to four months or earlier if her symptoms worsen. She is agreeable to this plan. Patient Instructions: - Continue taking all prescribed medications: aspirin, rosuvastatin, metoprolol, lisinopril, and Eliquis. - Monitor for any new or worsening chest pain or shortness of breath. - Use exercise equipment as tolerated and track symptoms during activity. - Note any changes and report them in follow-up visits. - Attend a follow-up appointment in 3-4 months. - Seek immediate medical care if experiencing symptoms of a heart attack like severe chest pain. Patient was informed and verbally consented to the use of an ambient scribe for clinic note documentation during this visit. Visit time spent on chart review, interview, assessment, orders, documentation. Coding Level of Care Code Est Pt Level 4 (49806) Complex EM visit Add On G2211 Diagnoses CAD (coronary artery disease) I25.10 History of quadruple bypass Z95.1 Stented coronary artery Z95.5 Left chest pressure R07.89 Shortness of breath R06.02 Smoker F17.200 Peripheral vascular disease with claudication I73.9 Time Spent (min) 30
--- OUTSIDE RECORDS SUMMARY | 2025-02-07 16:55 | XMS_ITS ---
Author Organization [facility] Address [address] [facility] [place] [address] Care Team Providers Care Supply Chain Coordinator Name Role Phone PARTH COREAS Primary Care Provider Rojas Iniguez [phone] JAVIER DENSON Unavailable Unavailable REASON FOR VISIT stomach issues Encounters Encounter Location Date Provider Diagnosis [facility] [address] [facility] [place] [address] 09/15/2024 Rojas Plata Plan Of Treatment No Information Progress Notes * ABA SORENSENZIYAD HendersonDOB: [birth year] (69 yo F)Acc No.[id number]:09/15/2024 Progress Notes Patient:?ABA SORENSENLYN Santiago Provider:?Rojas Plata MD :1955???Age:68 Y???Sex:Female D ate:09/15/2024 Address: [address] [id number] Pcp:PARTH COREAS Subjective: * Chief Complaints: * [...] MD Date:? 025 Generated for Viola hung/Ju/eTransmitting on:?02/07/2025 04:55 PM EDT
== END 2025-02-07 15:58 | disposition home or self-care (01) ==
LOC: HO.HCS 15:09
PROVIDERS: PCP Internal Medicine; Visit Provider Nurse Practitioner Family
DX: I25.10 Atherosclerotic heart disease of native coronary artery without angina pectoris (principal); Z95.1 Presence of aortocoronary bypass graft; Z95.5 Presence of coronary angioplasty implant and graft; R07.89 Other chest pain; R06.02 Shortness of breath; F17.200 Nicotine dependence, unspecified, uncomplicated; I73.9 Peripheral vascular disease, unspecified
CPT/HCPCS: 99214; G2211

== ENCOUNTER → 2025-02-07 15:08 | Outpatient (BNVA) | payer MEDICARE, SELFPAY | PROVIDERS: PCP Internal Medicine; Visit Provider Nurse Practitioner Family | DX: I25.10 Atherosclerotic heart disease of native coronary artery without angina pectoris (principal); I73.9 Peripheral vascular disease, unspecified; R07.89 Other chest pain; R06.02 Shortness of breath; F17.210 Nicotine dependence, cigarettes, uncomplicated; Z95.1 Presence of aortocoronary bypass graft; Z95.5 Presence of coronary angioplasty implant and graft | CPT/HCPCS: 99212 ==

== ENCOUNTER 2025-03-08 13:45 | Outpatient (REF) | payer MEDICARE, SELFPAY ==
--- OUTSIDE RECORDS SUMMARY | 2024-09-15 12:00 | XMS_ITS ---
Author Organization [facility] Address [address] [place] [facility] [place] [address] Care Team Providers Care Barge Loader Name Role Phone PARTH COREAS Primary Care Provider Rojas Iniguez [phone] JAVIER DENSON Unavailable Unavailable REASON FOR VISIT stomach issues Encounters Encounter Location Date Provider Diagnosis [facility] [address] [facility] [place] [address] 09/15/2024 Rojas Plata Plan Of Treatment No Information Progress Notes * CASSIDY SORENSEN SantiagoDOB: [birth year] (69 yo F)Acc No.[id number]:09/15/2024 Progress Notes Patient: CASSIDY ÁLVAREZ Provider: Meagan Plata MD :1955 A ge:68 Y S ex:Female Date:09/15/2024 Address: [address] [id number] Pcp:PARTH COREAS Subjective: * Chief Complaints: * [...] MD Date: 0 09/15/2024 Generated for Viola hung/Ju/eTransmitting on: 0 03/08/2025 02:32 PM EDT
--- NOTE | ~2025-03-08 | MM_ITS ---
EXAMINATION: DXA BONE DENSITY AXIAL HISTORY: M81.0 - Age-related osteoporosis without current pathological fracture TECHNIQUE: CivilisedMoney Dual energy absorptiometry (DEXA) of the lumbar spine and distal radius was performed. The hips were not evaluated due to a history of bilateral total hip arthroplasty. COMPARISON: Comparison is made with the prior examination dated 11/28/2017. FINDINGS: The bone mineral density of the lumbar spine is 1.351 g/cm2, corresponding to a T-score of 1.3, and a Z-score of 3.5. This is indicative of normal bone mineral density. This represents a BMD change of 14.2% compared to the prior exam. This is statistically significant. The bone mineral density of the distal radius is 0.723 g/cm2, corresponding to a T-score of -1.8, and a Z-score of -0.1. This is indicative of osteopenia. MM/XR DEXA axial skeleton IMPRESSION: Based on bone mineral density, and according to World Health Organization (WHO) criteria, the diagnosis is consistent with osteopenia. Statistically, 68% of repeat scans fall within 1 SD (+/- 0.010 g/cm2 for AP spine L1-L4) and 1 SD (+/- 0.012 g/cm2 for femur total) FRAX is a trademark of the [employer]'s [place] for Metabolic Bone Disease, a World Health Organization (WHO) Collaborating Center. Electronically signed by: Rojas Singleton MD 03/08/2025 03:06 PM EDT
--- OUTSIDE RECORDS SUMMARY | 2025-03-08 14:33 | XMS_ITS | Clinical Summary ---
Author Organization [facility] Facility Address [address] [place] [address] Care Team Providers Care Teacher Education Director Name Role Phone Unavailable Primary Care Provider [...] Pneumococcal Vaccine: 50+ Ye ars (1 of 1 - PCV) 2006 Influenza Vaccine (#1) 2025 Colorectal Cancer Screening: Colonoscopy 06/21/2032 06/21/2022 Hepatitis B Vaccine Aged Out No longe r eligible based on patient's age to complete this topic Insurance Medicare Medicare
== END 2025-03-08 13:46 | disposition home or self-care (01) ==
LOC: HO.MAMMO 13:45
PROVIDERS: PCP Physician Assistant Medical; Visit Provider Physician Assistant Medical
DX: M81.0 Age-related osteoporosis without current pathological fracture (principal)
CPT/HCPCS: 77080

== ENCOUNTER → 2025-03-08 13:48 | Outpatient (BNV) | payer MEDICARE, SELFPAY | PROVIDERS: PCP Physician Assistant Medical; Visit Provider Radiology Diagnostic Radiology | DX: E28.39 Other primary ovarian failure (principal) | CPT/HCPCS: 77080 ==

== ENCOUNTER 2025-04-06 14:16 | Outpatient (AMB) | payer MEDICARE, SELFPAY ==
--- OUTSIDE RECORDS SUMMARY | 2024-09-15 12:00 | XMS_ITS ---
Author Organization [facility] Address [address] [place] [address] Care Team Providers Care Business Services Director Name Role Phone PARTH COREAS Primary Care Provider Rojas Iniguez [phone] JAVIER DENSON PA-C Unavailable REASON FOR VISIT stomach issues Encounters Encounter Location Date Provider Diagnosis [facility] [address] [facility] [place] [address] 09/15/2024 Rojas Plata Plan Of Treatment No Information Progress Notes * CASSIDY SORENSENDOB: [birth year] (69 yo F)Acc No.[id number]:09/15/2024 Progress Notes Patient: CASSIDY ÁLVAREZ Provider: Meagan Plata MD :1955 A ge:68 Y S ex:Female Date:09/15/2024 Address: [id number] Pcp:PARTH COREAS Subjective: * Chief Complaints: * [...] 0 09/15/2024 Generated for Viola hung/Faxing/eTransmitting on: 0 04/06/2025 02:45 PM EDT
--- OUTSIDE RECORDS SUMMARY | 2025-04-04 23:59 | XMS_ITS | Continuity of Care Document ---
Author Organization [facility] Address [address] [place] [address] Care Team Providers Care Business Performance Specialist Name Role Phone Irma BALDERRAMA, Mohinder Sharif [id number]s): [facility]/28/25 - 04/04/25 [facility] [address] [place], [place] [address] Attending Physician: Abdoul Henry MD Admitting Physician: Abdoul Henry MD Encounter Type: Office Visit Allergies, Adverse Reactions, [...] vaccine, inactivated 06/19/16 Yusuf rded SARS-CoV-2 mRNA ([id number]) vax 09/21/21 Recorded SARS-CoV-2 (COVID-19) mRNA BNT-162b2 [...] Refills, Maintenance, 10/05/23 12:12:00 PM EST, Tablet, [facility], Partial fill upon patient [...] Refills, Maintenance, 10/05/23 2:35:00 PM EST, Tablet, [facility], Partial fill upon patient request if [...] Quantity: 30.0 Unit: tablet Repeat number: 1 Social History Social History Type Response Smoking Status Former smoker, quit more than 30 days ago entered on: 02/28/23 Sex Sex Representation Female (finding) Note * Juan Hutchins: PERFORM Event Display: Patient Education/Instruction Authored Date: [id number] Ambulatory Adult Visit Summary [facility] [address] [facility] [address] [address] Name: CASSIDY SORENSEN : 1955?? Visit: 03/28/2025 14:11?? Ambulatory Visit Instructions ?? Your Care Team Primary Care Provider Mohinder Solis MD? This Visit Provider Abdoul Henry MD Vitals Signs Pulse Rate: 70 bpm Height: 152.5 cm Systolic Blood Pressure:??148 mm Hg??High Weight: 47.5 kg Diastolic Blood Pressure: 72 mm Hg Body Mass Index: 20.42 kg/m2 Oxygen Saturation: 97 % Body surface area: 1.42 What to do next Future Orders Creatinine [...] are strongly encouraged to quit. Please call [facility] at [phone] or [phone]) or log in to [email or web address] for referrals to smoking cessation programs. ?? The National Suicide Prevention Hotline is available 24/03 if you or someone you know needs to find a reason to keep living. By calling 5-184-770-Zingku (7861) you'll be connected to a skilled, trained counselor at a crisis center in your area. [facility] Portal You can view and manage your care through the patient portal or by using a health care anam of your choosing. [employer] is a website that allows you to securely view your medical information including your hospital discharge summary, office visit summaries, medications and follow-up visits. You can also request appointments, renew medications, and request access to your medical information using a health care anam of your choosing, or just ask a question. You can enroll at [email or web address] or register during your next office visit. [facility], in keeping with [facility] guidance, no longer requires face masks for [...] primary care provider, you may find a [facility] provider by calling [facility] at [phone]. Patient Care team information Care Team Personnel Name: Christian Turner MD Position: [facility] Renal MD Member Role: Lifetime Consulting Physician Address: [address] [place] [address] [address] [facility] [place] [address]- Telecom: Name: Michelle Bragg RN Position: S RN Member Role: Primary Care Nurse Name: Lesley Luis RN Position: S RN Member Role: Primary Care Nurse Name: Abdiel Patten RN Position: [facility] RN Member Role: Primary Care Nurse Name: Irma Adame RN Position: S RN Member Role: Primary Care Nurse Name: Genesis Dean RN Position: [facility] RN Member Role: Primary Care Nurse Name: Liliya Ferrell RN Position: S RN Member Role: Primary Care Nurse Name: Kelle Jackson RN Position: [facility] ED RN W/OE and Tasks Member Role: Primary Care Nurse Name: Clive Young MD Position: [facility] Outreach Member Role: Lifetime Consulting Physician Address: [address] [place] [address] [address] [facility] [place] [address]- Telecom: Name: Linda Carvajal RN Position: S RN Member Role: Primary Care Nurse Name: Jacinda Tran RN Position: S RN Member Role: Primary Care Nurse Name: Mireille Kahn RN Position: S RN Member Role: Primary Care Nurse Name: Shante Solorzano RN Position: S RN Member Role: Primary Care Nurse Name: Mohinder Solis MD Position: Reference Physician Member Role: PCP Address: [address] [place] [address]- Telecom: Care Team Related Persons Name: DANILO SORENSEN Name: KOBE SORENSEN Name: BHAVIN PERALTA Insurance Providers Guarantor name: CASSIDY SORENSEN Health Plan Information #: 1 Payer: MEDICARE B Payer Identifier: Member Number: [id number] Group Number: NA Subscriber Identifier: [id number] Relationship to Subscriber: self Coverage Type: NA Coverage Verification Date: Telecom: NA Address: Health Plan Information #: 2 Payer: [employer] SECONDARY ONLY Payer Identifier: ANGELA Member Number: [id number] Group Number: NA Subscriber Identifier: [id number] Relationship to Subscriber: self Coverage Type: MEDICARE Coverage Verification Date: Telecom: Address:
--- NOTE | 2025-04-06 14:32 | A.OFFPC_ITS ---
Vital Signs 04/06/25 14:34 Height 5 ft Weight 100 lb 8 oz BMI 19.6 BP 140/60 H Blood Pressure Location Lt brachial Position Sitting Pulse 71 Pulse Source Pulse Oximeter Temp 97.1 F Temp Source Temporal Artery Scan Pulse Oximetry (%) 94 Oxygen Delivery Method Room Air Intake Visit Reasons: 3M follow up Intake Note: Patient is here to follow up on CAD, Neuropathy, Hypercholesterolemia. Pointing Machine Operator Required: No Calender Runner: Present Accompanied by: Sister Allergies Sulfa (Sulfonamide Antibiotics) (SULFA(SULFONAMIDE ANTIBIOTICS)) Allergy (Intermediate, Verified 04/06/25 14:56) RASH/HIVES Tobacco use date assessed: 04/06/25 Fall risk assessment: No Falls in past year Last assessed Fall Risk: 04/06/25 Dental Screening Dental Screen Date: 12/23/24 [facility] Medical History Osteopenia Thiamin deficiency Follow-up exam, 3-6 months since previous exam Cervical cancer screening History of mammogram (~08/07/23) Peripheral vascular disease with claudication Peripheral vascular disease Atherosclerotic cardiovascular disease Essential hypertension Protein calorie malnutrition Syncope Essential hypertension Hypercholesterolemia Cataract fragments in both eyes following surgery Hip fracture Femur fracture High cholesterol Neuropathy High blood pressure Surgical History Stented coronary artery History of quadruple bypass History of colonoscopy (~06/21/22) History of hip surgery History of cataract surgery History of surgery History of ankle surgery History of endoscopy Family History Mother Heart attack Father Heart attack Social History Household Members: None Housing: House Do you presently have visiting nurse or other home services: No Alcohol intake: current Alcohol intake frequency: holidays/special occasions only Alcohol type: beer Patient Tobacco Use Status: Former Tobacco user Tobacco use type: Cigarette Cigarettes Per Day: 3 Years Smoked: 42 on and off e-Cigarette/Vaping Use: Never Used Second Hand Smoke Exposure: Yes service: No Current occupational status: employed Current occupation: rt handed Cognitive needs: Yes (cane/walker) Hearing needs: No Vision needs: Yes (glasses) Questionnaire PHQ-9 Over the last 2 weeks, how often have you been bothered by any of the following problems? 1. Little interest or pleasure in doing things: not at all 2. Feeling down, depressed, or hopeless: not at all 3. Trouble falling or staying asleep, or sleeping too much: not at all 4. Feeling tired or having little energy: not at all 5. Poor appetite or overeating: not at all 6. Feeling bad about yourself - or that you are a failure or have let yourself or your family down: not at all 7. Trouble concentrating on things, such as reading the newspaper or watching television: not at all 8. Moving or speaking so slowly that other people could have noticed. Or the opposite - being so fidgety or restless that you have been moving around a lot more than usual: not at all 9. Thoughts that you would be better off or of hurting yourself in some way: not at all Total score: 0 Depression Screening Interpretation: Negative Depression Screening Done: Yes Source: Developed by Drs. Rojas King, Marleen Morales, Travis Joyner and colleagues, with an educational kimi from [employer]. Thrive Questionnaire Date Thrive assessed: 04/05/25 I am a: Patient What is your living situation today?: I have a steady place to live Within the past 12 months, did the food you bought not last and you didn't have the money to get more?: Never true Within the past 12 months, did you worry whether your food would run out before you got money to buy more?: Never true Do you have trouble paying for medicines?: No Do you have trouble getting transportation to medical appointments?: No Do you have trouble paying your heating and electricity bill?: No Do you have trouble taking care of your child, family member or friend?: No Do you have trouble with day-to-day activities such as bathing, preparing meals, shopping, managing finances, etc.?: No Are you currently unemployed and looking for a job?: No Are you interested in more education?: No Please select the resources that you would like help with: None Currently or been in a relationship where the following occur: I choose not to answer THRIVE Score: 0 AUDIT C Alcohol Use Questionnaire (AUDIT-C) 1. How often do you have a drink containing alcohol?: 2-4 times a month Total Score: 2 CECY-7 AMB Questionnaire CECY-7 Date CECY - 7 assessed: 12/23/24 Feeling nervous, anxious, or on edge: 0 = Not at all Not being able to stop or control worryin = Not at all Worrying too much about different things: 0 = Not at all Trouble relaxin = Not at all Being so restless that it is hard to sit still: 0 = Not at all Becoming easily annoyed or irritable: 0 = Not at all Feeling afraid as if something awful might happen: 0 = Not at all Total CECY-7 score (0-4 normal; 5-9 mild; 10-14 moderate; 15-21 severe): 0 Source: Developed by Drs. Rojas King, Marleen Morales, Travis Joyner and colleagues, with an educational kimi from [employer]. Physical exam (Primary Care) Vital Signs: Last Vital Signs Temp 97.1 F 04/06/25 14:34 Pulse 71 04/06/25 14:34 BP 140/60 H 04/06/25 14:34 Pulse Ox 94 04/06/25 14:34 Oxygen Delivery Method Room Air 04/06/25 14:34 Care Plan Goal for BP management: BP in range BMI result Body Mass Index 19.6 Tobacco/Smoking Status: Tobacco use Status Tobacco use date assessed 04/06/25 04/06/25 14:41 Patient Tobacco Use Status Former Tobacco user 04/06/25 14:41 Tobacco use type Cigarette 04/06/25 14:41 e-Cigarette/Vaping Use Never Used 04/06/25 14:41 PHQ-9: PHQ-9 Score PHQ-9: Total score 0 04/06/25 14:41 Depression Screening Interpretation: Negative Thrive Assessment: Date of Thrive Assessment Date Thrive assessed 04/05/25 04/06/25 14:41 Currently or been in a relationship where the following occur: I choose not to answer Coding Level of Care Code Est Pt Level 4 (28718) Complex EM visit Add On G2211 Diagnoses Peripheral vascular disease with claudication I73.9 Assessment & Plan Assessment & Plan (1) Peripheral vascular disease with claudication: Code(s): I73.9 - Peripheral vascular disease, unspecified Category: Medical Plan: Scheduled for a vascular stent procedure in the [facility]. Plan History of Present Illness - The patient is a 69-year-old female presenting with ongoing management of coronary artery disease and peripheral artery disease. - Coronary artery disease: The patient is scheduled for a coronary angiogram and angioplasty to open up an artery in the leg. - Peripheral artery disease: The patient has a history of peripheral artery disease requiring angioplasty. - Neuropathic pain: The patient experiences burning and pinching sensations, managed with gabapentin taken three times daily and tramadol as needed. - The patient reports taking tramadol approximately seven to nine times a week, primarily at night or on days requiring increased activity. - Chronic Obstructive Pulmonary Disease (COPD): There is a history of possible COPD due to smoking, with plans for lung testing prior to surgery. - The patient quit smoking over two years ago, on November 07, 2022, the day before her surgery. Social History - Smoking: The patient quit smoking over two years ago, on November 07, 2022. Review of Systems - Cardiovascular: Reports chest pain, denies smoking. - Neurological: Reports burning and pinching sensations. Physical Exam General: Cooperative and healthy appearing Nutritional Appearance: Well nourished Orientation/consciousness: Patient oriented x3 Limitations: No limitations Head: Normal to inspection General: Appearance normal, both eyes and all related structures Neck: Normal visual inspection Chest: Normal palpation of entire chest wall Respiratory: Questionable COPD ormal respiratory effort Neurology: Patient oriented x3 Results Plan 1. Coronary Artery Disease - Plan for coronary angiogram and angioplasty to address arterial blockage. 2. Peripheral Artery Disease - Continue monitoring and management with angioplasty as needed. 3. Neuropathic Pain - Continue gabapentin at current dosage and adjust tramadol to 45 pills per month. 4. Chronic Obstructive Pulmonary Disease (Copd) - Plan for lung testing to evaluate COPD status. Discussion Notes We discussed the upcoming coronary angiogram and angioplasty to address the patient's coronary artery disease and peripheral artery disease. The patient will continue with gabapentin for neuropathic pain and adjust tramadol to 45 pills per month. We also plan to evaluate for COPD with lung testing. Follow-up is scheduled in three months. Patient Instructions - Continue taking gabapentin as prescribed. - Adjust tramadol intake to 45 pills per month. - Attend scheduled coronary angiogram and angioplasty. - Follow up in three months for reassessment.
[2025-04-06 14:34] VITALS: BP 140/60; PULSE 71; TEMP 36.2; O2SAT 94; BMI 19.6
--- OUTSIDE RECORDS SUMMARY | 2025-04-06 14:46 | XMS_ITS | Clinical Summary ---
Author Organization [facility] Facility Address [address] [place] [id number] Care Team Providers Care Iron Melter Name Role Phone Unavailable Primary Care Provider [...]
--- OUTSIDE RECORDS SUMMARY | 2025-04-06 14:46 | XMS_ITS | Clinical Summary ---
Author Organization [facility] Address [address] [place] [id number] Phone Care Team Providers Care Supervising Bailiff Name Role Phone Mohinder Solis MD Primary Care Provid er Social History Tobacco Use Types Packs/Day Years Used Date Smoking Tobacco: Never Assessed Education Answer Date Recorded Are you interested in more education? Not on jean e 12/28/2022 Are you concerned about learning? Not on file 12/28/2022 No 12/28/2022 No 12/28/2022 Digital Access Answer Date Recorded No 01/28/2023 No 01/28/2023 Reliable internet access at home? Not on file 01/28/2023 Device with a working camera? Not on file Comments Unknown Sex and Gender Information Value Date Recorded Sex Assigned at Not on file Legal Sex Female 3:43 PM EDT Gender Identity Not on file Sexual Orientation Not on file Plan of Treatment Health Maintenance Due Date Last Done Comments Adult Td,Tdap Booster 1956 LIPID PANEL 1956 DEPRESSION SCREENING 1968 SMOKING Hx and SMOKELESS TOBACCO SCREENING 1969 HEPATITIS C SCREENING 1974 MAMMOGRAM 1996 COLOGUARD 2001 COLONOSCOPY 2001 COLORECTAL CANCER SCREENING 2001 FIT TEST 2001 FOBT 2001 SIGMOIDOSCOPY 2001 VIRTUAL COLONOSCOPY 2001 ZOSTER VACCINES (2 of 3) 05/09/2017 03/14/2017 PNEUMOCOCCAL VACCINES (50+ years) (2 of 2 - PCV) 04/10/2018 04/10/2017 OSTEOPOROSIS SCREENING INITI AL (ONE-TIME) 2021 COVID-19 VACCINE (4 - 2023-2 5 season) 2024 09/21/2021, 12/29/2020, 12/08/2020 RSV VACCINE (1 - 1-dose 75+ series) 2031 HEPATITIS A VACCINES Aged Out No long er eligible based on patient's age to complete this topic HIB VACCINES Aged Out No longer eligi ble based on patient's age to complete this topic MENINGOCOCCAL VACCINES (ACWY) Aged Out No longer eligible based on patient's age to complete this topic MENINGOCOCCAL VACCINES (B) Aged Out N o longer eligible based on patient's age to complete this topic Medical Devices [place] [id number] GENERIC COMMERCIAL MEDICARE A GENERIC COMMERCIAL MEDICARE A GENERIC COMMERCIAL MEDICARE A GENERIC COMMERCIAL MEDICARE A GENERIC COMMERCIAL MEDICARE A GENERIC [place] [id number] [facility] GENERIC COMMERCIAL Care Teams Supervising Bailiff Relationship Specialty Start Date End Date Mohinder Solis MD [address] [place] [address] [phone] PCP - General Internal Medicine 11/12/22 Additional Source Comments The information contained in this document represents components of the legal health record. It is not the complete legal health record.[facility]
== END 2025-04-06 15:01 | disposition home or self-care (01) ==
LOC: HO.HMCH 14:16
PROVIDERS: PCP Internal Medicine; Visit Provider Internal Medicine
DX: I73.9 Peripheral vascular disease, unspecified (principal)

== ENCOUNTER → 2025-04-06 14:16 | Outpatient (BNVA) | payer MEDICARE, SELFPAY | PROVIDERS: PCP Internal Medicine; Visit Provider Internal Medicine | DX: I73.9 Peripheral vascular disease, unspecified (principal) | CPT/HCPCS: 99212 ==

== ENCOUNTER 2025-04-10 15:56 | Inpatient (IN) | payer MEDICARE, SELFPAY ==
--- OUTSIDE RECORDS SUMMARY | 2024-09-15 12:00 | XMS_ITS ---
Author Organization [facility] Address [address] [place] [address] Care Team Providers Care Stable Hand Name Role Phone PARTH COREAS Primary Care Provider Rojas Iniguez [phone] JAVIER DENSON PA-C Unavailable REASON FOR VISIT stomach issues Encounters Encounter Location Date Provider Diagnosis [facility] [address] [facility] [place] [address] 09/15/2024 Rojas Plata Plan Of Treatment No Information Progress Notes * CASSIDY SORENSEN SantiagoDOB: [birth year] (69 yo F)Acc No.[id number]:09/15/2024 Progress Notes Patient: CASSIDY ÁLVAREZ Provider: Meagan Plata MD :1955 A ge:68 Y S ex:Female Date:09/15/2024 Address: [address] [id number] Pcp:PARTH COREAS Subjective: * Chief Complaints: * [...] 09/15/2024 Generated for Viola hung/Faxing/eTransmitting on: 0 04/10/2025 05:05 PM EDT
--- OUTSIDE RECORDS SUMMARY | 2025-04-07 15:35 | XMS_ITS | Continuity of Care Document ---
Author Organization [facility] ter Address [address] [place] [id number]- Care Team Providers Care Marine Meteorologist Name Role Phone Irma BALDERRAMA, Mohinder Sharif Primary Care Physician Encounter [facility] Date(s): 04/07/25 - 04/07/[address] [address] Discharge Disposition: A-D/C Home Attending Physician: Abdoul Henry MD Admitting Physician: Abdoul Henry MD Referring Physician: Abdoul Henry MD Encounter Type: Disch Daystay Allergies, Adverse Reactions, Alerts Substance Criticality Severity [...] vaccine, inactivated 06/19/16 Yusuf rded SARS-CoV-2 mRNA ([id number]) vax 09/21/21 Recorded SARS-CoV-2 (COVID-19) mRNA BNT-162b2 [...] Refills, Maintenance, 10/05/23 12:12:00 PM EST, Tablet, [facility], Partial fill upon patient [...] Refills, Maintenance, 10/05/23 2:35:00 PM EST, Tablet, [facility], Partial fill upon patient [...] Sex Sex Representation Female (finding) Note * Inessa HENDRIX, Janina Alexandre: PERFORM Event Display: Patient Education/Instruction Authored Date: [id number] Inpatient Adult Discharge Instructions. [address] [address] Name: CASSIDY SORENSEN : 1955?? Visit: 04/07/2025 08:46?? Current Date: 04/07/2025 14:08 ?? Account: [id number]?? Inpatient Adult Discharge Instructions We would like to thank you for allowing us to assist you with your healthcare needs. The following includes patient education materials and information regarding your injury/illness. Our entire staffstrives to provide an excellent experience for our patients and their families. PLEASE ENSURE YOU FOLLOW-UP PER THE INSTRUCTIONS BELOW! ?? YOUR OPINION IS IMPORTANT TO US! Please complete the survey you may receive by mail or email. Your feedback will be used to make improvements to the healthcare experiences of our patients and their families. Surveys are administered by [employer], [employer]. ?? If further treatment with your primary care physician or another doctor is recommended, it is important for you to keep the appointment. Call your primary care physician or return to the Emergency Department immediately if your condition worsens, fails to improve, or new symptoms develop. If you need to find a doctor, you can call [facility] for a referral at [phone] or toll free at [phone]) or log in to [email or web address].. ?? [facility], in keeping with [facility] guidance, no longer requires face masks for [...] medical provider or home test kit. ?? You can view and manage your care through the patient portal or by using a health care anam of your choosing. [employer] is a website that allows you to securely view your medical information including your hospital discharge summary, office visit summaries, medications and follow-up visits. You can also request appointments, renew medications, and request access to your medical information using a health care anam of your choosing, or just ask a question. You are entitled to know the individuals who participated in your treatment. This information is available within your medical record and will be provided upon your request. You can enroll at [email or web address] or register d uring your next office visit. You have been discharged from [facility], Patient Care Unit: PANU??. If you have any questions regarding these instructions, including results of studies pending, afteryou leave, please call us and we will be happy to assist you 24/03. [facility] Nursing [facility] Direct Phone Number, for 24/03 contact and results of studies pending [facility] [address] [place] [address] Your Care Team Attending Physician Abdoul Henry MD?? Consulting Providers Abdoul Henry MD?? Discharging Providers Cori Amador MD Tests Performed Below is a partial list of the tests performed during your hospitalization. You may have had other tests and procedures not included in this list. Please discuss all test results with your provider. No tests performed during this visit.?? Primary Care Provider Mohinder Solis MD? Advance Directive Health Care Proxy on File Yes - Health Care Proxy Discharge Vitals Temperature: 98.4 DegF Height: 152.5 cm Pulse Rate: 62 bpm Weight: 47.5 kg Respiratory Rate:??14 br/min??Low Body Mass Index: 20.42 kg/m2 Systolic Blood Pressure: 109 mm Hg Body surface area: 1.42 Diastolic Blood Pressure: 58 mm Hg ?? Oxygen Saturation: 98 % ?? Studies Pending All studies ordered during this hospital stay have been completed unless listed below. Please discuss all pending results with your provider listed above in these instructions. ?? No incomplete studies found?? What to do next Instructions From Your Doctor ?? Orders?? Unit Standard After Recovery, ??04/07/25 12:22:00 EDT?? You Need to Schedule the Following Appointments Follow Up with??Abdoul Henry MD Why: follow up in 2 weeks Where: [address] [facility] [place] [address]- Discharge Medications CASSIDY SORENSEN :1955 Visit Date:04/07/2025 Medications: Please continue your medications until treatment is completed or stopped by your provider. Medications not listed below should be discontinued. Discuss any questions related to medications with your provider. What How Much When Instructions Next Dose Unchanged Acetaminophen (acetaminophen 325 mg oral tablet) 650 Milligram Oral 4 times a day resume as needed for mild to moderate??pain Unchanged apixaban (apixaban Starter Pack 5 mg oral tablet) See instructions Take 2 tablets By Mouth 2 times a day for 1 week, then on oct 12, take 1 tablet 2 times a day thereafter ?? resume tomorrow Unchanged Aspirin (aspirin 81 mg oral tablet) 1 tab(s) Oral Daily resume tomorrow Unchanged Cholecalciferol (cholecalciferol 400 intl units oral capsule) 1 capsule Oral Daily resume tomorrow Unchanged Cholestyramine (cholestyramine 4 gm/ 9 gm oral powder for reconstitution) resume as prescribed Unchanged Gabapentin (gabapentin 300 mg oral capsule) 1 capsule Oral 3 times a day resume tonight Unchanged Lisinopril 40 Milligram Oral Daily resume tomorrow Unchanged Metformin Oral resume tomorrow Unchanged Metoprolol (metoprolol 25 mg oral tablet) 4 tab(s) Daily resume tomorrow Unchanged Rosuvastatin (rosuvastatin 20 mg oral tablet) 1 tab(s) Oral Daily at Bedtime Duration: 30 Days resume tonight Unchanged Sertraline (sertraline 25 mg oral tablet) 1 tab(s) Oral Daily resume tomorrow Prescription Given During Visit No new medications prescribed at time of discharge.?? Laboratory Results Below is a partial list of the most recent Laboratory test results done prior to this discharge. You may have had other tests and procedures not included in this list. Please discuss all test resultswith your provider. Allergies (NKA means No Known Allergies) sulfa drugs??(Rash) Problems No qualifying data available Education Materials Below is the list of Educational Leaflet Providered with your Discharge Instructions. Web[employer] Ignite Patient Education - -Groin I Discharge Instructions?? [employer] Patient Education - Surgery Medical Daystay Surgical Overnight Discharge Instructions?? Valuables and Belongings I fully understand and agree that [facility] accepts no responsibility for all my personal property including clothing, toilet articles, radios, jewelry, dentures, hearing aids, rings, money, or any other property that is in my possession or is brought to me after admission. I understand certain valuables may be placed in a hospital safe for a short period of time. I understand that the hospital is not liable for loss or damage due to accident, fire, or other natural occurrence while said property is in the safe. I accept full responsibility for any personal property that I keep with me, and will not hold the hospital responsible in case of loss or disappearance. I acknowledge that i have been encouraged to send valuables and belongings home. ?? Review of Valuable and Belonging List: With patient Disposition of Belongings: Valuables Locked Date for Pt to Sign Valuables/Belongings: 04/07/25 10:30:00 ?? Valuables & Belongings ?? Clothes Electronic devices Jewelry Monetary Items Personal devices Miscellaneous Medications (Valuables) Valuables at Bedside Pants, Shirt, Shoes, Undergarments Cell phone ? Glasses Other: pocket book ?? Valuables Sent Home ? Valuables Sent to Security ? Valuables Sent to Locker ? Other Discharge Information ? Pulmonary Rehab Status?? Pulmonary Rehab Discharge Status?? Respiratory Rate:??14 br/min??Low ? Common Emergency Awareness Tips IS IT A [...] are strongly encouraged to quit. Please call Wilshire Axon at [phone] or [phone] or log in to [email or web address] for referrals to smoking cessation programs. ?? 988 Suicide & Crisis Lifeline is available 24/03 if you or someone you know needs to find a reason to keep living. By calling 242 you'll be connected to a skilled, trained counselor at a crisis center in your area. INPATIENT DISCHARGE INSTRUCTIONS SIGNATURE PAGE CASSIDY SORENSEN Location:[facility] Registration Date and Time:04/07/2025 08:46 EDT Primary Care Physician: Irma BALDERRAMA, Mohinder Sharif, Attending Physician: Elaine BALDERRAMA, Abdoul Fournier, I CASSIDY SORENSEN, have received the above patient education materials/instructions and have verbalized understanding. If ambulance or transport services are being used I further acknowledge being given a choice of service. ?? If you need to contact me, please call me at this number: . Patient/Finisher Hot Strip Name: Patient/Finisher Hot Strip Signature: Relationship to Patient: Witness Name/Signature: Date: * Janina Wylie RN: PERFORM Event Display: Patient Education Leaflets Authored Date: [id number] M-Groin I Discharge Instructions ?? 179 Groin Discharge Instructions No heavy lifting over 10 pounds (for example: gallon of milk) 1 week following the procedure; gradually increase normal activity over the next 5 days. Avoid straining/pushing when moving bowels You may feel like resting more after your procedure. Slowly start to do more each day. Rest when you feel it is needed. Make sure to look at your procedure site every day until it is completely healed. You may see bruising at the puncture site and that is common after the procedure. You may shower the day after your procedure. Remove the band aid before showering. Wash the area gently with soap and water. Leave open to air. Do not take tub baths, hot tubs, soaking of the puncture site or swimming for 1 week. Do not put any creams, powders or lotions on your puncture site You may resume sexual activity the day after your procedure; avoid bending the hip on ?? the side of the groin puncture excessively and any strenuous positions for 1 week. Call your doctor if your procedure site develops any of the following: ??? New onset severe pain ??? New onset lump or swelling ??? Bleeding that does not stop with lightpressure ? * Janina Wylie RN: PERFORM Event Display: Patient Education Leaflets Authored Date: [id number] Surgery Medical Daystay Surgical Overnight Discharge Instructions ?? 295 Medical Daystay/Surgical Overnight Discharge Instructions ? Since your coordination and judgment may be altered by medication and/or anesthesia, a responsible adult must drive you home from the hospital. ? If you have received medication for pain or sedation while under our care, you should not drive, operate machinery, drink alcohol, or sign any legal documents for 24 hours.?? You should have someone with you at home tonight. ? Remain at home the day of discharge.?? You may be up and about unless otherwise instructed by your physician. ? You may resume your daily prescription medication schedule.?? Any depressant medication should be avoided for 24 hours unless otherwise instructed by your surgeon or anesthesiologist. ? Call your physician for a follow-up appointment.? If you experience unusual or severe pain not relied by your pain medication, excessive bleedingor drainage, persistent nausea and vomiting, excessive swelling or redness, foul odor from incisionsite or fever over 100.6F, you need to call your physician. ? A follow-up phone call by a nurse will be made the day after your procedure.?? If you have stayed with us over night, you will not be receiving a follow-up phone call. ? Nausea and vomiting are a common side effect of prescription pain medication.?? We recommend that pills are not taken on an empty stomach.?? While taking any prescription pain medication you should not drive or drink alcohol. ? Patient Care team information Care Team Personnel Name: Christian Turner MD Position: [facility] Renal MD Member Role: Lifetime Consulting Physician Address: [address] [place] [address] [address] [facility] [place]EL [place] [address]- Telecom: Name: Michelle Bragg RN Position: [facility] RN Member Role: Primary Care Nurse Name: Lesley Luis RN Position: [facility] RN Member Role: Primary Care Nurse Name: Abdiel Patten RN Position: [facility] RN Member Role: Primary Care Nurse Name: Irma Adame RN Position: [facility] RN Member Role: Primary Care Nurse Name: Genesis Dean RN Position: [facility] RN Member Role: Primary Care Nurse Name: Liliya Ferrell RN Position: [facility] RN Member Role: Primary Care Nurse Name: Kelle Jackson RN Position: [facility] ED RN W/OE and Tasks Member Role: Primary Care Nurse Name: Clive Young MD Position: [facility] Outreach Member Role: Lifetime Consulting Physician Address: [address] [facility] [address] [facility], [place] [address]- Telecom: Name: Linda Carvajal RN Position: [facility] RN Member Role: Primary Care Nurse Name: Jacinda Tran RN Position: [facility] RN Member Role: Primary Care Nurse Name: Mireille Kahn RN Position: [facility] RN Member Role: Primary Care Nurse Name: Shante Solorzano RN Position: [facility] RN Member Role: Primary Care Nurse Name: Mohinder Solis MD Position: Reference Physician Member Role: PCP Address: [address] [place] [address] [address] [place] [address]- Telecom: Care Team Related Persons Name: DANILO SORENSEN Name: KOBE SORENSEN Name: BHAVIN PERALTA Insurance Providers Guarantor name: CASSIDY SORENSEN Health Plan Information #: 1 Payer: MEDICARE B Payer Identifier: Member Number: [id number] Group Number: Subscriber Identifier: [id number] Relationship to Subscriber: self Coverage Type: NA Coverage Verification Date: Telecom: NA Address: Health Plan Information #: 2 Payer: [employer] SECONDARY ONLY Payer Identifier: Member Number: [id number] Group Number: Subscriber Identifier: [id number] Relationship to Subscriber: self Coverage Type: MEDICARE Coverage Verification Date: NA Telecom: Address:
[2025-04-10] VITALS (8 sets, daily range): BP systolic 136–190; BP diastolic 68–82; PULSE 62–75; RESP 15–25; TEMP 36.6–36.9; O2SAT 97–100; BMI 18.9
--- NOTE | ~2025-04-10 | XR_ITS ---
CLINICAL HISTORY: Weakness, left sided facial droop 1 view chest x-ray Comparison: CR/MD/SR - XR CHEST 2 VIEWS - 04/10/23 17:20 EDT Findings: Median sternotomy. Atrial appendage clip. The lungs are clear. Normal size heart. No acute fracture. IMPRESSION: 1. No acute findings. This document has been electronically signed by: Paty Alexander MD on 04/10/2025 16:58:01
--- NOTE | ~2025-04-10 | MR_ITS ---
EXAMINATION: MR BRAIN WITHOUT CONTRAST CLINICAL INFORMATION: Right-sided facial numbness. Concerning stroke. COMPARISON: Correlated to CT dated April 10, 2025. TECHNIQUE: MRI of the brain was obtained using routine sequences without contrast. FINDINGS: No restricted diffusion. No acute intracranial hemorrhage, mass effect, midline shift, hydrocephalus or herniation. Focal susceptibility signal in the right dentate nucleus/right cerebellum. Bilateral multifocal patchy punctate and confluent deep periventricular white matter hyperintense T2 FLAIR signal involving centrum semiovale, crawford radiata, rolly and medulla oblongata junction. Multifocal old lacunar infarcts in the rolly, right cerebellum to a lesser extent left cerebellum and the basal ganglia/lenticular nucleus with a cribriform pattern . There is a focal encephalomalacia, left cuneus with intrinsic hyperintense T1 signal in the cerebral cortex and hyperintense T2 FLAIR signal in the deep white matter. Flow-void signal within the main cerebral vessels is normal. Normal position of the cerebellar tonsils. Sellar/suprasellar region demonstrated no signal abnormality or masses. MR/MR head/brain wo con IMPRESSION: No acute stroke. Extensive white matter disease and multifocal old lacunar infarcts related to small vessel occlusive disease. Prior vascular insult resulting in focal encephalomalacia and cortical laminar necrosis, left [employer]IAN territory. Wallerian degeneration into the rolly. Old focal hemorrhage, right dentate nucleus. Electronically signed by: Hunter Nolen MD 04/11/2025 01:33 PM EDT
--- NOTE | ~2025-04-10 | CT_ITS ---
CLINICAL HISTORY: Left sided facial droop, LKW [address] angiography head and neck with contrast. 3D Postprocessing. Comparison: CT/SR - CT HEAD FOR STROKE - 04/10/25 16:13 EDT Findings: Aortic arch and cervical great vessels are patent with no aneurysm, dissection, hemodynamically significant stenoses, or occlusion. High-grade, roughly 80% origin stenosis of the left internal carotid artery. 10% calcific origin stenosis of the right internal carotid artery. Mild calcific stenosis of the cavernous segments of the internal carotid arteries bilaterally. Mild bilateral calcific vertebral artery stenoses. The arteries of the head and neck are otherwise patent. No abnormal intracranial enhancement. The visualized thyroid gland is unremarkable. No cervical mass or fluid collection. Lung apices clear. No acute fracture. IMPRESSION: 1. No acute process. 2. Anterior and posterior circulation stenoses as described above. This document has been electronically signed by: Paty Alexander MD on 04/10/2025 17:02:58
--- NOTE | ~2025-04-10 | CT_ITS ---
CLINICAL HISTORY: Left sided facial droop, LKW [address] head without contrast Comparison: None provided Findings: No intra-axial mass, midline shift, hydrocephalus, or acute hemorrhage. Age appropriate cerebral volume loss. Patchy low-density within the periventricular and subcortical white matter. Small chronic left parieto-occipital lobe infarct. There is no sinus or mastoid fluid. The orbits are within normal limits. No skull fracture. IMPRESSION: 1. No acute intracranial findings. This document has been electronically signed by: Paty Alexander MD on 04/10/2025 16:36:44
--- NOTE | 2025-04-10 16:00 | ED.GENADULT ---
HPI - General Adult General Chief complaint: Neuro Symptoms/Deficit Stated complaint: stroke like symptoms longer than a day Time Seen by Provider: 04/10/25 17:09 Source: patient and family (son) Mode of arrival: ambulatory Limitations: no limitations History of Present Illness ED Provider: PAN CORONEL PA-C HPI narrative: 69 year old female with pmhx significant for HTN, CAD s/p triple bypass on Eliquis, PVD, neuropathy presents to the ED today with her sons for concerns of stroke-like symptoms. Patient reports having a RLE angioplasty at [facility] on (4 days ago). Reports that since this time, she has had numbness to the tip of her tongue with associated decreased sensation to her right cheek. Her two sons are at bedside to assist with history. They report that their cousin saw the patient yesterday around 1600 and she did not endorse any symptoms. Her son arrived at her home today and reported concern that patient had a facial droop, prompting him to bring her to the ED for further evaluation. Other than her tongue and facial symptoms, she reports a mild light headedness at present. She attributes this to poor PO intake over the past few days since her surgery. Related Data Home Medications ?Medication ?Instructions ?Recorded ?Confirmed aspirin 81 mg tablet,delayed 81 mg PO DAILY 11/02/20 04/11/25 release (Adult Aspirin Regimen) alendronate 70 mg tablet (Fosamax) 70 mg PO SOSA 04/11/25 04/11/25 rosuvastatin 20 mg tablet 20 mg PO DAILY@1330 04/11/25 04/11/25 sertraline 25 mg tablet 25 mg PO DAILY@1330 04/11/25 04/11/25 Previous Rx's ?Medication ?Instructions ?Recorded nitroglycerin 0.4 mg sublingual 0.4 mg sublingual Q5M PRN chest 10/08/22 tablet pain #30 tabs lisinopril 40 mg tablet 40 mg PO DAILY #90 tabs 07/23/24 apixaban 5 mg tablet (Eliquis) 5 mg PO BID #180 tabs 02/16/25 tramadol 50 mg tablet 50 mg PO BID PRN Pain #60 tabs 03/15/25 gabapentin 300 mg capsule 300 mg PO TID #90 caps 03/18/25 metoprolol succinate 100 mg 100 mg PO DAILY #90 tabs 04/11/25 tablet,extended release 24 hr prednisone 20 mg tablet 60 mg (3 x 20 mg) PO DAILY #21 tabs 04/11/25 valacyclovir 1 gram tablet 1,000 mg PO TID #21 tabs 04/11/25 Allergies Allergy/AdvReac Type Severity Reaction Status Date / Time Sulfa (Sulfonamide Allergy Intermediate RASH/HIVES Verified 04/10/25 16:04 Antibiotics) (SULFA(SULFONAMIDE ANTIBIOTICS)) Review of Systems Review of Systems: Yes all other systems are reviewed and are negative [facility] Past Medical History Attestation statement: The following information was validated with the patient. Source: old records reviewed, obtained from family and nursing notes reviewed Medical History Osteopenia Thiamin deficiency Follow-up exam, 3-6 months since previous exam Cervical cancer screening History of mammogram (~08/07/23) Peripheral vascular disease with claudication Peripheral vascular disease Atherosclerotic cardiovascular disease Essential hypertension Protein calorie malnutrition Syncope Essential hypertension Hypercholesterolemia Cataract fragments in both eyes following surgery Hip fracture Femur fracture High cholesterol Neuropathy High blood pressure Surgical History Stented coronary artery History of quadruple bypass History of colonoscopy (~06/21/22) History of hip surgery History of cataract surgery History of surgery History of ankle surgery History of endoscopy Family History Family History Mother Heart attack Father Heart attack Social History Social History Household Members: None Housing: House Do you presently have visiting nurse or other home services: No Alcohol intake: current Alcohol intake frequency: a few times a week Alcohol type: beer Patient Tobacco Use Status: Former Tobacco user Tobacco use type: Cigarette Cigarettes Per Day: 3 Years Smoked: 42 on and off Smoked in Last 30 Days: No e-Cigarette/Vaping Use: Never Used Second Hand Smoke Exposure: Yes Use of substances other than those prescribed or required for medical reasons: No Advance Directives: Yes Advance Directives Information Provided: No Advance Directives on File: No Do you have a plan to hurt others: No Plan Nutrition Risks: No Nutritional Risk service: No Current occupational status: employed Current occupation: rt handed Cognitive needs: Yes (cane/walker) Hearing needs: No Vision needs: Yes (glasses) Physical Exam ED Vital Signs: Vital Signs - 24 hr 04/10/25 19:37 04/10/25 19:40 04/10/25 19:41 Temperature Pulse Rate 62 65 71 Respiratory Rate Blood Pressure 170/71 H 182/68 H 182/76 H Pulse Oximetry Oxygen Delivery Method 04/10/25 19:56 04/10/25 22:00 04/11/25 01:31 Temperature 98.4 F 98.2 F 97.8 F Pulse Rate 71 64 68 Respiratory Rate 15 19 16 Blood Pressure 182/76 H 185/73 H 142/66 H Pulse Oximetry 99 97 91 L Oxygen Delivery Method Room Air Room Air Room Air 04/11/25 04:00 04/11/25 06:00 04/11/25 09:02 Temperature 98.2 F 98.0 F 98 F Pulse Rate 61 65 70 Respiratory Rate 12 14 18 Blood Pressure 140/70 H 154/70 H 146/63 H Pulse Oximetry 100 98 100 Oxygen Delivery Method Room Air Room Air Room Air 04/11/25 12:00 Temperature Pulse Rate 67 Respiratory Rate 16 Blood Pressure 138/66 Pulse Oximetry 100 Oxygen Delivery Method Room Air BMI result Body Mass Index 18.9 hypertensive, vitals are otherwise wnl General: well appearing, in no acute distress. Skin: Warm, dry, intact. No rashes or lesions. Head: Normocephalic, atraumatic. EENT: Hearing is intact b/l. Conjunctiva clear. PERRLA. EOM intact. Moist mucous membranes.? Neck: Supple without LAD Cardiac: Chest wall symmetric. RRR Lungs: Normal respiratory effort without accessory muscle use. CTA bilaterally. Abdomen: Soft, non-tender, non-distended. No rebound tenderness or guarding Back: No midline spinous or paraspinal tenderness. No step off deformity. Ext: Upper and lower extremities atraumatic, without tenderness, deformity, swelling or erythema Neuro: AOX3. diminished sensation to right cheek. reports diminished sensation to the tip of her tongue, no tongue deviation. no facial droop or slurred speech. lagging of right eyelid, able to shut both eyes completely. no paralysis of the forehead. strength intact throughout. normal finger to nose and heel to oquendo. ambulating with steady gait. Psych: Appropriate mood and affect. Responds appropriately to questions. NIH Stroke Scale Internal: Initial- Upon Arrival Level of Consciousness: Alert Level of Consciousness Questions: Answers both questions correctly Level of Consciousness Commands: Performs both tasks correctly Best Gaze: Normal Visual: No visual loss Facial Palsy: Minor paralyis Motor Arm (Right): No drift Motor Arm (Left): No drift Motor Leg (Right): No drift Motor Leg (Left): No drift Limb Ataxia: Absent Sensory: Mild to moderate sensory loss Best Language: No aphasia Dysarthia: Normal Extinction and Inattention: No abnormality Score: 2 Course Course Course Narrative: Rapid medical examination performed in triage by Zayda Lowe PA-C. Patient is a 69 year old assigned female at presenting to the emergency department with left sided facial droop. Patient had a leg angioplasty a few days ago and starting at 4pm yesterday she began to have left sided facial droop and tongue numbness. Detailed physical exam and review of systems are deferred to the silk winding machine operator. EKG, labs, imaging, and swabs ordered. Patient placed back in the waiting room pending room availability and results. Reevaluation(s) Reevaluation #1: NIH score 2 on arrival in ED. Head CT negative. CTA head/neck showing high agreed, roughly 80% origin stenosis of the left internal carotid artery, 10% calcific origin stenosis of the right internal carotid artery. Mild calcific stenosis of the cavernous segments of the internal carotid arteries bilaterally. Mild bilateral calcific vertebral artery stenoses. EKG showing NSR without acute ischemic changes or ST elevations. trop wnl at 4.3. CXR negative. cbc showing chronic anemia with stable h&h. no acute electrolyte abnormality requiring intervention. > MR brain ordered - discussed w/ computer forensics technician who tells me capatability of patient's cardiac stents is unknown and they will need to f/u in the morning regarding scan. discussed with patient and sons at bedside. case discussed with hospitalit dr. silva who has accepted patient admission for further stroke work up. Medications Administered Discontinued Medications Generic Name Dose Route Start Last Admin Trade Name Freq PRN Reason Stop Dose Admin Apixaban 5 mg 04/10/25 22:10 04/11/25 08:20 Apixaban 5 Mg Tablet PO 5 mg BID CAILIN Administration Aspirin 81 mg 04/11/25 09:00 04/11/25 08:20 Aspirin Enteric Coated 81 Mg Tablet.Dr PO 81 mg DAILY CAILIN Administration Atorvastatin Calcium 80 mg 04/11/25 13:30 04/11/25 13:38 Atorvastatin Calcium 80 Mg Tablet PO 80 mg DAILY@1330 CALIIN Administration Gabapentin 300 mg 04/10/25 22:10 04/11/25 08:20 Gabapentin 300 Mg Capsule PO 300 mg TID CAILIN Administration Iohexol 100 ml 04/10/25 16:22 04/10/25 16:24 Iohexol 350 Mg/Ml 100 Ml Infus..Btl IV 04/10/25 16:23 70 ml ONCE ONE Administration Metoprolol Succinate 100 mg 04/11/25 10:45 04/11/25 11:11 Metoprolol Succinate Er 100 Mg Tab.Er.24h PO 100 mg DAILY CAILIN Administration Protocol Sertraline HCl 25 mg 04/11/25 13:30 04/11/25 13:38 Sertraline Hcl 25 Mg Tablet PO 25 mg DAILY@1330 CAILIN Administration Sodium Chloride 3 ml 04/11/25 00:00 04/11/25 08:20 0.9 % Sodium Chloride Flush 3 Ml Syringe IVFLUSH 3 ml QSHIFT CAILIN Administration Medical Decision Making Medical Decision Making MDM Narrative: 69 year old female with pmhx significant for HTN, CAD s/p triple bypass on Eliquis, PVD, neuropathy presents to the ED today with her sons for concerns of stroke-like symptoms. she is hypertensive, vitals are otherwise wnl. she is well appearing and in NAD. exam: AOX3. diminished sensation to right cheek. reports diminished sensation to the tip of her tongue, no tongue deviation. no facial droop or slurred speech. lagging of right eyelid, able to shut both eyes completely. no paralysis of the forehead. strength intact throughout. normal finger to nose and heel to oquendo. ambulating with steady gait. Differential diagnosis includes anemia, electrolyte abnormality, CVA/TIA, ICH, bells palsy, arrhythmia, hypoglycemia Stroke work up ordered from triage - plan to review. Patient will likely require an MR brain. Differential Diagnosis Differential Diagnoses: The differential diagnosis associated with the presentation includes as above. Admission/Observation Consideration of admission/observation: Escalation of care including admission/observation considered patient admitted to medicine for stroke work up. Consult Healthcare Provider Management of the patient was discussed with: Hospitalist (dr. silva) Lab Data MDM Lab Attestation statement: I reviewed the patient's lab results. as above. 04/11/25 04:09 04/11/25 04:09 Labs: Lab Results 04/10/25 04/10/25 04/10/25 Range/Units 16:06 16:09 20:08 WBC 5.7 (4.8-10.8) X10*3/uL RBC 3.38 L (4.20-5.50) X10*6/uL Hgb 10.8 L (12.0-16.0) g/dl Hct 32.1 L (37.0-47.0) % MCV 95.0 (80.0-98.0) fL MCH 32.0 (27.0-33.0) pg MCHC 33.6 (31.0-35.0) g/dl RDW 12.4 (11.0-16.0) % Plt Count 220 (160-400) X10*3/uL MPV 9.0 L (9.4-12.3) fL Immature Gran % (Auto) 0.5 H (0.0-0.4) % Neut % (Auto) 53.7 (45-73) % Lymph % (Auto) 32.1 (20-40) % [place] % (Auto) 12.4 H (2-11) % Eos % (Auto) 1.0 (0-4) % Baso % (Auto) 0.3 (0-2) % Lymph # (Auto) 1.8 (1.2-4.9) X10*3/uL [place] # (Auto) 0.7 (0.1-1.2) X10*3/uL Eos # (Auto) 0.1 (0.0-0.4) X10*3/uL Baso # (Auto) 0.0 (0.0-0.2) X10*3/uL Abs Immat Gran (auto) 0.03 (0.00-0.03) X10*3/uL Absolute Neuts (auto) 3.1 (2.0-8.3) x10*3/uL Absolute Nucleated RBC 0.000 (0.0-0.012) X10*3/uL Nucleated RBC % (auto) 0.0 (0.0-0.2) /100WBC PT 14.0 H (10.9-12.4) SEC INR 1.2 H (0.9-1.1) APTT 29.6 (26.7-34.1) SEC Sodium 141 (135-145) mmol/L Potassium 4.2 (3.3-5.1) mmol/L Chloride 108 (96-108) mmol/L Carbon Dioxide 23 (22-29) mmol/L Anion Gap 14 (12-20) BUN 11 (9-16) mg/dL Creatinine 0.80 (0.5-1.4) mg/dL Estim Creat Clear Calc 48.1 Estimated GFR > 60 POC Glucose 93 (60-115) mg/dL Random Glucose 95 (60-115) mg/dL Calcium 9.1 (8.4-10.2) mg/dL Troponin I High Sens 3.7 D 4.3 (<3.5-17.0) ng/L Triglycerides 92 (<150) mg/dL Cholesterol 133 (<200) mg/dL LDL Cholesterol, Calc 51 (<100) mg/dL HDL Cholesterol 64 (>40) mg/dL 04/11/25 Range/Units 04:09 WBC 5.1 (4.8-10.8) X10*3/uL RBC 3.28 L (4.20-5.50) X10*6/uL Hgb 10.3 L (12.0-16.0) g/dl Hct 31.3 L (37.0-47.0) % MCV 95.4 (80.0-98.0) fL MCH 31.4 (27.0-33.0) pg MCHC 32.9 (31.0-35.0) g/dl RDW 12.4 (11.0-16.0) % Plt Count 196 (160-400) X10*3/uL MPV 9.7 (9.4-12.3) fL Immature Gran % (Auto) (0.0-0.4) % Neut % (Auto) (45-73) % Lymph % (Auto) (20-40) % [place] % (Auto) (2-11) % Eos % (Auto) (0-4) % Baso % (Auto) (0-2) % Lymph # (Auto) (1.2-4.9) X10*3/uL [place] # (Auto) (0.1-1.2) X10*3/uL Eos # (Auto) (0.0-0.4) X10*3/uL Baso # (Auto) (0.0-0.2) X10*3/uL Abs Immat Gran (auto) (0.00-0.03) X10*3/uL Absolute Neuts (auto) (2.0-8.3) x10*3/uL Absolute Nucleated RBC 0.000 (0.0-0.012) X10*3/uL Nucleated RBC % (auto) 0.0 (0.0-0.2) /100WBC PT (10.9-12.4) SEC INR (0.9-1.1) APTT (26.7-34.1) SEC Sodium 142 (135-145) mmol/L Potassium 3.8 (3.3-5.1) mmol/L Chloride 108 (96-108) mmol/L Carbon Dioxide 24 (22-29) mmol/L Anion Gap 14 (12-20) BUN 14 (9-16) mg/dL Creatinine 0.81 (0.5-1.4) mg/dL Estim Creat Clear Calc 47.5 Estimated GFR > 60 POC Glucose (60-115) mg/dL Random Glucose 86 (60-115) mg/dL Calcium 8.7 (8.4-10.2) mg/dL Troponin I High Sens (<3.5-17.0) ng/L Triglycerides (<150) mg/dL Cholesterol (<200) mg/dL LDL Cholesterol, Calc (<100) mg/dL HDL Cholesterol (>40) mg/dL Independent Interpretation I performed an independent interpretation of an: EKG, Plain X-Ray and CT Scan Interpretation: cxr without infiltrate or consolidation eg showing NSR with rate of [address] head without intracranial bleed cta head/neck showing stenosis to left ICA Radiology Impression Discussion of test interpretation with radiology: I have reviewed the radiologist's reading. Radiologist Impression: CT head without contrast Comparison: None provided Findings: No intra-axial mass, midline shift, hydrocephalus, or acute hemorrhage. Age appropriate cerebral volume loss. Patchy low-density within the periventricular and subcortical white matter. Small chronic left parieto-occipital lobe infarct. There is no sinus or mastoid fluid. The orbits are within normal limits. No skull fracture. IMPRESSION: 1. No acute intracranial findings. This document has been electronically signed by: Paty Alexander MD on 04/10/2025 16:36:44 CT angiography head and neck with contrast. 3D Postprocessing. Comparison: CT/SR - CT HEAD FOR STROKE - 04/10/25 16:13 EDT Findings: Aortic arch and cervical great vessels are patent with no aneurysm, dissection, hemodynamically significant stenoses, or occlusion. High-grade, roughly 80% origin stenosis of the left internal carotid artery. 10% calcific origin stenosis of the right internal carotid artery. Mild calcific stenosis of the cavernous segments of the internal carotid arteries bilaterally. Mild bilateral calcific vertebral artery stenoses. The arteries of the head and neck are otherwise patent. No abnormal intracranial enhancement. The visualized thyroid gland is unremarkable. No cervical mass or fluid collection. Lung apices clear. No acute fracture. IMPRESSION: 1. No acute process. 2. Anterior and posterior circulation stenoses as described above. This document has been electronically signed by: Paty Alexander MD on 04/10/2025 17:02:58 Date of Service: 04/10/25 Procedure(s): XR chest 1V Accession Number(s): [id number] cc: Zayda Lowe; Mohinder Solis MD~ CLINICAL HISTORY: Weakness, left sided facial droop 1 view chest x-ray Comparison: CR/IN/SR - XR CHEST 2 VIEWS - 04/10/23 17:20 EDT Findings: Median sternotomy. Atrial appendage clip. The lungs are clear. Normal size heart. No acute fracture. IMPRESSION: 1. No acute findings. This document has been electronically signed by: Paty Alexander MD on 04/10/2025 16:58:01 Independent Historian Clinical information obtained from an independent historian. History obtained from or confirmed by: Other (sons) External Record Review External record reviewed: Inpatient record Chronic Conditions Patient?s care impacted by: Other (CAD) Social Determinants Patient?s care significantly limited by Social Determinants of Health including: Other Social Determinant of Health Critical Care Time Critical Care Time Critical Care Time: Yes Total Critical Care Time: 37 Attestation: Critical care time in the amount of 37 minutes has been provided to the patient in terms of direct patient care, frequent reevaluation, consultation with hospitalist, review and interpretation of medical data and results, and management of potentially life-threatening conditions. This is all outside of any medical procedures. Discharge Plan Discharge Clinical Impression: Right facial numbness Patient Disposition: Admitted As Inpatient Interventions: Admission Worksheet (ED) Last Done: 04/11/25 11:09 Discharge Date/Time: 04/11/25 16:27
--- NOTE | 2025-04-10 16:04 | ECG_ITS ---
Test Reason : numbess, c Blood Pressure : */* mmHG Vent. Rate : 61 BPM Atrial Rate : 61 BPM P-R Int : 118 ms QRS Dur : 70 ms QT Int : 440 ms P-R-T Axes : 61 16 43 degrees QTcB Int : 442 ms Normal sinus rhythm Nonspecific ST and T wave abnormality Abnormal ECG When compared with ECG of 10-Apr-2023 17:02, Criteria for Anterior infarct are no longer Present Referred By: Zayda Lowe Electronically Signed By: Juan David Veras
[2025-04-10 16:14] LABS: Glucose, Whole Blood 93 mg/dL (60-115)
[2025-04-10 16:17] LABS: MANUAL DIFF FLAG NO
[2025-04-10 16:18] LABS: Hematocrit 32.1 % (37.0-47.0); Hemoglobin 10.8 g/dl (12.0-16.0); Imm Gran Abs Auto 0.03 X10*3/uL (0.00-0.03); Imm Gran Pct Auto 0.5 % (0.0-0.4); Lymphocytes Absolute Auto 1.8 X10*3/uL (1.2-4.9); Mean Corpuscular HGB Conc 33.6 g/dl (31.0-35.0); Mean Corpuscular Hemoglobin 32.0 pg (27.0-33.0); Mean Corpuscular Volume 95.0 fL (80.0-98.0); NRBC Abs Auto 0.000 X10*3/uL (0.0-0.012); NRBC Pct Auto 0.0 /100WBC (0.0-0.2); Platelet Count 220 X10*3/uL (160-400); Red Blood Count 3.38 X10*6/uL (4.20-5.50); White Blood Count 5.7 X10*3/uL (4.8-10.8)
[2025-04-10] MEDS: iohexoL 350 MG/ML 100 ML INFUS..BTL IV (16:24)
[2025-04-10 16:26] LABS: INTERNATIONAL NORM RATIO 1.2 (0.9-1.1); Prothrombin Time 14.0 SEC (10.9-12.4)
[2025-04-10 16:28] LABS: Partial Thromboplastin Time 29.6 SEC (26.7-34.1)
[2025-04-10 16:31] LABS: Anion Gap 14 (12-20); Blood Urea Nitrogen 11 mg/dL (9-16); Calcium 9.1 mg/dL (8.4-10.2); Carbon Dioxide 23 mmol/L (22-29); Chloride 108 mmol/L (96-108); Cholesterol 133 mg/dL (<200); Creatinine Clr Calc Pharmacy 48.1; Estimated Glomerular Filt Rate > 60; HDL Cholesterol 64 mg/dL (>40); Potassium 4.2 mmol/L (3.3-5.1); Sodium 141 mmol/L (135-145); Triglycerides 92 mg/dL (<150)
[2025-04-10 16:38] LABS: Troponin-I High Sensitivity 3.7 ng/L (<3.5-17.0)
[2025-04-10 16:45] LABS: Stroke Lab Use COMPLETE
--- OUTSIDE RECORDS SUMMARY | 2025-04-10 17:05 | XMS_ITS | Clinical Summary ---
Author Organization [facility] Facility Address [address] [place] [id number] Care Team Providers Care Used Car Renovator Name Role Phone Unavailable Primary Care Provider [...]
--- OUTSIDE RECORDS SUMMARY | 2025-04-10 17:05 | XMS_ITS | Clinical Summary ---
Author Organization [facility] Address [address] [place] [phone] Phone Care Team Providers Care Property Economist Name Role Phone Mohinder Solis MD Primary [...] [place] [id number] GENERIC COMMERCIAL MEDICARE A GENERIC COMMERCIAL MEDICARE A GENERIC COMMERCIAL MEDICARE A GENERIC COMMERCIAL MEDICARE A GENERIC COMMERCIAL MEDICARE A [place] [id number] [facility] [place] [place] Address: [facility] [id number] [place] [address] GENERIC COMMERCIAL Care Teams Property Economist Relationship Specialty Start Date End Date Mohinder Solis MD [address] [place] [address] [address] [phone] PCP - General Internal Medicine 11/12/22 Additional Source Comments The information contained in this document represents components of the legal health record. It is not the complete legal health record.[facility]
[2025-04-10 20:32] LABS: Troponin-I High Sensitivity 4.3 ng/L (<3.5-17.0)
--- NOTE | 2025-04-10 21:18 | P.HPHOSP_ITS ---
History of Present Illness Date of Service: 04/10/25 Attending physician on admission: Kimi Graham Chief Complaint: ?CVA sx Patient is a 69-year-old female with a past medical history significant for hypertension, CAD s/p triple bypass, ?cardiac stents on Eliquis, PVD and neuropathy who presented to the ED due to numbness on the right side of her tongue, right cheek and slight right-sided facial droop beginning after waking from her procedure, a right lower extremity angio at [facility]. The patient reports that she felt that this was related to anesthesia however the right-sided numbness on her tongue did not improve over time. She had multiple family members mentioned that she was ?off ?. She reports a mild headache yesterday which improved with Tylenol. She denies any weakness in upper or lower extremities or difficulty with ambulation. No visual changes. No dizziness, chest pain, shortness of breath, nausea or vomiting. Her memories intact. She reports poor medical knowledge and states that she has stents similar but does not know where, possibly in her eyes, heart and lower extremities. She is a previous smoker, quit in October 2022 just prior to her triple bypass. Review of Systems 2 Constitutional: Constitutional: Denies body ache(s), Denies chills, Denies fatigue, Denies fever(s) and Denies headache(s) Eyes: Eyes: Denies change in vision ENT: Denies headache(s), Denies nasal congestion and Denies sore throat Cardiovascular: Cardiovascular: Denies chest pain, Denies rapid heart rate, Denies leg edema and Denies dyspnea Respiratory: Respiratory: Denies chest congestion, Denies cough, Denies dyspnea and Denies wheezing Gastrointestinal: Gastrointestinal: Denies abdominal pain, Denies diarrhea, Denies nausea and Denies vomiting Genitourinary: Genitourinary: Denies difficulty voiding, Denies dysuria and Denies urinary urgency Musculoskeletal: Musculoskeletal: Reports as per HPI and Reports myalgias Integumentary/Breasts: Skin/Breast: Denies rash Neurologic: Reports as per HPI, Denies confusion and Denies headache(s) Psychiatric: Psychiatric: Denies confusion Endocrine: Endocrine: Denies fatigue Hematologic/Lymphatic: Hematologic/Lymphatic: Denies easy bleeding and Denies easy bruising Allergic/Immunologic: Allergic/Immunologic: Denies wheezing PMFSH Medical History Osteopenia Thiamin deficiency Follow-up exam, 3-6 months since previous exam Cervical cancer screening History of mammogram (~08/07/23) Peripheral vascular disease with claudication Peripheral vascular disease Atherosclerotic cardiovascular disease Essential hypertension Protein calorie malnutrition Syncope Essential hypertension Hypercholesterolemia Cataract fragments in both eyes following surgery Hip fracture Femur fracture High cholesterol Neuropathy High blood pressure Functional capacity: uses cane/walker Family History Mother Heart attack Father Heart attack Surgical History Stented coronary artery History of quadruple bypass History of colonoscopy (~06/21/22) History of hip surgery History of cataract surgery History of surgery History of ankle surgery History of endoscopy Social History Household Members: None Housing: House Do you presently have visiting nurse or other home services: No Alcohol intake: current Alcohol intake frequency: a few times a week Alcohol type: beer Patient Tobacco Use Status: Former Tobacco user Tobacco use type: Cigarette Cigarettes Per Day: 3 Years Smoked: 42 on and off Smoked in Last 30 Days: No e-Cigarette/Vaping Use: Never Used Second Hand Smoke Exposure: Yes Use of substances other than those prescribed or required for medical reasons: No Advance Directives: Yes Advance Directives Information Provided: No Advance Directives on File: No Do you have a plan to hurt others: No Plan service: No Current occupational status: employed Current occupation: rt handed Cognitive needs: Yes (cane/walker) Hearing needs: No Vision needs: Yes (glasses) Narrative: previous smoker, quit 10/2022. social occasional etoh. no drug use. Meds Allergies Allergy/AdvReac Type Severity Reaction Status Date / Time Sulfa (Sulfonamide Allergy Intermediate RASH/HIVES Verified 04/10/25 16:04 Antibiotics) (SULFA(SULFONAMIDE ANTIBIOTICS)) Home Medications ?Medication ?Instructions ?Recorded ?Confirmed ?Last Taken ?Type aspirin 81 mg tablet,delayed 81 mg PO DAILY 11/02/20 0 02/07/25 1 Day Ago History release (Adult Aspirin Regimen) ~06/03 09/21 cholestyramine (with sugar) 4 gram ea PO 12/03/24 06/0 05/26 Unknown History oral powder Physical Exam 2 Vital Signs and Narrative: Vital Signs: Last Vital Signs Temp 98.4 F 04/10/25 19:56 Pulse 71 04/10/25 19:56 Resp 15 04/10/25 19:56 BP 182/76 H 04/10/25 19:56 Pulse Ox 99 04/10/25 19:56 O2 Del Method Room Air 04/10/25 19:56 BMI result Body Mass Index 18.9 General: AOx3, no acute distress Resp: CTA bilaterally CVS: S1, S2, RRR GI: +BS, NT, no distention Skin: Warm, dry Neuro: slight R facial droop. decreased sensation R face. weakness CNII, unable to hold R eyelid shut. no tongue deviation or uvular deviation. L side without deficits. no upper or lower extremity weakness. no pronator drift. normal finger to nose. Extremities: No edema Psych: Appropriate affect Const: General: No confusion Orientation/consciousness: No confusion Neuro: General: No confusion Results Labs 04/10/25 16:06 04/10/25 16:06 Labs: Laboratory Results - last 24 hr 04/10/25 04/10/25 16:06 16:09 MCV 95.0 MCH 32.0 MCHC 33.6 RDW 12.4 Plt Count 220 MPV 9.0 L Immature Gran % (Auto) 0.5 H Neut % (Auto) 53.7 Lymph % (Auto) 32.1 Guthrie % (Auto) 12.4 H Eos % (Auto) 1.0 Baso % (Auto) 0.3 Lymph # (Auto) 1.8 Guthrie # (Auto) 0.7 Eos # (Auto) 0.1 Baso # (Auto) 0.0 Abs Immat Gran (auto) 0.03 Absolute Neuts (auto) 3.1 Absolute Nucleated RBC 0.000 Nucleated RBC % (auto) 0.0 PT 14.0 H INR 1.2 H APTT 29.6 Anion Gap 14 Estim Creat Clear Calc 48.1 Estimated GFR > 60 POC Glucose 93 Random Glucose 95 Calcium 9.1 Triglycerides 92 Cholesterol 133 LDL Cholesterol, Calc 51 HDL Cholesterol 64 Assessment and Plan (1) Facial droop: Status: Acute (2) Right facial numbness: Status: Acute (3) Chronic anemia: Status: Acute Plan Patient is a 69-year-old female with a past medical history significant for hypertension, CAD s/p triple bypass, ?cardiac stents on Eliquis, PVD and neuropathy who presented to the ED due to numbness on the right side of her tongue, right cheek and slight right-sided facial droop beginning after waking from her procedure, a right lower extremity angio at [facility]. R facial droop/numbness, probable CVA - sx over days without improvement, LKWT prior to RLE angio on 04/07/25 per pt - NIH score 2 on arrival in ED - head CT negative - CTA head/neck with high agreed, roughly 80% origin stenosis of the left internal carotid artery, 10% calcific origin stenosis of the right internal carotid artery. Mild calcific stenosis of the cavernous segments of the internal carotid arteries bilaterally. Mild bilateral calcific vertebral artery stenoses. - lipid panel ok - pt on statin and ASA 81mg, already taken today. also on eliquis, taken morning dose. - EKG with NSR, trop 4 - CXR negative - passed bedside swallow - echo with bubble study - monitor on tele - meuro checks q2h - aspiration precautions - neuro consult - MRI ordered however stent history unknown and compatibility unknown, will need to be followed up in AM - stroke education - continue statin and ASA chronic anemia, stable, chronic - hgb 10.8 hct 32.1 - no need for blood transfusion - monitor CBC Hypertension - continue home meds PVD - continue home meds Neuropathy - continue gabapentin 300 mg t.i.d. Med rec pending Full code VTE prophylaxis: Eliquis Patient with right-sided facial droop/numbness, symptoms beginning 4 days ago, requiring admission for observation for neurological evaluation and monitoring. Quality Stroke Does the patient have a stroke diagnosis?: No VTE Prior VTE?: No VTE Risk Level:: Medical - moderate - high VTE Device Contraindication: Treatment Not Indicated VTE Drug Contraindication: N/A - Med Ordered
[2025-04-11 01:31] VITALS: BP 142/66; PULSE 68; RESP 16; TEMP 36.6; O2SAT 91
[2025-04-11 04:00] VITALS: BP 140/70; PULSE 61; RESP 12; TEMP 36.8; O2SAT 100
[2025-04-11 05:02] LABS: Hematocrit 31.3 % (37.0-47.0); Hemoglobin 10.3 g/dl (12.0-16.0); Mean Corpuscular HGB Conc 32.9 g/dl (31.0-35.0); Mean Corpuscular Hemoglobin 31.4 pg (27.0-33.0); Mean Corpuscular Volume 95.4 fL (80.0-98.0); NRBC Abs Auto 0.000 X10*3/uL (0.0-0.012); NRBC Pct Auto 0.0 /100WBC (0.0-0.2); Platelet Count 196 X10*3/uL (160-400); Red Blood Count 3.28 X10*6/uL (4.20-5.50); White Blood Count 5.1 X10*3/uL (4.8-10.8)
[2025-04-11 05:16] LABS: Anion Gap 14 (12-20); Blood Urea Nitrogen 14 mg/dL (9-16); Calcium 8.7 mg/dL (8.4-10.2); Carbon Dioxide 24 mmol/L (22-29); Chloride 108 mmol/L (96-108); Creatinine Clr Calc Pharmacy 47.5; Estimated Glomerular Filt Rate > 60; Potassium 3.8 mmol/L (3.3-5.1); Sodium 142 mmol/L (135-145)
[2025-04-11 06:00] VITALS: BP 154/70; PULSE 65; RESP 14; TEMP 36.7; O2SAT 98
[2025-04-11] MEDS: Aspirin Enteric Coated 81 MG TABLET.DR PO (08:20)
[2025-04-11] MEDS: 0.9 % Sodium Chloride Flush 3 ML SYRINGE IVFLUSH (08:20)
--- NOTE | 2025-04-11 08:31 | PC.NURSE ---
Called MRI regarding this patient. They are investigating whether she can have it done because it might heat the implant up too much. They will get back to us.
[2025-04-11 09:02] VITALS: BP 146/63; PULSE 70; RESP 18; TEMP 36.6; O2SAT 100
--- NOTE | 2025-04-11 09:34 | PHA.MEDREC ---
Addendum entered by Mendoza Tan RPh 04/11/25 11:54: MED REC REVIEWED BY [facility] Original Note: Pharmacy Consult ? Medication Reconciliation Pharmacy has completed the medication reconciliation. Spoke with pt and she confirmed her medications. Pt confirmed her Alendronate once a week on Sundays; pt has not taken it since Tuesday 04/03. Pt confirmed her Rosuvastatin and Sertraline is taking daily around [id number]. Pt confirmed she takes a Vitamin D3-K2 tablet once a day; pt didnt know the dose at this time but confirmed her son will be in this morning around 11 and can confirm the dose.
--- NOTE | 2025-04-11 10:27 | PM.NEUROCN ---
History of Present Illness Data of Consult Service Date: 04/11/25 Primary Care Provider: Mohinder Solis MD HPI Reason for consult: Facial numbness 69-year-old female with a past medical history significant for hypertension, CAD s/p triple bypass, ?cardiac stents on Eliquis, PVD and neuropathy who presented to the ED due to numbness on the right side of her tongue, right cheek and slight right-sided facial droop beginning after waking from her procedure, a right lower extremity angio at [facility]. She was having mild difficulty with drinking liquids but no difficulty swallowing at throat level. No change in her speech. She denied any ear symptom more pain or change in hearing. No significant headache. Review of Systems Review of Systems: No recent cold or flu-like illness PMFSH Past Medical History Medical History Osteopenia Thiamin deficiency Follow-up exam, 3-6 months since previous exam Cervical cancer screening History of mammogram (~08/07/23) Peripheral vascular disease with claudication Peripheral vascular disease Atherosclerotic cardiovascular disease Essential hypertension Protein calorie malnutrition Syncope Essential hypertension Hypercholesterolemia Cataract fragments in both eyes following surgery Hip fracture Femur fracture High cholesterol Neuropathy High blood pressure Family History Family History Mother Heart attack Father Heart attack Surgical History Surgical History Stented coronary artery History of quadruple bypass History of colonoscopy (~06/21/22) History of hip surgery History of cataract surgery History of surgery History of ankle surgery History of endoscopy Social History Social History Household Members: None Housing: House Do you presently have visiting nurse or other home services: No Alcohol intake: current Alcohol intake frequency: a few times a week Alcohol type: beer Patient Tobacco Use Status: Former Tobacco user Tobacco use type: Cigarette Cigarettes Per Day: 3 Years Smoked: 42 on and off Smoked in Last 30 Days: No e-Cigarette/Vaping Use: Never Used Second Hand Smoke Exposure: Yes Use of substances other than those prescribed or required for medical reasons: No Advance Directives: Yes Advance Directives Information Provided: No Advance Directives on File: No Do you have a plan to hurt others: No Plan Nutrition Risks: No Nutritional Risk service: No Current occupational status: employed Current occupation: rt handed Cognitive needs: Yes (cane/walker) Hearing needs: No Vision needs: Yes (glasses) Meds Allergies Allergy/AdvReac Type Severity Reaction Status Date / Time Sulfa (Sulfonamide Allergy Intermediate RASH/HIVES Verified 04/10/25 16:04 Antibiotics) (SULFA(SULFONAMIDE ANTIBIOTICS)) Active Medications: Current Medications Acetaminophen (Acetaminophen 325 Mg Tablet) 975 mg PO Q6H PRN PRN Reason: Pain, Mild 1-3,fever,headache Apixaban (Apixaban 5 Mg Tablet) 5 mg PO BID [facility] Last Admin: 04/11/25 08:20 Dose: 5 mg Aspirin (Aspirin Enteric Coated 81 Mg Tablet.Dr) 81 mg PO DAILY [facility] Last Admin: 04/11/25 08:20 Dose: 81 mg Calcium Carbonate (Calcium Carbonate 750 Mg Tab.Chew) 750 mg PO Q4H PRN PRN Reason: Heartburn Gabapentin (Gabapentin 300 Mg Capsule) 300 mg PO TID [facility] Last Admin: 04/11/25 08:20 Dose: 300 mg Magnesium Hydroxide (Milk Of Magnesia 30 Ml Oral.Susp) 30 ml PO DAILY PRN PRN Reason: Constipation Melatonin (Melatonin 3 Mg Tablet) 6 mg PO BEDTIME PRN PRN Reason: Insomnia Ondansetron HCl (Ondansetron Hcl 4 Mg/2 Ml Vial) 4 mg IVPUSH Q8H PRN PRN Reason: Nausea and Vomiting Oxycodone HCl (Oxycodone Hcl Immed Release 5 Mg Tablet) 5 mg PO Q6H PRN PRN Reason: Pain, Severe (Pain Scale 7-10) Sodium Chloride (0.9 % Sodium Chloride Flush 3 Ml Syringe) 3 ml IVFLUSH QSHIFT [facility] Last Admin: 04/11/25 08:20 Dose: 3 ml Tramadol HCl (Tramadol Hcl 50 Mg Tablet) 50 mg PO Q6H PRN PRN Reason: Pain, Moderate(Pain Scale 4-6) Home Medications ?Medication ?Instructions ?Recorded ?Confirmed ?Last Taken ?Type aspirin 81 mg tablet,delayed 81 mg PO DAILY 11/02/20 04/11/25 04/10/25 History release (Adult Aspirin Regimen) alendronate 70 mg tablet (Fosamax) 70 mg PO SOSA 04/11/25 04/11/25 04/03/25 History rosuvastatin 20 mg tablet 20 mg PO DAILY@1330 04/11/25 04/11/25 04/10/25 History sertraline 25 mg tablet 25 mg PO DAILY@1330 04/11/25 04/11/25 04/10/25 History Physical Exam Vital Signs: Vital Signs: Last Vital Signs Temp 98 F 04/11/25 09:02 Pulse 70 04/11/25 09:02 Resp 18 04/11/25 09:02 BP 146/63 H 04/11/25 09:02 Pulse Ox 100 04/11/25 09:02 O2 Del Method Room Air 04/11/25 09:02 BMI result Body Mass Index 18.9 Neuro: Other: Mental Status: Alert and oriented to person, place, and time. Normal attention. Normal spontaneous speech, fluency, and comprehension. Cranial Nerves: CN II: Visual dominique full to confrontation, visual acuity intact. CN III, IV, : Pupils equal, round, reactive to light and accommodation. Extraocular movements are normal. CN V: Facial sensation is normal. CN VII: Mild right-sided facial weakness with weakness of eye blinking CN VIII: Hearing intact to bedside conversation is normal. CN IX, X: Palate elevates symmetrically. CN XI: Shoulder shrug and head turn symmetrical. CN XII: Tongue midline without atrophy or fasciculations. Motor: [id number] hand muscle atrophy. Deep tendon reflexes are trace to absent with flexor plantars. Gait and Station: No obvious gait abnormality. No ataxia or instability. No sensory extinction. Extrapyramidal: Full facial expressions and blinking. No rigidity. Movements are appropriate with no tremor or abnormality. Speech: Normal; no dysarthria or tremor. Results Labs 04/11/25 04:09 04/11/25 04:09 Labs: Short CBC 04/10/25 04/11/25 Range/Units 16:06 04:09 WBC 5.7 5.1 (4.8-10.8) X10*3/uL Hgb 10.8 L 10.3 L (12.0-16.0) g/dl Hct 32.1 L 31.3 L (37.0-47.0) % Plt Count 220 196 (160-400) X10*3/uL BMP 04/10/25 04/11/25 16:06 04:09 Sodium 141 142 Potassium 4.2 3.8 Chloride 108 108 Carbon Dioxide 23 24 BUN 11 14 Creatinine 0.80 0.81 [address] revealed moderately severe microvascular ischemic disease and atrophy. CTA did not reveal any significant stenosis. Assessment and Plan (1) Facial droop: Status: Acute 69 years old woman with symptoms suggestive of a small ischemic brainstem or subcortical infarct. This type of infarcts could be atherothrombotic or embolic. A noncontrast MRI of brain is recommended if possible. Otherwise improvement of most of her symptom is expected but some facial asymmetry might persist. Mainstay of management is continuing treatment for stroke prevention including anticoagulation. Better blood pressure control is recommended Procedures Date of Service Date of Service: 04/11/25
[2025-04-11] MEDS: Metoprolol Succinate ER 100 MG TAB.ER.24H PO (11:11)
--- NOTE | 2025-04-11 11:24 | PC.NURSE ---
Addendum entered by Maureen Ortiz RN 04/11/25 11:26: 69-year-old female with a past medical history significant for hypertension, CAD s/p triple bypass, ?cardiac stents on Eliquis, PVD and neuropathy who presented to the ED due to numbness on the right side of her tongue, right cheek and slight right-sided facial droop beginning after waking from her procedure, a right lower extremity angio at [facility]. She was having mild difficulty with drinking liquids but no difficulty swallowing at throat level. No change in her speech. She denied any ear symptom more pain or change in hearing. Per neurology symptoms are possibly a sml ischemic vs subcortical infarct. Patient alert and oriented. No droop noted. Tongue midline. No drift in all 4 extremities. manager monitoring maintained and NSR noted. Respirations even and non-labored. Abdomen soft, non-tender with positive bowel sounds. No LE edema noted. Original Note: Medical History Osteopenia Thiamin deficiency Follow-up exam, 3-6 months since previous exam Cervical cancer screening History of mammogram (~08/07/23) Peripheral vascular disease with claudication Peripheral vascular disease Atherosclerotic cardiovascular disease Essential hypertension Protein calorie malnutrition Syncope Essential hypertension Hypercholesterolemia Cataract fragments in both eyes following surgery Hip fracture Femur
--- NOTE | 2025-04-11 11:35 | MHC.CM.PN ---
Shey, 04/11/25, Pt. lives in her own apt., her sister lives on the first floor apt., same house. She does not use any home care services, for DME, she uses a cane. Her 2 sons are supportive and helpful to her. Family to transport home at DC. PCP confirmed: Dr. Solis. DCP: home, self care, CM to follow for DC needs.
[2025-04-11 12:00] VITALS: BP 138/66; PULSE 67; RESP 16; O2SAT 100
--- NOTE | 2025-04-11 13:03 | PC.NURSE ---
Sent for MRI
--- NOTE | 2025-04-11 14:59 | MHC.CM.PN ---
IMM delivered 04/11/25
--- NOTE | 2025-04-11 15:09 | PM.DS ---
DS: Providers Provider Date of Service: 04/11/25 Date of admission: 04/11/25 14:30 Date of discharge: 04/11/25 Primary care physician: Mohinder Solis MD Consults: 04/10/25 22:05 Consult to Neurology Routine Consulting Provider: [facility] Reason for consultation: R facial numbness, droop DS: Diagnosis Discharge Diagnosis (1) Facial droop: Status: Acute (2) Longoria's palsy: Status: Acute (3) Cerebral microvascular disease: Status: Acute DS: Summary Hospital Course Hospital Course: From the history and physical by the admitting hospitalist, BLANK Montiel, 04/10/25: Patient is a 69-year-old female with a past medical history significant for hypertension, CAD s/p triple bypass, ?cardiac stents on Eliquis, PVD and neuropathy who presented to the ED due to numbness on the right side of her tongue, right cheek and slight right-sided facial droop beginning after waking from her procedure, a right lower extremity angio at [facility]. The patient reports that she felt that this was related to anesthesia however the right-sided numbness on her tongue did not improve over time. She had multiple family members mentioned that she was ?off ?. She reports a mild headache yesterday which improved with Tylenol. She denies any weakness in upper or lower extremities or difficulty with ambulation. No visual changes. No dizziness, chest pain, shortness of breath, nausea or vomiting. Her memories intact. She reports poor medical knowledge and states that she has stents similar but does not know where, possibly in her eyes, heart and lower extremities. She is a previous smoker, quit in October 2022 just prior to her triple bypass. She was admitted to the hospitalist service with Neurology consulted. MRI showed chronic microvascular ischemic disease but no acute stroke. 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 Time Attestation Discharge Coordination Time (in mins): 35 Quality: Safe Use of Opioids Does Pt have an Active Cancer Diagnosis on the Problem List?: No Quality: Stroke Does the patient have a stroke diagnosis?: No Physical Exam Vital Signs: Vital Signs: Last Vital Signs Temp 98 F 04/11/25 09:02 Pulse 67 04/11/25 12:00 Resp 16 04/11/25 12:00 BP 138/66 04/11/25 12:00 Pulse Ox 100 04/11/25 12:00 O2 Del Method Room Air 04/11/25 12:00 BMI result Body Mass Index 18.9 Gen: in no acute distress HEENT: sclera anicteric, moist mucus membranes Neck: supple Lungs: clear to auscultation bilaterally Heart: regular rate and rhythm, no murmurs Abd: soft, non-tender, non-distended Ext: no edema Skin: warm/well-perfused Neuro: alert and oriented x3, R-sided facial droop including forehead Psych: appropriate affect DS: Data Data Completed and Pending Completed studies during hospitalization [Text1]: Laboratory Results WBC 5.1 X10*3/uL (4.8-10.8) 04/11/25 04:09 RBC 3.28 X10*6/uL (4.20-5.50) L 04/11/25 04:09 Hgb 10.3 g/dl (12.0-16.0) L 04/11/25 04:09 Hct 31.3 % (37.0-47.0) L 04/11/25 04:09 MCV 95.4 fL (80.0-98.0) 04/11/25 04:09 MCH 31.4 pg (27.0-33.0) 04/11/25 04:09 MCHC 32.9 g/dl (31.0-35.0) 04/11/25 04:09 RDW 12.4 % (11.0-16.0) 04/11/25 04:09 Plt Count 196 X10*3/uL (160-400) 04/11/25 04:09 MPV 9.7 fL (9.4-12.3) 04/11/25 04:09 Immature Gran % (Auto) 0.5 % (0.0-0.4) H 04/10/25 16:06 Neut % (Auto) 53.7 % (45-73) 04/10/25 16:06 Lymph % (Auto) 32.1 % (20-40) 04/10/25 16:06 Webb % (Auto) 12.4 % (2-11) H 04/10/25 16:06 Eos % (Auto) 1.0 % (0-4) 04/10/25 16:06 Baso % (Auto) 0.3 % (0-2) 04/10/25 16:06 Lymph # (Auto) 1.8 X10*3/uL (1.2-4.9) 04/10/25 16:06 Webb # (Auto) 0.7 X10*3/uL (0.1-1.2) 04/10/25 16:06 Eos # (Auto) 0.1 X10*3/uL (0.0-0.4) 04/10/25 16:06 Baso # (Auto) 0.0 X10*3/uL (0.0-0.2) 04/10/25 16:06 Abs Immat Gran (auto) 0.03 X10*3/uL (0.00-0.03) 04/10/25 16:06 Absolute Neuts (auto) 3.1 x10*3/uL (2.0-8.3) 04/10/25 16:06 Absolute Nucleated RBC 0.000 X10*3/uL (0.0-0.012) 04/11/25 04:09 Nucleated RBC % (auto) 0.0 /100WBC (0.0-0.2) 04/11/25 04:09 PT 14.0 SEC (10.9-12.4) H 04/10/25 16:06 INR 1.2 (0.9-1.1) H 04/10/25 16:06 APTT 29.6 SEC (26.7-34.1) 04/10/25 16:06 Sodium 142 mmol/L (135-145) 04/11/25 04:09 Potassium 3.8 mmol/L (3.3-5.1) 04/11/25 04:09 Chloride 108 mmol/L (96-108) 04/11/25 04:09 Carbon Dioxide 24 mmol/L (22-29) 04/11/25 04:09 Anion Gap 14 (12-20) 04/11/25 04:09 BUN 14 mg/dL (9-16) 04/11/25 04:09 Creatinine 0.81 mg/dL (0.5-1.4) 04/11/25 04:09 Estim Creat Clear Calc 47.5 04/11/25 04:09 Estimated GFR > 60 04/11/25 04:09 POC Glucose 93 mg/dL (60-115) 04/10/25 16:09 Random Glucose 86 mg/dL (60-115) 04/11/25 04:09 Calcium 8.7 mg/dL (8.4-10.2) 04/11/25 04:09 Troponin I High Sens 4.3 ng/L (<3.5-17.0) 04/10/25 20:08 Triglycerides 92 mg/dL (<150) 04/10/25 16:06 Cholesterol 133 mg/dL (<200) 04/10/25 16:06 LDL Cholesterol, Calc 51 mg/dL (<100) 04/10/25 16:06 HDL Cholesterol 64 mg/dL (>40) 04/10/25 16:06 Impressions Brain MRI 04/11/25 12:45 IMPRESSION: No acute stroke. Extensive white matter disease and multifocal old lacunar infarcts related to small vessel occlusive disease. 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 Wallerian degeneration into the rolly. Old focal hemorrhage, right dentate nucleus. Electronically signed by: Hunter Nolen MD 04/11/2025 01:33 PM EDT RP Discharge Plan Discharge Anticipated Discharge Date/Time: 04/11/25 15:13 Patient Disposition: Home, Self-Care Discharge Diagnosis: [place] palsy Referrals: Mohinder Solis MD [Primary Care Provider, Internal Medicine] - 1 Week Discharge Medications: New prednisone 20 mg tablet 60 mg PO DAILY Qty: 21 0RF valacyclovir 1 gram tablet 1,000 mg PO TID Qty: 21 0RF Continued lisinopril 40 mg tablet 40 mg PO DAILY Qty: 90 2RF metoprolol succinate 100 mg tablet extended release 24 hr 100 mg PO DAILY Qty: 90 1RF Eliquis 5 mg tablet 5 mg PO BID Qty: 180 1RF tramadol 50 mg tablet 50 mg PO BID PRN (Reason: Pain) Qty: 60 0RF gabapentin 300 mg capsule 300 mg PO TID Qty: 90 1RF alendronate [Fosamax] 70 mg tablet 70 mg PO SOSA sertraline 25 mg tablet 25 mg PO DAILY@1330 rosuvastatin 20 mg tablet 20 mg PO DAILY@1330 aspirin [Adult Aspirin Regimen] 81 mg tablet,delayed release (DR/EC) 81 mg PO DAILY nitroglycerin 0.4 mg tablet, sublingual 0.4 mg sublingual Q5M PRN (Reason: chest pain) Qty: 30 5RF Rx Instructions: do not exceed 3 doses per episode Discharge Orders: Discharge Order (Routine); Ordered 04/11/25 Ordered By: Shin Feliz Diet: Advance to usual diet Activity on Discharge: As tolerated Stand Alone Forms: Patient Portal Discharge page Print Language: Pashto Care Plan Goals: cardiovascular health Health Concerns: [place] palsy microvascular disease Plan of Treatment: continue aspirin, rosuvastatin, apixaban take prednisone 60 mg daily x 1 week PLUS valacyclovir 1000 mg 3x a day x 1 week Please follow up with your primary care doctor within 1 week. Return to the hospital if you experience recurrent or worsening symptoms. Assessment: See Discharge Summary.
--- NOTE | 2025-04-11 15:53 | MHC.STROKE ---
Dr. Feliz and Dr. Patterson discussed disposition for patient. Dr. Patterson updated neuro note Met with patient in the ED. Pt updated on MRI results and plan of care Pt awake, alert and oriented x 4. Engaged in conversation. No focal deficits noted. Speech clear. Pt agreeable to discharge plan. All questions answered. Will continue to assist as needed.
== END 2025-04-11 16:26 | disposition home or self-care (01) | DRG 74 ==
LOC: HO.ED 17:09 → HO.EDOVER 21:08
PROVIDERS: Physician Assistant; Physician Assistant Medical; Admitting Provider Student in an Organized Health Care Education/Training Program; Emergency Provider Emergency Medicine Emergency Medical Services; PCP Internal Medicine; Visit Provider Family Medicine
DX: G51.0 Bell's palsy (principal); I67.82 Cerebral ischemia; D64.9 Anemia, unspecified; I73.9 Peripheral vascular disease, unspecified; G62.9 Polyneuropathy, unspecified; I25.10 Atherosclerotic heart disease of native coronary artery without angina pectoris; I10 Essential (primary) hypertension; Z95.5 Presence of coronary angioplasty implant and graft; Z79.01 Long term (current) use of anticoagulants; Z79.899 Other long term (current) drug therapy
CPT/HCPCS: 36415; 70450; 70496; 70498; 70551; 71045; 80048; 80061; 82947; 84484; 85025; 85027; 85610; 85730; 93005; 97161; 97165; 99222; 99285; Q9957; Q9967

== ENCOUNTER → 2025-04-10 16:04 | Outpatient (BNV) | payer MEDICARE, SELFPAY | PROVIDERS: Admitting Provider Student in an Organized Health Care Education/Training Program; Emergency Provider Emergency Medicine Emergency Medical Services; PCP Internal Medicine; Visit Provider Internal Medicine Cardiovascular Disease | DX: R94.31 Abnormal electrocardiogram [ECG] [EKG] (principal); R20.0 Anesthesia of skin | CPT/HCPCS: 93010 ==

== ENCOUNTER → 2025-04-10 16:04 | Outpatient (BNV) | payer MEDICARE, SELFPAY | PROVIDERS: PCP Internal Medicine; Visit Provider Radiology Diagnostic Radiology | DX: I65.22 Occlusion and stenosis of left carotid artery (principal); I69.30 Unspecified sequelae of cerebral infarction; R53.1 Weakness | CPT/HCPCS: 70450; 70496; 70498; 71045 ==

== ENCOUNTER 2025-04-10 21:03 | Outpatient (BNV) | payer MEDICARE, SELFPAY | END 2025-04-11 18:18 | PROVIDERS: Admitting Provider Student in an Organized Health Care Education/Training Program; Emergency Provider Emergency Medicine Emergency Medical Services; PCP Internal Medicine; Visit Provider Radiology Diagnostic Radiology | DX: R90.82 White matter disease, unspecified (principal); G31.89 Other specified degenerative diseases of nervous system | CPT/HCPCS: 70551 ==

== ENCOUNTER → 2025-04-10 21:03 | Outpatient (BNV) | payer MEDICARE, SELFPAY | PROVIDERS: Admitting Provider Student in an Organized Health Care Education/Training Program; Emergency Provider Emergency Medicine Emergency Medical Services; PCP Internal Medicine; Visit Provider Psychiatry & Neurology Neurology | DX: R29.810 Facial weakness (principal) | CPT/HCPCS: 99222 ==

== ENCOUNTER → 2025-04-10 21:03 | Outpatient (BNV) | payer MEDICARE, SELFPAY | PROVIDERS: Admitting Provider Student in an Organized Health Care Education/Training Program; Emergency Provider Emergency Medicine Emergency Medical Services; PCP Internal Medicine; Visit Provider Physician Assistant | DX: R29.810 Facial weakness (principal); R20.0 Anesthesia of skin; D64.9 Anemia, unspecified | CPT/HCPCS: 99223 ==

== ENCOUNTER 2025-04-14 14:09 | Outpatient (REF) | payer MEDICARE, SELFPAY ==
--- OUTSIDE RECORDS SUMMARY | 2024-09-15 12:00 | XMS_ITS ---
Author Organization [facility] Address [address] [place] [address] Care Team Providers Care Policy Change Clerk Name Role Phone PARTH COREAS Primary Care Provider Rojas Iniguez [phone] JAVIER DENSON PA-C Unavailable REASON FOR VISIT stomach issues Encounters Encounter Location Date Provider Diagnosis [facility] [address] [facility] [place] [address] 09/15/2024 Rjoas Plata Plan Of Treatment No Information Progress Notes * CASSIDY SORENSENDOB: [birth year] (69 yo F)Acc No.[id number]:09/15/2024 Progress Notes Patient: CASSIDY ÁLVAREZ Provider: Meagan Plata MD :1955 A ge:68 Y S ex:Female Date:09/15/2024 Address: [id number] Pcp:PARTH COREAS Subjective: * Chief Complaints: * [...] 09/15/2024 Generated for Viola hung/Faxing/eTransmitting on: 0 04/14/2025 12:54 PM EDT
--- NOTE | ~2025-04-14 | MM_ITS ---
EXAMINATION: MM SCREENING DIGITAL BREAST TOMOSYNTHESIS, BILATERAL CLINICAL INFORMATION: Screening. Asymptomatic. COMPARISON: Mammography: Comparison is made with available priors TECHNIQUE: Digital breast mammography with tomosynthesis is performed in both the craniocaudal and mediolateral oblique views along with computer-aided detection (CAD). FINDINGS: There are scattered areas of fibroglandular density (ACR BI-RADS breast composition Category b). There are no significant masses, abnormal calcifications, or other abnormalities. MM/MM tomosynthesis screening BI IMPRESSION: No mammographic evidence of malignancy. ASSESSMENT: BI-RADS BI-RADS 1 - Negative RECOMMENDATION: Routine annual mammography screening. 1 year F/U This examination should not preclude the clinical evaluation of a suspicious palpable abnormality. This patient's information was entered into a reminder system with a target due date for their next mammogram. Electronically signed by: Stephy Belcher DO 04/19/2025 01:58 PM EDT
--- OUTSIDE RECORDS SUMMARY | 2025-04-14 14:58 | XMS_ITS | Clinical Summary ---
Author Organization [facility] Address [address] [place] [id number] Phone Care Team Providers Care Fast Food Assistant Restaurant Manager Name Role Phone Mohinder Solis MD Primary [...] [place] [id number] GENERIC COMMERCIAL MEDICARE A GENERIC COMMERCIAL MEDICARE A GENERIC COMMERCIAL MEDICARE A GENERIC COMMERCIAL MEDICARE A GENERIC COMMERCIAL MEDICARE A [place] [address] [facility] GENERIC COMMERCIAL Care Teams Fast Food Assistant Restaurant Manager Relationship Specialty Start Date End Date Mohinder Solis MD [address] [place] [address] [phone] PCP - General Internal Medicine 11/12/22 Additional Source Comments The information contained in this document represents components of the legal health record. It is not the complete legal health record.[facility]
--- OUTSIDE RECORDS SUMMARY | 2025-04-14 14:58 | XMS_ITS | Clinical Summary ---
Author Organization [facility] Address [address] [place] [id number] Care Team Providers Care Director Of Culture Name Role Phone Unavailable Primary Care Provider [...]
== END 2025-04-14 14:10 | disposition home or self-care (01) ==
LOC: HO.MAMMO 14:09
PROVIDERS: PCP Internal Medicine; Visit Provider Internal Medicine
DX: Z12.31 Encounter for screening mammogram for malignant neoplasm of breast (principal)
CPT/HCPCS: 77063; 77067

== ENCOUNTER → 2025-04-14 14:15 | Outpatient (BNV) | payer MEDICARE, SELFPAY | PROVIDERS: PCP Internal Medicine; Visit Provider Internal Medicine | DX: Z12.31 Encounter for screening mammogram for malignant neoplasm of breast (principal) | CPT/HCPCS: 77063; 77067 ==

== ENCOUNTER 2025-04-21 15:25 | Outpatient (AMB) | payer MEDICARE, SELFPAY ==
--- OUTSIDE RECORDS SUMMARY | 2024-09-15 12:00 | XMS_ITS ---
Author Organization [facility] Address [address] [place] [address] Care Team Providers Care Ornamental Iron Worker Name Role Phone PARTH COREAS Primary Care Provider Rojas Iniguez [phone] JAVIER DENSON PA-C Unavailable REASON FOR VISIT stomach issues Encounters Encounter Location Date Provider Diagnosis [facility] [address] [facility] [place] [address] 09/15/2024 Rojas Plata Plan Of Treatment No Information Progress Notes * CASSIDY SORENSEN SantiagoDOB: [birth year] (69 yo F)Acc No.[id number]:09/15/2024 Progress Notes Patient: CASSIDY ÁLVAREZ Provider: Meagan Plata MD :1955 A ge:68 Y S ex:Female Date:09/15/2024 Address: [address] [id number] Pcp:PARTH COREAS Subjective: * Chief Complaints: * [...] 09/15/2024 Generated for Viola hung/Faxing/eTransmitting on: 0 04/21/2025 03:28 PM EDT
--- OUTSIDE RECORDS SUMMARY | 2025-04-21 15:29 | XMS_ITS | Clinical Summary ---
Author Organization [facility] Facility Address [address] [place] [id number] Care Team Providers Care Home Agent Name Role Phone Unavailable Primary Care Provider [...]
--- OUTSIDE RECORDS SUMMARY | 2025-04-21 15:29 | XMS_ITS | Clinical Summary ---
Author Organization [facility] Address [address] [place] [phone] Phone Care Team Providers Care Lead Etl Developer Name Role Phone Mohinder Solis MD Primary [...] [place] [id number] GENERIC COMMERCIAL MEDICARE A GENERIC COMMERCIAL MEDICARE A GENERIC COMMERCIAL MEDICARE A GENERIC COMMERCIAL MEDICARE A GENERIC COMMERCIAL MEDICARE A [place] [address] [facility] GENERIC COMMERCIAL Care Teams Lead Etl Developer Relationship Specialty Start Date End Date Mohinder Solis MD [address] [place] [address] [address] [phone] PCP - General Internal Medicine 11/12/22 Additional Source Comments The information contained in this document represents components of the legal health record. It is not the complete legal health record.[facility]
--- NOTE | 2025-04-21 15:35 | MHC.PC.OV ---
Vital Signs 04/21/25 15:36 Height 5 ft Weight 99 lb 8 oz BMI 19.4 BP 108/58 L Blood Pressure Location Lt brachial Position Sitting Pulse 92 Pulse Source Pulse Oximeter Temp 97.1 F Temp Source Temporal Artery Scan Pulse Oximetry (%) 99 Oxygen Delivery Method Room Air Intake Visit Reasons: [facility] 04/11 facial droop Accompanied by: Sister Allergies Sulfa (Sulfonamide Antibiotics) (SULFA(SULFONAMIDE ANTIBIOTICS)) Allergy (Intermediate, Verified 04/21/25 19:04) RASH/HIVES Medication List - Last Reconciled 04/21/25 by Mohinder Solis MD alendronate (Fosamax) 70 mg PO SOSA apixaban (Eliquis) 5 mg PO BID aspirin (Adult Aspirin Regimen) 81 mg PO DAILY gabapentin 300 mg PO TID lisinopril 40 mg PO DAILY metoprolol succinate ER 100 mg PO DAILY nitroglycerin 0.4 mg sublingual Q5M PRN rosuvastatin 20 mg PO DAILY@1330 sertraline 25 mg PO DAILY@1330 tramadol 50 mg PO BID PRN Tobacco use date assessed: 04/21/25 Fall risk assessment: No Falls in past year Last assessed Fall Risk: 04/21/25 Dental Screening Dental Screen Date: 04/21/25 Did you have a dental visit in the last 12 months?: Yes Did you have a dental problem in the last 6 months where you did not have access to dental care?: No Was dental information given to patient?: Patient has dentist HPI [facility] 04/11 facial droop HPI Details 69-year-old female presents to the office after a recent hospital visit. Patient was admitted at [facility] for an elective cardiac procedure. She noticed some numbness on the right side of her tongue at the time of discharge and when she came home her right eye was drooping. Fearing a stroke, she rushed to the emergency room at [facility]. CT scan and MRI scans later, CVA was ruled out. Patient continue to have drooling from the right side of the mouth when she drank liquids. She is able to chew and swallow. She was diagnosed with Longoria's palsy and sent home on prednisone. [facility] Medical History Osteopenia Thiamin deficiency Follow-up exam, 3-6 months since previous exam Cervical cancer screening History of mammogram (~08/07/23) Peripheral vascular disease with claudication Peripheral vascular disease Atherosclerotic cardiovascular disease Essential hypertension Protein calorie malnutrition Syncope Essential hypertension Hypercholesterolemia Cataract fragments in both eyes following surgery Hip fracture Femur fracture High cholesterol Neuropathy High blood pressure Surgical History Stented coronary artery History of quadruple bypass History of colonoscopy (~06/21/22) History of hip surgery History of cataract surgery History of surgery History of ankle surgery History of endoscopy Family History Mother Heart attack Father Heart attack Social History Household Members: None Housing: House Do you presently have visiting nurse or other home services: No Alcohol intake: current Alcohol intake frequency: a few times a week Alcohol type: beer Patient Tobacco Use Status: Former Tobacco user Tobacco use type: Cigarette Cigarettes Per Day: 3 Years Smoked: 42 on and off e-Cigarette/Vaping Use: Never Used Second Hand Smoke Exposure: Yes service: No Current occupational status: employed Current occupation: rt handed Cognitive needs: Yes (cane/walker) Hearing needs: No Vision needs: Yes (glasses) Questionnaire PHQ-9 Over the last 2 weeks, how often have you been bothered by any of the following problems? 1. Little interest or pleasure in doing things: not at all 2. Feeling down, depressed, or hopeless: not at all 3. Trouble falling or staying asleep, or sleeping too much: not at all 4. Feeling tired or having little energy: not at all 5. Poor appetite or overeating: not at all 6. Feeling bad about yourself - or that you are a failure or have let yourself or your family down: not at all 7. Trouble concentrating on things, such as reading the newspaper or watching television: not at all 8. Moving or speaking so slowly that other people could have noticed. Or the opposite - being so fidgety or restless that you have been moving around a lot more than usual: not at all 9. Thoughts that you would be better off or of hurting yourself in some way: not at all Total score: 0 Depression Screening Interpretation: Negative Depression Screening Done: Yes Source: Developed by Drs. Rojas King, Marleen Morales, Travis Joyner and colleagues, with an educational kimi from [employer]. Thrive Questionnaire Date Thrive assessed: 04/05/25 I am a: Patient What is your living situation today?: I have a steady place to live Within the past 12 months, did the food you bought not last and you didn't have the money to get more?: Never true Within the past 12 months, did you worry whether your food would run out before you got money to buy more?: Never true Do you have trouble paying for medicines?: No Do you have trouble getting transportation to medical appointments?: No Do you have trouble paying your heating and electricity bill?: No Do you have trouble taking care of your child, family member or friend?: No Do you have trouble with day-to-day activities such as bathing, preparing meals, shopping, managing finances, etc.?: No Are you currently unemployed and looking for a job?: No Are you interested in more education?: No Please select the resources that you would like help with: None Currently or been in a relationship where the following occur: I choose not to answer THRIVE Score: 0 AUDIT C Alcohol Use Questionnaire (AUDIT-C) 1. How often do you have a drink containing alcohol?: 2-4 times a month 2. How many drinks containing alcohol do you have on a typical day when you are drinking?: 1 or 2 3. How often do you have six or more drinks on one occasion?: Never Total Score: 2 CECY-7 AMB Questionnaire CECY-7 Date CECY - 7 assessed: 12/23/24 Feeling nervous, anxious, or on edge: 0 = Not at all Not being able to stop or control worryin = Not at all Worrying too much about different things: 0 = Not at all Trouble relaxin = Not at all Being so restless that it is hard to sit still: 0 = Not at all Becoming easily annoyed or irritable: 0 = Not at all Feeling afraid as if something awful might happen: 0 = Not at all Total CECY-7 score (0-4 normal; 5-9 mild; 10-14 moderate; 15-21 severe): 0 Source: Developed by Drs. Rojas King, Marleen Morales, Travis Joyner and colleagues, with an educational kimi from [employer]. Physical exam (Primary Care) Vital Signs: Last Vital Signs Temp 97.1 F 04/21/25 15:36 Pulse 92 04/21/25 15:36 BP 108/58 L 04/21/25 15:36 Pulse Ox 99 04/21/25 15:36 Oxygen Delivery Method Room Air 04/21/25 15:36 BMI result Body Mass Index 19.4 Tobacco/Smoking Status: Tobacco use Status Tobacco use date assessed 04/21/25 04/21/25 15:43 Patient Tobacco Use Status Former Tobacco user 04/21/25 15:35 Tobacco use type Cigarette 04/21/25 15:35 e-Cigarette/Vaping Use Never Used 04/21/25 15:35 PHQ-9: PHQ-9 Score PHQ-9: Total score 0 04/21/25 15:43 Depression Screening Interpretation: Negative Thrive Assessment: Date of Thrive Assessment Date Thrive assessed 04/05/25 04/21/25 15:35 Currently or been in a relationship where the following occur: I choose not to answer Const Other: Neural exam: Right facial droop. Drooping of the right upper eyelid. Motor strength 5 x 5 in all extremities. Gait normal. No ulnar drift. General: cooperative and healthy appearing Nutritional Appearance: well nourished Orientation/consciousness: patient oriented x3 Limitations: no limitations HENMT Head: Yes normal to inspection Eyes General: appearance normal, both eyes and all related structures Neck Neck: Yes normal visual inspection Chest Chest palpation & inspection: normal palpation of entire chest wall Resp Effort & Inspection: normal respiratory effort Neuro General: patient oriented x3 Coding Level of Care Code Est Pt Level 4 (60424) Complex EM visit Add On G2211 Diagnoses Longoria's palsy G51.0 Assessment & Plan Assessment & Plan (1) Longoria's palsy: Code(s): G51.0 - Longoria's palsy Category: Medical Plan: Her clinical symptoms resemble Longoria's palsy. I advised her to complete the course of prednisone given to her at the emergency room. Patient needed routine prescriptions of sertraline and tramadol filled. This was done. Will follow-up if any new symptoms occur. Medications: New sertraline 25 mg PO DAILY@1330 90 tabs 0RF Refilled tramadol 50 mg PO BID PRN 45 tabs 0RF Pain G89.21 - Chronic pain due to trauma
[2025-04-21 15:36] VITALS: BP 108/58; PULSE 92; TEMP 36.2; O2SAT 99; BMI 19.4
== END 2025-04-21 16:26 | disposition home or self-care (01) ==
LOC: HO.HMCH 15:26
PROVIDERS: PCP Internal Medicine; Visit Provider Internal Medicine
DX: G51.0 Bell's palsy (principal)

== ENCOUNTER → 2025-04-21 15:25 | Outpatient (BNVA) | payer MEDICARE, SELFPAY | PROVIDERS: PCP Internal Medicine; Visit Provider Internal Medicine | DX: G51.0 Bell's palsy (principal) | CPT/HCPCS: 99212 ==

== ENCOUNTER 2025-06-02 13:58 | Outpatient (AMB) | payer MEDICARE, SELFPAY ==
--- OUTSIDE RECORDS SUMMARY | 2024-09-15 12:00 | XMS_ITS ---
Author Organization [facility] Address [address] [place] [address] Care Team Providers Care Research Editor Name Role Phone PARTH COREAS Primary Care Provider Rojas Iniguez [phone] JAVIER DENSON PA-C Unavailable REASON FOR VISIT stomach issues Encounters Encounter Location Date Provider Diagnosis [facility] [address] [facility] [place] [address] 09/15/2024 Rojas Plata Plan Of Treatment No Information Progress Notes * CASSIDY SORENSENDOB: [birth year] (69 yo F)Acc No.[id number]:09/15/2024 Progress Notes Patient: CASSIDY ÁLVAREZ Provider: Meagan Plata MD :1955 A ge:68 Y S ex:Female Date:09/15/2024 Address: [address] [id number] Pcp:PARTH COREAS Subjective: * Chief Complaints: * [...] MD Date: 0 09/15/2024 Generated for Viola hung/Faxing/eTransmitting on: 1 03:38 PM EDT
[2025-06-02 14:03] VITALS: BP 120/60; PULSE 61; BMI 19.4
--- NOTE | 2025-06-02 14:03 | A.OFFVIS_ITS ---
Vital Signs 06/02/25 14:03 Height 5 ft Weight 99 lb 3.328 oz BMI 19.4 BP 120/60 Blood Pressure Location Lt brachial Position Sitting Pulse 61 Pulse Source Pulse Oximeter Intake Visit Reasons: 4 mth f/up Allergies Sulfa (Sulfonamide Antibiotics) (SULFA(SULFONAMIDE ANTIBIOTICS)) Allergy (Intermediate, Verified 04/21/25 19:04) RASH/HIVES Medication List - Last Reconciled 06/02/25 by Lizandro Feldman MD alendronate (Fosamax) 70 mg PO SOSA apixaban (Eliquis) 5 mg PO BID aspirin (Adult Aspirin Regimen) 81 mg PO DAILY gabapentin 300 mg PO TID lisinopril 40 mg PO DAILY metoprolol succinate ER 100 mg PO DAILY nitroglycerin 0.4 mg sublingual Q5M PRN rosuvastatin 20 mg PO DAILY@1330 sertraline 25 mg PO DAILY@1330 tramadol 50 mg PO BID PRN HPI Comments Details: Ana Rosa returns for follow-up regarding coronary artery disease. To recall, in the past, she had chest pain leading to cardiac catheterization which showed complex multivessel disease and then leading to coronary artery bypass surgery. She had a complicated course as there were several issues postoperatively. After the CABG, she apparently had inferolateral STEMI and went for a successful PCI of the anastomosis of MORELOS to LAD with drug-eluting stent. Following that, she had vascular surgery in her lower extremities including bilateral femoral thromboendarterectomy with patch angioplasty. Following that, partial colectomy for colonic ischemia, bowel anastomosis, abdominal closure among others. She remains quite frail. She states she is getting some chest discomfort under the left breast. However, this happens only at nighttime when she is trying to lie down. Seems more like an acid reflux type issue. Also, it seems he started after she started the Fosamax. She has got no exertional chest pain whatsoever. [facility] Medical History Osteopenia Thiamin deficiency Follow-up exam, 3-6 months since previous exam Cervical cancer screening History of mammogram (~08/07/23) Peripheral vascular disease with claudication Peripheral vascular disease Atherosclerotic cardiovascular disease Essential hypertension Protein calorie malnutrition Syncope Essential hypertension Hypercholesterolemia Cataract fragments in both eyes following surgery Hip fracture Femur fracture High cholesterol Neuropathy High blood pressure Surgical History Stented coronary artery History of quadruple bypass History of colonoscopy (~06/21/22) History of hip surgery History of cataract surgery History of surgery History of ankle surgery History of endoscopy Family History Mother Heart attack Father Heart attack Social History Household Members: None Housing: House Do you presently have visiting nurse or other home services: No Alcohol intake: current Alcohol intake frequency: a few times a week Alcohol type: beer Patient Tobacco Use Status: Former Tobacco user Tobacco use type: Cigarette Cigarettes Per Day: 3 Years Smoked: 42 on and off e-Cigarette/Vaping Use: Never Used Second Hand Smoke Exposure: Yes service: No Current occupational status: employed Current occupation: rt handed Cognitive needs: Yes (cane/walker) Hearing needs: No Vision needs: Yes (glasses) Review of Systems Const Denies weakness Eyes Reports blurry vision ENT Denies dizziness Card Denies chest pain, Denies chest pain with activity, Denies syncope, Denies rapid heart rate, Denies pedal edema, Denies edema, Denies leg edema, Denies lightheadedness, Reports palpitations, Denies dyspnea, Denies dyspnea on exertion and Denies orthopnea Resp Denies cough, Denies dyspnea and Denies dyspnea on exertion GI Denies hematochezia and Denies change in stool character Musc Denies abnormal gait, Denies muscle cramps, Denies muscle weakness, Denies numbness, Denies radiating pain into limb and Denies tingling Neuro Denies abnormal gait, Denies dizziness, Denies syncope, Denies numbness, Denies tingling and Denies weakness Endo Reports palpitations Physical Exam Vital Signs: Last Vital Signs Pulse 61 06/02/25 14:03 BP 120/60 06/02/25 14:03 BMI result Body Mass Index 19.4 Const General: comfortable and no acute distress Nutritional Appearance: thin and underweight Orientation/consciousness: patient oriented x3 HEENT Other: Unremarkable Head: Yes normal to inspection Neck Neck: Yes normal visual inspection Chest Chest palpation & inspection: normal inspection of the chest Resp Auscultation: clear to auscultation bilaterally Cardio Palpation: normal PMI Heart sounds: S1 normal heart sound present, S2 normal heart sound present, no gallops, no murmurs and no rubs GI Palpation (GI): Soft to palpation Back/Spine/Pelvis Other: unremarkable Skin General skin exam: no rashes or lesions noted Neuro General: patient oriented x3 Extrem General: Yes normal to inspection Psych Mental Status: mental status grossly normal Assessment & Plan Assessment & Plan (1) Atherosclerotic cardiovascular disease: Code(s): I25.10 - Atherosclerotic heart disease of [place] coronary artery without angina pectoris Category: Medical (2) Status post aorto-coronary artery bypass graft: Code(s): Z95.1 - Presence of aortocoronary bypass graft Category: Surgical (3) Stented coronary artery: Comment: Stent to the MORELOS to LAD anastomosis Code(s): Z95.5 - Presence of coronary angioplasty implant and graft Category: Surgical (4) Essential hypertension: Code(s): I10 - Essential (primary) hypertension Category: Medical Plan Overall, patient has thin, frail with extensive coronary as well as vascular issues but generally stable. Suspect her nighttime chest pains are more related to Fosamax/esophageal origin and not cardiac. Any case, advised her to keep watching for exertional symptoms and if so, she should contact us. For medications, she remains on beta-blockers, statins. For blood pressure, on lisinopril. No changes with these. Testing- Most recent echocardiogram with LVEF of 60-65%. No significant valvular findings. Myocardial perfusion imaging study from January shows distal lateral ischemia, mild intensity. Coding Level of Care Code Est Pt Level 4 (53729) Complex EM visit Add On G2211 Diagnoses Atherosclerotic cardiovascular disease I25.10 Status post aorto-coronary artery bypass graft Z95.1 Stented coronary artery Z95.5 Essential hypertension I10
--- OUTSIDE RECORDS SUMMARY | 2025-06-02 15:38 | XMS_ITS | Clinical Summary ---
Author Organization [facility] Facility Address [address] [place] [id number] Care Team Providers Care Developing Machine Operator Name Role Phone Unavailable Primary Care Provider [...]
--- OUTSIDE RECORDS SUMMARY | 2025-06-02 15:39 | XMS_ITS | Patient Health Record ---
Author Organization [facility] Address [address] [place] [address] Care Team Providers Care Computer Language Coder Name Role Phone JOSS, KARTIK Primary Care Provider Rojas Iniguez Unavailable [phone] JAVIER DENSON PA-C Unavailable Unavailable Allergies Allergen (clinical drug ingredient) Drug/Non Drug Allergy documented on EMR Reaction Allergy Type Onset Date Status Sulfa Unknown Drug Allergy Active Reason For Referral No Information Medications Medication SIG (Take, Route, Frequency, Duration) Notes Start Date End Date Status Gabapentin 300 MG 1 capsule Orally Three times a day Active traMADol HCl 50 MG 1 tablet as needed Orally every 6 hrs Active Vitamin D 400 UNIT Orally A ctive Lisinopril 40 MG 1 tablet Orally Once a day Active Aspirin 81 MG 1 tablet Orally [...] to the hospital before she starts the cholestyramine.Kristie li 05/07/2024 Active Sertraline HCl 25 MG TAKE 1 TABLET BY MOUTH EVERY DAY Oral for 90 Active Eliquis 5 MG Oral for 90 Activ e Rosuvastatin Calcium 20 MG TAKE 1 TABLET BY MOUTH EVERY DAY Orally Once a day Active Metoprolol Succinate ER 50 MG TAKE 1 TABLET BY MOUTH EVERY DAY Oral for 90 Active Immunizations Vaccine Route Administration Date Status Comme nts Influenza Unknown 05/02/2021 Administered Influenza Unknown 01/19/2025 Refused Social History Tobacco Use: Social History Observation [...] her CABG in 2022; no sig alcohol Stopped smoking at the time of her CABG in 2022; no sig alcohol Problems Problem Type SNOMED Code ICD Code Onset Dates Problem Status W/U Status Risk Notes Problem Colon cancer screening (422420207) Colon cancer screening (Z12.11) Active confirmed Problem History of adenomatous polyp of colon (011497126) History of adenomatous polyp of colon (Z86.010) Active confirmed Problem Preprocedural examination (961644420842874) Preprocedural examination (Z01.818) Active confirmed Problem Chronic diarrhea (272395081) Chronic diarrhea (K52.9) Active confirmed Problem Diverticulosis of colon (597106067) Diverticulosis of colon (K57.30) Active confirmed Problem History of infectious disease (319455487) History of Clostridioides difficile infection (Z86.19) Active confirmed Vital Signs Blood pressure diastolic 01 mm Hg 01/19/2025 Height 61.5 in 01/19/2025 Blood pressure systolic 001 mm Hg 01/19/2025 Weight 103.6 lbs 01/19/2025 BMI 19.26 kg/m2 01/19/2025 Encounters Encounter Location Date Provider Diagnosis [facility] [address] [place] [address] 01/19/2025 Rojas Plata Chronic diarrhea K52.9 and Bile salt-induced diarrhea K90.89 [facility] [address] [place] [address] 09/15/2024 Rojas Plata Assessments Encounter Date Diagnosis (ICD Code) Assessment Notes Treatment Notes Treatment Clinical Notes Section Notes 01/19/2025 Chronic diarrhea (ICD-10 - K52.9) Use the Cholestyramine powder once or twice a day as needed for the diarrhea Overall, Ana Rosa seems stable in regard to both her diarrhea and her previous weight loss. It does seem that the cholestyramine gave her some symptomatic relief in regard to the diarrhea which I felt was in relation to a bile induced component. As such, I did advise her to certainly resume that and continue that on a daily or twice a day basis to maintain a more comfortable bowel regimen and avoid diarrhea. Based on her response to the cholestyramine, her current clinical history, and the normal fecal calprotectin level, I am inclined to hold off on colonoscopy as I do not think inflammatory bowel disease is playing a role in her condition. We did review that she will be due for a colonoscopy in 2026 for screening purposes. At that time we will review things and decide about a colonoscopy based on her clinical condition at that time. If things remain stable in regard to the diarrhea I did advise her to simply continue the cholestyramine and then see me in 2026. However, I did advise her to definitely call me in the interim if she is having any problems or questions I can be of assistance with. Ana Rosa and her sister were comfortable with this plan. Thank you again for allowing me to participate in Ana Rosa's care. I shall continue to keep you advised of her progress.. 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 It does seem that the cholestyramine gave her some symptomatic relief in regard to the diarrhea which I felt was in relation to a bile induced component. As such, I did advise her to certainly resume that and continue that on a daily or twice a day basis to maintain a more comfortable bowel regimen and avoid diarrhea. Based on her response to the cholestyramine, her current clinical history, and the normal fecal calprotectin level, I am inclined to hold off on colonoscopy as I do not think inflammatory bowel disease is playing a role in her condition. We did review that she will be due for a colonoscopy in 2026 for screening purposes. At that time we will review things and decide about a colonoscopy based on her clinical condition at that time. If things remain stable in regard to the diarrhea I did advise her to simply continue the cholestyramine and then see me in 2026. However, I did advise her to definitely call me in the interim if she is having any problems or questions I can be of assistance with. Ana Rosa and her sister were comfortable with this plan. Thank you again for allowing me to participate in Ana Rosa's care. I shall continue to keep you advised of her progress.. 01/19/2025 Other You are due for a colonoscopy in 2026 Overall, Ana Rosa seems stable in regard to both her diarrhea and her previous weight loss. It does seem that the cholestyramine gave her some symptomatic relief in regard to the diarrhea which I felt was in relation to a bile induced component. As such, I did advise her to certainly resume that and continue that on a daily or twice a day basis to maintain a more comfortable bowel regimen and avoid diarrhea. Based on her response to the cholestyramine, her current clinical history, and the normal fecal calprotectin level, I am inclined to hold off on colonoscopy as I do not think inflammatory bowel disease is playing a role in her condition. We did review that she will be due for a colonoscopy in 2026 for screening purposes. At that time we will review things and decide about a colonoscopy based on her clinical condition at that time. If things remain stable in regard to the diarrhea I did advise her to simply continue the cholestyramine and then see me in 2026. However, I did advise her to definitely call me in the interim if she is having any problems or questions I can be of assistance with. Ana Rosa and her sister were comfortable with this plan. Thank you again for allowing me to participate in Ana Rosa's care. I shall continue to keep you advised of her progress.. Plan Of Treatment Pending Test Test Name Order Date STOOL WBC 05/07/2024 C DIFFICILE RFLX PCR 05/07/2024 GI PANEL 05/07/2024 Future Test Test Name Order Date COLONOSCOPY 05/04/2014 COLONOSCOPY 04/18/2022 Insurance Providers Payer Name Payer Address Payer Phone Subscriber Number Group Number Insured Name Patient Relationship to Insured Coverage Start Date Coverage End Date MEDICARE OF [place] [address] [place] [id number] [phone] [id number] ANA ROSA SORENSEN Self - patient is the insured [facility] SUPPLEMENTAL PLAN [address] [place] [address] [id number] ANA ROSA SORENSEN Self - patient is [...] iliac stent and femoral arteries in 2022 C diff 04/2023 in [facility] [place] Diarrhea presumed secondary to a bile-induced diarrhea as result of her partial colectomy. She was started on cholestyramine in 2022 Surgical History Surgery Date(Month/Year) Angioplasty of RLE 01/2024 4V CABG complicated by TN wi th placement of stent, ischemic bowel requiring partial colectomy of the ascending colon and proximal transverse colon, and lower extremity vascular disease requiring angioplasty and stenting of the iliacs and femoral arteries 10/2022 Broken left hip and hip replacement 2020 Broke femur in right leg and hip--hip re placemen 2016 Cataracts Broken right foot broken Surgery on left leg from dog bite/pit bu ll Tonsillectomy
--- OUTSIDE RECORDS SUMMARY | 2025-06-02 15:39 | XMS_ITS | Clinical Summary ---
Author Organization [facility] Address [address] [place] [phone] Phone Care Team Providers Care Trauma Therapist Name Role Phone Mohinder Solis MD Primary [...] 2 - PCV) 04/10/2018 04/10/2017 OSTEOPOROSIS SCREENING INITIAL (ONE-TIME) 2021 INFLUENZA VACCINE (#1) 2025 , 06/02/2020, 06/23/2019, Additional history exists COVID-19 VACCINE (2024- season) 2025 09/21/2021, 12/29/2020, 12/08/2020 RSV VACCINE (1 - [...] Devices Not on file Insurance MEDICARE A GENERIC COMMERCIAL [facility] Address: [address] [address] MEDICARE A GENERIC COMMERCIAL MEDICARE A GENERIC COMMERCIAL MEDICARE A GENERIC COMMERCIAL MEDICARE A GENERIC COMMERCIAL MEDICARE A GENERIC COMMERCIAL BLANK [place] [id number] [facility] GENERIC COMMERCIAL Care Teams Trauma Therapist Relationship Specialty Start Date End Date Mohinder Solis MD [address] [place] [id number] PCP - General Internal Medicine 11/12/22 Additional Source Comments The information contained in this document represents components of the legal health record. It is not the complete legal health record.[facility]
== END 2025-06-02 14:25 | disposition home or self-care (01) ==
LOC: HO.HCS 13:59
PROVIDERS: PCP Internal Medicine; Visit Provider Internal Medicine
DX: I25.10 Atherosclerotic heart disease of native coronary artery without angina pectoris (principal); Z95.1 Presence of aortocoronary bypass graft; Z95.5 Presence of coronary angioplasty implant and graft; I10 Essential (primary) hypertension
CPT/HCPCS: 99214; G2211

== ENCOUNTER → 2025-06-02 13:58 | Outpatient (BNVA) | payer MEDICARE, SELFPAY | PROVIDERS: PCP Internal Medicine; Visit Provider Internal Medicine | DX: I25.10 Atherosclerotic heart disease of native coronary artery without angina pectoris (principal); I10 Essential (primary) hypertension; Z95.1 Presence of aortocoronary bypass graft; Z95.5 Presence of coronary angioplasty implant and graft | CPT/HCPCS: 99212 ==

== ENCOUNTER 2025-07-07 14:03 | Outpatient (AMB) | payer MEDICARE, SELFPAY ==
--- OUTSIDE RECORDS SUMMARY | 2024-09-15 11:00 | XMS_ITS ---
Author Organization [facility] Address [address] [place] [address] Care Team Providers Care Toggle Press Folder And Feeder Name Role Phone PARTH COREAS Primary Care Provider Rojas Iniguez [phone] JAVIER DENSON PA-C Unavailable REASON FOR VISIT stomach issues Encounters Encounter Location Date Provider Diagnosis [facility] [address] [facility] [place] [address] 09/15/2024 Rojas Plata Plan Of Treatment No Information Progress Notes * CASSIDY SORENSENDOB: 9[birth year] (69 yo F)Acc No.[id number]:09/15/2024 Progress Notes Patient: CASSIDY ÁLVAREZ Provider: Meagan Plata MD :1955 A ge:68 Y S ex:Female Date:09/15/2024 Address: [address] [id number] Pcp:PARTH COREAS Subjective: * Chief Complaints: * 1 . Stomach issues. * Medical History: Objective: * Vitals: Assessment: Plan: * Treatment: * * The named appointment provid er may or may not be the originator of this progress note, and it is not deemed complete until electronically signed by the appointment provider. Sign off status: Pending * Provider: Meagan Plata MD Date: 0 09/15/2024 Generated for Viola hung/Ju/Sarthaksmitting on: 1 09/06/2024 05:17 PM EST
[2025-07-07 14:10] VITALS: BP 112/72; PULSE 68; TEMP 36.1; O2SAT 98; BMI 19.6
--- NOTE | 2025-07-07 14:10 | MHC.PC.OV ---
Vital Signs 07/07/25 14:10 Height 5 ft Weight 100 lb 2 oz BMI 19.6 BP 112/72 Blood Pressure Location Lt brachial Position Sitting Pulse 68 Pulse Source Pulse Oximeter Temp 97.0 F Temp Source Temporal Artery Scan Pulse Oximetry (%) 98 Oxygen Delivery Method Room Air Intake Visit Reasons: 3mth f/u - see comments Allergies Sulfa (Sulfonamide Antibiotics) (SULFA(SULFONAMIDE ANTIBIOTICS)) Allergy (Intermediate, Verified 07/07/25 14:13) RASH/HIVES Tobacco use date assessed: 07/07/25 Fall risk assessment: No Falls in past year Last assessed Fall Risk: 07/07/25 Dental Screening Dental Screen Date: 07/07/25 Did you have a dental visit in the last 12 months?: Yes Did you have a dental problem in the last 6 months where you did not have access to dental care?: No Was dental information given to patient?: Patient has dentist [facility] Medical History Osteopenia Thiamin deficiency Follow-up exam, 3-6 months since previous exam Cervical cancer screening History of mammogram (~08/07/23) Peripheral vascular disease with claudication Peripheral vascular disease Atherosclerotic cardiovascular disease Essential hypertension Protein calorie malnutrition Syncope Essential hypertension Hypercholesterolemia Cataract fragments in both eyes following surgery Hip fracture Femur fracture High cholesterol Neuropathy High blood pressure Surgical History Stented coronary artery History of quadruple bypass History of colonoscopy (~06/21/22) History of hip surgery History of cataract surgery History of surgery History of ankle surgery History of endoscopy Family History Mother Heart attack Father Heart attack Social History Household Members: None Housing: House Do you presently have visiting nurse or other home services: No Alcohol intake: current Alcohol intake frequency: a few times a week Alcohol type: beer Patient Tobacco Use Status: Former Tobacco user Tobacco use type: Cigarette Cigarettes Per Day: 3 Years Smoked: 42 on and off e-Cigarette/Vaping Use: Never Used Second Hand Smoke Exposure: Yes service: No Current occupational status: employed Current occupation: rt handed Cognitive needs: Yes (cane/walker) Hearing needs: No Vision needs: Yes (glasses) Questionnaire PHQ-9 Over the last 2 weeks, how often have you been bothered by any of the following problems? 1. Little interest or pleasure in doing things: not at all 2. Feeling down, depressed, or hopeless: not at all 3. Trouble falling or staying asleep, or sleeping too much: not at all 4. Feeling tired or having little energy: not at all 5. Poor appetite or overeating: not at all 6. Feeling bad about yourself - or that you are a failure or have let yourself or your family down: not at all 7. Trouble concentrating on things, such as reading the newspaper or watching television: not at all 8. Moving or speaking so slowly that other people could have noticed. Or the opposite - being so fidgety or restless that you have been moving around a lot more than usual: not at all 9. Thoughts that you would be better off or of hurting yourself in some way: not at all Total score: 0 Depression Screening Interpretation: Negative Depression Screening Done: Yes Source: Developed by Drs. Rojas King, Marleen Morales, Travis Joyner and colleagues, with an educational kimi from [employer]. Thrive Questionnaire Date Thrive assessed: 04/05/25 I am a: Patient What is your living situation today?: I have a steady place to live Within the past 12 months, did the food you bought not last and you didn't have the money to get more?: Never true Within the past 12 months, did you worry whether your food would run out before you got money to buy more?: Never true Do you have trouble paying for medicines?: No Do you have trouble getting transportation to medical appointments?: No Do you have trouble paying your heating and electricity bill?: No Do you have trouble taking care of your child, family member or friend?: No Do you have trouble with day-to-day activities such as bathing, preparing meals, shopping, managing finances, etc.?: No Are you currently unemployed and looking for a job?: No Are you interested in more education?: No Please select the resources that you would like help with: None Currently or been in a relationship where the following occur: I choose not to answer THRIVE Score: 0 AUDIT C Alcohol Use Questionnaire (AUDIT-C) 1. How often do you have a drink containing alcohol?: 2-4 times a month 2. How many drinks containing alcohol do you have on a typical day when you are drinking?: 1 or 2 3. How often do you have six or more drinks on one occasion?: Never Total Score: 2 CECY-7 AMB Questionnaire CECY-7 Date CECY - 7 assessed: 12/23/24 Feeling nervous, anxious, or on edge: 0 = Not at all Not being able to stop or control worryin = Not at all Worrying too much about different things: 0 = Not at all Trouble relaxin = Not at all Being so restless that it is hard to sit still: 0 = Not at all Becoming easily annoyed or irritable: 0 = Not at all Feeling afraid as if something awful might happen: 0 = Not at all Total CECY-7 score (0-4 normal; 5-9 mild; 10-14 moderate; 15-21 severe): 0 Source: Developed by Drs. Rojas King, Marleen Morales, Travis Joyner and colleagues, with an educational kimi from [employer]. Physical exam (Primary Care) Vital Signs: Last Vital Signs Temp 97.0 F 07/07/25 14:10 Pulse 68 07/07/25 14:10 BP 112/72 07/07/25 14:10 Pulse Ox 98 07/07/25 14:10 Oxygen Delivery Method Room Air 07/07/25 14:10 BMI result Body Mass Index 19.6 Tobacco/Smoking Status: Tobacco use Status Tobacco use date assessed 07/07/25 07/07/25 14:15 Patient Tobacco Use Status Former Tobacco user 07/07/25 14:15 Tobacco use type Cigarette 07/07/25 14:15 e-Cigarette/Vaping Use Never Used 07/07/25 14:15 PHQ-9: PHQ-9 Score PHQ-9: Total score 0 07/07/25 14:15 Depression Screening Interpretation: Negative Thrive Assessment: Date of Thrive Assessment Date Thrive assessed 04/05/25 07/07/25 14:15 Currently or been in a relationship where the following occur: I choose not to answer Coding Level of Care Code Est Pt Level 4 (89094) Complex EM visit Add On G2211 Diagnoses Hypercholesterolemia E78.00 Assessment & Plan Assessment & Plan (1) Hypercholesterolemia: Code(s): E78.00 - Pure hypercholesterolemia, unspecified Category: Medical Plan: History of Present Illness - The patient is a 69-year-old female presenting for a general follow-up and to provide an update on her ophthalmologic care. - She reports upcoming surgery for a macular hole, which is present in both eyes. - Her ocular history is significant for cataract surgery and stent placement for glaucoma, both performed years ago. - She is scheduled for a vitrectomy and macular hole repair with Dr. Patten on August 09, starting with the left eye first, to be followed by the right eye at a later date. - The patient also follows with a vascular surgeon every three months for ultrasound testing of her legs. - She reports her previous heart surgery went well. - Her last blood work was completed on April 11 and was noted to be fine. - She confirms her tramadol prescription was refilled. Social History - Functional Status: The patient is ambulatory but notes she cannot walk as fast or as well as she used to. - Transportation: The patient does not drive and relies on others for transportation. Review of Systems - Eyes: Reports having macular holes in both eyes. - Musculoskeletal: Reports ability to walk but not as fast or as well as she used to. Physical Exam General: Cooperative and healthy appearing Nutritional Appearance: Well nourished Orientation/consciousness: Patient oriented x3 Limitations: No limitations Head: Normal to inspection General: Appearance normal, both eyes and all related structures Neck: Normal visual inspection Chest: Normal palpation of entire chest wall Respiratory: Patient reports breathing is okay. ormal respiratory effort Neurology: Patient oriented x3. Results - Labs: Reports blood work from April 11 was fine. - Diagnostics: Reports undergoing leg ultrasound testing every three months with her vascular surgeon. Plan - Macular Hole: The patient will proceed with the scheduled vitrectomy and macular hole repair of the left eye on August [address] Patten. - Peripheral Vascular Disease: The patient will continue with her scheduled follow-ups every three months with her vascular surgeon, to include leg ultrasounds. - Medications: The tramadol refill has been sent. - Health Maintenance: The patient declined the influenza vaccine today. - Follow-up: The patient will return to the clinic in three months. Discussion Notes I discussed the patient's upcoming eye surgery for a macular hole, scheduled for August 09. We reviewed that the surgery will start with the left eye and that her surgeon's office may be in contact for pre-operative requirements. We also confirmed her tramadol prescription was sent and that she will continue her regular three-month follow-ups with her vascular surgeon. The patient declined a flu shot today, and we scheduled a follow-up visit in three months. Patient Instructions - Please proceed with your scheduled eye surgery on August 09. - Continue to follow up with your vascular surgeon every three months for leg ultrasounds. - Your prescription for tramadol has been refilled. - You have declined the flu shot at this time. - Please follow up in this office in three months.
--- OUTSIDE RECORDS SUMMARY | 2025-07-07 17:17 | XMS_ITS | Clinical Summary ---
Author Organization [facility] Address [address] [place] [phone] Phone Care Team Providers Care Overnight Stocker Name Role Phone Mohinder Solis MD Primary [...] on file Insurance MEDICARE A GENERIC COMMERCIAL MEDICARE A GENERIC COMMERCIAL MEDICARE A GENERIC COMMERCIAL MEDICARE A GENERIC COMMERCIAL MEDICARE A GENERIC COMMERCIAL MEDICARE A GENERIC COMMERCIAL BLANK JOY [id number] [facility] GENERIC COMMERCIAL Care Teams Overnight Stocker Relationship Specialty Start Date End Date Mohinder Solis MD [address] [place] [id number] PCP - General Internal Medicine 11/12/22 Additional Source Comments The information contained in this document represents components of the legal health record. It is not the complete legal health record.[facility]
--- OUTSIDE RECORDS SUMMARY | 2025-07-07 17:17 | XMS_ITS | Patient Health Record ---
Author Organization [facility] Address [address] [place] [address] Care Team Providers Care Position Description Manager Name Role Phone JOSS, KARTIK Primary Care Provider Rojas Iniguez Unavailable [phone] JAVIER DENSON PA-C Unavailable Unavailable Allergies Allergen [...] 81 MG 1 tablet Orally Once a day; Duration: 30 day(s) Active Cholestyramine 4 GM/DOSE use from 09/04 to up to 1 full scoop once or twice a day mixed in 8 ounces of water or orange juice Orally Once or Twice a day for diarrhea; Duration: 30 day(s) Review patient's meds with her and have her adjust their timing in relation to the use of the cholestyramine. Tell her to submit the stool specimens to the hospital before she starts the cholestyramine. jen 05/07/2024 Active Sertraline HCl 25 MG TAKE 1 TABLET BY MOUTH EVERY DAY Oral; Duration: 90 Active Eliquis 5 MG Oral; Duration: 90 Active Rosuvastatin Calcium 20 MG TAKE 1 TABLET BY MOUTH EVERY DAY Orally Once a day Active Metoprolol Succinate ER 50 MG TAKE 1 TABLET BY MOUTH EVERY DAY Oral; Duration: 90 Active Immunizations Vaccine Route Administration Date [...] Status Risk Notes Problem Colon cancer screening (995750172) Colon cancer screening (Z12.11) Active confirmed Problem History of adenomatous polyp of colon (001375884) History of adenomatous polyp of colon (Z86.010) Active confirmed Problem Preprocedural examination (922606149143668) Preprocedural examination (Z01.818) Active confirmed Problem Chronic diarrhea (823868845) Chronic diarrhea (K52.9) Active confirmed Problem Diverticulosis of colon (469198952) Diverticulosis of colon (K57.30) Active confirmed Problem History of infectious disease (378159249) History of Clostridioides difficile infection (Z86.19) Active confirmed Vital Signs Blood pressure diastolic 01 mm Hg 01/19/2025 Height 61.5 in 01/19/2025 Blood pressure systolic 001 mm Hg 01/19/2025 Weight 103.6 lbs 01/19/2025 BMI 19.26 kg/m2 01/19/2025 Encounters Encounter Location Date Provider Diagnosis [facility] [address] [place] [id number] 01/19/2025 Rojas Plata Chronic diarrhea K52.9 and Bile salt-induced diarrhea K90.89 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 She was started on cholestyramine in 2022 Surgical History Surgery Date(Month/Year) Angioplasty of RLE 01/2024 4V CABG complicated by [place] wi th placement of stent, ischemic bowel [...]
--- OUTSIDE RECORDS SUMMARY | 2025-07-07 17:17 | XMS_ITS | Clinical Summary ---
Author Organization [facility] Address [address] [place] [id number] Care Team Providers Care Customer Experience Professional Name Role Phone Unavailable Primary Care Provider [...]
== END 2025-07-07 14:49 | disposition home or self-care (01) ==
LOC: HO.HMCH 14:04
PROVIDERS: PCP Internal Medicine; Visit Provider Internal Medicine
DX: E78.00 Pure hypercholesterolemia, unspecified (principal)

== ENCOUNTER → 2025-07-07 14:03 | Outpatient (BNVA) | payer MEDICARE, SELFPAY | PROVIDERS: PCP Internal Medicine; Visit Provider Internal Medicine | DX: E78.00 Pure hypercholesterolemia, unspecified (principal) | CPT/HCPCS: 99212 ==